=== PATIENT | male | born 1980 | race Caucasian/White ===

== ENCOUNTER 2019-12-01 10:31 | Emergency (ER) | payer MEDICARE, MEDICAID, SELFPAY ==
--- NOTE | ~2019-12-01 | CT_ITS ---
EXAMINATION: CT abdomen pelvis wo con DATE: 12/01/2019 15:03 INDICATION: Abdominal pain. Difficulty urinating. HIV. Rectal cancer. TECHNIQUE: Computed tomography (CT) of the abdomen and pelvis was performed without intravenous contr ast. Automated exposure control and iterative reconstruction technique were employed. The dose-length product was 242.58 mGy-cm. COMPARISON: None. FINDINGS: The visualized portions of the lung bases demonstrate mild atelectasis on the left. No pleu ral effusion. The heart size is normal. No pericardial effusion. The liver, spleen, gallbladder, panc reas, adrenal glands, and kidneys are normal. There is no urolithiasis. The bladder is distended. The re is diffuse bladder wall thickening. There are no dilated loops of bowel. The appendix is not visua lized. There are no pathologically enlarged lymph nodes. There is no free intraperitoneal fluid. Ther e is mild lumbar spondylosis. IMPRESSION: 1. Distended bladder with diffuse bladder wall thickening, which may be secondary to cystitis or neur ogenic bladder. Reviewed, dictated and finalized at location B. IMPRESSION: 1. Distended bladder with diffuse bladder wall thickening, which may be seconda ry to cystitis or neurogenic bladder.
[2019-12-01 10:43] VITALS: BP 95/57; PULSE 86; RESP 20; TEMP 36.8; O2SAT 99
[2019-12-01] MEDS: SODIUM CHLORIDE 0.9% IV 1,000 ML 999 ML IV CONT ×2 (11:20→13:22)
[2019-12-01 11:31] LABS: Basophils Percent Auto 0.3 % (0.2-1.2); Eosinophils Percent Auto 0.3 % (0-4.4); Hematocrit 28.9 % (42.0-52.0); Hemoglobin 9.8 g/dL (14.0-18.0); Immature Granulocyte Absolute 0.05 K/mm3 (0.00-0.031); Immature Granulocyte Percent A 1.4 % (0-0.5); Lymphocytes Absolute Auto 1.49 K/mm3 (0.9-3.2); Lymphocytes Percent Auto 42.6 % (18.3-44.2); Mean Corpuscular HGB Conc 33.9 g/dl (32-36); Mean Corpuscular Hemoglobin 33.1 pg (26-34); Mean Corpuscular Volume 97.6 fl (80-100); Mean Platelet Volume 10.1 fl (7.4-10.4); Monocytes Absolute Auto 0.3 K/mm3 (0.1-0.6); Monocytes Percent Auto 9.7 % (2.6-8.5); Neutrophils Absolute Auto 1.6 K/mm3 (1.3-6.7); Neutrophils Percent Auto 45.7 % (45.5-73.1); Platelet Count Result 104 k/mm3 (150-375); Red Blood Count 2.96 M/mm3 (4.6-6.20); Red Cell Distribution Width 14.4 % (11.5-14.5); White Blood Count 3.5 K/mm3 (4.5-10.0)
[2019-12-01 11:37] LABS: Add Urine Microscopic? YES; Appearance Urine Clear (Clear); Bilirubin Urine Negative (Negative); Blood Urine Negative (Negative); Color Urine Yellow (Yellow); Glucose Urine UA Negative (Negative); Ketones Urine Negative (Negative); Leukocyte Esterase Ur Negative LEU/UL (Negative); Nitrate Urine Negative (Negative); Protein Urine 1+ mg/dL (Negative); RBC Urine 0-2 /hpf (0-2); Specific Grav Ur 1.014 (1.001-1.035); WBC Urine 0-3 /hpf
[2019-12-01 11:48] LABS: Alanine Aminotransferase 12 U/L (4-50); Albumin Level 3.6 g/dL (3.5-5.1); Alkaline Phosphatase 81 U/L (38-126); Anion Gap 6 mmol/L (8-16); Aspartate Amino Transferase 33 U/L (17-59); Bilirubin,Total 0.8 mg/dL (0.2-1.3); Blood Urea Nitrogen 18 mg/dL (9-20); Carbon Dioxide 25 mmol/L (22-30); Chloride 106 mmol/L (98-107); Estimated CRCL calculation 55 ml/min; Estimated Glomerular Filt Rate 52; Glucose 88 mg/dL (75-110); Lipase 192 U/L (23-300); Sodium 137 mmol/L (137-145)
[2019-12-01 12:37] VITALS: BP 100/67; BP 93/55; BP 96/68; PULSE 55; PULSE 58; PULSE 66
[2019-12-01] MEDS: POTASSIUM CHLORIDE 20 MEQ TABLET 40 MEQ PO (13:22)
--- NOTE | 2019-12-01 13:30 | PC.NURSE ---
2nd liter of saline hung and infusing wide open without difficulty. pt resting on stretcher. denies pain or complaints.
--- NOTE | 2019-12-01 16:24 | ED.GENADULT ---
HPI - General Adult General Chief complaint: Urogenital-Male Stated complaint: difficulty urinating, weakness Time Seen by Provider: 12/01/19 10:42 Source: RN notes reviewed History of Present Illness HPI narrative: Patient presents to emergency department from home for difficulty urinating. Patient states he has had difficulty urinating over the past 4 days as well as general fatigue. He also notes a lack of appetite with the symptoms. Patient states he has a history of HIV as well as rectal cancer states that he has had chemotherapy and radiation and is scheduled for a PET scan next month. He denies any fevers or chills chest pain shortness of breath abdominal pain or any other symptoms Related Data Home Medications Medication Instructions Recorded Confirmed baclofen [Lioresal] 100 mcg INTRATHECAL DAILY 12/01/19 12/01/19 agyrzshgn-nsbgchdp-ldxtlor ala 1 tablet PO DAILY 12/01/19 12/01/19 [Biktarvy] diclofenac sodium [Voltaren-XR] 100 mg PO BID 12/01/19 12/01/19 fluconazole 200 mg PO BID 12/01/19 12/01/19 gabapentin [Neurontin] 600 mg PO QID 12/01/19 12/01/19 loperamide 2 mg PO QID 12/01/19 12/01/19 methadone [Dolophine] 5 mg PO BID 12/01/19 12/01/19 naloxone [Narcan] 1 spray INTRANASAL Q2M 12/01/19 ondansetron HCl [Zofran] 8 mg PO Q12H PRN 12/01/19 12/01/19 oxycodone-acetaminophen [Percocet] 1 tablet PO Q6H PRN 12/01/19 12/01/19 ropinirole [Requip XL] 1 mg PO DAILY 12/01/19 12/01/19 Allergies Allergy/AdvReac Type Severity Reaction Status Date / Time Penicillins AdvReac Intermediate contraindicated Verified 12/01/19 10:46 with current HIV Rx regimen sulfamethoxazole AdvReac Intermediate contraindicated Verified 12/01/19 10:46 by current HIV Rx regimen trimethoprim AdvReac Intermediate contraindicated Verified 12/01/19 10:46 by current HIV Rx regimen Review of Systems Review of Systems: Narrative: Gen.: Denies fevers or chills ENT: Denies congestion Respiratory: Denies shortness of breath or cough CV: Denies chest pain or palpitations GI: Denies abdominal pain nausea, emesis or diarrhea reports difficulty urinating Musculoskeletal: Denies back pain or muscle pain Neuro: Denies numbness, tingling, weakness or focal weakness Skin: Denies rash Except as documented, all other systems reviewed and negative [facility] Past Medical History Medical History (Updated 12/01/19 @ 16:27 by Myles Mckinney DO) HIV (human immunodeficiency virus infection) Rectal cancer Social History Social History (Updated 12/01/19 @ 16:26 by Myles Mckinney DO) Smoking status: Never smoker Exam Narrative: Exam Narrative: APPEARANCE: No acute distress, nontoxic, resting in bed EYES: EOMI HEENT: Normocephalic, atraumatic, OMM RESPIRATORY: No respiratory distress Clear to auscultation bilaterally with no rhonchi wheezing or rales. CARDIOVASCULAR: Regular rate and rhythm without murmurs rubs or gallops. ABDOMINAL: Soft, nontender, nondistended, no rebound or guarding MUSCULOSKELETAl: Moves all extremities. No clubbing, cyanosis or edema. NEURO: Awake and alert. Following commands, speech normal, no focal deficits SKIN:: Warm, dry. No rashes lesions or abrasions PSYCHIATRIC: Normal affect/mood, Course Course Emergency Course: Patient states he is followed by Dr. Peralta at [facility] Called and discussed with Dr. Ventura for oncology at [facility]. At this time reviewed records and the patient's pancytopenia is consistent with prior renal insufficiency is increased and with urinary retention and agrees with plan for Jordan catheter and transfer and will accept the patient Discussed patient plan for transfer in agreement at this time Patient again urinate in the ED. We did a postvoid bladder scan 350 mL and. Attempted to place a Jordan catheter in the emergency department only able to get a small way and to the urethra. Unable to pass at that point causing the pa
[2019-12-01 17:01] VITALS: BP 107/64; PULSE 66; RESP 16
--- NOTE | 2019-12-01 17:05 | PC.NURSE ---
pt attemping to use urinal. report to [facility] dong [facility] for transport 190
--- NOTE | 2019-12-01 17:58 | PC.NURSE ---
pt voided [address] vanegas unsuccessful. edp informed.
--- NOTE | 2019-12-01 18:00 | PC.NURSE ---
vrbo for norco 5-325 mg x1 po from dr dick
[2019-12-01 19:17] VITALS: BP 103/69; RESP 16
[2019-12-01 20:00] VITALS: BP 102/67; PULSE 59; RESP 16; O2SAT 98
--- NOTE | 2019-12-01 20:00 | PC.NURSE ---
[facility] accepted patient transfer eta 1944. [facility] arrived at 1958 to transport patient to [place]
== END 2019-12-01 20:00 | disposition short-term general hospital (02) ==
PROVIDERS: Emergency Provider Emergency Medicine; PCP Internal Medicine Infectious Disease
DX: R33.9 Retention of urine, unspecified (principal); N28.9 Disorder of kidney and ureter, unspecified; D61.818 Other pancytopenia; C20 Malignant neoplasm of rectum; Z21 Asymptomatic human immunodeficiency virus [HIV] infection status; R93.41 Abnormal radiologic findings on diagnostic imaging of renal pelvis, ureter, or bladder
CPT/HCPCS: 36415; 51703; 74176; 80053; 81001; 83690; 85025; 96360; 99285; A9270; J7030

== ENCOUNTER 2020-02-25 02:17 | Emergency (ER) | payer MEDICARE, MEDICAID, SELFPAY ==
[2020-02-25] VITALS (10 sets, daily range): BP systolic 124–139; BP diastolic 69–88; PULSE 85–111; RESP 16–24; TEMP 37.4–38.8; O2SAT 96–100
--- NOTE | ~2020-02-25 | XR_ITS ---
EXAMINATION: XR chest 1V portable EXAM DATE: 02/25/2020 02:47 INDICATION: Fever. TECHNIQUE: Portable AP frontal chest x-ray was obtained. Comparison is made to prior examination from 10/27/2017. FINDINGS: The lungs are clear. There are no pleural effusions. The cardiomediastinal silhouette is within normal limits. There is no pneumothorax suspected. The bones and soft tissues are unremarkab le. IMPRESSION: No acute cardiopulmonary findings. Reviewed, dictated and finalized at location A. INE OPERATOR
[2020-02-25 02:47] LABS: Basophils Percent Auto 0.3 % (0.2-1.2); Eosinophils Percent Auto 0.3 % (0-4.4); Hematocrit 33.4 % (42.0-52.0); Hemoglobin 11.6 g/dL (14.0-18.0); Immature Granulocyte Absolute 0.05 K/mm3 (0.00-0.031); Immature Granulocyte Percent A 0.6 % (0-0.5); Lymphocytes Absolute Auto 1.43 K/mm3 (0.9-3.2); Lymphocytes Percent Auto 18.2 % (18.3-44.2); Mean Corpuscular HGB Conc 34.7 g/dl (32-36); Mean Corpuscular Hemoglobin 35.4 pg (26-34); Mean Corpuscular Volume 101.8 fl (80-100); Mean Platelet Volume 8.9 fl (7.4-10.4); Monocytes Absolute Auto 0.5 K/mm3 (0.1-0.6); Monocytes Percent Auto 6.9 % (2.6-8.5); Neutrophils Absolute Auto 5.8 K/mm3 (1.3-6.7); Neutrophils Percent Auto 73.7 % (45.5-73.1); Platelet Count Result 140 k/mm3 (150-375); Red Blood Count 3.28 M/mm3 (4.6-6.20); Red Cell Distribution Width 13.9 % (11.5-14.5); White Blood Count 7.9 K/mm3 (4.5-10.0)
--- NOTE | 2020-02-25 02:53 | PC.NURSE ---
pt refused straight cath, states he isn't able to give urine sample at this time
[2020-02-25 03:07] LABS: Alanine Aminotransferase 21 U/L (4-50); Albumin Level 3.8 g/dL (3.5-5.1); Alkaline Phosphatase 82 U/L (38-126); Anion Gap 10 mmol/L (8-16); Aspartate Amino Transferase 47 U/L (17-59); Bilirubin,Total 0.8 mg/dL (0.2-1.3); Blood Urea Nitrogen 7 mg/dL (9-20); Calcium 7.8 mg/dL (8.4-10.2); Carbon Dioxide 25 mmol/L (22-30); Chloride 98 mmol/L (98-107); Estimated Glomerular Filt Rate > 60; Glucose 103 mg/dL (75-110); Potassium 3.3 mmol/L (3.4-5.0); Sodium 133 mmol/L (137-145)
[2020-02-25 03:08] LABS: Lactic Acid Reflex 1.7 mmol/L (0.7-2.1)
[2020-02-25 03:17] LABS: Add Urine Microscopic? YES; Appearance Urine Clear (Clear); Bilirubin Urine Negative (Negative); Blood Urine 1+ (Negative); Color Urine Yellow (Yellow); Glucose Urine UA Negative (Negative); Ketones Urine Negative (Negative); Leukocyte Esterase Ur Negative LEU/UL (Negative); Nitrate Urine Negative (Negative); Protein Urine 1+ mg/dL (Negative); WBC Urine 0-3 /hpf
--- NOTE | 2020-02-25 03:39 | ED.FEVER ---
HPI - Fever General Chief Complaint: Fever Stated Complaint: fever Time Seen by Provider: 02/25/20 02:21 Source: RN notes reviewed History of Present Illness HPI Narrative: Patient presents emergency department from home for fever. Patient states that fever began 2 days ago and is up to 104 ?F. He states he has been intermittently taking Tylenol for the fever. He denies any other symptoms with the fever he denies any headaches rhinorrhea sore throat cough shortness of breath chest pain abdominal pain nausea vomiting diarrhea or any other symptoms. States he does have a history of HIV for which she is followed by infectious disease [place] he also states he has a history of rectal cancer which she is currently not receiving treatment for as he is awaiting to find out possible surgical options and is followed at [facility] states he last took Tylenol at approximately 130 this morning Related Data Home Medications Medication Instructions Recorded Confirmed baclofen [Lioresal] 100 mcg INTRATHECAL DAILY 12/01/19 12/01/19 ldmwokhbc-qrawuapg-kehcdeh ala 1 tablet PO DAILY 12/01/19 12/01/19 [Biktarvy] diclofenac sodium [Voltaren-XR] 100 mg PO BID 12/01/19 12/01/19 fluconazole 200 mg PO BID 12/01/19 12/01/19 gabapentin [Neurontin] 600 mg PO QID 12/01/19 12/01/19 loperamide 2 mg PO QID 12/01/19 12/01/19 methadone [Dolophine] 5 mg PO BID 12/01/19 12/01/19 naloxone [Narcan] 1 spray INTRANASAL Q2M 12/01/19 ondansetron HCl [Zofran] 8 mg PO Q12H PRN 12/01/19 12/01/19 oxycodone-acetaminophen [Percocet] 1 tablet PO Q6H PRN 12/01/19 12/01/19 ropinirole [Requip XL] 1 mg PO DAILY 12/01/19 12/01/19 Allergies Allergy/AdvReac Type Severity Reaction Status Date / Time Penicillins AdvReac Intermediate contraindicated Verified 12/01/19 10:46 with current HIV Rx regimen sulfamethoxazole AdvReac Intermediate contraindicated Verified 12/01/19 10:46 by current HIV Rx regimen trimethoprim AdvReac Intermediate contraindicated Verified 08/28/20 10:46 by current HIV Rx regimen Review of Systems Review of Systems: Narrative: Gen.: Reports fever ENT: Denies congestion Respiratory: Denies shortness of breath or cough CV: Denies chest pain or palpitations GI: Denies abdominal pain nausea, emesis or diarrhea denies burning, urgency, frequency or hematuria Musculoskeletal: Denies back pain or muscle pain Neuro: Denies numbness, tingling, weakness or focal weakness Skin: Denies rash Except as documented, all other systems reviewed and negative [facility] Past Medical History Medical History HIV (human immunodeficiency virus infection) Rectal cancer Social History Social History Smoking status: Never smoker Exam Narrative: Exam Narrative: APPEARANCE: No acute distress, nontoxic, resting in bed EYES: EOMI HEENT: Normocephalic, atraumatic, OMM RESPIRATORY: No respiratory distress Clear to auscultation bilaterally with no rhonchi wheezing or rales. CARDIOVASCULAR: Regular rate and rhythm without murmurs rubs or gallops. ABDOMINAL: Soft, nontender, nondistended, no rebound or guarding MUSCULOSKELETAl: Moves all extremities. No clubbing, cyanosis or edema. NEURO: Awake and alert. Following commands, speech normal, no focal deficits SKIN:: Warm, dry. No rashes lesions or abrasions PSYCHIATRIC: Normal affect/mood, Course Course Emergency Course: Patient is followed by for infectious disease. On discussed with Dr. Blackmon for ID he agrees with current plan to obtain Covid swab and patient may be discharged home Discussed with patient results of workup and diagnosis. Discussed need for follow-up with primary care, proper use of medication, and reasons to return to the emergency department. Patient understands and agrees to current treatment plan Vital Signs Vital signs: Vital
[2020-02-25] MEDS: SODIUM CHLORIDE 0.9% IV 1,000 ML 999 ML IV CONT (03:53)
[2020-02-25] MEDS: IBUPROFEN 600 MG TABLET PO (03:53)
[2020-02-25 22:24] LABS: SARS-CoV-2 RNA PCR Negative
== END 2020-02-25 06:48 | disposition home or self-care (01) ==
PROVIDERS: Emergency Provider Emergency Medicine; PCP Internal Medicine Infectious Disease
DX: Z20.828 Contact with and (suspected) exposure to other viral communicable diseases (principal); R50.9 Fever, unspecified; Z21 Asymptomatic human immunodeficiency virus [HIV] infection status; C20 Malignant neoplasm of rectum
CPT/HCPCS: 36415; 71045; 80053; 81001; 83605; 85025; 87040; 87635; 87804; 96360; 99283; A9270; C9803; J7030; U0003

== ENCOUNTER 2020-06-22 07:03 | Emergency (ER) | payer MEDICARE, MEDICAID, SELFPAY ==
[2020-06-22 07:19] VITALS: BP 107/72; PULSE 100; RESP 18; TEMP 36.1; O2SAT 99
[2020-06-22 07:36] VITALS: BP 107/72; PULSE 100; RESP 18; TEMP 36.1; O2SAT 99
--- NOTE | 2020-06-22 07:42 | ED.SKABFB ---
HPI - Skin/Abscess/Foreign Bdy General Chief complaint: Urogenital-Male Stated complaint: Sore on penis, weakness Time Seen by Provider: 06/22/20 07:08 History of Present Illness HPI narrative: Patient is a 39-year-old male with history of HIV currently being treated with Biktarvy who presents to the ER with a sore on his penis. Developed about 3 days ago. Reports he was recently sexually active with his . 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 Apparently in the last week the had to be treated for syphilis again because his skin began to look like he was a cheetah. Patient denies urethral discharge or dysuria. Sores over the glans of the penis on the left side. There are no vesicles reported or drainage. Reports occasionally the scab will come off and he will see flush. He sees an infectious disease doctor in [place] and is scheduled for follow-up in 3 days. Related Data Home Medications Medication Instructions Recorded Confirmed nycfedbgr-wprcppci-ejezpwh ala 1 tablet PO DAILY 12/01/19 12/01/19 [Biktarvy] fluconazole 200 mg PO BID 12/01/19 12/01/19 gabapentin [Neurontin] 600 mg PO QID 12/01/19 12/01/19 naloxone [Narcan] 1 spray INTRANASAL Q2M 12/01/19 oxycodone-acetaminophen [Percocet] 1 tablet PO Q6H PRN 12/01/19 12/01/19 ropinirole [Requip XL] 1 mg PO DAILY 12/01/19 12/01/19 baclofen mg 06/22/20 methadone 06/22/20 valacyclovir 06/22/20 Allergies Allergy/AdvReac Type Severity Reaction Status Date / Time Penicillins AdvReac Intermediate contraindicated Verified 06/22/20 07:36 with current HIV Rx regimen sulfamethoxazole AdvReac Intermediate contraindicated Verified 06/22/20 07:42 by current HIV Rx regimen trimethoprim AdvReac Intermediate contraindicated Verified 06/22/20 07:42 by current HIV Rx regimen Review of Systems Constitutional: Constitutional: Denies chills, Denies fever(s) and Denies weakness Respiratory: Respiratory: Denies cough and Denies dyspnea Gastrointestinal: Gastrointestinal: Denies abdominal pain, Denies diarrhea, Denies nausea and Denies vomiting Genitourinary: Genitourinary: Reports genital lesions, Denies dysuria, Denies penile discharge, Denies testicular pain and Denies urinary frequency PMFSH Past Medical History Medical History HIV (human immunodeficiency virus infection) Rectal cancer Social History Social History (Updated 06/22/20 @ 07:44 by Luciano Celestin MD) Smoking status: Never smoker Substance use: former Substance use type: IV drugs Exam Narrative: Exam Narrative: GENERAL: Chronically ill-appearing, well-nourished, and in no acute distress. HEAD: Normocephalic, atraumatic. EXTREMITIES: Ambulates with steady gait with normal strength. : Circumcised male with a 1 cm x 0.5 cm sore to the left side of the glans that is not draining. No evidence of pustules or vesicles. No drainage from the tip of the penis. Normal-appearing scrotum. NEURO: Alert and oriented x3. PSYCH: Normal mood and affect. Course Course Emergency Course: Will send GC/chlamydia to lab. Patient received IM Bicillin. He will follow up with his infectious disease doctor in 3 days. There they will discuss whether he needs occurred treatment or not. Very suspicious for primary syphilis outbreak given the fact that the has history of syphilis and apparently had what sounds like a secondary syphilis episode. Vital Signs Vital signs: Vital Signs Temperature 97.0 F L 06/22/20 07:19 Pulse Rate 100 06/22/20 07:19 Respiratory Rate 18 06/22/20 07:19 Blood Pressure 107/72 06/22/20 07:19 Pulse Oximetry 99 06/22/20 07:19 Temperature 97.0 F L 06/22/20 07:36 Pulse Rate 100 06/22/20 07:36 Respiratory Rate 18 06/22/20 07:36 Blood Pressure 107/72 06/22/20 07:36 Pulse Oximetry 99 06/22/20
[2020-06-22] MEDS: PENICILLIN G BENZATHINE 2,400,000 UNITS/4 ML SYRINGE 2400000 UNITS IM (08:15)
[2020-06-22 08:20] VITALS: BP 119/61; PULSE 98; RESP 20; TEMP 36.3; O2SAT 97
== END 2020-06-22 08:20 | disposition home or self-care (01) ==
LOC: ANHED 07:54
PROVIDERS: Emergency Provider Emergency Medicine; PCP Internal Medicine Infectious Disease
DX: A51.0 Primary genital syphilis (principal); Z21 Asymptomatic human immunodeficiency virus [HIV] infection status; Z85.048 Personal history of other malignant neoplasm of rectum, rectosigmoid junction, and anus
CPT/HCPCS: 87491; 87591; 96372; 99283; J0561

== ENCOUNTER 2022-09-24 09:51 | Emergency (ER) | payer MEDICARE, MEDICAID, SELFPAY ==
[2022-09-24] VITALS (23 sets, daily range): BP systolic 94–108; BP diastolic 55–69; PULSE 72–105; RESP 16–18; TEMP 37.9–38.8; O2SAT 90–97
--- NOTE | ~2022-09-24 | XR_ITS ---
EXAMINATION: XR chest 2V 09/24/2022 10:40 INDICATION: Fever. Rectal cancer. HIV positive. PROCEDURE: 2 view chest COMPARISON: Comparison to multiple prior studies sequentially, with oldest reviewed study dated 11/2015. FINDINGS: The lungs are clear. The cardiomediastinal silhouette is within normal limits. There are no pleural effusions. There is no pneumothorax suspected. IMPRESSION: 1: NO ACUTE CARDIOPULMONARY DISEASE. Reviewed, dictated and finalized at location L.
[2022-09-24 10:29] LABS: Basophils Percent Auto 0.4 % (0.2-1.2); Hemoglobin 12.3 g/dL (14.0-18.0); Immature Granulocyte Absolute 0.04 K/mm3 (0.00-0.031); Immature Granulocyte Percent A 0.5 % (0-0.5); Lymphocytes Percent Auto 25.3 % (18.3-44.2); Mean Corpuscular HGB Conc 33.2 g/dl (32-36); Mean Corpuscular Hemoglobin 32.8 pg (26-34); Mean Corpuscular Volume 98.7 fl (80-100); Mean Platelet Volume 9.9 fl (7.4-10.4); Monocytes Absolute Auto 0.7 K/mm3 (0.1-0.6); Monocytes Percent Auto 8.6 % (2.6-8.5); Neutrophils Absolute Auto 5.2 K/mm3 (1.3-6.7); Neutrophils Percent Auto 65.2 % (45.5-73.1); Platelet Count Result 186 k/mm3 (150-375); Red Blood Count 3.75 M/mm3 (4.6-6.20); Red Cell Distribution Width 12.9 % (11.5-14.5); White Blood Count 7.9 K/mm3 (4.5-10.0)
[2022-09-24 10:42] LABS: Alanine Aminotransferase 22 U/L (6-50); Albumin Level 4.4 g/dL (3.5-5.1); Alkaline Phosphatase 61 U/L (38-126); Anion Gap 11 mmol/L (8-16); Aspartate Amino Transferase 30 U/L (17-59); Bilirubin,Total 1.1 mg/dL (0.2-1.3); Blood Urea Nitrogen 11 mg/dL (9-20); Calcium 7.9 mg/dL (8.4-10.2); Carbon Dioxide 21 mmol/L (22-30); Chloride 103 mmol/L (98-107); Estimated CRCL calculation 60 ml/min; Estimated Glomerular Filt Rate 48; Glucose 150 mg/dL (65-110); Potassium 3.4 mmol/L (3.4-5.0); Sodium 135 mmol/L (137-145)
[2022-09-24 10:45] LABS: Appearance Urine Clear (Clear); Bacteria Urine None Seen /hpf; Bilirubin Urine Negative (Negative); Blood Urine Negative (Negative); Color Urine Yellow (Yellow); Glucose Urine UA Negative (Negative); Ketones Urine Negative (Negative); Leukocyte Esterase Ur Negative LEU/UL (Negative); Nitrate Urine Negative (Negative); Non Pathogenic Casts 0-2; Protein Urine 1+ mg/dL (Negative); RBC Urine 0-2 /hpf (0-2); Specific Grav Ur 1.007 (1.001-1.035); Squamous Epithelial Cell Urine None seen /hpf (Few); Urobilinogen Urine 0.2 mg/dL (<2.0); WBC Urine 0-5 /hpf
[2022-09-24 10:46] LABS: Add Urine Microscopic? YES
[2022-09-24 11:06] LABS: Influenza A QL RT-PCR Negative (Negative); Influenza B QL RT-PCR Negative (Negative); SARS-CoV-2 RNA PCR Negative (Negative)
[2022-09-24 11:30] LABS: Lactic Acid Reflex 1.6 mmol/L (0.7-2.0)
[2022-09-24] MEDS: ACETAMINOPHEN 325 MG TABLET 650 MG PO (11:31)
[2022-09-24] MEDS: KETOROLAC 30 MG/ML VIAL (*BKC) IV PUSH (11:40)
[2022-09-24] MEDS: SODIUM CHLORIDE 0.9% IV 1,000 ML 999 ML IV CONT ×2 (11:41→11:43)
--- NOTE | 2022-09-24 12:39 | ED.FEVER ---
HPI - Fever General Chief Complaint: Fever Stated Complaint: fever, WEAKNESS Time Seen by Provider: 09/24/22 10:52 History of Present Illness HPI Narrative: Patient is a 42-year-old male who presents ER with weakness and fever. Reports he woke up this morning and was having body aches. He took his temperature and it was 102 ?F. Patient has history of HIV reports that when he has a potential infection he comes to the ER. He reports that he has been compliant with his home antiretroviral therapy. He is not on any daily antibiotics. He is unsure what his last CD4 count was. He was seen by Dr. Russell. Denies any known sick contacts. No abdominal pain/nausea/vomiting. Reports intermittent diarrhea related to previous rectal cancer and chemotherapy. Related Data Home Medications Medication Instructions Recorded Confirmed bictegravir 50 mg-emtricitabine 1 tablet PO DAILY 12/01/19 12/01/19 200 mg-tenofovir alafenam 25 mg tablet (Biktarvy) fluconazole 200 mg tablet 200 mg PO BID 12/01/19 12/01/19 gabapentin 600 mg tablet 600 mg PO QID 12/01/19 12/01/19 (Neurontin) naloxone 4 mg/actuation nasal 1 spray intranasal Q2M 12/01/19 spray (Narcan) oxycodone-acetaminophen 10 mg-325 1 tablet PO Q6H PRN Pain (Scale 12/01/19 12/01/19 mg tablet (Percocet) Score 7-10) ropinirole 2 mg tablet,extended 1 mg PO DAILY 12/01/19 12/01/19 release 24 hr (Requip XL) baclofen 10 mg tablet mg 06/22/20 methadone 10 mg tablet 06/22/20 valacyclovir 1 gram tablet 06/22/20 Allergies Allergy/AdvReac Type Severity Reaction Status Date / Time Penicillins AdvReac Intermediate contraindicated Verified 06/22/20 07:36 with current HIV Rx regimen sulfamethoxazole AdvReac Intermediate contraindicated Verified 06/22/20 07:42 by current HIV Rx regimen trimethoprim AdvReac Intermediate contraindicated Verified 06/22/20 07:42 by current HIV Rx regimen Review of Systems Review of Systems: All systems reviewed & are unremarkable except as noted in HPI and below Constitutional: Constitutional: Denies chills, Reports fatigue and Reports fever(s) ENT: Denies nasal congestion and Denies sore throat Cardiovascular: Cardiovascular: Denies chest pain, Denies rapid heart rate and Denies radiating jaw, neck or arm pain Respiratory: Respiratory: Denies cough, Denies dyspnea and Denies wheezing Gastrointestinal: Gastrointestinal: Denies abdominal pain, Denies nausea and Denies vomiting Musculoskeletal: Musculoskeletal: Reports myalgias, Denies arthralgias and Denies joint swelling Integumentary/Breasts: Skin/Breast: Denies erythema and Denies rash Neurologic: Denies headache(s), Denies focal weakness and Denies numbness PMFSH Past Medical History Medical History (Updated 09/24/22 @ 12:44 by Luciano Celestin MD) HIV (human immunodeficiency virus infection) Rectal cancer Restless leg syndrome Social History Social History (Updated 06/22/20 @ 07:44 by Luciano Celestin MD) Smoking status: Never smoker Substance use: former Substance use type: IV drugs Exam Narrative: GENERAL: Well-appearing, well-nourished, and in no acute distress. HEAD: Normocephalic, atraumatic. ENT: Mucous membranes moist. CHEST: Clear to auscultation. No respiratory distress. HEART: Regular rate and rhythm. Normal peripheral pulses. ABDOMEN: Soft, nontender, nondistended. EXTREMITIES: Normal range of motion. No edema. Warts on fingers/hands SKIN: Warm, dry, no rash. NEURO: Alert and oriented x3. PSYCH: Normal mood and affect. Course Vital Signs Vital signs: Vital Signs Temperature 102 F H 09/24/22 09:58 Pulse Rate 105 H 09/24/22 09:58 Respiratory Rate 18 09/24/22 09:58 Blood Pressure 106/63 09/24/22 09:58 Pulse Oximetry 97 09/24/22 09:58 Oxygen Delivery Room Air 09/24/22 09:58 Temperature 102 F H 09/24/22 09:58 Pulse Rate 105 H 09/24/22 09:58 Respirator
== END 2022-09-24 14:30 | disposition home or self-care (01) ==
PROVIDERS: Emergency Provider Emergency Medicine; PCP Internal Medicine Infectious Disease
DX: B34.9 Viral infection, unspecified (principal); Z20.822 Contact with and (suspected) exposure to COVID-19; G25.81 Restless legs syndrome; Z21 Asymptomatic human immunodeficiency virus [HIV] infection status; Z85.048 Personal history of other malignant neoplasm of rectum, rectosigmoid junction, and anus; Z79.899 Other long term (current) drug therapy
CPT/HCPCS: 36415; 71046; 80053; 81001; 83605; 85025; 87040; 87636; 96361; 96374; 99284; A9270; J1885; J7030

== ENCOUNTER 2024-06-17 10:52 | Emergency (ER) | payer MEDICARE, MEDICAID, SELFPAY ==
--- NOTE | ~2024-06-17 | XR_ITS ---
Clinical Indication: Shortness of breath PA and lateral views of the chest: Comparison: 09/24/2022 Findings: The lungs are clear, without evidence of focal consolidation or pleural effusion. Cardiome diastinal silhouette is within normal limits. Bones and soft tissues are unremarkable. Impression: Normal chest. Reviewed, dictated and finalized at location . Impression: Normal chest.
--- NOTE | ~2024-06-17 | CT_ITS ---
EXAMINATION: CT abdomen pelvis wo con DATE: 06/17/2024 15:39 INDICATION: epigastric pain TECHNIQUE: Computed tomography (CT) of the abdomen and pelvis was performed without intravenous contr ast. Automated exposure control and iterative reconstruction technique were employed. The dose-length product was 222.90 mGy-cm. COMPARISON: 12/01/2019. FINDINGS: Lower thorax: Unremarkable Liver: Normal. Biliary/Gallbladder: Gallbladder is normal. No bile duct dilation. Pancreas: No mass or duct dilation. Spleen: Normal. Adrenals:No mass. Kidneys: No suspicious mass or obstructing stone. Mild bilateral ureterectasis. GI tract: No small or large bowel dilation. The appendix is dilated to 9 mm. No inflammatory changes. Mesentery/Peritoneum: No ascites, mass, or free air. Retroperitoneum: No mass. Minimal atherosclerotic calcifications. Pelvis: Distended urinary bladder with mild wall thickening. Normal prostate. Soft Tissues: Soft tissues and body wall unremarkable. Bones: No acute osseous finding. IMPRESSION: Dilated appendix without inflammatory changes, in the absence of clinical findings of appendicitis th is may be normal for this patient. Mild bilateral ureterectasis, without significant inflammatory stranding or obstructing stone/mass. Urinary bladder distention with mild wall thickening. Correlate for cystitis and/or urinary retention . Reviewed, dictated and finalized at location K. IMPRESSION: Dilated appendix without inflammatory changes, in the absence of clinical findi ngs of appendicitis this may be normal for this patient. Mild bilateral ureterectasis, without significant inflammatory stranding or obs tructing stone/mass. Urinary bladder distention with mild wall thickening. Correlate for cystitis an d/or urinary retention.
--- NOTE | 2024-06-17 10:53 | ECG_ITS ---
Test Date: 2024-06-17 11:13:31 Measurements Intervals [place] Rate: 96 P: 44 WV: 96 QRS: 59 QRSD: 89 T: 62 QT: 367 QTc: 466 Interpretive Statements SINUS RHYTHM WITH SHORT W[place] INTERVAL NONSPECIFIC ST & T-WAVE ABNORMALITY Electronically Signed On 06-18-2024 13:57:27 CDT by Nima Hamm D.O
--- OUTSIDE RECORDS SUMMARY | 2024-06-17 10:54 | XMS_ITS | CONTINUITY OF CARE DOCUMENT ---
Author Name rozangelicavamshi Address Unknown Organization [facility] Address [address] [place] [address] Phone [phone] Care Team Providers Care Lace Mender Name Role Phone Berhane CISNEROS, Paula Unavailable QAMAR DEL TORO MD Unavailable QAMAR DEL TORO MD Unavailable [phone] INS[employer]ANCE [employer] Payer name Policy type / Coverage type [place] red green party [employer] [facility] Medicaid 1 [id number] [place] MEDICARE Medicare [id number]
--- OUTSIDE RECORDS SUMMARY | 2024-06-17 10:54 | XMS_ITS | Clinical Summary ---
Author Organization [facility] Address [address] [place] [address] Care Team Providers Care Wildlife Ecologist Name Role Phone Unavailable Primary Care Provider Unavailabl e Source Comments PLEASE NOTE, if this patient is a minor, it may be UNLAWFUL to discuss sensitive information that is contained in these records (such as FAMILY PLANNING, MENTAL HEALTH or SUBSTANCE ABUSE) with the minor patient's parent or other person without the patient's specific authorization.[facility] Allergies Active Allergy Reactions Criticality Noted Date Comments Dapsone 08/12/2018 Sulfa (Sulfonamide Antibiotics) 08/03 Medications bictegrav-emtricit- tenofov ala (BIKTARVY) 50-200-25 mg tab Take 1 Tab by mouth once daily 30 Tab 3 9 Active fluconazole (DIFLUCAN) 200 mg tablet Take 1 Tab by mouth once daily 30 Tab 3 9 Active atovaquone (MEPRON) 750 mg/5 mL suspension Take 5 mL by mouth once daily 300 mL 3 9 Active baclofen 20 mg tablet Take 1 Tab by mouth 3 (three) times daily 0 9 Active HYDROcodone-acetami nophen (NORCO) 10-325 mg per tablet Take 1 Tab by mouth every 6 (six) hours as needed 0 9 Active LYRICA 100 mg capsule Take 1 Cap by mouth 2 (two) times daily 0 9 Active rOPINIRole (REQUIP) 1 mg tablet Take 1 Tab by mouth every evening 0 9 Active ondansetron (ZOFRAN-ODT) 8 mg disintegrating tablet Take 1 Tab by mouth 2 (two) times daily as needed for nausea 30 Tab 9 Active dronabinol (MARINOL) 5 mg capsule Take 1 Cap by mouth 2 (two) times daily before a meal 60 Cap 3 9 Active Active Problems Problem Noted Date Diagnosed Date HSV infection 09/19/2018 Dyslipidemia 09/19/2018 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 ([facility]) 09/19/2018 Asymptomatic HIV infection ([facility]) 08/12/2018 Thrush 08/12/2018 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 Fibromyalgia 08/12/2018 Anal warts 08/12/2018 Medically noncompliant 08/12/2018 DDD (degenerative disc disease), lumbar 08/13/19 19 Resolved Problems Problem Noted Date Diagnosed Date Resolved Date Chronic renal failure, stage 3 (moderate) ([facility]) 08/12/2018 09/19/2018 Family History Medical History Relation Name Comments Diabetes Father Heart Problems Father Hypertension Father Stroke Father Relation Name Status Comments Father Alive Mother Alive Social History Tobacco Use Types Packs/Day Years Used Date Smoking Tobacco: Every Day Cigarettes Smokeless Tobacco: Never Comments:1pk/day Alcohol Use Standard Drinks/Week Comments Yes 0 (1 standard drink = 0.6 oz pur e alcohol) 1-2 times a year Social Connections Answer Date Recorded Social Connections and Isolation 0 11/28/2018 Financial Resource Strain Answer Date R ecorded Financial Resource Strain 0 2018 Stress Answer Date Recorded Stress 0 11/28/2018 Physical Activity Answer Date Recorded Physical Activity 0 11/28/2018 Food Insecurity Answer Date Recorded Food 0 11/28/2018 Transportation Needs Answer Date Record ed Transportation 0 11/28/2018 Housing Stability Answer Date Recorded Housing 0 11/28/2018 Safety and Environment Answer Date Ish rded Safety 0 11/28/2018 Utilities Answer Date Recorded Utilities 0 11/28/2018 Employment Answer Date Recorded Employment 0 11/28/2018 Sex and Gender Information Value Date Recorded Sex Assigned at Not on file Legal Sex Male 9:48 AM PDT Gender Identity Not on file Sexual Orientation Not on file Last Filed Vital Signs Vital Sign Reading Time Taken Comments Blood Pressure 125/81 09/19/2018 8:42 AM CDT Pulse 93 09/19/2018 8:42 AM CDT Temperature 36.7 C (98.1 F) 09/19/2018 8:42 AM CDT Respiratory Rate 20 09/19/2018 8:42 AM CDT Oxygen Saturation 93% 09/19/2018 8:42 AM CDT Inhaled Oxygen Concentration - - Weight 75.8 kg (167 lb) 09/19/2018 8:42 AM CDT Height 182.9 cm (6') 08/12/2018 8:32 AM CDT Body Mass Index 22.65 08/12/2018 8:32 AM CDT Plan of Treatment Not on file Insurance MEDICARE - [id number] [facility] - [employer] - MEDICAID
--- OUTSIDE RECORDS SUMMARY | 2024-06-17 10:54 | XMS_ITS | Referral Summary ---
Author Organization [facility] Address [address] [place] [address] Care Team Providers Care Medical Transcription Name Role Phone Syed Diggs MD Unavailable [phone] Wesley Pichardo MD Unavailable [phone] Marilyn Schreiber MD Unavailable [phone] Izabela Louis MD Primary Care Provider Allergies Active Allergy Reactions Criticality Noted Date Comments Sulfamethoxazole-Trimethoprim Rash Medium 2018 Prochlorperazine Unknown Low 09/08/2018 unknown Sulfa (Sulfonamide Antibiotics) Rash Medium 08/03 Medications baclofen (LIORESAL) 10 mg tablet Take 2 tablets (20 mg total) by mouth 3 (three) times a day as needed for muscle spasms 0 9 Active fluconazole (DIFLUCAN) 200 mg tablet Take 1 tablet (200 mg total) by mouth every morning 9 Active gabapentin (NEURONTIN) 600 mg tablet Take 1 tablet (600 mg total) by mouth 4 (four) times a day 28 tablet 9 Active naloxone (NARCAN) 1 mg/mL injection as needed 0 Active Vascepa 1 gram capsule Take 1 capsule (1 g total) by mouth 2 (two) times a day 0 Active Ventolin HFA 90 mcg/actuation inhaler Inhale 2 puffs every 6 (six) hours as needed for shortness of breath 3 Active True Metrix Glucose Meter [facility] USE TO TEST BLOOD SUGAR ONCE DAILY 2 Active Symtuza [phone] mg tablet Take 1 tablet by mouth daily with lunch 3 Active ondansetron ODT (ZOFRAN-ODT) 4 mg disintegrating tablet Take 1 tablet (4 mg total) by mouth as needed for nausea or vomiting 3 Active methadone (DOLOPHINE) 5 mg tablet Take 1 tablet (5 mg total) by mouth 2 (two) times a day 3 Active cyanocobalamin (Vitamin B-12) 1,000 mcg tabletIndications: Vitamin B12 Deficiency Take 1 tablet (1,000 mcg total) by mouth daily 30 tablet 4 Active folic acid (FOLVITE) 1 mg tablet Take 1 tablet (1 mg total) by mouth daily 30 tablet 4 Active chlorhexidine (PERIDEX) 0.12 % solution Apply 15 mL to the mouth or throat 2 (two) times a day 473 mL 4 Active oxyCODONE-acetamin ophen (PERCOCET) 10-325 mg per tablet Take 1 tablet by mouth every 6 (six) hours as needed for pain 15 tablet 4 Active omega-3 fatty acids (LOVAZA) 1 gram capsule Take 1 capsule (1 g total) by mouth 2 (two) times a day 4 Active lidocaine (XYLOCAINE) 5 % ointment 4 Active lidocaine 2 % solution Use small amount on qtip and apply to sore area on tongue 200 mL 2 4 Active imiquimod (ALDARA) 5 % creamIndications:V erruca vulgaris APPLY EXTERNALLY TO WARTS DAILY 24 each 2 4 Active magnesium citrate solutionIndication s:Bowel Evacuation,constip ation Take 296 mL by mouth once for 1 dose 296 mL 4 Active valACYclovir (VALTREX) 500 mg tablet TAKE 2 TABLETS BY MOUTH TWICE DAILY FOR 10 DAYS DIRECTED 4 Active Active Problems Problem Noted Date Diagnosed Date History of anal cancer 10/06/2023 Acute hypoxic respiratory failure 04/06/2023 Assessment & Plan (04/06/2023 1:44 PM COLD ROLLING SUPERVISOR): Required 2L O2 support since admission CXR no evidence of pneumonia or atelectasis Now weaned to room air - Perform home O2 evaluation prior to discharge - Management of influenza as described elsewhere Macrocytic anemia 04/06/2023 Assessment & Plan (04/06/2023 1:49 PM COLD ROLLING SUPERVISOR): Recent labs with low B12 and low folate Hb stable - Continue supplement with B12 and folate daily Verruca vulgaris 04/05/2023 Assessment & Plan (04/06/2023 1:36 PM COLD ROLLING SUPERVISOR): Follows with [facility] - Continue home Imiquimod 5% cream to warts x3/weekly. Pt not to touch eyes following application. Influenza 04/04/2023 Assessment & Plan (04/06/2023 1:46 PM COLD ROLLING SUPERVISOR): Reports fatigue, febrile episodes at home Tmax 38.3 deg C Initially requiring O2; weaned O2 PCR positive for Influenza A CXR 04/04 with no consolidations to suggest superimposed bacterial PNA - Continue Tamiflu, will extend to total 7 days given immunocompromised status - Advised on isolation precautions at home - Advised to talk to primary care provider regarding flu vaccination after his recovery ASTER (acute kidney injury) 04/04/2023 Assessment & Plan (04/06/2023 1:45 PM COLD ROLLING SUPERVISOR): Cr 1.5 up from baseline of ~1 Likely prerenal from poor po intake in setting of influenza Resolved with IVF, PO intake - Encourage to continue adequate hydration and food intake at home as he is recovering from influenza - Avoid nephrotoxins Chronic pain syndrome 04/04/2023 Assessment & Plan (04/06/2023 1:58 PM COLD ROLLING SUPERVISOR): Seems to be on both methadone and percocet at home Continue home doses of methadone 5 mg BID and oxy 10 q4 prn Other urethral stricture, male, unspecified site 03/24/2023 B12 deficiency 02/17/2023 Inflammation of the rectum 09/13/2020 Overview (09/13/2020): Added automatically from request for surgery [id number] Chronic rectal pain 09/13/2020 Overview (09/13/2020): Added automatically from request for surgery [id number] Squamous cell carcinoma of rectum 09/13/2020 Overview (09/13/2020): Added automatically from request for surgery [id number] Screening for malignant neoplasm of colon 2020 Overview (07/30/2020): Added automatically from request for surgery [id number] ASTER (acute kidney injury) 12/01/2019 Assessment & Plan (12/01/2019 10:32 PM CDT): likely post-renal due to structuring of the ureter/urethra. Also considering LAD obstructing ureter. Has evidence of thickened bladder on previous imaging. - Monitor BMP and electrolytes - Obtain PVR, RN will attempt to pass vanegas - UA w/ reflex - Patient will require urology consultation for likely stricture; consider consult overnight if coude catheter needed to be placed Weight loss, unintentional 03/15/2019 Elevated serum creatinine 03/01/2019 Assessment & Plan (03/02/2019 4:40 PM COLD ROLLING SUPERVISOR): Cr was 1.13 on admission and peaked to 1.41 03/01 likely in the setting of IV abx. Supported with IVFS and stopped IV abx. Cr 1.12 Skin breakdown to perianal region 02/28/2019 Assessment & Plan (03/01/2019 1:12 PM COLD ROLLING SUPERVISOR): Skin breakdown noted on exam between gluteal muscles/perianal region. In setting of XRT and diarrhea. Causes significant pain. -Wound care c/s 02/28 > Limited options for topical agents due to compatibility with XRT -Patient uses a lidocaine 5% get home that is not on formulary here -Pelvis CT 02/28 negative for fluid collection within soft tissues of the pelvis -Pain regimen as noted elsewhere and is a -Turn q2H -Will ctm, encourage patient to keep area dry and clean Other constipation 02/28/2019 Assessment & Plan (03/02/2019 4:45 PM COLD ROLLING SUPERVISOR): Likely 2/2 current XRT. Patient has diarrhea at baseline. -Will send c.diff, stool studies to r/o infection -cIVFs to maintain hydration -diarrhea started again the evening of 03/01, send c.diff -k 3.2 in setting of diarrhea, supplemented Pancytopenia 02/27/2019 Assessment & Plan (12/01/2019 10:29 PM CDT): has been pancytopenic since chemotherapy, also with HIV Assessment & Plan (03/02/2019 4:38 PM COLD ROLLING SUPERVISOR): In setting of chemotherapy 02/13- and XRT. -WBC 1.0, ANC 500 -H/H 8.5/23.4 on admission -PLT 3K on admission, s/p 1 unit, with appropriate bump to 16K -Will transfuse PLTs to keep > 10K, will likely need again as plt 13 today (denies blood nose/bm) -hgb 7.5, lorenzo transfuse 1 unit in setting of overall fatigue Assessment & Plan (02/27/2019 11:25 PM COLD ROLLING SUPERVISOR): - likely 2/2 recent chemo - transfuse 1 unit plt with post transfusion cbc - maintain type and screen - consent in chart Transaminitis 02/17/2019 Assessment & Plan (02/18/2019 1:05 PM COLD ROLLING SUPERVISOR): New onset 02/17 w/ t.bili 1, Alk Phos 181, AST 389, ALT 227. Previously normal. - Suspect drug-induced likely I/s/o recently initiated chemotherapy - consider also fluconazole vs biktarvy (these are not new prescriptions but concerns of compliance pre-hospitalization) vs recently initiated MSContin Down-trending today, plan to d/c Severe malnutrition 02/14/2019 Assessment & Plan (03/02/2019 4:44 PM COLD ROLLING SUPERVISOR): -encourage high protein diet. Assessment & Plan (02/16/2019 11:14 AM COLD ROLLING SUPERVISOR): Pt has had significant weight loss & poor PO intake. 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 - s/p treatment with atovaquone (rash to dapsone was, no G6PD) Encounter for antineoplastic chemotherapy 2018 Assessment & Plan (02/18/2019 1:04 PM COLD ROLLING SUPERVISOR): Admitted for C1 Mitomycin and 5-FU with concurrent radiation. Chemo now complete, d/c PICC today:PICC line removed 02/18. Skin at insertion site clean and without drainage/scabbing/redness/or ecchymosis. Catheter tip intact. Length 39cm. Sterile dressing placed Patient tolerated procedure without acute complications. O2 sats remained intact. Patient educated to keep dressing in place for 24 hours and monitor site for redness, swelling, drainage, fever. Instructed to notify physician with any questions or concerns History of kidney disease 02/13/2019 Assessment & Plan (02/15/2019 1:32 PM COLD ROLLING SUPERVISOR): Noted history of CKD3 with peak Cr in medical record to 2.5. Previously followed with nephrology though not in last couple years. Cr now WNL with adequate UO. - Monitor CMP daily, daily weights, and I&O Nicotine dependence 02/13/2019 Assessment & Plan (02/28/2019 1:13 PM COLD ROLLING SUPERVISOR): Will administer Nicotine patches in house Assessment & Plan (02/15/2019 1:35 PM COLD ROLLING SUPERVISOR): Current every day smoker. - Nicotine 21 mg patch daily - Encourage smoking cessation Anal cancer 10/17/2018 Assessment & Plan (04/06/2023 1:47 PM COLD ROLLING SUPERVISOR): S/p chemoradiation Currently in remission - Continue follow up with Dr. Peralta Assessment & Plan (12/01/2019 10:29 PM CDT): Follows w/ Dr. Fabian, last chemoXRT 03/2019 and poorly tolerated -Has outpatient PET scheduled Wednesday -Chronic rectal pain is managed by pain clinic outpatient w/ baclofen, gabapentin, topical lidocaine, methadone and Percocet -Will dose reduce gabapentin per CrCl to TID from QID Assessment & Plan (03/01/2019 1:06 PM COLD ROLLING SUPERVISOR): Patient of Dr. Peralta. S/p C1 mitomycin/5FU 02/13- with concurrent radiation. -Will continue XRT inpatient -Due for chemo on week 5 (~03/13/19) -Due to profound pancytopenia s/p chemo, will send out labwork to check deficiency in dihydropyrimidine dehydrogenase (DPD) per outpatient team 03/01 (has to be in pink tube) Assessment & Plan (02/27/2019 11:21 PM COLD ROLLING SUPERVISOR): - s/p C1 mitomycin/5FU 02/13- with concurrent radiation - pain control with MSContin 30 BID + oxycodone PRN Assessment & Plan (02/18/2019 12:52 PM COLD ROLLING SUPERVISOR): Diagnosed 09/23/2018, [id number]. Followed by Dr. Peralta. Treatment delayed 2/2 insurance issues. - Admitted for C1 mitomycin + 5FU w/ concurrent radiation (planned 28 fx) - first RT 02/13. C1 complete. Will follow up with xrt outpatient and with Dr. Peralta for C2 in a few weeks Tolerated treatment well Human immunodeficiency virus (HIV) disease 10/17 Assessment & Plan (04/06/2023 1:48 PM COLD ROLLING SUPERVISOR): Last CD[place] 148[place] [id number] - Continue Symtuza - Continue atovaquone 1500 mg daily for PCP ppx - Ensure close f/u with local ID Dr. Louis Assessment & Plan (12/01/2019 10:28 PM CDT): last CD4 79, HIV VL [id number] 07/2019 - repeat CD4, HIV RNA; continue Biktarvy, continue fluconazole (patient endorses is suppressive therapy after previous crypto infection) Assessment & Plan (02/28/2019 12:45 PM COLD ROLLING SUPERVISOR): Follows with Dr. Louis. Last CD4 153, VL 464K 10/2018. -Continue home biktarvy -Hx of crypto meningitis, continue suppressive fluconazole Assessment & Plan (02/27/2019 11:23 PM COLD ROLLING SUPERVISOR): - continue home biktarvy - hx of crypto meningitis, continue suppressive fluconazole Assessment & Plan (02/18/2019 1:12 PM COLD ROLLING SUPERVISOR): Most recent 10/19 CD4 153, VL 465k. Currently on Biktarvy with history of compliance issues, most recently reports minimal to no missed doses. C/b crypto meningitis (uncertain year, on ppx fluconazole) and PJP (2008, on atovaquone ppx). 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 Admit in 09/2015 noted history of and he was on medical ppx at that time with CSF negative for crypto during that admit. On establishing care with HIV team 08/2018, was no longer taking ppx and was subsequently restarted on fluconazole which he reports taking daily. - Continue home fluconazole ppx Cancer related pain 08/12/2018 Assessment & Plan (12/01/2019 10:30 PM CDT): Pain management as elsewhere Assessment & Plan (03/02/2019 4:39 PM COLD ROLLING SUPERVISOR): Patient reports rectal pain. In setting of anal cancer and current XRT. Follows with pain management outpatient, Dr. Pichardo. -On exam, there is skin breakdown between gluteal muscles > c/s wound care for wound management -Home pain regimen: MSContin 30mg BID, Gabapentin 600mg QID, Requip 1mg qpm, Howes 10/325 q6hprn, Baclofen 20mg TID prn Assessment & Plan (02/17/2019 12:10 PM COLD ROLLING SUPERVISOR): Follows with pain management (Dr. Pichardo) outpatient for history of DDD, on norco 10/325 q6h PRN, baclofen 20 TID PRN, gabapentin 600mg QID, lidocaine gel. Now with pain of DDD and rectal/neoplasm-related pain. - Continue home baclofen, gabapentin - Dc norco, start oxycodone PRN, 2nd line hydromorphone > based on usage, initiated long-acting regimen w/ MSContin 30mg BID, continue PRN oxycodone unchanged, de-escalated IV dilaudid - Anticipate rectal symptoms to worsen during treatment Medically noncompliant 08/12/2018 Thrush 08/12/2018 Anal warts 08/12/2018 Positive laboratory testing for human immunodeficiency virus 03/22/2013 Resolved Problems Problem Noted Date Diagnosed Date Resolved Date B12 deficiency 04/04/2023 04/06/2023 Assessment & Plan (04/04/2023 9:55 AM COLD ROLLING SUPERVISOR): -recent labs with low B12 and low folate -supplement with B12 and folate daily Hyponatremia 02/27/2019 04/06/2023 Assessment & Plan (04/05/2023 4:32 PM COLD ROLLING SUPERVISOR): -Resolved s/p IVF bolus Assessment & Plan (02/28/2019 12:46 PM COLD ROLLING SUPERVISOR): Na 127 on admit. Likely 2/2 dehydration related to diarrhea. -S/p 1L NS bolus x 2 -Na improving, 135 today -Will CTM Assessment & Plan (02/27/2019 11:24 PM COLD ROLLING SUPERVISOR): - 2/2 dehydration liked related to diarrhea. Urine sodium < 20, Na improving with NS - additional 1L NS overnight, repeat BMP in AM Neutropenic fever 02/27/2019 02/07/2024 Assessment & Plan (03/01/2019 12:53 PM COLD ROLLING SUPERVISOR): Patient admitted from [facility], where he reported chills with Tmax 38. Found to be neutropenic and was briefly hypotensive in [facility]. -Infectious workup: Blood cultures x 2 NGTD, urine cx negative, CXR clear -G/C serum 02/27 negative; Penile discharge cx/gram stain with mixed organisms 02/28 -Pelvis CT 02/28 : with no e/o abscess/fluid collection within pelvis, prostate and bladder size grossly normal; liquid content within colon -Patient has diarrhea at baseline, will send off Cdiff/stool studies with next BM -ANC 500 today, WBC 1.0, afebrile overnight, VSS (b/l BP 90-100s systolic) -Stop empiric therapy with vanc/cefe (02/27-03/01), received Azithromycin 1g X 1 02/28 for empiric therapy for urethritis -Due to skin breakdown in perianal region, will transition to PO antibiotics to treat for cellulitis > Augmentin 875 BID and doxycycline 100mg BID x 7 days Assessment & Plan (02/27/2019 11:26 PM COLD ROLLING SUPERVISOR): - chills, Tmax 38, neutropenic and was briefly hypotensive in [facility] - blood cultures pending - f/u urine culture - CXR clear - f/u GC/CT - continue vanc/cefe Anal warts 09/09/2018 12/01/2019 Overview (09/09/2018): Added automatically from request for surgery [id number] Immunizations Immunization Administration Dates Next Due Hep A / Hep B 04/24/2004 Influenza, Quadrivalent, Spl it, Intramuscular 01/18/2018,12/09/2016,01/16/2016,12/21 Influenza, Trivalent, IM (MDV) 03/23/2014 Influenza, Unspecified 02/03/2019 PPD TEST 06/25/2010,02/07/2008 Pneumococcal Conjugate PCV 13 07/01/2017 Pneumococcal Polysaccharide PPV23 12/21/2014, Tdap 06/25/2020,08/28/2009 Social History Tobacco Use Types Packs/Day Years Used Date Smoking Tobacco: Former Cigarettes 0.3 30.7 0 09/15/1989 - 05/20/2020 Smokeless Tobacco: Never Tobacco Cessation:Counseling Given: Not Answered Comments:Pt. wears nicotine patch and smokes 2 cigarettes/day. Alcohol Use Standard Drinks/Week Comments Never 0 (1 standard drink = 0.6 oz pur e alcohol) AUDIT-C Answer Date Recorded Q1: How often do you have a drink containing alcohol? Never 10/14/2023 Q2: How many drinks containi ng alcohol do you have on a typical day when you are drinking? Patient does not drink Q3: How often do you have si x or more drinks on one occasion? Never 10/14/2023 Personal Safety Answer Date Recorded Have you ever been in or are you currently in a harmful physical or emotional relationship or is someone making you feel afraid or unsafe? Denies 01/24/2024 Sex and Gender Information Value Date Recorded Sex Assigned at Not on file Legal Sex Male 4:35 AM COLD ROLLING SUPERVISOR Gender Identity Male 04/21/2023 9:16 AM COLD ROLLING SUPERVISOR Sexual Orientation Not on file Last Filed Vital Signs Vital Sign Reading Time Taken Comments Blood Pressure 114/75 02/09/2024 8:43 AM COLD ROLLING SUPERVISOR Pulse 80 02/09/2024 8:43 AM COLD ROLLING SUPERVISOR Temperature 36.7 C (98 F) 02/09/2024 8:43 AM COLD ROLLING SUPERVISOR Respiratory Rate 18 02/09/2024 8:43 AM COLD ROLLING SUPERVISOR Oxygen Saturation 96% 02/09/2024 8:43 AM COLD ROLLING SUPERVISOR Inhaled Oxygen Concentration - - Weight 87.2 kg (192 lb 3.2 oz) 02/09/2024 8:43 A M COLD ROLLING SUPERVISOR Height 182.9 cm (6' 0.01 ) 01/24/2024 12:38 AM C DT Body Mass Index 26.06 01/24/2024 12:38 AM CDT Plan of Treatment Not on file Procedures Procedure Name Priority Date/Time Associated Diagnosis Comments URINALYSIS AND REFLEX TO MICROSCOPIC AND CULTURE STAT 01/28/2024 2:02 AM CDT RPR After X-Ray 07/30/2016 1:06 AM CDT from Last 3 Months or Most Recently Relevant to Health Maintenance Results * (ABNORMAL) Urinalysis reflex to microscopic and culture Urine, clean voided (01/28/2024 2:02 AM CDT) Color, ur Straw Yellow Clarity, ur Clear Clear [facility] Specific gravity, ur 1.007 1.003 - 1.030 [facility] pH, urine 6.0 [facility] Comment: Interpretive Data U rine pH is affected by diet, medications, systemic acid-base disturbances, and renal tubular function. pH may affect urinary stone formation. For example, urine pH below 6.0 may help reduce the tendency for calcium phosphate stones and pH greater than 6.0 may reduce the tendency for uric acid stone formation. Source: [facility] Current Interpretive Data was last revised on 2017 Protein, ur ql Negative Negative [facility] Glucose, ur ql Negative Negative [facility] Ketones, ur Negative Negative [facility] Bilirubin, ur Negative Negative [facility] Blood, ur Trace(A) Negative [facility] Urobilinogen, ur <2.0 <2.0 mg/dL [facility] Nitrite, ur Negative Negative [facility] Leukocyte esterase, ur Negative Negative [facility] UA reflex comment Reflex to microscopic UA will be performed. [facility] Urine, clean voided 01/28/2024 2:02 AM CDT 01/28/2024 2:10 AM CDT us Xiomara Turk MD LAB MICROBIOLOGY - [facility] AL ORDERABLES Final Result Performing Organization Address City/[facility] Co de Phone Number [facility] Department [place] [address] * RPR, serum (07/30/2016 1:06 AM CDT) RPR Nonreactive [facility] Blood specimen (specimen) 07/30/2016 1:06 AM CDT 07/30/2016 2:17 AM CDT us Ace Olmstead MD PhD LAB MICROBIOLOGY - [facility]AL [facility] Final Result Performing Organization Address [facility] Co de Phone Number [facility] Department [place] [address] from Last 3 Months or Most Recently Relevant to Health Maintenance Insurance MEDICARE IDPA MEDICARE IDPA MANAGED MEDICAID GENERIC RISK OTHER [employer] [place] MEDICARE [facility] Advance Directives For more information, please contact: [phone] * Full Code (Latest Code Status on File) Date Activated Date Inactivated Comments 10/14/2023 8:34 AM 10/14/2023 1:36 PM * Full Code Date Activated Date Inactivated Comments 04/04/2023 9:29 AM 04/06/2023 9:43 PM * Full Code Date Activated Date Inactivated Comments 09/26/2020 10:17 AM 09/26/2020 3:55 PM * Full Code Date Activated Date Inactivated Comments 08/29/2020 9:41 AM 08/29/2020 3:12 PM * Full Code Date Activated Date Inactivated Comments 05/27/2020 10:57 AM 05/28/2020 4:48 AM Care Teams Medical Transcription Relationship Specialty [place] [address] [place] [id number] PCP - General 11/22/19 Syed Diggs MD Surgeon Colon and Rectal Surgery 09/30/18 Wesley Pichardo MD [address] [place] [address] [id number] Pain Management 09/30/18 Marilyn Schreiber MD [address] [place] [id number] Radiation Oncologist Radiation Oncology 10/24/18
--- OUTSIDE RECORDS SUMMARY | 2024-06-17 10:54 | XMS_ITS | Continuity of Care Document ---
Author Organization [facility] Address [address] [place] [address] [address] [place] [address] Phone Care Team Providers Care Brim Stretcher Name Role Phone Tammy Matos Unavailable Unavailable Procedures Procedure Date Office/outpatient Visit, Est Eye Exam & Treatment Advance Directives Directive Yes / No Effective Date File Name No Information Encounters Encounter Description Practice Location Reason(s) For Visit Diagnoses Date Provider Providers Copied on Encounter Office/outpat ient Visit, Est [facility], [address] [place] [address] [address], [place], [place], [id number], tel:[phone] [facility] No Information 2-200 9 Shawna Munoz. [address] , [address], [place], [place], [facility], . tel:[phone] [facility], [address] [place] [address] [address], [place], [place], [id number], tel:[phone] [facility] No Information 2-200 8 Shawna Munoz. [address] , [address], [place], [address], [place]. tel:[phone] Family History Family Member Type Diagnosis Age At Onset No Information Payers Payer name Insurance type Covered democrat ID Authoriza tion(s) Medicare [facility] [id number] Social History Type Description Quantity Date Captured Comments Sex Male Smoking Status No Information Chief Complaint And Reason For Visit No Information Reason For Referral Reason For Referral No Information History Of Present Illness Encounter Date Complaint History Of Prese nt Illness No Information Functional Status Date Functional Assessmen t No Information Instructions Date Instruction Additional Infor mation No Information Assessments Type Assessment Date No Information Patient Care Teams Name Effective Dates (start - stop) Status Members No Information
--- OUTSIDE RECORDS SUMMARY | 2024-06-17 10:54 | XMS_ITS | Clinical Summary ---
Author Organization [facility] Address [address] [place] [address] Care Team Providers Care Buffing Turner And Counter Name Role Phone Syed Diggs MD Unavailable [phone] Wesley Pichardo MD Unavailable [phone] Marilyn Schreiber MD Unavailable [phone] Izabela Louis MD Primary Care Provider Allergies [...] breath 3 Active True Metrix Glucose Meter [facility] USE TO TEST BLOOD SUGAR ONCE DAILY 2 Active Symtuza [phone] mg tablet Take 1 tablet by mouth [...] 04/06/2023 Assessment & Plan (04/06/2023 1:44 PM LEASE ADMINISTRATOR): Required 2L O2 support since admission CXR no evidence of pneumonia or atelectasis Now weaned to room air - Perform home O2 evaluation prior to discharge - Management of influenza as described elsewhere Macrocytic anemia 04/06/2023 Assessment & Plan (04/06/2023 1:49 PM LEASE ADMINISTRATOR): Recent labs with low B12 and low folate Hb stable - Continue supplement with B12 and folate daily Verruca vulgaris 04/05/2023 Assessment & Plan (04/06/2023 1:36 PM LEASE ADMINISTRATOR): Follows with [facility] - Continue home Imiquimod 5% cream to warts x3/weekly. Pt not to touch eyes following application. Influenza 04/04/2023 Assessment & Plan (04/06/2023 1:46 PM LEASE ADMINISTRATOR): Reports fatigue, febrile episodes at home Tmax [...] 04/04/2023 Assessment & Plan (04/06/2023 1:45 PM LEASE ADMINISTRATOR): Cr 1.5 up from baseline of ~1 Likely prerenal from poor po intake in setting of influenza Resolved with IVF, PO intake - Encourage to continue adequate hydration and food intake at home as he is recovering from influenza - Avoid nephrotoxins Chronic pain syndrome 04/04/2023 Assessment & Plan (04/06/2023 1:58 PM LEASE ADMINISTRATOR): Seems to be on both methadone and percocet at home Continue home doses of methadone 5 mg BID and oxy 10 q4 prn Other urethral stricture, male, unspecified site 03/24/2023 B12 deficiency 02/17/2023 Inflammation of the rectum 09/13/2020 Overview (09/13/2020): Added automatically from request for surgery [id number] Chronic rectal pain 09/13/2020 Overview (09/13/2020): Added automatically from request for surgery [id number] Squamous cell carcinoma of rectum 09/13/2020 Overview (09/13/2020): Added automatically from request for surgery [id number] Screening for malignant neoplasm of colon 2020 Overview (07/30/2020): Added automatically from request for surgery [id number] ASTER (acute kidney injury) 12/01/2019 Assessment & [...] 03/01/2019 Assessment & Plan (03/02/2019 4:40 PM LEASE ADMINISTRATOR): Cr was 1.13 on admission and peaked to 1.41 03/01 likely in the setting of IV abx. Supported with IVFS and stopped IV abx. Cr 1.12 Skin breakdown to perianal region 02/28/2019 Assessment & Plan (03/01/2019 1:12 PM LEASE ADMINISTRATOR): Skin breakdown noted on exam between gluteal [...] 02/28/2019 Assessment & Plan (03/02/2019 4:45 PM LEASE ADMINISTRATOR): Likely 2/2 current XRT. Patient has diarrhea at baseline. -Will send c.diff, stool studies to r/o infection -cIVFs to maintain hydration -diarrhea started again the evening of 03/01, send c.diff -k 3.2 in setting of diarrhea, supplemented Pancytopenia 02/27/2019 Assessment & Plan (12/01/2019 10:29 PM CDT): has been pancytopenic since chemotherapy, also with HIV Assessment & Plan (03/02/2019 4:38 PM LEASE ADMINISTRATOR): In setting of chemotherapy 02/13- and XRT. -WBC 1.0, ANC 500 -H/H 8.5/23.4 on admission -PLT 3K on admission, s/p 1 unit, with appropriate bump to 16K -Will transfuse PLTs to keep > 10K, will likely need again as plt 13 today (denies blood nose/bm) -hgb 7.5, lorenzo transfuse 1 unit in setting of overall fatigue Assessment & Plan (02/27/2019 11:25 PM LEASE ADMINISTRATOR): - likely 2/2 recent chemo - transfuse 1 unit plt with post transfusion cbc - maintain type and screen - consent in chart Transaminitis 02/17/2019 Assessment & Plan (02/18/2019 1:05 PM LEASE ADMINISTRATOR): New onset 02/17 w/ t.bili 1, Alk Phos 181, AST 389, ALT 227. Previously normal. - Suspect drug-induced likely I/s/o recently initiated chemotherapy - consider also fluconazole vs biktarvy (these are not new prescriptions but concerns of compliance pre-hospitalization) vs recently initiated MSContin Down-trending today, plan to d/c Severe malnutrition 02/14/2019 Assessment & Plan (03/02/2019 4:44 PM LEASE ADMINISTRATOR): -encourage high protein diet. Assessment & Plan (02/16/2019 11:14 AM LEASE ADMINISTRATOR): Pt has had significant weight loss & poor PO intake. 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 - s/p treatment with atovaquone (rash to dapsone was, no G6PD) Encounter for antineoplastic chemotherapy 2018 Assessment & Plan (02/18/2019 1:04 PM LEASE ADMINISTRATOR): Admitted for C1 Mitomycin and 5-FU with [...] 02/13/2019 Assessment & Plan (02/15/2019 1:32 PM LEASE ADMINISTRATOR): Noted history of CKD3 with peak Cr in medical record to 2.5. Previously followed with nephrology though not in last couple years. Cr now WNL with adequate UO. - Monitor CMP daily, daily weights, and I&O Nicotine dependence 02/13/2019 Assessment & Plan (02/28/2019 1:13 PM LEASE ADMINISTRATOR): Will administer Nicotine patches in house Assessment & Plan (02/15/2019 1:35 PM LEASE ADMINISTRATOR): Current every day smoker. - Nicotine 21 mg patch daily - Encourage smoking cessation Anal cancer 10/17/2018 Assessment & Plan (04/06/2023 1:47 PM LEASE ADMINISTRATOR): S/p chemoradiation Currently in remission - Continue [...] QID Assessment & Plan (03/01/2019 1:06 PM LEASE ADMINISTRATOR): Patient of Dr. Peralta. S/p C1 mitomycin/5FU 02/13- with concurrent radiation. -Will continue XRT inpatient -Due for chemo on week 5 (~03/13/19) -Due to profound pancytopenia s/p chemo, will send out labwork to check deficiency in dihydropyrimidine dehydrogenase (DPD) per outpatient team 03/01 (has to be in pink tube) Assessment & Plan (02/27/2019 11:21 PM LEASE ADMINISTRATOR): - s/p C1 mitomycin/5FU 02/13- with concurrent radiation - pain control with MSContin 30 BID + oxycodone PRN Assessment & Plan (02/18/2019 12:52 PM LEASE ADMINISTRATOR): Diagnosed 09/23/2018, [id number]. Followed by Dr. Peralta. Treatment delayed 2/2 insurance issues. - Admitted for C1 mitomycin + 5FU w/ concurrent radiation (planned 28 fx) - first RT 02/13. C1 complete. Will follow up with xrt outpatient and with Dr. Peralta for C2 in a few weeks Tolerated treatment well Human immunodeficiency virus (HIV) disease 10/17 Assessment & Plan (04/06/2023 1:48 PM LEASE ADMINISTRATOR): Last CD4 148[place] [id number] - Continue Symtuza - Continue atovaquone 1500 mg daily for PCP ppx - Ensure close f/u with local ID Dr. Louis Assessment & Plan (12/01/2019 10:28 PM CDT): last CD4 79, HIV VL [id number] 07/2019 - repeat CD4, HIV RNA; continue Biktarvy, continue fluconazole (patient endorses is suppressive therapy after previous crypto infection) Assessment & Plan (02/28/2019 12:45 PM LEASE ADMINISTRATOR): Follows with Dr. Louis. Last CD4 153, VL 464K 10/2018. -Continue home biktarvy -Hx of crypto meningitis, continue suppressive fluconazole Assessment & Plan (02/27/2019 11:23 PM LEASE ADMINISTRATOR): - continue home biktarvy - hx of crypto meningitis, continue suppressive fluconazole Assessment & Plan (02/18/2019 1:12 PM LEASE ADMINISTRATOR): Most recent 10/19 CD4 153, VL 465k. [...] 08/12/2018 Assessment & Plan (02/15/2019 1:32 PM LEASE ADMINISTRATOR): History of crypto meningitis; unclear what year [...] elsewhere Assessment & Plan (03/02/2019 4:39 PM LEASE ADMINISTRATOR): Patient reports rectal pain. In setting of anal cancer and current XRT. Follows with pain management outpatient, Dr. Pichardo. -On exam, there is skin breakdown between gluteal muscles > c/s wound care for wound management -Home pain regimen: MSContin 30mg BID, Gabapentin 600mg QID, Requip 1mg qpm, [place] 10/325 q6hprn, Baclofen 20mg TID prn Assessment & Plan (02/17/2019 12:10 PM LEASE ADMINISTRATOR): Follows with pain management (Dr. Pichardo) outpatient [...] 04/06/2023 Assessment & Plan (04/04/2023 9:55 AM LEASE ADMINISTRATOR): -recent labs with low B12 and low folate -supplement with B12 and folate daily Hyponatremia 02/27/2019 04/06/2023 Assessment & Plan (04/05/2023 4:32 PM LEASE ADMINISTRATOR): -Resolved s/p IVF bolus Assessment & Plan (02/28/2019 12:46 PM LEASE ADMINISTRATOR): Na 127 on admit. Likely 2/2 dehydration related to diarrhea. -S/p 1L NS bolus x 2 -Na improving, 135 today -Will CTM Assessment & Plan (02/27/2019 11:24 PM LEASE ADMINISTRATOR): - 2/2 dehydration liked related to diarrhea. Urine sodium < 20, Na improving with NS - additional 1L NS overnight, repeat BMP in AM Neutropenic fever 02/27/2019 02/07/2024 Assessment & Plan (03/01/2019 12:53 PM LEASE ADMINISTRATOR): Patient admitted from [facility], where he reported chills with Tmax 38. Found to be neutropenic and was briefly hypotensive in [facility]. -Infectious workup: Blood cultures x 2 NGTD, [...] days Assessment & Plan (02/27/2019 11:26 PM LEASE ADMINISTRATOR): - chills, Tmax 38, neutropenic and was briefly hypotensive in [facility] - blood cultures pending - f/u urine culture - CXR clear - f/u GC/CT - continue vanc/cefe Anal warts 09/09/2018 12/01/2019 Overview (09/09/2018): Added automatically from request for surgery [id number] Immunizations Immunization Administration Dates Next Due Hep A / Hep B 04/24/2004 Influenza, Quadrivalent, Spl it, Intramuscular 01/18/2018,12/09/2016,01/16/2016,12/21 Influenza, Trivalent, IM (MDV) 03/23/2014 Influenza, Unspecified 02/03/2019 PPD TEST 06/25/2010,02/07/2008 Pneumococcal Conjugate PCV 13 07/01/2017 Pneumococcal Polysaccharide PPV23 12/21/2014, Tdap 06/25/2020,08/28/2009 Surgical History Surgery Date Site/Laterality Comments HAND SURGERY 04/05/2001 - 04/04/2002 Left OTHER SURGICAL HISTORY anal condyloma removal x 3 COLONOSCOPY Medical History Medical History Date Comments Human immunodeficiency virus (HIV) disease (HCC) HIV Infection - HLA B5701 (- ). CCR5 (+). Genotype: M184V, K103N, A98A/S, R211Q/H, G333E, L10I, L63T, & I64V. (Added by TW Conv) Attention-deficit hyperactivity disorder Attention-deficit/hyperactivity disorder - (Added by TW Conv) Kidney disease Neuropathy Cryptococcal meningitis (HCC) Status post chemotherapy last do se in mar 2019 Status post radiation therapy [facility] in mar 2019 Awareness under anesthesia woke up during anal wart removal x 2 -> recalls being told he needed a little more medicine. Lupus Rectal cancer (HCC) Fracture of nasal bones 2019 Anemia Family History Medical History Relation Name Comments Diabetes Father Dad Heart attack Father Dad Stroke Father Dad No Known Problems Mother Anesthesia problems Neg Hx Relation Name Status Comments Father Dad Alive Mother Alive Social History Tobacco Use [...] on file Legal Sex Male 4:35 AM LEASE ADMINISTRATOR Gender Identity Male 04/21/2023 9:16 AM LEASE ADMINISTRATOR Sexual Orientation Not on file Obstetrics History Last Filed Vital Signs Vital Sign Reading Time Taken Comments Blood Pressure 114/75 02/09/2024 8:43 AM LEASE ADMINISTRATOR Pulse 80 02/09/2024 8:43 AM LEASE ADMINISTRATOR Temperature 36.7 C (98 F) 02/09/2024 8:43 AM LEASE ADMINISTRATOR Respiratory Rate 18 02/09/2024 8:43 AM LEASE ADMINISTRATOR Oxygen Saturation 96% 02/09/2024 8:43 AM LEASE ADMINISTRATOR Inhaled Oxygen Concentration - - Weight 87.2 kg (192 lb 3.2 oz) 02/09/2024 8:43 A M LEASE ADMINISTRATOR Height 182.9 cm (6' 0.01 ) 01/24/2024 12:38 AM C DT Body Mass Index 26.06 01/24/2024 12:38 AM CDT Plan of Treatment Health Maintenance Due Date Last Done Comments Depression Screening 1980 HLA B 5701 Typing 1980 T Spot (quantiferon gold) 1980 Varicella Vaccines (1 of 2 - 13+ 2-dose series) 1993 G6PD 1998 Hemoglobin A1C 1998 Regular Well Visit/Exam 18-64 1998 Zoster Vaccine (1 of 2) 07/01/1999 Hepatitis A Vaccines (2 of 3 - Hep A Twinrix risk 3-dose series) 05/22/2004 04/24/2004 Hepatitis B Vaccines (2 of 3 - Hep B Twinrix 3-dose series) 05/22/2004 04/24/2004 Hepatitis C Screening 07/14/2016 07/15/2015 , 07/18/2010, 03/09/2008 HIV+ Chlamydia and Gonorrhea Screening (Rectal) 07/30/2017 07/30/2016 HIV+ Chlamydia and Gonorrhea Screening (Throat) 07/30/2017 07/30/2016 RPR Screening 07/30/2017 07/30/2016 Lipid Panel 09/20/2019 09/19/2018, 08/12/2018 HIV + Chlamydia and Gonorrhea Screening (Urine) 07/23/2020 07/24/2019 Covid-19 Vaccine ( season) 2023 12/26/2020, 10/18/2020, 08/14/2020, Additional history exists Influenza Vaccine (#1) 2023 9, 01/18/2018, 12/09/2016, Additional history exists Proteinuria screening Urinalysis (UA) 01/27/2025 01/28/2024, 01/28/2024, 12/02/2019, Additional history exists DTaP/Tdap/Td Vaccine (3 - Td or Tdap) 06/25/2030 06/25/2020, 08/28/2009 Pneumococcal vaccine <65 (4 of 4 - PCV20 or PCV21) 2030 07/01/2017, 12/21/2014, 08/28/2009 HPV Vaccines Aged Out No longer eligi ble based on patient's age to complete this topic Procedures Procedure Name Priority Date/Time Associated Diagnosis Comments URINALYSIS AND REFLEX TO MICROSCOPIC AND CULTURE STAT 01/28/2024 2:02 AM CDT RPR After X-Ray 07/30/2016 1:06 AM CDT from Last 3 Months or Most Recently Relevant to Health Maintenance Results * (ABNORMAL) Urinalysis reflex to microscopic and culture Urine, clean voided (01/28/2024 2:02 AM CDT) Color, ur Straw Yellow Clarity, ur Clear Clear [facility] Specific gravity, ur 1.007 1.003 - 1.030 [facility] pH, urine 6.0 [facility] Comment: Interpretive Data U rine pH is affected by diet, medications, systemic acid-base disturbances, and renal tubular function. pH may affect urinary stone formation. For example, urine pH below 6.0 may help reduce the tendency for calcium phosphate stones and pH greater than 6.0 may reduce the tendency for uric acid stone formation. Source: [facility] Current Interpretive Data was last revised on 2017 Protein, ur ql Negative Negative [facility] Glucose, ur ql Negative Negative [facility] Ketones, ur Negative Negative [facility] Bilirubin, ur Negative Negative [facility] Blood, ur Trace(A) Negative [facility] Urobilinogen, ur <2.0 <2.0 mg/dL [facility] Nitrite, ur Negative Negative [facility] Leukocyte esterase, ur Negative Negative [facility] UA reflex comment Reflex to microscopic UA will be performed. [facility] Urine, clean voided 01/28/2024 2:02 AM CDT 01/28/2024 2:10 AM CDT Xiomara uTrk MD LAB MICROBIOLOGY - GENER AL ORDERABLES Final Result MOUNA [facility] [place] [address] * RPR, serum (07/30/2016 1:06 AM CDT) [facility]PR [facility] Blood specimen (specimen) 07/30/2016 1:06 AM CDT 07/30/2016 2:17 AM CDT us Ace Olmstead MD PhD LAB MICROBIOLOGY - GENERAL KRISTOPHER IRAHETA Final Result Performing Organization Address City/State/[facility] Co de Phone Number MOUNA [facility] Department [place] [address] from Last 3 Months or Most Recently Relevant to Health Maintenance Insurance MEDICARE [facility] MEDICARE [employer]PA MANAGED MEDICAID GENERIC RISK OTHER [employer] [place] MEDIC[place] Advance Directives For more information, please contact: [phone] * Full Code (Latest Code Status on [...] 10:57 AM 05/28/2020 4:48 AM Care Teams Buffing Turner And Counter Relationship Specialty Start Date End Date Izabela Louis MD [address] [place] [id number] PCP - General 11/22/19 Syed Diggs MD Surgeon Colon and Rectal Surgery 09/30/18 Wesley Pichardo MD [address] [address] Pain Management 09/30/18 Marilyn Schreiber MD [address] [address] Radiation Oncologist Radiation Oncology 10/24/18
--- OUTSIDE RECORDS SUMMARY | 2024-06-17 10:54 | XMS_ITS ---
Author Organization [facility] Address [address] [place] [address] Care Team Providers Care Rotary Engraver Name Role Phone Syed Diggs MD Unavailable [phone] Wesley Pichardo MD Unavailable [phone] Marilyn Schreiber MD Unavailable [phone] Izabela Louis MD Primary Care Provider Active Problems Problem Noted Date Diagnosed Date History of anal cancer 10/06/2023 Acute hypoxic respiratory failure 04/06/2023 Assessment & Plan (04/06/2023 1:44 PM [employer] PLUMBER): Required 2L O2 support since admission CXR no evidence of pneumonia or atelectasis Now weaned to room air - Perform home O2 evaluation prior to discharge - Management of influenza as described elsewhere Macrocytic anemia 04/06/2023 Assessment & Plan (04/06/2023 1:49 PM FI[employer] SERVICES PLUMBER): Recent labs with low B12 and low folate Hb stable - Continue supplement with B12 and folate daily Verruca vulgaris 04/05/2023 Assessment & Plan (04/06/2023 1:36 PM FIRE SERVICES PLUMBER): Follows with [facility] - Continue home Imiquimod 5% cream to warts x3/weekly. Pt not to touch eyes following application. Influenza 04/04/2023 Assessment & Plan (04/06/2023 1:46 PM FI[employer] SERVICES PLUMBER): Reports fatigue, febrile episodes at home Tmax [...] 04/04/2023 Assessment & Plan (04/06/2023 1:45 PM FIRE SERVICES PLUMBER): Cr 1.5 up from baseline of ~1 Likely prerenal from poor po intake in setting of influenza Resolved with IVF, PO intake - Encourage to continue adequate hydration and food intake at home as he is recovering from influenza - Avoid nephrotoxins Chronic pain syndrome 04/04/2023 Assessment & Plan (04/06/2023 1:58 PM [employer] SERVICES PLUMBER): Seems to be on both methadone and percocet at home Continue home doses of methadone 5 mg BID and oxy 10 q4 prn Other urethral stricture, male, unspecified site 03/24/2023 B12 deficiency 02/17/2023 Inflammation of the rectum 09/13/2020 Overview (09/13/2020): Added automatically from request for surgery [id number] Chronic rectal pain 09/13/2020 Overview (09/13/2020): Added automatically from request for surgery [id number] Squamous cell carcinoma of rectum 09/13/2020 Overview (09/13/2020): Added automatically from request for surgery [id number] Screening for malignant neoplasm of colon 2020 Overview (07/30/2020): Added automatically from request for surgery [id number] ASTER (acute kidney injury) 12/01/2019 Assessment & [...] 03/01/2019 Assessment & Plan (03/02/2019 4:40 PM FI[employer] SERVICES PLUMBER): Cr was 1.13 on admission and peaked to 1.41 03/01 likely in the setting of IV abx. Supported with IVFS and stopped IV abx. Cr 1.12 Skin breakdown to perianal region 02/28/2019 Assessment & Plan (03/01/2019 1:12 PM FIRE SERVICES PLUMBER): Skin breakdown noted on exam between gluteal [...] 02/28/2019 Assessment & Plan (03/02/2019 4:45 PM FIRE SERVICES PLUMBER): Likely 2/2 current XRT. Patient has diarrhea at baseline. -Will send c.diff, stool studies to r/o infection -cIVFs to maintain hydration -diarrhea started again the evening of 03/01, send c.diff -k 3.2 in setting of diarrhea, supplemented Pancytopenia 02/27/2019 Assessment & Plan (12/01/2019 10:29 PM CDT): has been pancytopenic since chemotherapy, also with HIV Assessment & Plan (03/02/2019 4:38 PM [employer] SERVICES PLUMBER): In setting of chemotherapy 02/13- and XRT. -WBC 1.0, ANC 500 -H/H 8.5/23.4 on admission -PLT 3K on admission, s/p 1 unit, with appropriate bump to 16K -Will transfuse PLTs to keep > 10K, will likely need again as plt 13 today (denies blood nose/bm) -hgb 7.5, lorenzo transfuse 1 unit in setting of overall fatigue Assessment & Plan (02/27/2019 11:25 PM FIRE SERVICES PLUMBER): - likely 2/2 recent chemo - transfuse 1 unit plt with post transfusion cbc - maintain type and screen - consent in chart Transaminitis 02/17/2019 Assessment & Plan (02/18/2019 1:05 PM [employer] SERVICES PLUMBER): New onset 02/17 w/ t.bili 1, Alk Phos 181, AST 389, ALT 227. Previously normal. - Suspect drug-induced likely I/s/o recently initiated chemotherapy - consider also fluconazole vs biktarvy (these are not new prescriptions but concerns of compliance pre-hospitalization) vs recently initiated MSContin Down-trending today, plan to d/c Severe malnutrition 02/14/2019 Assessment & Plan (03/02/2019 4:44 PM FI[employer] SERVICES PLUMBER): -encourage high protein diet. Assessment & Plan (02/16/2019 11:14 AM FIRE SERVICES PLUMBER): Pt has had significant weight loss & poor PO intake. 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 - s/p treatment with atovaquone (rash to dapsone was, no G6PD) Encounter for antineoplastic chemotherapy 2018 Assessment & Plan (02/18/2019 1:04 PM FI[employer] SERVICES PLUMBER): Admitted for C1 Mitomycin and 5-FU with [...] 02/13/2019 Assessment & Plan (02/15/2019 1:32 PM FIRE SERVICES PLUMBER): Noted history of CKD3 with peak Cr in medical record to 2.5. Previously followed with nephrology though not in last couple years. Cr now WNL with adequate UO. - Monitor CMP daily, daily weights, and I&O Nicotine dependence 02/13/2019 Assessment & Plan (02/28/2019 1:13 PM FIRE SERVICES PLUMBER): Will administer Nicotine patches in house Assessment & Plan (02/15/2019 1:35 PM FI[employer] SERVICES PLUMBER): Current every day smoker. - Nicotine 21 mg patch daily - Encourage smoking cessation Anal cancer 10/17/2018 Assessment & Plan (04/06/2023 1:47 PM FI[employer] PLUMBER): S/p chemoradiation Currently in remission - Continue follow up with Dr. Peralta Assessment & Plan (12/01/2019 10:29 PM CDT): Follows w/ Dr. Peralta, last chemoXRT 03/2019 and poorly tolerated -Has outpatient PET scheduled Wednesday -Chronic rectal pain is managed by pain clinic outpatient w/ baclofen, gabapentin, topical lidocaine, methadone and Percocet -Will dose reduce gabapentin per CrCl to TID from QID Assessment & Plan (03/01/2019 1:06 PM FIRE SERVICES PLUMBER): Patient of Dr. Peralta. S/p C1 mitomycin/5FU 02/13- with concurrent radiation. -Will continue XRT inpatient -Due for chemo on week 5 (~03/13/19) -Due to profound pancytopenia s/p chemo, will send out labwork to check deficiency in dihydropyrimidine dehydrogenase (DPD) per outpatient team 03/01 (has to be in pink tube) Assessment & Plan (02/27/2019 11:21 PM FI[employer] SERVICES PLUMBER): - s/p C1 mitomycin/5FU 02/13-14 with concurrent radiation - pain control with MSContin 30 BID + oxycodone PRN Assessment & Plan (02/18/2019 12:52 PM FI[employer] SERVICES PLUMBER): Diagnosed 09/23/2018, [id number]. Followed by Dr. Peralta. Treatment delayed 2/2 insurance issues. - Admitted for C1 mitomycin + 5FU w/ concurrent radiation (planned 28 fx) - first RT 02/13. C1 complete. Will follow up with xrt outpatient and with Dr. Peralta for C2 in a few weeks Tolerated treatment well Human immunodeficiency virus (HIV) disease 10/17 Assessment & Plan (04/06/2023 1:48 PM [employer] SERVICES [employer]UMBER): Last CD4 148, VL 13099 - Continue Symtuza - Continue atovaquone 1500 mg daily for PCP ppx - Ensure close f/u with local ID Dr. Louis Assessment & Plan (12/01/2019 10:28 PM CDT): last CD4 79, HIV VL [id number] 07/2019 - repeat CD4, HIV RNA; continue Biktarvy, continue fluconazole (patient endorses is suppressive therapy after previous crypto infection) Assessment & Plan (02/28/2019 12:45 PM FI[employer] SERVICES PLUMBER): Follows with Dr. Louis. Last CD4 153, VL 464K 10/2018. -Continue home biktarvy -Hx of crypto meningitis, continue suppressive fluconazole Assessment & Plan (02/27/2019 11:23 PM FI[employer] SERVICES PLUMBER): - continue home biktarvy - hx of crypto meningitis, continue suppressive fluconazole Assessment & Plan (02/18/2019 1:12 PM FI[employer] SERVICES PLUMBER): Most recent 10/19 CD4 153, VL 465k. [...] 08/12/2018 Assessment & Plan (02/15/2019 1:32 PM FIRE SERVICES PLUMBER): History of crypto meningitis; unclear what year [...] elsewhere Assessment & Plan (03/02/2019 4:39 PM FIRE SERVICES PLUMBER): Patient reports rectal pain. In setting of anal cancer and current XRT. Follows with pain management outpatient, Dr. Pichardo. -On exam, there is skin breakdown between gluteal muscles > c/s wound care for wound management -Home pain regimen: MSContin 30mg BID, Gabapentin 600mg QID, Requip 1mg qpm, [place] 10/325 q6hprn, Baclofen 20mg TID prn Assessment & Plan (02/17/2019 12:10 PM [employer] SERVICES PLUMBER): Follows with pain management (Dr. Pichardo) outpatient [...] laboratory testing for human immunodeficiency virus 03/22/2013 Current Treatment and Therapy Plans No current plan information found. Past Treatment and Therapy Plans Line Care Plan Name Start Date Discontinue Date Treatment Medications Discontinue Reason Plan Provider IV Maintenance Therapy Plan 08/11/2023 02/09/2024 No medications scheduled. Therapy Complete Sam Peralta MD PhD Oncology Chemotherapy Treatment Plan Name Start Date Discontinue Date Treatment Medications Discontinue Reason Plan Provider Cycles Fluorouracil / MitoMYCIN with Concurrent Radiation 35 Day Cycle - Anal 02/14/20 19 03/15/2019 fluorouracil (ADRUCIL) IVPB in 1,000 mL (ADRUCIL)mitoMY andrei (MUTAMYCIN)ayush MYcin (MUTAMYCIN) 0.5 mg/mL Provider Discretion Sam Peralta MD PhD 1 of 1 cycle started Oncology Supportive Care Plan Name Start Date Discontinue Date Treatment Medications Discontinue Reason Plan Provider cyanocobalamin - (Vitamin B12) injection 3 08/11/2023 No medications scheduled. Therapy Complete Sam Peralta MD PhD IV MAINTENANCE THERAPY PLAN 3 10/14/2020 No medications scheduled. Therapy Complete Sam Peralta MD PhD Radiation Treatments * Course C1 ANUS 2019 02/13/2019 - 04/03/2019 Treatment Period Energy Fraction Dose Fractions Total Dose Plans Planned ANUS 02/13/2019 - 04/03/2019 180 28 / 5,040 Reference Points Delivered ANUS 2019 02/13/2019 - 04/03/2019 5,040 Lifetime Dose Tracking * Chemical Lifetime Dose Automatic Entry Manual Entr y mitomycin 10.109 mg/m2 (18.5 mg) 10.109 mg/m2 (18.5 mg) 0 mg/m2 (0 mg) Fluoro Time 8.5 minutes 8.5 minutes 0 minutes Air kerma at the reference point (Ka,r) 482 mGy 482 mGy 0 mGy DLP 6,676 mGycm 6,676 mGycm 0 mGycm Resolved Problems Problem Noted Date Diagnosed Date Resolved Date B12 deficiency 04/04/2023 04/06/2023 Assessment & Plan (04/04/2023 9:55 AM [employer] SERVICES PLUMBER): -recent labs with low B12 and low folate -supplement with B12 and folate daily Hyponatremia 02/27/2019 04/06/2023 Assessment & Plan (04/05/2023 4:32 PM FI[employer] SERVICES PLUMBER): -Resolved s/p IVF bolus Assessment & Plan (02/28/2019 12:46 PM FIRE SERVICES PLUMBER): Na 127 on admit. Likely 2/2 dehydration related to diarrhea. -S/p 1L NS bolus x 2 -Na improving, 135 today -Will CTM Assessment & Plan (02/27/2019 11:24 PM FIRE SERVICES PLUMBER): - 2/2 dehydration liked related to diarrhea. Urine sodium < 20, Na improving with NS - additional 1L NS overnight, repeat BMP in AM Neutropenic fever 02/27/2019 02/07/2024 Assessment & Plan (03/01/2019 12:53 PM FIRE SERVICES PLUMBER): Patient admitted from [facility] where he reported chills with Tmax 38. Found to be neutropenic and was briefly hypotensive in [facility] -Infectious workup: Blood cultures x 2 NGTD, [...] days Assessment & Plan (02/27/2019 11:26 PM FIRE SERVICES PLUMBER): - chills, Tmax 38, neutropenic and was briefly hypotensive in [facility] - blood cultures pending - f/u urine culture - CXR clear - f/u GC/CT - continue vanc/cefe Anal warts 09/09/2018 12/01/2019 Overview (09/09/2018): Added automatically from request for surgery [id number]
[2024-06-17 10:55] VITALS: BP 140/76; PULSE 101; RESP 20; TEMP 38.3; O2SAT 98
--- OUTSIDE RECORDS SUMMARY | 2024-06-17 10:55 | XMS_ITS | Encounter Summary ---
Author Organization [facility] Address [address] [place] [address] Care Team Providers Care Fha Underwriter Name Role Phone Syed Diggs MD Unavailable [phone] Wesley Pichardo MD Unavailable Marilyn Schreiber MD Unavailable [phone] Nishant Sr MD Primary Care Provider [phone] Izabela Louis MD Primary Care Provider Sam Peralta MD PhD Unavailable Encounter Details Date Type Department Care Team (Late st Contact Info) Description 07/20/2019 Telephone [facility] [address] [place] [address] Bubba Erickson RN Social History Tobacco Use Types Packs/Day Years Used Date Smoking Tobacco: Every Day Cigarettes 0.3 34.8 Started: 09/15/1989 Smokeless Tobacco: Never Alcohol Use Standard Drinks/Week Comments Not Currently 0 (1 standard drink = 0.6 oz pur e alcohol) 2 times a year Sex and Gender Information Value Date Recorded Sex Assigned at Not on file Legal Sex Male 4:35 AM RETAIL DEPARTMENT RESET Gender Identity Male 04/21/2023 9:16 AM RETAIL DEPARTMENT RESET Sexual Orientation Not on file documented as of this encounter Plan of Treatment Not on file documented as of this encounter Visit Diagnoses Not on filedocumented in this encounter Additional Health Concerns Infection Onset Date Last Indicated Resolved Time COVID: Suspected Comment:08/10/2019 IP review- patient tested for preop purposes only. No concern for COVID at this time. Iso removed. Zee Ortez RN 08/09/2019 08/09/20192019 11:07 AM CDT COVID: Suspected 04/04/2023 04/04/2023 04/04/2023 5:43 AM RETAIL DEPARTMENT RESET Influenza, adult 04/04/2023 04/04/2023 04/11/2023 3:05 AM RETAIL DEPARTMENT RESET COVID: Suspected 01/27/2024 01/28/2024 01/28/2024 1:29 AM CDT documented as of this encounter Care Teams Fha Underwriter Relationship Specialty Start Date End Date Nishant Sr MD [address] [place] [id number] PCP - General 02/14/19 11/21/19 Izabela Louis MD [address] [place] [id number] PCP - General 11/22/19 Syed Diggs MD Surgeon Colon and Rectal Surgery 09/30/18 Wesley Pichardo MD [address] [place] [id number] Pain Management 09/30/18 Marilyn Schreiber MD [address] [place] [id number] Radiation Oncologist Radiation Oncology 10/24/18 Sam Peralta MD PhD [address] [place] [address] [id number] Medical Oncologist/[facility] 05/14/22 02/08/24 documented as of this encounter
--- OUTSIDE RECORDS SUMMARY | 2024-06-17 10:55 | XMS_ITS | Referral Summary ---
Author Organization [facility] Address [address] [place] [address] Care Team Providers Care Lobster Man Name Role Phone Izabela Louis MD Primary Care Provider Source Comments [facility],non-owned Affiliates and Associated Physician Practices is amultiple site organization consisting of ambulatory clinics and hospital sitesin [place], [place], [place] and [place]. This disclosure is being madepursuant to the Care Everywhere program and may not contain all information available regarding this patient. Last updated 17.[facility] Encounters Date Type Department Care Team Description 05/31/2024 Travel 05/31/2024 10:34 PM [facility] - 05/31/2024 10:57 PM [facility] Emergency [facility] EMERGENCY DEPARTMENT [address] [place] [phone] Epigastric pain Discharge Disposition: Left Against Medical Advice/Discontinued Care 05/14/2024 6:58 PM [facility] - 05/15/2024 9:13 AM [facility] Emergency [facility] EMERGENCY DEPARTMENT [address] [place] [address] Luke Griffin MD Linares, Guillermo, MD TIA (transient ischemic attack) (Primary Dx); Left-sided weakness; Aphasia Discharge Disposition: Left Against Medical Advice/Discontinued Care 05/14/2024 Travel from Last 3 Months Allergies Active Allergy Reactions Criticality Noted Date Comments Sulfa Drugs Shortness of Breath High 12/08/2020 Medications * Be aware that medications may not be up to date on this document. Alwaysverify current medications with the patient. Medication Sig Dispensed Refills Start Date End Date Status fluconazole (DIFLUCAN) 100 MG tablet TK 2 TS PO QD 11/17/2019 Active baclofen (LIORESAL) 10 MG tablet Take 10 mg by mouth 3 times daily as needed 12/28/2019 Active SYMTUZA [id number] MG tablet Take by mouth once daily 10/14/2020 Active gabapentin (NEURONTIN) 600 MG tablet Take 600 mg by mouth 3 times daily 12/28/2019 Active methadone (DOLOPHINE) 10 MG tablet Take 5 mg by mouth 2 times daily 12/31/2019 Active oxyCODONE-acetaminophe n (PERCOCET) 10-325 MG tablet Take 1 tablet by mouth 4 times daily 12/31/2019 Active Active Problems Problem Noted Date Diagnosed Date Aphasia 05/14/2024 Left-sided weakness 05/14/2024 Weakness 05/14/2024 CKD (chronic kidney disease) 05/14/2024 Shortness of breath 12/08/2020 Fever and chills 12/08/2020 Immunizations Name Administration Dates Next Due INFLUENZA VACCINE, TRIV. (AF LURIA, FLUZONE TRIVALENT; 6MO+) (IIV3) 03/23/2014 Covid Moderna primary monova lent 12+ yr 0.5mL 08/14/2020,07/17/2020 FLU VACCINE QUAD IIV4 SPLIT 0.25 ML IM 01/18/2018,12/09/2016,01/16/2016,2014 HEP A/HEP B 04/24/2004 INFLUENZA VACCINE 02/03/2019 PNEUMOCOCCAL PPSV23 12/21/2014,08/28/2009 Pneumococcal Pcv13 Conj 07/01/2017 TDAP (7yrs+) 08/28/2009 Social History Tobacco Use Types Packs/Day Years Used Date Smoking Tobacco: Every Day Cigarettes Smokeless Tobacco: Never Tobacco Cessation:Ready to Q uit: Not Asked; Counseling Given: Not Answered Alcohol Use Standard Drinks/Week Comments Not Currently 0 (1 standard drink = 0.6 oz pur e alcohol) Sex and Gender Information Value Date Recorded Sex Assigned at Not on file Gender Identity Not on file Sexual Orientation Not on file Last Filed Vital Signs Vital Sign Reading Time Taken Comments Blood Pressure 133/67 05/31/2024 5:[address]LLER OPERATOR Pulse 67 05/31/2024 5:[address] ROLLER OPERATOR Temperature 36.3 C (97.3 F) 05/31/2024 1:[address] ROLLER OPERATOR Respiratory Rate 18 05/31/2024 5:[address] ROLLER OPERATOR Oxygen Saturation 99% 05/31/2024 5:[address] ROLLER OPERATOR Inhaled Oxygen Concentration - - Weight 86.2 kg (190 lb) 05/31/2024 11:[address] ROLLER OPERATOR Height 180.3 cm (5' 11 ) 05/31/2024 11:[address] ROLLER OPERATOR Body Mass Index 26.5 05/31/2024 11:[address] ROLLER OPERATOR Functional Status Functional Status Response Date of Assess ment Is person deaf or have serious hearing difficult y? No 12/08/2020 Is person blind or have serious difficulty seein g? No 12/08/2020 Does person have serious dif ficulty walking/climbing stairs? No 12/08/2020 Does person have difficulty dressing/bathing? No 12/08/2020 Does person have difficulty doing errands alone? No 12/08/2020 Cognitive Status Response Date of Assessm ent Does person have difficulty concentrating/remembering/making decisions? No 12/08/2020 Plan of Treatment Not on file Procedures Procedure Name Priority Date/Time Associated Diagnosis Comments CARDIAC EKG ORDER 06/02/2024 12: [address] CT ABDOMEN PELVIS W CONTRAST STAT 05/31/2024 12:[address] ROLLER OPERATOR Epigastric pain XR CHEST 2VW STAT 05/31/2024 11:[address] ROLLER OPERATOR Epigastric pain EKG 12-LEAD Routine 05/31/2024 11:[address] ROLLER OPERATOR Epigastric pain TROPONIN-I HIGH SENSITIVE BASELINE + 1HR STAT 05/31/2024 11:[address]LLER OPERATOR LIPASE BLOOD STAT 05/31/2024 11:[address]LLER OPERATOR LACTIC ACID BLOOD REFLEX TO REPEAT Timed 05/31/2024 11:[address]LLER OPERATOR COMPREHENSIVE METABOLIC PANEL STAT 05/31/2024 11:[address] ROLLER OPERATOR CBC W AUTO DIFFERENTIAL STAT 05/31/2024 11:[address] ROLLER OPERATOR LIPID PROFILE STAT 05/15/2024 1:[address] ROLLER OPERATOR Left-sided weakness Aphasia CD4 (ABSOLUTE T4) STAT 05/15/2024 1:[address] ROLLER OPERATOR TROPONIN-I HIGH SENSITIVE BASELINE + 1HR STAT 05/15/2024 1:[address] ROLLER OPERATOR Left-sided weakness Aphasia SARS-COV-2 (COVID-19)+INFLU A+B PCR RAPID STAT 05/14/2024 9:[address] ANGIO BRAIN NECK STROKE STAT 05/14/2024 7:[address] ROLLER OPERATOR Left-sided weakness TYPE + SCREEN PANEL STAT 05/14/2024 7 :[address] ROLLER OPERATOR PT-INR SLH STAT 05/14/2024 7:[address]LLER OPERATOR COMPREHENSIVE METABOLIC PANEL STAT 05/14/2024 7:[address]LLER OPERATOR CBC W AUTO DIFFERENTIAL STAT 05/14/2024 7:[address]LLER OPERATOR GLUCOSE - POINT OF CARE Routine 05/14/2024 7:[address] ROLLER OPERATOR CREATININE - POCT INTERFACED Routine 05/14/2024 7:[address] BRAIN STROKE STAT 05/14/2024 7:[address] ROLLER OPERATOR Left-sided weakness from Last 3 Months Results * CARDIAC EKG ORDER (06/02/2024 12:[address]LLER OPERATOR) Narrative 06/02/2024 12:[address]LLER OPERATOR Ordered by an unspecified provider. Scanned Document CARDIAC SERVICES ORD ERABLES * CT Abdomen Pelvis W Contrast (05/31/2024 12:[address]LLER OPERATOR) Anatomical Region Laterality Modality Abdomen, Pelvis Computed Tomogra phy 05/31/2024 12:[address]LLER OPERATOR Impressions 05/31/2024 1:[address]LLER OPERATOR IMPRESSION: No acute findings in the abdomen or pelvis. Grossly unremarkable CT examination. > Interpreting Provider: Jerilyn Jeffrey MD on 05/31/2024 1:02 PM Narrative 05/31/2024 1:[address]LLER OPERATOR PROCEDURE: CT ABDOMEN PELVIS W CONTRAST DATE/TIME OF EXAM: 05/31/2024 12:45 PM CLINICAL INFORMATION: None relevant/not provided if blank. Indication: R10.13: Epigastric pain Additional History: COMPARISON: 12/09/2020. TECHNIQUE: CT of the abdomen and pelvis was performed following intravenous contrast utilizing standard protocol. CT dose reduction technique was used, including Automated Exposure Control. CONTRAST: IOPAMIDOL 76 % IV SOLN:100 mL FINDINGS: Lung bases: Normal. Hepatobiliary system: Normal. Gallbladder: Normal. Spleen: Normal. Pancreas: Normal. Kidneys/Bladder: Kidneys are normal morphology. No stones or hydronephrosis seen. Urinary bladder is well distended and it is normal. Adrenal Glands: Normal. Gastrointestinal: Stomach and small bowel loops are within normal limits. Colon is unremarkable. Appendix: Normal Pelvic Organs: Prostate and seminal vesicles are unremarkable. Peritoneal cavity: Normal. Vascular: Normal. Bones: Normal. Procedure Note Jerilyn Jeffrey MD - 05/31/2024 PROCEDURE: CT ABDOMEN PELVIS W CONTRAST DATE/TIME OF EXAM: 05/31/2024 12:45 PM CLINICAL INFORMATION: None relevant/not provided if blank. Indication: R10.13: Epigastric pain Additional History: COMPARISON: 12/09/2020. TECHNIQUE: CT of the abdomen and pelvis was performed following intravenouscontrast utilizing standard protocol. CT dose reduction technique was used, including Automated ExposureControl. CONTRAST: IOPAMIDOL 76 % IV SOLN:100 mL FINDINGS: Lung bases: Normal. Hepatobiliary system: Normal. Gallbladder: Normal. Spleen: Normal. Pancreas: Normal. Kidneys/Bladder: Kidneys are normal morphology. No stones orhydronephrosis seen. Urinary bladder is well distended and it is normal. Adrenal Glands: Normal. Gastrointestinal: Stomach and small bowel loops are within normallimits. Colon is unremarkable. Appendix: Normal Pelvic Organs: Prostate and seminal vesicles are unremarkable. Peritoneal cavity: Normal. Vascular: Normal. Bones: Normal. IMPRESSION: No acute findings in the abdomen or pelvis. Grossly unremarkable CT examination. > Interpreting Provider: Jerilyn Jeffrey MD on 51:02 PM Mehrdad Asencio MD CT ORDERABLES * XR Chest 2Vw (05/31/2024 11:[address]LLER OPERATOR) Anatomical Region Laterality Modality Chest Digital Radiogra phy 05/31/2024 11:[address]LLER OPERATOR Narrative 05/31/2024 12:[address]LLER OPERATOR PROCEDURE: XR CHEST 2VW, DATE/TIME OF EXAM: 05/31/2024 11:39 AM, LOCATION [facility] [place] [facility] INDICATION: R10.13: Epigastric pain ADDITIONAL CLINICAL INFORMATION: Ordering Provider Reason For Exam: Chest pain, vomiting Technologist Note: Additional: COMPARISON: Chest x-ray 12/08/2020. TECHNIQUE: PA and Lateral radiograph of the chest. FINDINGS/IMPRESSION: The lungs are clear. There is no focal consolidation, pleural effusion, or pneumothorax. The cardiomediastinal silhouette is normal. The visible bony thorax is intact. No free subdiaphragmatic air. Report dictated by Myesha Arriaga MD, (Group Leader [employer]). IMónica MD have personally reviewed and interpreted this examination/study. > Interpreting Provider: Mónica Ferrell MD on 05/31/2024 12:01 PM Procedure Note Mónica Ferrell MD - 05/31/2024 PROCEDURE: XR CHEST 2VW, DATE/TIME OF EXAM: 05/31/2024 11:39 AM, LOCATION [facility] [place] [facility] INDICATION: R10.13: Epigastric pain ADDITIONAL CLINICAL INFORMATION: Ordering Provider Reason For Exam: Chest pain, vomiting Technologist Note: Additional: COMPARISON: Chest x-ray 12/08/2020. TECHNIQUE: PA and Lateral radiograph of the chest. FINDINGS/IMPRESSION: The lungs are clear. There is no focal consolidation, pleural effusion,or pneumothorax. The cardiomediastinal silhouette is normal. The visiblebony thorax is intact. No free subdiaphragmatic air. Report dictated by Myesha Arriaga MD, (Group Leader [employer]). I, Mónica Ferrell MD have personally reviewed and interpreted this examination/study. > Interpreting Provider: Mónica Ferrell MD on 05/31/2024 12:01 PM Mehrdad Asencio MD DIAGNOSTIC IMAGING O RDERABLES * EKG 12-LEAD (05/31/2024 11:[address]LLER OPERATOR) Pathologist [facility] Ventricular Rate 88 BPM [facility] MUSE Atrial Rate 88 BPM [facility] MUSE P-R Interval 134 ms [facility] MUSE QRS Duration ms 82 ms [facility] MUSE Q-T Interval ms 368 ms [facility] MUSE QTC Calculation (Bezet) 445 ms [facility] MUSE Calculated P [place] 77 degrees [facility] MUSE Calculated R [place] 60 degrees [facility] MUSE Calculated T [place] 59 degrees [facility] MUSE Interpretation EKG NORMAL SINUS RHYTHM RIGHT ATRIAL ENLARGEMENT NONSPECIFIC ST ABNORMALITY ABNORMAL ECG WHEN COMPARED WITH ECG OF 08-DEC-2020 04:13, T WAVE INVERSION NO LONGER EVIDENT IN INFERIOR LEADS Confirmed by BRITTANY HOGAN MD ([id number]) on 05/31/2024 4:58:52 PM [place] 05/31/2024 11:[address]LLER OPERATOR 05/31/2024 4:[address] ROLLER OPERATOR Mehrdad Asencio MD ECG ORDERABLES Performing Organization Address City/[facility]/ZIP Co de Phone Number [place] * LACTIC ACID BLOOD REFLEX TO REPEAT (05/31/2024 11:[address]LLER OPERATOR) Pathologist [facility] Lactic Acid-Stat 1.6 <=2.0 mmol/L 05/31/2024 12:[address]LLER OPERATOR [facility] Blood BLOOD SPECIMEN / Unknown Venipuncture / Unknown 05/31/2024 11:[address]LLER OPERATOR 05/31/2024 11:[address]LLER OPERATOR Mehrdad Asencio MD LAB - CHEMISTRY KRISTOPHER IRAHETA [facility] [address] [place] [address], [facility] [phone] * TROPONIN-I HIGH SENSITIVE BASELINE + 1HR (05/31/2024 11:[address]LLER OPERATOR) Only the most recent of2 resultswithin the time period is included. [facility] Troponin I High Sensitive <3 <=35 ng/L 05/31/2024 12:23 PM [facility] Blood BLOOD SPECIMEN / Unknown Venipuncture / Unknown 05/31/2024 11:[address]LLER OPERATOR 05/31/2024 11:[address] ROLLER OPERATOR Mehrdad Asencio MD LAB - CHEMISTRY KRISTOPHER IRAHETA [facility] Organization Address City/State/ZIP Co de Phone Number [facility] [address] [place] [phone], [facility] [phone] * (ABNORMAL) CBC W AUTO DIFFERENTIAL (05/31/2024 11:27 AM [facility]) Only the most recent of2 resultswithin the time period is included. [facility] WBC 6.0 4.0 - 10.7 x10E9/L 05/31/2024 11:53 AM [facility] RBC Count 3.75(L) 4.30 - 5.80 x10E12/L 05/31/2024 11:53 AM [facility] Hemoglobin 12.4(L) 13.3 - 17.5 g/dL 05/31/2024 11:53 AM [facility] Hematocrit 34.5(L) 38.7 - 51.1 % 05/31/2024 11:53 AM [facility] MCV 92.0 80.0 - 98.0 fL 05/31/2024 11:53 AM [facility] MCH 33.1 26.7 - 33.6 pg 05/31/2024 11:53 AM [facility] MCHC 35.9 31.7 - 36.3 g/dL 05/31/2024 11:53 AM [facility] RDW-CV 11.8 11.3 - 14.8 % 05/31/2024 11:53 AM [facility] Platelet Count 239 150 - 420 x10E9/L 05/31/2024 11:53 AM [facility] MPV 9.1 7.8 - 11.4 fL 05/31/2024 11:53 AM [facility] Neutrophil % 74.9(H) 41.0 - 74.0 % 05/31/2024 11:53 AM [facility] Lymphocyte % 19.8 17.0 - 47.0 % 05/31/2024 11:53 AM [facility] Monocyte % 4.5 3.0 - 11.0 % 05/31/2024 11:53 AM [facility] Eosinophil % 0.2 0.0 - 7.0 % 05/31/2024 11:53 AM [facility] Basophil % 0.3 0.0 - 1.6 % 05/31/2024 11:53 AM [facility] Immature Granulocytes % 0.3 0.0 - 1.0 % 05/31/2024 11:53 AM [facility] Neutrophil Absolute 4.45 1.60 - 7.50 x10E9/L 05/31/2024 11:53 AM [facility] Lymphocyte Absolute 1.18 1.00 - 4.40 x10E9/L 05/31/2024 11:53 AM [facility] Monocyte Absolute 0.27 0.15 - 1.00 x10E9/L 05/31/2024 11:53 AM [facility] Eosinophil Absolute 0.01 0.00 - 0.60 x10E9/L 05/31/2024 11:53 AM [facility] Basophil Absolute 0.02 0.00 - 0.13 x10E9/L 05/31/2024 11:53 AM [facility] Blood BLOOD SPECIMEN / Unknown Venipuncture / Unknown 05/31/2024 11:[address]LLER OPERATOR 05/31/2024 11:47 AM [facility] Mehrdad Asencio MD LAB - HEMATOLOGY ORD ERABLES [facility] [address] [place] [phone], [facility] [phone] * (ABNORMAL) COMPREHENSIVE METABOLIC PANEL (05/31/2024 11:27 AM [facility]) Only the most recent of2 resultswithin the time period is included. [facility] Signature BUN 8 7 - 26 mg/dL 05/31/2024 12:19 PM [facility] Creatinine 1.15 0.71 - 1.16 mg/dL 05/31/2024 12:19 PM [facility] Sodium 132(L) 136 - 145 mmol/L 05/31/2024 12:19 PM [facility] Potassium 4.3 3.5 - 4.5 mmol/L 05/31/2024 12:19 PM [facility] Chloride 98 98 - 107 mmol/L 05/31/2024 12:19 PM [facility] CO2 25 22 - 29 mmol/L 05/31/2024 12:19 PM [facility] Glucose 109(H) 70 - 99 mg/dL 05/31/2024 12:19 PM [facility] Calcium 9.7 8.4 - 10.2 mg/dL 05/31/2024 12:19 PM [facility] Protein Total 8.4(H) 6.0 - 8.3 g/dL 05/31/2024 12:19 PM [facility] Albumin 4.4 3.4 - 5.0 g/dL 05/31/2024 12:19 PM [facility] Bilirubin Total 0.8 0.2 - 1.2 mg/dL 05/31/2024 12:19 PM [facility] Alkaline Phosphatase 110 40 - 150 U/L 05/31/2024 12:19 PM [facility] ALT 16 5 - 55 U/L 05/31/2024 12:19 PM [facility] AST 24 5 - 34 U/L 05/31/2024 12:19 PM [facility] Anion Gap 9 6 - 16 05/31/2024 12:19 PM [facility] BUN/Creatinine Ratio 7 7 - 23 05/31/2024 12:19 PM [facility] Osmolality Calculated 273(L) 275 - 295 mOsm/kg 05/31/2024 12:19 PM [facility] Albumin/Globulin Ratio 1.1 1.1 - 2.3 05/31/2024 12:19 PM [facility] eGFR by CKD-EPI 81(L) >=90 mL/min/1.7 3 m2 05/31/2024 12:[address]LLER OPERATOR [facility] Blood BLOOD SPECIMEN / Unknown Venipuncture / Unknown 05/31/2024 11:[address]LLER OPERATOR 05/31/2024 11:[address]LLER OPERATOR Mehrdad Asencio MD LAB - CHEMISTRY KRISTOPHER IRAHETA Performing Organization Address City/[facility]/ZIP Co de Phone Number [address] [address], [facility] [phone] * LIPASE BLOOD (05/31/2024 11:[address]LLER OPERATOR) Pathologist [facility] Lipase 19 8 - 78 U/L 05/31/2024 12:19 PM [facility] Blood BLOOD SPECIMEN / Unknown Venipuncture / Unknown 05/31/2024 11:[address]LLER OPERATOR 05/31/2024 11:[address]LLER OPERATOR Narrative [facility] - 05/31/2024 12:[address]LLER OPERATOR Lipase results from the Juan Alinity analyzer may not be comparable with other methodologies. Mehrdad Asencio MD LAB - CHEMISTRY KRISTOPHER IRAHETA [address] [address], [facility] [phone] * CD4 (ABSOLUTE T4) (05/15/2024 1:[address]LLER OPERATOR) Pathologist [facility] Client Specimen ID # [id number] 05/15/2024 10:24 AM [facility] Number of Markers 2 05/15/2024 10:24 AM [facility] Flow Cytometry Results Differential Result Comment WBC Count /uL 5,900 % Lymphocytes 32 Lymphocyte Count u/L 1,888 Cell Region A: Lymphocytes Surface Marker Results % Absolute Count (cells/uL) CD4 12 227 05/15/2024 10:24 AM [facility] Flow Cytometry Interpretation Testing is technical only and does not require an interpretation of results. 05/15/2024 10:24 AM [facility] Reference Range Adult Normal Reference Range Adult (> 18 years) CD3 54-84 % CD4 33-63 % CD8 12-39 % CD19 5-19 % CD56 6-26 % CD4+CD45RA+ 30-50 % CD4+CD45RO+ 17-42 % CD19+CD27+ 7-48 % CD19+CD27+IgD+ 7-29 % CD19+CD27+IgD- 3-23 % CD19+JR53-VdN+ 29-93 % % 05/15/2024 10:24 AM [facility] Disclaimer Test performed at [facility], [address], [place], [address]. This test was developed and its performance characteristics determined by the Flow Cytometry Laboratory. It has not been cleared by the [place] Food and Drug Administration (FDA). The FDA has determined that such clearance or approval is not necessary. This test is used for clinical purposes. It should not be regarded as investigational or for research. This laboratory is regulated under the Clinical Laboratory Improvement Amendments of 1998 (CLIA) as a qualified to perform high complexity clinical testing. By law [place], CD4 lymphocyte counts on patients with HIV infection must be reported by the physician to the [facility] Health authority. 05/15/2024 10:24 AM [facility] Embedded Images 10:24 AM [facility] Blood BLOOD SPECIMEN / Unknown Venipuncture / Unknown 05/15/2024 1:28 AM [facility] 05/15/2024 2:15 AM [facility] Luke Griffin MD LAB - HEMATOLOGY ORD ERABLES [facility] PATHOLOGY LAB [facility]. [address] [phone] * (ABNORMAL) LIPID PROFILE (05/15/2024 1:28 AM [facility]) Cholesterol Total 184 <200 mg/dL 05/15/2024 2:41 AM [facility] HDL 35(L) >40 mg/dL 05/15/2024 2:41 AM [facility] Comment: ATP III Classification of HDL Cholesterol: <40 mg/dL: Considered a major risk factor. >60 mg/dL: Considered a negative risk factor. LDL Calculated 114(H) <100 mg/dL 05/15/2024 2:41 AM [facility] Comment: ATP III Classification of LDL Cholesterol: <100 mg/dL: Optimal 100 - 129 mg/dL: Near Optimal/Above Optimal 130 - 159 mg/dL: Borderline High 160 - 189 mg/dL: High >190 mg/dL: Very High Triglycerides 173(H) <150 mg/dL 05/15/2024 2:41 AM [facility] Comment: ATP III Classification of Triglycerides: <150 mg/dL: Normal 150 - 199 mg/dL: Borderline High 200 - 400 mg/dL: High >500 mg/dL: Very High Blood BLOOD SPECIMEN / Unknown Venipuncture / Unknown 05/15/2024 1:[address]LLER OPERATOR 05/15/2024 2:10 AM [facility] Nolberto Varela MD LAB - CHEMISTRY ORD ERABLES [address] [address], [facility] [phone] * SARS-COV-2 (COVID-19)+INFLU A+B PCR RAPID (05/14/2024 9:[address]LLER OPERATOR) COVID-19 PCR Not detected Not detected 05/14/19 10:00 PM [facility] Influenza A Rapid KRISTINA Not Detected Not Detected 05/14/2024 10:00 PM [facility] Influenza B KRISTINA Rapid Not Detected Not Detected 05/14/2024 10:00 PM [facility] Microbiology SPECIMEN FROM NASOPHARYNGEAL STRUCTURE / Unknown Collection / Unknown 05/14/2024 9:[address]LLER OPERATOR 05/14/2024 9:[address]LLER OPERATOR Narrative [facility] - 05/14/2024 10:[address]LLER OPERATOR Influenza assay performed by Nucleic Acid Ampl[employer]. Results do not exclude the possibility of a mixed viral infection. NOTE: Detecting and identifying specific viral nucleic acids from individuals exhibiting signs and symptoms of respiratory infection aids in the diagnosis of respiratory infection, if used in conjunction with other clinical and laboratory findings. The results of this test should not be used as the sole basis for diagnosis, treatment, or patient management decisions. This nucleic acid amplification assay performance was validated by [facility]. This test has been authorized by the Food and Drug administration (FDA)under an Emergency Use Authorization (EUA). This test has been validated in accordance with the FDA's guidance document Policy for Diagnostic Testing in Laboratories Certified to perform High Complexity Testing under CLIA prior to Emergency Use Authorization for Coronavirus Disease-2019 during the Public Health Emergency issued on June 03, 2019. FDA independent review of this validation is pending. This test is only authorized for the duration of time the declaration that circumstances exist justifying the authorization of emergency use of in vitro diagnostic tests for detection of SARS-CoV-2 virus and/or diagnosis of COVID-19 infection under section 564(b)(1) of the Act, 21 U.S.C 360bbb-3 (b)(1), unless the authorization is terminated or revoked sooner. Fact Sheets for this EUA assay are available upon request. Luke Griffin MD LAB - MICROBIOLOGY O SANDEEP Performing Organization Address City/State/[facility] Co de Phone Number [address] [address], [facility] [phone] * CT ANGIO BRAIN NECK STROKE (05/14/2024 7:[address] ROLLER OPERATOR) Anatomical Region Laterality Modality Head Computed Tomogra phy 05/14/2024 7:[address] ROLLER OPERATOR Impressions 05/14/2024 11:[address] ROLLER OPERATOR IMPRESSION: 1.No large arterial occlusions or significant stenoses identified in the head or neck. The report is dictated by Hector Butts DO, (vice president media relations) IRomain MD have personally reviewed and interpreted this examination/study. > Interpreting Provider: Romain Ladd MD on 05/14/2024 11:19 PM Narrative 05/14/2024 11:[address] ROLLER OPERATOR PROCEDURE: CT ANGIO BRAIN NECK STROKE, DATE/TIME OF EXAM: 05/14/2024 7:31 PM, LOCATION [facility] INDICATION: Code Stroke ADDITIONAL CLINICAL INFORMATION: Ordering Provider Reason For Exam: Code stroke. Technologist Note: None Additional: None EXAMINATION: 1. Computed tomographic (CT) angiography of the head with contrast 2. CT angiography of the neck with contrast TECHNIQUE: CT angiography of the head and neck was obtained after the uneventful administration of 75 mL Isovue-370 intravenous contrast. Three dimensional postprocessing was performed by the technologist and sent to the workstation for review. Stenosis measurements are based on NASCET criteria. CT dose reduction technique was used, including Automated Exposure Control. COMPARISON: Noncontrast head CT performed on 05/14/2024 at 7:07 PM FINDINGS: Non-angiographic findings: Please refer to stroke protocol noncontrast head CT performed on 05/14/2024 at 7:07 PM for non-angiographic findings in the head. No soft tissue abnormalities are identified in the neck. Angiographic findings: Neck: The visible aortic arch appears normal. The configuration of the brachiocephalic vessels is typical. The innominate artery and both subclavian arteries appear normal. The right common and internal carotid arteries as well as the right carotid bifurcation are patent. The left common and internal carotid arteries as well as the left carotid bifurcation are patent. The cervical vertebral arteries are patent. Head: The distal internal carotid arteries are patent. The anterior cerebral arteries are patent. The middle cerebral arteries are patent. The posterior cerebral arteries are patent. The distal vertebral arteries are patent. The basilar artery is patent. No aneurysms, vascular occlusions, or intracranial stenoses are identified. Procedure Note Romain Ladd MD - 05/14/2024 PROCEDURE: CT ANGIO BRAIN NECK STROKE, DATE/TIME OF EXAM: 57:31 PM, LOCATION [facility] INDICATION: Code Stroke ADDITIONAL CLINICAL INFORMATION: Ordering Provider Reason For Exam: Code stroke. Technologist Note: None Additional: None EXAMINATION: 1. Computed tomographic (CT) angiography of the head with contrast 2. CT angiography of the neck with contrast TECHNIQUE: CT angiography of the head and neck was obtained after the uneventful administration of 75 mL Isovue-370 intravenous contrast.Three dimensional postprocessing was performed by the technologist and sent to the workstation for review. Stenosis measurements are based on NASCET criteria. CT dose reduction technique was used, including Automated Exposure Control. COMPARISON: Noncontrast head CT performed on 05/14/2024 at 7:07 PM FINDINGS: Non-angiographic findings: Please refer to stroke protocol noncontrast head CT performed on05/14/2024 at 7:07 PM for non-angiographic findings in the head. No soft tissue abnormalities are identified in the neck. Angiographic findings: Neck: The visible aortic arch appears normal. The configuration of the brachiocephalic vessels is typical. The innominate artery and both subclavian arteries appear normal. The right common and internal carotid arteries as well as the right carotid bifurcation are patent. The left common and internal carotid arteries as well as the left carotid bifurcation are patent. The cervical vertebral arteries are patent. Head: The distal internal carotid arteries are patent. The anterior cerebral arteries are patent. The middle cerebral arteries are patent. The posterior cerebral arteries are patent. The distal vertebral arteriesare patent. The basilar artery is patent. No aneurysms, vascular occlusions,or intracranial stenoses are identified. IMPRESSION: 1.No large arterial occlusions or significant stenoses identified in the head or neck. The report is dictated by Hector Butts DO, (vice president media relations) IRomain MD have personally reviewed and interpretedthis examination/study. > Interpreting Provider: Romain Ladd MD on 05/14/2024 11:19 PM Luke Griffin MD CT ORDERABLES * PT-INR [facility] (05/14/2024 7:[address] ROLLER OPERATOR) PT 14.0 12.1 - 14.8 Seconds 05/14/2024 8:[address] ROLLER OPERATOR [facility] INR 1.1 See Comment 05/14/2024 8:[address] ROLLER OPERATOR [facility] Comment:The suggested therap eutic range for standard coumadin (warfarin) therapy is an INR of 2.0-3.0. For high-risk patients (Mechanical Mitral Valve Prosthesis, etc.), the suggested prophylactic therapeutic range is an INR of 2.5-3.5. Blood BLOOD SPECIMEN / Unknown Venipuncture / Unknown 05/14/2024 7:[address] ROLLER OPERATOR 05/14/2024 7:[address] ROLLER OPERATOR Luke Griffin MD LAB - COAGULATION OR DERABLES [facility] [address] [place] [address], [place] [phone] * TYPE + SCREEN PANEL (05/14/2024 7:[address] ROLLER OPERATOR) Pathologist [facility] Antibody Screen NEG 8:[address] ROLLER OPERATOR [facility] BLOOD BANK LAB ABO Rh B NEG 05/14/2024 8:[address] ROLLER OPERATOR [facility] BLOOD BANK LAB Blood Bank BLOOD SPECIMEN / Unknown Venipuncture / Unknown 05/14/2024 7:[address] ROLLER OPERATOR 05/14/2024 7:[address] ROLLER OPERATOR Luke Griffin MD LAB - BLOOD BANK ORD ERABLES [facility] BLOOD BANK LAB [address] [place] [address], [place] [phone] * (ABNORMAL) GLUCOSE - POINT OF CARE (05/14/2024 7:[address] ROLLER OPERATOR) [facility] Glucose WB/POC 102(H) 70 - 99 mg/dL 05/15/2024 1:17 PM [facility] Specimen Type Venous 05/15/2024 1:17 PM [facility] Blood BLOOD SPECIMEN / Unknown 05/14/2024 7:[address] ROLLER OPERATOR 05/15/2024 1:[address] ROLLER OPERATOR Luke Griffin MD LAB - POINT OF CARE ORDERABLES [facility] [address] [place] [address], [place] [phone] * (ABNORMAL) CREATININE - POCT INTERFACED (05/14/2024 7:[address] ROLLER OPERATOR) [facility] Creatinine POCT 1.07 0.30 - 1.30 mg/dL 05/14/2024 7:17 PM [facility] eGFR 88(L) >=90 mL/min/1.7 3 m2 05/14/2024 7:17 PM [facility] Blood BLOOD SPECIMEN / Unknown 05/14/2024 7:[address] ROLLER OPERATOR 05/14/2024 7:[address] ROLLER OPERATOR Luke Griffin MD LAB - POINT OF CARE ORDERABLES [place] [id number] [place] [address], [facility] [phone] * CT BRAIN - Stroke (05/14/2024 7:[address] ROLLER OPERATOR) Anatomical Region Laterality Modality Head Computed Tomogra phy 05/14/2024 7:[address] ROLLER OPERATOR Impressions 05/14/2024 7:[address] ROLLER OPERATOR IMPRESSION: 1.No acute intracranial hemorrhage. 2.Please note that CT is insensitive to nonhemorrhagic strokes and MRI of the brain should be considered, if there is clinical concern for acute cerebral infarction. Disclaimer: 1.Brain areas including the cerebral sulci, the dural sinuses, the cavernous sinuses, the basilar artery/posterior circulation, the craniocervical junction, and the brain stem, may not be well evaluated on noncontrast CT. MRI of the brain is more sensitive for parenchymal changes related to the above-mentioned brain regions. If there is clinical concern for pathology involving the above-mentioned areas, MRI of the brain is recommended for further evaluation. Results of this exam were communicated with closed loop confirmation to Dr. Irineo Joseph by Dr. Ladd on 05/14/2024 at 7:12 PM with read back comprehension and verification. > Interpreting Provider: Romain Ladd MD on 05/14/2024 7:42 PM Narrative 05/14/2024 7:[address] ROLLER OPERATOR PROCEDURE: CT BRAIN STROKE, DATE/TIME OF EXAM: 05/14/2024 7:11 PM, LOCATION [facility] INDICATION: Code Stroke EXAMINATION: Computed tomography (CT) of the head without contrast ADDITIONAL CLINICAL INFORMATION: Ordering Provider Reason For Exam: Code stroke. Technologist Note: None. Additional: None TECHNIQUE: CT of the head was performed without contrast according to standard protocol. CT dose reduction technique was used, including Automated Exposure Control. COMPARISON: No prior study is available for comparison at the time of this dictation. FINDINGS: No acute intra- or extra-axial fluid collections are identified. There is mild cerebral volume loss with associated ex vacuo ventricular dilatation. There is a CSF space posterior to the cerebellum that could represent a karen-cisterna magna or a small retrocerebellar arachnoid cyst. The basilar cisterns are patent. No mass effect or midline shift is seen. There are nonspecific, symmetric calcifications in the bilateral basal ganglia and the bilateral caudate nuclei. The tian-white matter differentiation otherwise appears normal. Periventricular white matter hypoattenuation is indicative of chronic small vessel ischemic disease. There is vascular calcification of the carotid siphons. No acute calvarial fracture is identified. The orbits appear normal. The paranasal sinuses are clear. The mastoid air cells are clear. No soft tissue abnormality is identified. Procedure Note Romain Ladd MD - 05/14/2024 PROCEDURE: CT BRAIN STROKE, DATE/TIME OF EXAM: 05/14/2024 7:11 PM,LOCATION [facility] INDICATION: Code Stroke EXAMINATION: Computed tomography (CT) of the head without contrast ADDITIONAL CLINICAL INFORMATION: Ordering Provider Reason For Exam: Code stroke. Technologist Note: None. Additional: None TECHNIQUE: CT of the head was performed without contrast according to standard protocol. CT dose reduction technique was used, including Automated Exposure Control. COMPARISON: No prior study is available for comparison at the time ofthis dictation. FINDINGS: No acute intra- or extra-axial fluid collections are identified. Thereis mild cerebral volume loss with associated ex vacuo ventriculardilatation. There is a CSF space posterior to the cerebellum that could represent a karen-cisterna magna or a small retrocerebellar arachnoid cyst. Thebasilar cisterns are patent. No mass effect or midline shift is seen. There are nonspecific, symmetric calcifications in the bilateral basal ganglia and the bilateral caudate nuclei. The tian-white matter differentiation otherwise appears normal. Periventricular white matter hypoattenuationis indicative of chronic small vessel ischemic disease. There is vascular calcification of the carotid siphons. No acute calvarial fracture is identified. The orbits appear normal. The paranasal sinuses are clear.The mastoid air cells are clear. No soft tissue abnormality is identified. IMPRESSION: 1.No acute intracranial hemorrhage. 2.Please note that CT is insensitive to nonhemorrhagic strokes and MRIof the brain should be considered, if there is clinical concern for acute cerebral infarction. Disclaimer: 1.Brain areas including the cerebral sulci, the dural sinuses, the cavernous sinuses, the basilar artery/posterior circulation, the craniocervical junction, and the brain stem, may not be well evaluatedon noncontrast CT. MRI of the brain is more sensitive for parenchymalchanges related to the above-mentioned brain regions. If there is clinicalconcern for pathology involving the above-mentioned areas, MRI of the brain is recommended for further evaluation. Results of this exam were communicated with closed loop confirmation toDr. Irineo Joseph by Dr. Ladd on 05/14/2024 at 7:12 PM with read back comprehension and verification. > Interpreting Provider: Romain Ladd MD on 05/14/2024 7:42 PM Luke Griffin MD CT ORDERABLES from Last 3 Months Administered Medications Advance Directives * Full Code (Latest Code Status on File) Date Activated Date Inactivated Comments 05/15/2024 12:03 AM 05/15/2024 10:23 AM * Full Code Date Activated Date Inactivated Comments 12/08/2020 5:15 AM 12/10/2020 5:37 PM Care Teams [employer]ster [employer] Relationship Specialty Start Date End Date Izabela Louis MD [address] [place], [place] [id number] PCP - General Internal Medicine 05/31/24
--- OUTSIDE RECORDS SUMMARY | 2024-06-17 10:55 | XMS_ITS | Patient Health Summary ---
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 is present. The joint spaces are normal.No erosions are present. Bone density is normal. No effusion is present. Left knee: No acute fracture or dislocation is present. The joint spaces are normal.No erosions are present. Bone density is normal. No effusion is present. IMPRESSION IMPRESSION: 1. Bilateral hip radiographs are normal. 2. Right knee radiographs are normal. 3. Left knee radiographs are normal. This report was electronically signed by THEO TAVERAS MD on 05/14/20171:53 PM . Wesley Pichardo MD DIAGNOSTIC IMAGING O RDERABLES * XR KNEE LEFT 2VW OR LESS (05/14/2017 1:40 PM PAPER MILL MANAGER) Anatomical Region Laterality Modality Lower Extremity Other Impressions 05/14/2017 1:53 PM PAPER MILL MANAGER IMPRESSION: 1. Bilateral hip radiographs are normal. 2. Right knee radiographs are normal. 3. Left knee radiographs are normal. This report was electronically signed by THEO TAVERAS MD on 05/14/2017 1:53 PM . Narrative 05/14/2017 1:53 PM PAPER MILL MANAGER Exam: 1. AP pelvis and 2 views of each hip 2. Right knee, frontal and lateral views 3. Left knee, frontal and lateral views History: Degenerative joint disease Comparison: None. Findings: Bilateral hips and AP pelvis: There is no fracture or dislocation of either hip. The joint spaces are normal. There are no erosions. The pelvic radiograph demonstrates no displaced fracture. The pubic symphysis and sacroiliac joints are normal. Right knee: No acute fracture or dislocation is present. The joint spaces are normal. No erosions are present. Bone density is normal. No effusion is present. Left knee: No acute fracture or dislocation is present. The joint spaces are normal. No erosions are present. Bone density is normal. No effusion is present. Procedure Note Theo Taveras MD - 07/07/2017 Exam: 1. AP pelvis and 2 views of each hip 2. Right knee, frontal and lateral views 3. Left knee, frontal and lateral views History: Degenerative joint disease Comparison: None. Findings: Bilateral hips and AP pelvis: There is no fracture or dislocation of either hip. The joint spaces arenormal. There are no erosions. The pelvic radiograph demonstrates no displaced fracture. The pubicsymphysis and sacroiliac joints are normal. Right knee: No acute fracture or dislocation is present. The joint spaces are normal.No erosions are present. Bone density is normal. No effusion is present. Left knee: No acute fracture or dislocation is present. The joint spaces are normal.No erosions are present. Bone density is normal. No effusion is present. IMPRESSION IMPRESSION: 1. Bilateral hip radiographs are normal. 2. Right knee radiographs are normal. 3. Left knee radiographs are normal. This report was electronically signed by THEO TAVERAS MD on 05/14/20171:53 PM . Wesley Pichardo MD DIAGNOSTIC IMAGING O RDERABLES * XR PELVIS W BILAT HIP 2VW (05/14/2017 1:40 PM PAPER MILL MANAGER) Anatomical Region Laterality Modality Pelvis, Lower Extremity Other Impressions 05/14/2017 1:53 PM PAPER MILL MANAGER IMPRESSION: 1. Bilateral hip radiographs are normal. 2. Right knee radiographs are normal. 3. Left knee radiographs are normal. This report was electronically signed by THEO TAVERAS MD on 05/14/2017 1:53 PM . Narrative 05/14/2017 1:53 PM PAPER MILL MANAGER Exam: 1. AP pelvis and 2 views of each hip 2. Right knee, frontal and lateral views 3. Left knee, frontal and lateral views History: Degenerative joint disease Comparison: None. Findings: Bilateral hips and AP pelvis: There is no fracture or dislocation of either hip. The joint spaces are normal. There are no erosions. The pelvic radiograph demonstrates no displaced fracture. The pubic symphysis and sacroiliac joints are normal. Right knee: No acute fracture or dislocation is present. The joint spaces are normal. No erosions are present. Bone density is normal. No effusion is present. Left knee: No acute fracture or dislocation is present. The joint spaces are normal. No erosions are present. Bone density is normal. No effusion is present. Procedure Note Theo Taveras MD - 07/07/2017 Exam: 1. AP pelvis and 2 views of each hip 2. Right knee, frontal and lateral views 3. Left knee, frontal and lateral views History: Degenerative joint disease Comparison: None. Findings: Bilateral hips and AP pelvis: There is no fracture or dislocation of either hip. The joint spaces arenormal. There are no erosions. The pelvic radiograph demonstrates no displaced fracture. The pubicsymphysis and sacroiliac joints are normal. Right knee: No acute fracture or dislocation is present. The joint spaces are normal.No erosions are present. Bone density is normal. No effusion is present. Left knee: No acute fracture or dislocation is present. The joint spaces are normal.No erosions are present. Bone density is normal. No effusion is present. IMPRESSION IMPRESSION: 1. Bilateral hip radiographs are normal. 2. Right knee radiographs are normal. 3. Left knee radiographs are normal. This report was electronically signed by THEO TAVERAS MD on 05/14/20171:53 PM . Wesley Pichardo MD [facility] Teams Fitness Manager Relationship Specialty Start Date End Date Izabela Louis MD [address], [place] [id number] PCP - General Internal Medicine 05/31/24
--- OUTSIDE RECORDS SUMMARY | 2024-06-17 10:55 | XMS_ITS | Clinical Summary ---
Author Organization [facility] Address [address] [place] [address] Care Team Providers Care Sand Sifter Name Role Phone Izabela Louis MD Primary Care Provider Source Comments [facility],non-owned Affiliates and Associated Physician Practices is amultiple site organization consisting of ambulatory clinics and hospital sitesin [place], [place], [place] and [place]. This disclosure is being madepursuant to the Care Everywhere program and may not contain all information available regarding this patient. Last updated 17.[facility] Allergies Active Allergy Reactions Criticality Noted Date [...] times daily as needed 12/28/2019 Active SYMTUZA [id number] MG tablet Take by mouth once daily [...] of breath 12/08/2020 Fever and chills 12/08/2020 Encounters Date Type Department Care Team Description 05/31/2024 10:34 PM GRAPE [facility]HER - 05/31/2024 10:57 PM [facility] EMERGENCY DEPARTMENT [address] [place] [phone] Epigastric pain Discharge Disposition: Left Against Medical Advice/Discontinued Care 05/31/2024 Travel 05/14/2024 6:58 PM GR[facility]HER - 05/15/2024 9:13 AM [facility] EMERGENCY DEPARTMENT [address] [place] [address] Luke Griffin MD Linares, Guillermo, MD TIA (transient ischemic attack) (Primary Dx); Left-sided weakness; Aphasia Discharge Disposition: Left Against Medical Advice/Discontinued Care 05/14/2024 Travel from Last 3 Months Immunizations Name Administration Dates Next Due INFLUENZA [...] Comments Blood Pressure 133/67 05/31/2024 5:03 PM GRAPE [facility]HER Pulse 67 05/31/2024 5:03 PM [facility]APE [facility]HER Temperature 36.3 C (97.3 F) 05/31/2024 1:37 PM GRAPE [facility]HER Respiratory Rate 18 05/31/2024 5:03 PM [facility]HER Oxygen Saturation 99% 05/31/2024 5:03 PM [facility]APE [facility]HER Inhaled Oxygen Concentration - - Weight 86.2 kg (190 lb) 05/31/2024 11:07 AM GRAPE [facility]HER Height 180.3 cm (5' 11 ) 05/31/2024 11:07 AM [facility] Body Mass Index 26.5 05/31/2024 11:07 AM [facility]APE [facility] Plan of Treatment Health Maintenance Due Date Last Done Comments MEDICARE AWV 12 MONTHS 1980 HEPATITIS C SCREENING 06/26/1998 HEPATITIS B VACCINE (2 of 3 - Hep B Twinrix 3-dose series) 05/22/2004 04/24/2004 DTAP/TDAP/TD VACCINES (2 - Td or Tdap) 08/29/2019 08/28/2009 COVID-19 VACCINE (3 - season) 2023 08/14/2020, 07/17/2020 INFLUENZA VACCINE (#1) 2023 9, 01/18/2018, 12/09/2016, Additional history exists DEPRESSION SCREENING 04/05/2024 LIPID TESTING 05/15/2029 05/15/2024 PNEUMOCOCCAL VACCINE (3 of 3 - PCV20 or PCV21) 2030 07/01/2017, 12/21/2014, 08/28/2009 ZOSTER VACCINE (1 of 2) 2030 HIV SCREENING Completed 12/08/2020, 12/08/2020 HIB VACCINE Aged Out No longer eligi ble based on patient's age to complete this topic HPV VACCINE Aged Out No longer eligi ble based on patient's age to complete this topic MENINGOCOCCAL (Group B) VACCINE SHARED DECISION-MAKING Aged Out No longer eligible based on patient's age to complete this topic MENINGOCOCCAL GROUPS A/C/Y/W VACCINE Aged Out No longer eligible based on patient's age to complete this topic Procedures Procedure Name Priority Date/Time Associated Diagnosis Comments CARDIAC EKG ORDER 06/02/2024 12: [address] ABDOMEN PELVIS W CONTRAST STAT 05/31/2024 12:44 PM GRAPE [facility]HER Epigastric pain XR CHEST 2VW STAT 05/31/2024 11:38 AM GRAPE [facility]HER Epigastric pain EKG 12-LEAD Routine 05/31/2024 11:27 AM GRAPE [facility]HER Epigastric pain TROPONIN-I HIGH SENSITIVE BASELINE + 1HR STAT 05/31/2024 11:27 AM GRAPE CR[facility]HER LIPASE BLOOD STAT 05/31/2024 11:27 AM GRAPE [facility]HER LACTIC ACID BLOOD REFLEX TO REPEAT Timed 05/31/2024 11:27 AM GRAPE CR[facility]HER COMPREHENSIVE METABOLIC PANEL STAT 05/31/2024 11:27 AM GRAPE CRUSHER CBC W AUTO DIFFERENTIAL STAT 05/31/2024 11:27 AM GRAPE [facility]HER LIPID PROFILE STAT 05/15/2024 1:28 AM GRAPE [facility]HER Left-sided weakness Aphasia CD4 (ABSOLUTE T4) STAT 05/15/2024 1:2 8 AM GRAPE CRUSHER TROPONIN-I HIGH SENSITIVE BASELINE + 1HR STAT 05/15/2024 1:28 AM GRAPE [facility]HER Left-sided weakness Aphasia SARS-COV-2 (COVID-19)+INFLU A+B PCR RAPID STAT 05/14/2024 9:[address] ANGIO BRAIN NECK STROKE STAT 05/14/2024 7:31 PM GRAPE [facility]HER Left-sided weakness TYPE + SCREEN PANEL STAT 05/14/2024 7 :25 PM GRAPE CRUSHER PT-INR [facility] STAT 05/14/2024 7:25 PM GRAPE [facility]HER COMPREHENSIVE METABOLIC PANEL STAT 05/14/2024 7:25 PM GRAPE CRUSHER CBC W AUTO DIFFERENTIAL STAT 05/14/2024 7:25 PM GRAPE [facility]HER GLUCOSE - POINT OF CARE Routine 05/14/2024 7:17 PM GRAPE CR[facility]HER CREATININE - POCT INTERFACED Routine 05/14/2024 7:[address] BRAIN STROKE STAT 05/14/2024 7:10 PM GRAPE CRUSHER Left-sided weakness from Last 3 Months Results * CARDIAC EKG ORDER (06/02/2024 12:31 PM GRAPE CRUSHER) Narrative 06/02/2024 12:31 PM GRAPE CRUSHER Ordered by an unspecified provider. Scanned Document CARDIAC SERVICES ORD ERABLES * CT Abdomen Pelvis W Contrast (05/31/2024 12:44 PM GRAPE CRUSHER) Anatomical Region Laterality Modality Abdomen, Pelvis Computed Tomogra phy 05/31/2024 12:5 7 PM GRAPE CRUSHER Impressions 05/31/2024 1:02 PM GRAPE CR[facility]HER IMPRESSION: No acute findings in the abdomen or pelvis. Grossly unremarkable CT examination. > Interpreting Provider: Jerilyn Jeffrey MD on 05/31/2024 1:02 PM Narrative 05/31/2024 1:02 PM GR[facility]HER PROCEDURE: CT ABDOMEN PELVIS W CONTRAST DATE/TIME [...] * XR Chest 2Vw (05/31/2024 11:38 AM GRAPE CRUSHER) Anatomical Region Laterality Modality Chest Digital Radiogra phy 05/31/2024 11:3 9 AM GRAPE CRUSHER Narrative 05/31/2024 12:01 PM GRAPE [facility]HER PROCEDURE: XR CHEST 2VW, DATE/TIME OF EXAM: 05/31/2024 11:39 AM, LOCATION [facility] INDICATION: R10.13: Epigastric pain ADDITIONAL CLINICAL INFORMATION: [...] air. Report dictated by Myesha Arriaga MD, (Shuttle Filler). Mónica Forman MD have personally reviewed and interpreted this examination/study. > Interpreting Provider: Mónica Ferrell MD on 05/31/2024 12:01 PM Procedure Note Mónica Ferrell MD - 05/31/2024 PROCEDURE: XR CHEST 2VW, DATE/TIME OF EXAM: 05/31/2024 11:39 AM, LOCATION [facility] INDICATION: R10.13: Epigastric pain ADDITIONAL CLINICAL INFORMATION: Ordering Provider Reason For Exam: Chest pain, vomiting Technologist Note: Additional: COMPARISON: Chest x-ray 12/08/2020. TECHNIQUE: PA and Lateral radiograph of the chest. FINDINGS/IMPRESSION: The lungs are clear. There is no focal consolidation, pleural effusion,or pneumothorax. The cardiomediastinal silhouette is normal. The visiblebony thorax is intact. No free subdiaphragmatic air. Report dictated by Myesha Arriaga MD, (Shuttle Filler). Mónica Forman MD have personally reviewed and interpreted this examination/study. > Interpreting Provider: Mónica Ferrell MD on 05/31/2024 12:01 PM Mehrdad Asencio MD DIAGNOSTIC IMAGING O RDERABLES * EKG 12-LEAD (05/31/2024 11:27 AM GRAPE CR[facility]HER) Ventricular Rate 88 BPM [facility] MUSE Atrial Rate 88 BPM [facility] MUSE P-R Interval 134 ms [facility] MUSE QRS Duration ms 82 ms [facility] MUSE Q-T Interval ms 368 ms SL MUSE QTC Calculation (Bezet) 445 ms [facility] MUSE Calculated P [place] 77 degrees [facility] MUSE Calculated R [place] 60 degrees [facility] MUSE Calculated T [place] 59 degrees [facility] MUSE Interpretation EKG NORMAL SINUS RHYTHM RIGHT ATRIAL ENLARGEMENT NONSPECIFIC ST ABNORMALITY ABNORMAL ECG WHEN COMPARED WITH ECG OF 08-DEC-2020 04:13, T WAVE INVERSION NO LONGER EVIDENT IN INFERIOR LEADS Confirmed by BRITTANY HOGAN MD ([id number]) on 05/31/2024 4:58:52 PM [facility] MUSE 05/31/2024 11:2 7 AM GRAPE [facility]HER 05/31/2024 4:58 PM [facility]HER Mehrdad Asencio MD ECG ORDERABLES [facility] MUSE * LACTIC ACID BLOOD REFLEX TO REPEAT (05/31/2024 11:27 AM GRAPE CRUSHER) [facility] Lactic Acid-Stat 1.6 <=2.0 mmol/L 05/31/2024 12:14 PM GRAPE CR[facility] Blood BLOOD SPECIMEN / Unknown Venipuncture / Unknown 05/31/2024 11:27 AM GRAPE [facility]HER 05/31/2024 11:47 AM [facility] Mehrdad Asencio MD LAB - CHEMISTRY KRISTOPHER [place]HETA Performing Organization Address [facility]/ZIP Co de Phone Number [address] [address], [facility] [phone] * TROPONIN-I HIGH SENSITIVE BASELINE + 1HR (05/31/2024 11:27 AM GRAPE CRUSHER) Only the most recent of2 resultswithin the time period is included. [facility] Troponin I High Sensitive <3 <=35 ng/L 05/31/2024 12:23 PM GRAPE CR[facility]HER [facility] Blood BLOOD SPECIMEN / Unknown Venipuncture / Unknown 05/31/2024 11:27 AM GR[facility]HER 05/31/2024 11:47 AM [facility] Mehrdad Asencio MD LAB - CHEMISTRY KRISTOPHER [place]HE[place] Performing Organization Address [facility] Co de Phone Number [address] [address], [place] [phone] * (ABNORMAL) CBC W AUTO DIFFERENTIAL (05/31/2024 11:27 AM GR[facility]HER) Only the most recent of2 resultswithin the time period is included. [facility] WBC 6.0 4.0 - 10.7 x10E9/L 05/31/2024 11:53 AM [facility] RBC Count 3.75(L) 4.30 - 5.80 x10E12/L 05/31/2024 11:53 AM [facility] Hemoglobin 12.4(L) 13.3 - 17.5 g/dL 05/31/2024 11:53 AM [facility] Hematocrit 34.5(L) 38.7 - 51.1 % 05/31/2024 11:53 AM [facility] MCV 92.0 80.0 - 98.0 fL 05/31/2024 11:53 AM [facility] MCH 33.1 26.7 - 33.6 pg 05/31/2024 11:53 AM [facility] MCHC 35.9 31.7 - 36.3 g/dL 05/31/2024 11:53 AM [facility] RDW-CV 11.8 11.3 - 14.8 % 05/31/2024 11:53 AM [facility] Platelet Count 239 150 - 420 x10E9/L 05/31/2024 11:53 AM [facility] MPV 9.1 7.8 - 11.4 fL 05/31/2024 11:53 AM [facility] Neutrophil % 74.9(H) 41.0 - 74.0 % 05/31/2024 11:53 AM [facility] Lymphocyte % 19.8 17.0 - 47.0 % 05/31/2024 11:53 AM [facility] Monocyte % 4.5 3.0 - 11.0 % 05/31/2024 11:53 AM [facility] Eosinophil % 0.2 0.0 - 7.0 % 05/31/2024 11:53 AM [facility] Basophil % 0.3 0.0 - 1.6 % 05/31/2024 11:53 AM [facility] Immature Granulocytes % 0.3 0.0 - 1.0 % 05/31/2024 11:53 AM [facility] Neutrophil Absolute 4.45 1.60 - 7.50 x10E9/L 05/31/2024 11:53 AM [facility] Lymphocyte Absolute 1.18 1.00 - 4.40 x10E9/L 05/31/2024 11:53 AM [facility] Monocyte Absolute 0.27 0.15 - 1.00 x10E9/L 05/31/2024 11:53 AM [facility] Eosinophil Absolute 0.01 0.00 - 0.60 x10E9/L 05/31/2024 11:53 AM [facility] Basophil Absolute 0.02 0.00 - 0.13 x10E9/L 05/31/2024 11:53 AM [facility] Blood BLOOD SPECIMEN / Unknown Venipuncture / Unknown 05/31/2024 11:27 AM GR[facility]HER 05/31/2024 11:47 AM GRAPE [facility]HER Mehrdad Asencio MD LAB - HEMATOLOGY ORD ERABLES [facility] [address] [place] [address], [facility] [phone] * (ABNORMAL) COMPREHENSIVE METABOLIC PANEL (05/31/2024 11:27 AM [facility]) Only the most recent of2 resultswithin the time period is included. BUN 8 7 - 26 mg/dL 05/31/2024 12:19 PM [facility] Creatinine 1.15 0.71 - 1.16 mg/dL 05/31/2024 12:19 PM [facility] Sodium 132(L) 136 - 145 mmol/L 05/31/2024 12:19 PM [facility] Potassium 4.3 3.5 - 4.5 mmol/L 05/31/2024 12:19 PM [facility] Chloride 98 98 - 107 mmol/L 05/31/2024 12:19 PM [facility] CO2 25 22 - 29 mmol/L 05/31/2024 12:19 PM [facility] Glucose 109(H) 70 - 99 mg/dL 05/31/2024 12:19 PM [facility] Calcium 9.7 8.4 - 10.2 mg/dL 05/31/2024 12:19 PM [facility] Protein Total 8.4(H) 6.0 - 8.3 g/dL 05/31/2024 12:19 PM [facility] Albumin 4.4 3.4 - 5.0 g/dL 05/31/2024 12:19 PM [facility] Bilirubin Total 0.8 0.2 - 1.2 mg/dL 05/31/2024 12:19 PM [facility] Alkaline Phosphatase 110 40 - 150 U/L 05/31/2024 12:19 PM [facility] ALT 16 5 - 55 U/L 05/31/2024 12:19 PM [facility] AST 24 5 - 34 U/L 05/31/2024 12:19 PM [facility] Anion Gap 9 6 - 16 05/31/2024 12:19 PM [facility] BUN/Creatinine Ratio 7 7 - 23 05/31/2024 12:19 PM [facility] Osmolality Calculated 273(L) 275 - 295 mOsm/kg 05/31/2024 12:19 PM [facility] Albumin/Globulin Ratio 1.1 1.1 - 2.3 05/31/2024 12:19 PM [facility] eGFR by CKD-EPI 81(L) >=90 mL/min/1.7 3 m2 05/31/2024 12:19 PM [facility] Blood BLOOD SPECIMEN / Unknown Venipuncture / Unknown 05/31/2024 11:27 AM [facility] 05/31/2024 11:47 AM [facility] Mehrdad Asencio MD LAB - CHEMISTRY [facility]STOP[facility] [place] [address] [address], [place] [phone] * LIPASE BLOOD (05/31/2024 11:27 AM GRAPE CRUSHER) Lipase 19 8 - 78 U/L 05/31/2024 12:19 PM [facility] Blood BLOOD SPECIMEN / Unknown Venipuncture / Unknown 05/31/2024 11:27 AM GR[facility] 05/31/2024 11:47 AM GRAPE [facility]HER Narrative [facility] - 05/31/2024 12:19 PM GRAPE CRUSHER Lipase results from the [employer] Alinity analyzer may not be comparable with other methodologies. Mehrdad Asencio MD LAB - CHEMISTRY [facility]RISTOPHER [place] [address] [address], [place] [phone] * CD4 (ABSOLUTE T4) (05/15/2024 1:28 AM [facility] Client Specimen ID # [id number] 05/15/2024 10:24 AM [facility] Number of Markers 2 05/15/2024 10:24 AM [facility] Flow Cytometry Results Differential Result Comment WBC Count /uL 5,900 % Lymphocytes 32 Lymphocyte Count u/L 1,888 Cell Region A: Lymphocytes Surface Marker Results % Absolute Count (cells/uL) CD4 12 227 05/15/2024 10:24 AM [facility] Flow Cytometry Interpretation Testing is technical only and does not require an interpretation of results. 05/15/2024 10:24 AM [facility] Reference Range Adult Normal Reference Range Adult (> 18 years) CD3 54-84 % CD4 33-63 % CD8 12-39 % CD19 5-19 % CD56 6-26 % CD4+CD45RA+ 30-50 % CD4+CD45RO+ 17-42 % CD19+CD27+ 7-48 % CD19+CD27+IgD+ 7-29 % CD19+CD27+IgD- 3-23 % CD19+QC45-UxR+ 29-93 % % 05/15/2024 10:24 AM [facility] Disclaimer Test performed at [facility], [address] [place] [address], [id number]. This test was developed and its performance [...] perform high complexity clinical testing. By law [place], CD4 lymphocyte counts on patients with HIV infection must be reported by the physician to the [facility] Health authority. 05/15/2024 10:24 AM [facility] Embedded Images 10:24 AM [facility] Blood BLOOD SPECIMEN / Unknown Venipuncture / Unknown 05/15/2024 1:28 AM GRAPE [facility]HER 05/15/2024 2:15 AM GRAPE CRUSHER Luke Griffin MD LAB - HEMATOLOGY ORD ERABLES [facility] LAB [address] [place] [address], [facility] [phone] * (ABNORMAL) LIPID PROFILE (05/15/2024 1:28 AM GRAPE CRUSHER) Cholesterol Total 184 <200 mg/dL 05/15/2024 2:41 AM [facility] HDL 35(L) >40 mg/dL 05/15/2024 2:41 AM [facility] Comment: ATP III Classification of HDL Cholesterol: <40 mg/dL: Considered a major risk factor. >60 mg/dL: Considered a negative risk factor. LDL Calculated 114(H) <100 mg/dL 05/15/2024 2:41 AM [facility] Comment: ATP III Classification of LDL Cholesterol: <100 mg/dL: Optimal 100 - 129 mg/dL: Near Optimal/Above Optimal 130 - 159 mg/dL: Borderline High 160 - 189 mg/dL: High >190 mg/dL: Very High Triglycerides 173(H) <150 mg/dL 05/15/2024 2:41 AM [facility] Comment: ATP III Classification of Triglycerides: <150 mg/dL: Normal 150 - 199 mg/dL: Borderline High 200 - 400 mg/dL: High >500 mg/dL: Very High Blood BLOOD SPECIMEN / Unknown Venipuncture / Unknown 05/15/2024 1:28 AM GRAPE [facility]HER 05/15/2024 2:10 AM GRAPE [facility]HER Nolberto Varela MD LAB - CHEMISTRY ORD ERABLES [facility] [address] [phone], [facility] [phone] * SARS-COV-2 (COVID-19)+INFLU A+B PCR RAPID (05/14/2024 9:09 PM GRAPE CRUSHER) COVID-19 PCR Not detected Not detected 05/14/19 25 10:00 PM [facility] Influenza A Rapid KRISTINA Not Detected Not Detected 05/14/2024 10:00 PM [facility] Influenza B KRISTINA Rapid Not Detected Not Detected 05/14/2024 10:00 PM [facility] Microbiology SPECIMEN FROM NASOPHARYNGEAL STRUCTURE / Unknown Collection / Unknown 05/14/2024 9:09 PM GRAPE [facility]HER 05/14/2024 9:17 PM GRAPE CR[facility]HER [facility] - 05/14/2024 10:00 PM GRAPE CRUSHER Influenza assay performed by [employer]. [...] acid amplification assay performance was validated by [facility]. This test has been authorized by the [...] Griffin MD LAB - MICROBIOLOGY O SANDEEP [address] [address], [facility] [phone] * CT ANGIO BRAIN NECK STROKE (05/14/2024 7:31 PM GRAPE CRUSHER) Anatomical Region Laterality Modality Head Computed Tomogra phy 05/14/2024 7:44 PM GRAPE CRUSHER Impressions 05/14/2024 11:19 PM [facility]APE CR[facility]HER IMPRESSION: 1.No large arterial occlusions or significant stenoses identified in the head or neck. The report is dictated by Hector Butts DO, (administrative resident) Romain Forman MD have personally reviewed and interpreted this examination/study. > Interpreting Provider: Romain Ladd MD on 05/14/2024 11:19 PM Narrative 05/14/2024 11:19 PM GRAPE CRUSHER PROCEDURE: CT ANGIO BRAIN NECK STROKE, DATE/TIME OF EXAM: 05/14/2024 7:31 PM, LOCATION [facility] INDICATION: Code Stroke ADDITIONAL CLINICAL INFORMATION: Ordering [...] identified. Procedure Note Romain Ladd MD - 02/09/2025 PROCEDURE: CT ANGIO BRAIN NECK STROKE, DATE/TIME OF EXAM: 57:31 PM, LOCATION [facility] INDICATION: Code Stroke ADDITIONAL CLINICAL INFORMATION: Ordering [...] report is dictated by Hector Butts DO, (administrative resident) IRomain MD have personally reviewed and interpretedthis examination/study. > Interpreting Provider: Romain Ladd MD on 05/14/2024 11:19 PM Luke Griffin MD CT ORDERABLES * PT-INR [facility] (05/14/2024 7:25 PM GRAPE CRUSHER) [facility] PT 14.0 12.1 - 14.8 Seconds 05/14/2024 8:56 PM [facility] INR 1.1 See Comment 05/14/2024 8:56 PM [facility] Comment:The suggested therap eutic range for standard coumadin (warfarin) therapy is an INR of 2.0-3.0. For high-risk patients (Mechanical Mitral Valve Prosthesis, etc.), the suggested prophylactic therapeutic range is an INR of 2.5-3.5. Blood BLOOD SPECIMEN / Unknown Venipuncture / Unknown 05/14/2024 7:25 PM GRAPE CR[facility]HER 05/14/2024 7:29 PM GRAPE CR[facility]HER Luke Griffin MD LAB - COAGULATION OR DERABLES Performing Organization Address City/[facility]/ZIP Co de Phone Number [address] [address], [place] [phone] * TYPE + SCREEN PANEL (05/14/2024 7:25 PM GRAPE CRUSHER) Antibody Screen NEG 8:10 PM GRAPE CRUSHER [facility] ABO Rh B NEG 05/14/2024 8:10 PM GRAPE CR[facility] Blood Bank BLOOD SPECIMEN / Unknown Venipuncture / Unknown 05/14/2024 7:25 PM GR[facility]HER 05/14/2024 7:30 PM GRAPE CR[facility]HER Luke Griffin MD LAB - BLOOD BANK ORD ERABLES Performing Organization Address City/[facility]/ZIP Co de Phone Number [facility] [address] [place] [address], [place] [phone] * (ABNORMAL) GLUCOSE - POINT OF CARE (05/14/2024 7:17 PM GRAPE CRUSHER) Glucose WB/POC 102(H) 70 - 99 mg/dL 05/15/2024 1:17 PM [facility] Specimen Type Venous 05/15/2024 1:17 PM [facility] Blood BLOOD SPECIMEN / Unknown 05/14/2024 7:17 PM GR[facility]HER 05/15/2024 1:17 PM GRAPE [facility]HER Luke Griffin MD LAB - POINT OF CARE ORDERABLES Performing Organization Address City/[facility]/ZIP Co de Phone Number [address] [address], [facility] [phone] * (ABNORMAL) CREATININE - POCT INTERFACED (05/14/2024 7:14 PM GRAPE CRUSHER) Creatinine POCT 1.07 0.30 - 1.30 mg/dL 05/14/2024 7:17 PM GRAPE CRUSHER [facility] eGFR 88(L) >=90 mL/min/1.7 3 m2 05/14/2024 7:17 PM GRAPE CRUSHER [facility] Blood BLOOD SPECIMEN / Unknown 05/14/2024 7:14 PM GRAPE CR[facility]HER 05/14/2024 7:17 PM GRAPE [facility]HER Luke Griffin MD LAB - POINT OF CARE ORDERABLES Performing Organization Address [facility] Co de Phone Number [address] [address], [facility] [phone] * CT BRAIN - Stroke (05/14/2024 7:10 PM GRAPE CRUSHER) Anatomical Region Laterality Modality Head Computed Tomogra phy 05/14/2024 7:11 PM GRAPE CRUSHER Impressions 05/14/2024 7:42 PM GRAPE CR[facility]HER IMPRESSION: 1.No acute intracranial hemorrhage. 2.Please note [...] 05/14/2024 7:42 PM Narrative 05/14/2024 7:42 PM GRAPE CRUSHER PROCEDURE: CT BRAIN STROKE, DATE/TIME OF EXAM: 05/14/2024 7:11 PM, LOCATION [facility] INDICATION: Code Stroke EXAMINATION: Computed tomography (CT) [...] STROKE, DATE/TIME OF EXAM: 05/14/2024 7:11 PM,LOCATION [facility] INDICATION: Code Stroke EXAMINATION: Computed tomography (CT) [...] MD CT ORDERABLES from Last 3 Months Advance Directives * Full Code (Latest Code Status on File) Date Activated Date Inactivated Comments 05/15/2024 12:03 AM 05/15/2024 10:23 AM * Full Code Date Activated Date Inactivated Comments 12/08/2020 5:15 AM 12/10/2020 5:37 PM Care Teams Sand Sifter Relationship Specialty Start Date End Date Izabela Louis MD [address] [place], [place] [phone] PCP - General Internal Medicine 05/31/24
[2024-06-17 11:26] LABS: Basophils Percent Auto 0.3 % (0.2-1.2); Hematocrit 35.5 % (42.0-52.0); Hemoglobin 12.4 g/dL (14.0-18.0); Immature Granulocyte Absolute 0.04 K/mm3 (0.00-0.031); Immature Granulocyte Percent A 0.4 % (0-0.5); Lymphocytes Percent Auto 16.8 % (18.3-44.2); Mean Corpuscular HGB Conc 34.9 g/dl (32-36); Mean Corpuscular Volume 94.4 fl (80-100); Mean Platelet Volume 9.2 fl (7.4-10.4); Monocytes Absolute Auto 1.2 K/mm3 (0.1-0.6); Monocytes Percent Auto 11.5 % (2.6-8.5); Neutrophils Absolute Auto 7.2 K/mm3 (1.3-6.7); Platelet Count Result 206 k/mm3 (150-375); Red Blood Count 3.76 M/mm3 (4.6-6.20); Red Cell Distribution Width 12.3 % (11.5-14.5); White Blood Count 10.1 K/mm3 (4.5-10.0)
[2024-06-17 11:37] LABS: Alanine Aminotransferase 23 U/L (6-50); Albumin Level 4.7 g/dL (3.5-5.1); Alkaline Phosphatase 109 U/L (38-126); Anion Gap 12 mmol/L (4-12); Aspartate Amino Transferase 38 U/L (17-59); Bilirubin,Total 0.7 mg/dL (0.2-1.3); Blood Urea Nitrogen 10 mg/dL (9-20); Calcium 8.9 mg/dL (8.4-10.2); Carbon Dioxide 25 mmol/L (22-30); Chloride 97 mmol/L (98-107); Estimated CRCL calculation 71 ml/min; Estimated Glomerular Filt Rate 59; Glucose 120 mg/dL (65-110); Potassium 3.3 mmol/L (3.4-5.0); Sodium 134 mmol/L (137-145)
--- OUTSIDE RECORDS SUMMARY | 2024-06-17 11:37 | XMS_ITS | CONTINUITY OF CARE DOCUMENT ---
Author Name rozangelicavamshi Address Unknown Organization [facility] Address [address] [place] [address] Phone [phone] Care Team Providers Care Engine Dynamometer Tester Name Role Phone Berhane CISNEROS, Paula Unavailable QAMAR DEL TORO MD Unavailable QAMAR DEL TORO MD Unavailable [phone] INS[employer]ANCE PROVID[employer] Payer name Policy type / Coverage type [place] red republican [employer] Medicaid 1 [id number] [place] [employer] Medicare [id number]
--- OUTSIDE RECORDS SUMMARY | 2024-06-17 11:37 | XMS_ITS | Continuity of Care Document ---
Author Organization [facility] Address [address] [place] [address] utive [address] [place] [address] Phone Care Team Providers Care Adolescent Medicine Specialist Name Role Phone Tammy Matos Unavailable Unavailable Procedures Procedure Date Office/outpatient Visit, Est Eye Exam & Treatment Advance Directives Directive Yes / No Effective Date File Name No Information Encounters Encounter Description Practice Location Reason(s) For Visit Diagnoses Date Provider Providers Copied on Encounter Office/outpat ient Visit, Est [facility], [address] [place] [address] [address], [place], [place], [id number], tel:[phone] [facility] No Information 2-200 9 Shawna Munoz. [address] [place] , [address], [place], [place], [facility][note 2], . tel:[phone] [facility], [address] [place] [address] [address], [place], [place], [id number], tel:[phone] [facility] No Information 2-200 8 Shawna Munoz. [address] [facility] [facility] [address] [place] , [address], [place], [address], [place]. tel:[phone] Family History Family Member Type Diagnosis Age At Onset No Information Payers Payer name Insurance type Covered constitution party ID Authoriza tion(s) Medicare [facility] [id number] Social History Type Description Quantity Date Captured [...]
--- OUTSIDE RECORDS SUMMARY | 2024-06-17 11:37 | XMS_ITS | Clinical Summary ---
Author Organization [facility] Address [address] [facility] [place] [address] Care Team Providers Care Executive Meeting Manager Name Role Phone Izabela Louis MD Primary Care Provider Source Comments [facility],non-owned Affiliates and Associated Physician Practices is amultiple site organization consisting of ambulatory clinics and hospital sitesin [place], [place], [place]. This disclosure is being madepursuant to the Care Everywhere program and may not contain all information available regarding this patient. Last updated 17.[facility] Allergies Active Allergy Reactions Criticality Noted Date [...] times daily as needed 12/28/2019 Active SYMTUZA [phone] MG tablet Take by mouth once daily [...] Department Care Team Description 05/31/2024 10:34 PM MOVER HELPER - 05/31/2024 10:57 PM [facility] Emergency [facility] EMERGENCY DEPARTMENT [address] [place] [phone] Epigastric pain Discharge Disposition: Left Against Medical Advice/Discontinued Care 05/31/2024 Travel 05/14/2024 6:58 PM MOVER HELPER - 05/15/2024 9:13 AM [facility] Emergency [facility] EMERGENCY DEPARTMENT [address] [place] [address] Luke Griffin MD Linares, Guillermo, MD TIA [...] Comments Blood Pressure 133/67 05/31/2024 5:03 PM MOVER HELPER Pulse 67 05/31/2024 5:03 PM MOVER HELPER Temperature 36.3 C (97.3 F) 05/31/2024 1:37 PM MOVER HELPER Respiratory Rate 18 05/31/2024 5:03 PM MOVER HELPER Oxygen Saturation 99% 05/31/2024 5:03 PM MOVER HELPER Inhaled Oxygen Concentration - - Weight 86.2 kg (190 lb) 05/31/2024 11:07 AM MOVER HELPER Height 180.3 cm (5' 11 ) 05/31/2024 11:07 AM MOVER HELPER Body Mass Index 26.5 05/31/2024 11:07 AM MOVER HELPER Plan of Treatment Health Maintenance Due Date [...] CARDIAC EKG ORDER 06/02/2024 12: [address] ABDOMEN PELVIS W CONTRAST STAT 05/31/2024 12:44 PM MOVER HELPER Epigastric pain XR CHEST 2VW STAT 05/31/2024 11:38 AM MOVER HELPER Epigastric pain EKG 12-LEAD Routine 05/31/2024 11:27 AM MOVER HELPER Epigastric pain TROPONIN-I HIGH SENSITIVE BASELINE + 1HR STAT 05/31/2024 11:27 AM MOVER HELPER LIPASE BLOOD STAT 05/31/2024 11:27 AM MOVER HELPER LACTIC ACID BLOOD REFLEX TO REPEAT Timed 05/31/2024 11:27 AM MOVER HELPER COMPREHENSIVE METABOLIC PANEL STAT 05/31/2024 11:27 AM MOVER HELPER CBC W AUTO DIFFERENTIAL STAT 05/31/2024 11:27 AM MOVER HELPER LIPID PROFILE STAT 05/15/2024 1:28 AM MOVER HELPER Left-sided weakness Aphasia CD4 (ABSOLUTE T4) STAT 05/15/2024 1:2 8 AM MOVER HELPER TROPONIN-I HIGH SENSITIVE BASELINE + 1HR STAT 05/15/2024 1:28 AM MOVER HELPER Left-sided weakness Aphasia SARS-COV-2 (COVID-19)+INFLU A+B PCR RAPID STAT 05/14/2024 9:[address] ANGIO BRAIN NECK STROKE STAT 05/14/2024 7:31 PM MOVER HELPER Left-sided weakness TYPE + SCREEN PANEL STAT 05/14/2024 7 :25 PM MOVER HELPER PT-INR [facility] STAT 05/14/2024 7:25 PM MOVER HELPER COMPREHENSIVE METABOLIC PANEL STAT 05/14/2024 7:25 PM MOVER HELPER CBC W AUTO DIFFERENTIAL STAT 05/14/2024 7:25 PM MOVER HELPER GLUCOSE - POINT OF CARE Routine 05/14/2024 7:17 PM MOVER HELPER CREATININE - POCT INTERFACED Routine 05/14/2024 7:[address] BRAIN STROKE STAT 05/14/2024 7:10 PM MOVER HELPER Left-sided weakness from Last 3 Months Results * CARDIAC EKG ORDER (06/02/2024 12:31 PM MOVER HELPER) Narrative 06/02/2024 12:31 PM MOVER HELPER Ordered by an unspecified provider. Scanned Document CARDIAC SERVICES ORD ERABLES * CT Abdomen Pelvis W Contrast (05/31/2024 12:44 PM MOVER HELPER) Anatomical Region Laterality Modality Abdomen, Pelvis Computed Tomogra phy 05/31/2024 12:5 7 PM MOVER HELPER Impressions 05/31/2024 1:02 PM MOVER HELPER IMPRESSION: No acute findings in the abdomen or pelvis. Grossly unremarkable CT examination. > Interpreting Provider: Jerilyn Jeffrey MD on 05/31/2024 1:02 PM Narrative 05/31/2024 1:02 PM MOVER HELPER PROCEDURE: CT ABDOMEN PELVIS W CONTRAST DATE/TIME [...] * XR Chest 2Vw (05/31/2024 11:38 AM MOVER HELPER) Anatomical Region Laterality Modality Chest Digital Radiogra phy 05/31/2024 11:3 9 AM MOVER HELPER Narrative 05/31/2024 12:01 PM MOVER HELPER PROCEDURE: XR CHEST 2VW, DATE/TIME OF EXAM: 05/31/2024 11:39 AM, LOCATION [facility] INDICATION: R10.13: Epigastric pain ADDITIONAL [...] air. Report dictated by Myesha Arriaga MD, (Unit Support Representative). Mónica Forman MD have personally reviewed and interpreted this examination/study. > Interpreting Provider: Mónica Ferrell MD on 05/31/2024 12:01 PM Procedure Note Mónica Ferrell MD - 05/31/2024 PROCEDURE: XR CHEST 2VW, DATE/TIME OF EXAM: 05/31/2024 11:39 AM, LOCATION [facility] INDICATION: R10.13: Epigastric pain ADDITIONAL [...] air. Report dictated by Myesha Arriaga MD, (Unit Support Representative). Mónica Forman MD have personally reviewed and interpreted this examination/study. > Interpreting Provider: Mónica Ferrell MD on 05/31/2024 12:01 PM Mehrdad Asencio MD DIAGNOSTIC IMAGING O RDERABLES * EKG 12-LEAD (05/31/2024 11:27 AM MOVER HELPER) Ventricular Rate 88 BPM [facility] MUSE Atrial Rate 88 BPM [facility] MUSE P-R Interval 134 ms [facility] MUSE QRS Duration ms 82 ms [facility] MUSE Q-T Interval ms 368 ms SL MUSE QTC Calculation (Bezet) 445 ms [facility] MUSE Calculated P [place] 77 degrees [facility] MUSE Calculated R [place] 60 degrees [facility] MUSE Calculated T [place] 59 degrees [facility] MUSE Interpretation EKG NORMAL SINUS RHYTHM RIGHT ATRIAL ENLARGEMENT NONSPECIFIC ST ABNORMALITY ABNORMAL ECG WHEN COMPARED WITH ECG OF 08-DEC-2020 04:13, T WAVE INVERSION NO LONGER EVIDENT IN INFERIOR LEADS Confirmed by BRITTANY HOGAN MD ([id number]) on 05/31/2024 4:58:52 PM [facility] MUSE 05/31/2024 11:2 7 AM MOVER HELPER 05/31/2024 4:58 PM MOVER HELPER Mehrdad Asencio MD ECG ORDERABLES [facility] MUSE * LACTIC ACID BLOOD REFLEX TO REPEAT (05/31/2024 11:27 AM MOVER HELPER) [facility] Lactic Acid-Stat 1.6 <=2.0 mmol/L 05/31/2024 12:14 PM MOVER HELPER [facility] Blood BLOOD SPECIMEN / Unknown Venipuncture / Unknown 05/31/2024 11:27 AM MOVER HELPER 05/31/2024 11:47 AM MOVER HELPER Mehrdad Asencio MD LAB - CHEMISTRY KRISTOPHER IRAHETA Performing Organization Address [facility]/ZIP Co de Phone Number [address] [address], [facility] [phone] * TROPONIN-I HIGH SENSITIVE BASELINE + 1HR (05/31/2024 11:27 AM MOVER HELPER) Only the most recent of2 resultswithin the time period is included. [facility] Troponin I High Sensitive <3 <=35 ng/L 05/31/2024 12:23 PM MOVER HELPER [facility] Blood BLOOD SPECIMEN / Unknown Venipuncture / Unknown 05/31/2024 11:27 AM MOVER HELPER 05/31/2024 11:47 AM MOVER HELPER Mehrdad Asencio MD LAB - CHEMISTRY KRISTOPHER IRAHETA Performing Organization Address [facility] Co de Phone Number [address] [address], [place] [phone] * (ABNORMAL) CBC W AUTO DIFFERENTIAL (05/31/2024 11:27 AM MOVER HELPER) Only the most recent of2 resultswithin the time period is included. [facility] WBC 6.0 4.0 - 10.7 x10E9/L 05/31/2024 11:53 AM [facility] RBC Count 3.75(L) 4.30 - 5.80 x10E12/L 05/31/2024 11:53 AM [facility] Hemoglobin 12.4(L) 13.3 - 17.5 g/dL 05/31/2024 11:53 AM [facility] Hematocrit 34.5(L) 38.7 - 51.1 % 05/31/2024 11:53 AM [facility] MCV 92.0 80.0 - 98.0 fL 05/31/2024 11:53 AM [facility] MCH 33.1 26.7 - 33.6 pg 05/31/2024 11:53 AM [facility] MCHC 35.9 31.7 - 36.3 g/dL 05/31/2024 11:53 AM [facility] RDW-CV 11.8 11.3 - 14.8 % 05/31/2024 11:53 AM [facility] Platelet Count 239 150 - 420 x10E9/L 05/31/2024 11:53 AM [facility] MPV 9.1 7.8 - 11.4 fL 05/31/2024 11:53 AM [facility] Neutrophil % 74.9(H) 41.0 - 74.0 % 05/31/2024 11:53 AM [facility] Lymphocyte % 19.8 17.0 - 47.0 % 05/31/2024 11:53 AM [facility] Monocyte % 4.5 3.0 - 11.0 % 05/31/2024 11:53 AM [facility] Eosinophil % 0.2 0.0 - 7.0 % 05/31/2024 11:53 AM [facility] Basophil % 0.3 0.0 - 1.6 % 05/31/2024 11:53 AM [facility] Immature Granulocytes % 0.3 0.0 - 1.0 % 05/31/2024 11:53 AM [facility] Neutrophil Absolute 4.45 1.60 - 7.50 x10E9/L 05/31/2024 11:53 AM [facility] Lymphocyte Absolute 1.18 1.00 - 4.40 x10E9/L 05/31/2024 11:53 AM [facility] Monocyte Absolute 0.27 0.15 - 1.00 x10E9/L 05/31/2024 11:53 AM [facility] Eosinophil Absolute 0.01 0.00 - 0.60 x10E9/L 05/31/2024 11:53 AM [facility] Basophil Absolute 0.02 0.00 - 0.13 x10E9/L 05/31/2024 11:53 AM [facility] Blood BLOOD SPECIMEN / Unknown Venipuncture / Unknown 05/31/2024 11:27 AM MOVER HELPER 05/31/2024 11:47 AM MOVER HELPER Mehrdad Asencio MD LAB - HEMATOLOGY ORD ERABLES [facility] [address] [place] [address], [facility] [phone] * (ABNORMAL) COMPREHENSIVE METABOLIC PANEL (05/31/2024 11:27 AM [facility]) Only the most recent of2 resultswithin the time period is included. BUN 8 7 - 26 mg/dL 05/31/2024 12:19 PM [facility] Creatinine 1.15 0.71 - 1.16 mg/dL 05/31/2024 12:19 PM [facility] Sodium 132(L) 136 - 145 mmol/L 05/31/2024 12:19 PM [facility] Potassium 4.3 3.5 - 4.5 mmol/L 05/31/2024 12:19 PM [facility] Chloride 98 98 - 107 mmol/L 05/31/2024 12:19 PM [facility] CO2 25 22 - 29 mmol/L 05/31/2024 12:19 PM [facility] Glucose 109(H) 70 - 99 mg/dL 05/31/2024 12:19 PM [facility] Calcium 9.7 8.4 - 10.2 mg/dL 05/31/2024 12:19 PM [facility] Protein Total 8.4(H) 6.0 - 8.3 g/dL 05/31/2024 12:19 PM [facility] Albumin 4.4 3.4 - 5.0 g/dL 05/31/2024 12:19 PM [facility] Bilirubin Total 0.8 0.2 - 1.2 mg/dL 05/31/2024 12:19 PM [facility] Alkaline Phosphatase 110 40 - 150 U/L 05/31/2024 12:19 PM [facility] ALT 16 5 - 55 U/L 05/31/2024 12:19 PM [facility] AST 24 5 - 34 U/L 05/31/2024 12:19 PM [facility] Anion Gap 9 6 - 16 05/31/2024 12:19 PM [facility] BUN/Creatinine Ratio 7 7 - 23 05/31/2024 12:19 PM [facility] Osmolality Calculated 273(L) 275 - 295 mOsm/kg 05/31/2024 12:19 PM [facility] Albumin/Globulin Ratio 1.1 1.1 - 2.3 05/31/2024 12:19 PM [facility] eGFR by CKD-EPI 81(L) >=90 mL/min/1.7 3 m2 05/31/2024 12:19 PM [facility] Blood BLOOD SPECIMEN / Unknown Venipuncture / Unknown 05/31/2024 11:27 AM MOVER HELPER 05/31/2024 11:47 AM MOVER HELPER Mehrdad Asencio MD LAB - CHEMISTRY KRISTOPHER IRAHETA [address] [address], [employer] [phone] * LIPASE BLOOD (05/31/2024 11:27 AM MOVER HELPER) Lipase 19 8 - 78 U/L 05/31/2024 12:19 PM [facility] Blood BLOOD SPECIMEN / Unknown Venipuncture / Unknown 05/31/2024 11:27 AM MOVER HELPER 05/31/2024 11:47 AM MOVER HELPER Narrative [facility] - 05/31/2024 12:19 PM MOVER HELPER Lipase results from the [employer] Alinity analyzer may not be comparable with other methodologies. Mehrdad Asencio MD LAB - CHEMISTRY KRISTOPHER IRAHETA [address] [address], [employer] [phone] * CD4 (ABSOLUTE T4) (05/15/2024 1:28 AM [facility]) Client Specimen ID # [id number] 05/15/2024 10:24 AM [facility] Number of Markers 2 05/15/2024 10:24 AM [facility] Flow Cytometry Results Differential Result Comment WBC Count /uL 5,900 % Lymphocytes 32 Lymphocyte Count u/L 1,888 Cell Region A: Lymphocytes Surface Marker Results % Absolute Count (cells/uL) CD4 12 227 05/15/2024 10:24 AM [facility] Flow Cytometry Interpretation Testing is technical only and does not require an interpretation of results. 05/15/2024 10:24 AM [facility] Reference Range Adult Normal Reference Range Adult (> 18 years) CD3 54-84 % CD4 33-63 % CD8 12-39 % CD19 5-19 % CD56 6-26 % CD4+CD45RA+ 30-50 % CD4+CD45RO+ 17-42 % CD19+CD27+ 7-48 % CD19+CD27+IgD+ 7-29 % CD19+CD27+IgD- 3-23 % CD19+EC23-NzV+ 29-93 % % 05/15/2024 10:24 AM [facility] Disclaimer Test performed at [facility], [address] [place] [address], [id number]. This test was developed and its performance [...] perform high complexity clinical testing. By law [place], CD4 lymphocyte counts on patients with HIV infection must be reported by the physician to the [facility] Health authority. 05/15/2024 10:24 AM [facility] Embedded Images 10:24 AM [facility] Blood BLOOD SPECIMEN / Unknown Venipuncture / Unknown 05/15/2024 1:28 AM MOVER HELPER 05/15/2024 2:15 AM MOVER HELPER Luke Griffin MD LAB - HEMATOLOGY ORD ERABLES [facility] [address] [facility] [place] [address], [facility] [phone] * (ABNORMAL) LIPID PROFILE (05/15/2024 1:28 AM MOVER HELPER) Cholesterol Total 184 <200 mg/dL 05/15/2024 2:41 AM [facility] HDL 35(L) >40 mg/dL 05/15/2024 2:41 AM [facility] Comment: ATP III Classification of HDL Cholesterol: <40 mg/dL: Considered a major risk factor. >60 mg/dL: Considered a negative risk factor. LDL Calculated 114(H) <100 mg/dL 05/15/2024 2:41 AM [facility] Comment: ATP III Classification of LDL Cholesterol: <100 mg/dL: Optimal 100 - 129 mg/dL: Near Optimal/Above Optimal 130 - 159 mg/dL: Borderline High 160 - 189 mg/dL: High >190 mg/dL: Very High Triglycerides 173(H) <150 mg/dL 05/15/2024 2:41 AM [facility] Comment: ATP III Classification of Triglycerides: <150 mg/dL: Normal 150 - 199 mg/dL: Borderline High 200 - 400 mg/dL: High >500 mg/dL: Very High Blood BLOOD SPECIMEN / Unknown Venipuncture / Unknown 05/15/2024 1:28 AM MOVER HELPER 05/15/2024 2:10 AM MOVER HELPER Nolberto Varela MD LAB - CHEMISTRY ORD ERABLES [facility] [address] [id number], [facility] [phone] * SARS-COV-2 (COVID-19)+INFLU A+B PCR RAPID (05/14/2024 9:09 PM MOVER HELPER) COVID-19 PCR Not detected Not detected 05/14/19 25 10:00 PM [facility] Influenza A Rapid KRISTINA Not Detected Not Detected 05/14/2024 10:00 PM [facility] Influenza B KRISTINA Rapid Not Detected Not Detected 05/14/2024 10:00 PM [facility] Microbiology SPECIMEN FROM NASOPHARYNGEAL STRUCTURE / Unknown Collection / Unknown 05/14/2024 9:09 PM MOVER HELPER 05/14/2024 9:17 PM MOVER HELPER [facility] - 05/14/2024 10:00 PM MOVER HELPER Influenza assay performed by [employer]. [...] acid amplification assay performance was validated by [facility]. This test has been authorized by the [...] Griffin MD LAB - MICROBIOLOGY O SANDEEP [address] [address], [facility] [phone] * CT ANGIO BRAIN NECK STROKE (05/14/2024 7:31 PM MOVER HELPER) Anatomical Region Laterality Modality Head Computed Tomogra phy 05/14/2024 7:44 PM MOVER HELPER Impressions 05/14/2024 11:19 PM MOVER HELPER IMPRESSION: 1.No large arterial occlusions or significant stenoses identified in the head or neck. The report is dictated by Hector Butts DO, (radiology receptionist) Romain Forman MD have personally reviewed and interpreted this examination/study. > Interpreting Provider: Romain Ladd MD on 05/14/2024 11:19 PM Narrative 05/14/2024 11:19 PM MOVER HELPER PROCEDURE: CT ANGIO BRAIN NECK STROKE, DATE/TIME OF EXAM: 05/14/2024 7:31 PM, LOCATION [facility] INDICATION: Code Stroke ADDITIONAL CLINICAL [...] STROKE, DATE/TIME OF EXAM: 57:31 PM, LOCATION [facility] INDICATION: Code Stroke ADDITIONAL CLINICAL [...] is dictated by Hector Butts DO, (radiology receptionist) IRomain MD have personally reviewed and interpretedthis examination/study. > Interpreting Provider: Romain Ladd MD on 05/14/2024 11:19 PM Luke Griffin MD [address] ORDERABLES * PT-INR [facility] (05/14/2024 7:25 PM MOVER HELPER) [facility] PT 14.0 12.1 - 14.8 Seconds 05/14/2024 8:56 PM [facility] INR 1.1 See Comment 05/14/2024 8:56 PM [facility] Comment:The suggested therap eutic range for standard coumadin (warfarin) therapy is an INR of 2.0-3.0. For high-risk patients (Mechanical Mitral Valve Prosthesis, etc.), the suggested prophylactic therapeutic range is an INR of 2.5-3.5. Blood BLOOD SPECIMEN / Unknown Venipuncture / Unknown 05/14/2024 7:25 PM MOVER HELPER 05/14/2024 7:29 PM MOVER HELPER Luke Griffin MD LAB - COAGULATION OR DERABLES Performing Organization Address City/[facility]/ZIP Co de Phone Number [address] [address], [place] [phone] * TYPE + SCREEN PANEL (05/14/2024 7:25 PM MOVER HELPER) Antibody Screen NEG 8:10 PM MOVER HELPER [facility] ABO Rh B NEG 05/14/2024 8:10 PM MOVER HELPER [facility] Blood Bank BLOOD SPECIMEN / Unknown Venipuncture / Unknown 05/14/2024 7:25 PM MOVER HELPER 05/14/2024 7:30 PM MOVER HELPER Luke Grfifin MD LAB - BLOOD BANK ORD ERABLES Performing Organization Address City/[facility]/ZIP Co de Phone Number [facility] [address] [place] [address], [place] [phone] * (ABNORMAL) GLUCOSE - POINT OF CARE (05/14/2024 7:17 PM MOVER HELPER) Glucose WB/POC 102(H) 70 - 99 mg/dL 05/15/2024 1:17 PM [facility] Specimen Type Venous 05/15/2024 1:17 PM [facility] Blood BLOOD SPECIMEN / Unknown 05/14/2024 7:17 PM MOVER HELPER 05/15/2024 1:17 PM MOVER HELPER Luke Griffin MD LAB - POINT OF CARE ORDERABLES Performing Organization Address City/[facility]/ZIP Co de Phone Number [address] [address], [facility] [phone] * (ABNORMAL) CREATININE - POCT INTERFACED (05/14/2024 7:14 PM MOVER HELPER) Creatinine POCT 1.07 0.30 - 1.30 mg/dL 05/14/2024 7:17 PM MOVER HELPER [facility] eGFR 88(L) >=90 mL/min/1.7 3 m2 05/14/2024 7:17 PM MOVER HELPER [facility] Blood BLOOD SPECIMEN / Unknown 05/14/2024 7:14 PM MOVER HELPER 05/14/2024 7:17 PM MOVER HELPER Luke Griffin MD LAB - POINT OF CARE ORDERABLES Performing Organization Address [facility] Co de Phone Number [address] [address], [facility] [phone] * CT BRAIN - Stroke (05/14/2024 7:10 PM MOVER HELPER) Anatomical Region Laterality Modality Head Computed Tomogra phy 05/14/2024 7:11 PM MOVER HELPER Impressions 05/14/2024 7:42 PM MOVER HELPER IMPRESSION: 1.No acute intracranial hemorrhage. 2.Please note [...] 05/14/2024 7:42 PM Narrative 05/14/2024 7:42 PM MOVER HELPER PROCEDURE: CT BRAIN STROKE, DATE/TIME OF EXAM: 05/14/2024 7:11 PM, LOCATION [facility] INDICATION: Code Stroke EXAMINATION: Computed [...] STROKE, DATE/TIME OF EXAM: 05/14/2024 7:11 PM,LOCATION [facility] INDICATION: Code Stroke EXAMINATION: Computed [...] 5:15 AM 12/10/2020 5:37 PM Care Teams Executive Meeting Manager Relationship Specialty Start Date End Date Izabela Louis MD [address] [place], [place] [id number] PCP - General Internal Medicine 05/31/24
--- OUTSIDE RECORDS SUMMARY | 2024-06-17 11:37 | XMS_ITS | Patient Health Summary ---
Author Organization [facility] Address [address] [place] [address] Care Team Providers Care Trailer Sections Assembler Name Role Phone Izabela Louis MD Primary Care Provider Note from [facility] [place],non-owned Affiliates and Associated Physician Practices is amultiple site organization consisting of ambulatory clinics and hospital sitesin [place], [place], [place] and [place]. This disclosure is being madepursuant to the Care Everywhere program and may not contain all information available regarding this patient. Last updated 17.[facility] Allergies * Sulfa Drugs(Shortness of Breath) -High Criticality Medications * Be aware that medications may not be up to date on this document. Alwaysverify current medications with the patient. * fluconazole (DIFLUCAN) 100 MG tablet(Started 11/17/2019) TK 2 TS PO QD * baclofen (LIORESAL) 10 MG tablet(Started 12/28/2019) Take 10 mg by mouth 3 times daily as needed * SYMTUZA [phone] MG tablet(Started 10/14/2020) Take by mouth once [...] Comments Blood Pressure 133/67 05/31/2024 5:03 PM [employer] Pulse 67 05/31/2024 5:03 PM [employer] Temperature 36.3 C (97.3 F) 05/31/2024 1:37 PM [employer] Respiratory Rate 18 05/31/2024 5:03 PM [employer] Oxygen Saturation 99% 05/31/2024 5:03 PM [employer] Inhaled Oxygen Concentration - - Weight 86.2 kg (190 lb) 05/31/2024 11:07 AM [employer] Height 180.3 cm (5' 11 ) 05/31/2024 11:07 AM [employer] Body Mass Index 26.5 05/31/2024 11:07 AM [employer] Procedures * CARDIAC EKG ORDER(Performed 06/02/2024) * [...] BLOOD(Performed 12/08/2020) * LDH BLOOD(Performed 12/08/2020) * ZAFC-K-DKETRO (1,3) (FUNGITELL)(Performed 12/08/2020) * CULTURE BLOOD AFB(Performed [...] * CARDIAC EKG ORDER (06/02/2024 12:31 PM [employer]) Only the most recent of2 resultswithin the time period is included. Narrative 06/02/2024 12:31 PM [employer] Ordered by an unspecified provider. Scanned Document CARDIAC SERVICES ORD ERABLES * CT Abdomen Pelvis W Contrast (05/31/2024 12:44 PM [employer]) Anatomical Region Laterality Modality Abdomen, Pelvis Computed Tomogra phy 05/31/2024 12:5 7 PM [employer] Impressions 05/31/2024 1:02 PM [employer] IMPRESSION: No acute findings in the abdomen or pelvis. Grossly unremarkable CT examination. > Interpreting Provider: Jerilyn Jeffrey MD on 05/31/2024 1:02 PM Narrative 05/31/2024 1:02 PM [employer] PROCEDURE: CT ABDOMEN PELVIS W CONTRAST DATE/TIME [...] * XR Chest 2Vw (05/31/2024 11:38 AM [employer]) Anatomical Region Laterality Modality Chest Digital Radiogra phy 05/31/2024 11:3 9 AM [employer] Narrative 05/31/2024 12:01 PM [employer] PROCEDURE: XR CHEST 2VW, DATE/TIME OF EXAM: 05/31/2024 11:39 AM, LOCATION [facility] INDICATION: R10.13: Epigastric pain ADDITIONAL CLINICAL INFORMATION: [...] air. Report dictated by Myesha Arriaga MD, (Utility Hand). IMónica MD have personally reviewed and interpreted this examination/study. > Interpreting Provider: Mónica Ferrell MD on 05/31/2024 12:01 PM Procedure Note Mónica Ferrell MD - 05/31/2024 PROCEDURE: XR CHEST 2VW, DATE/TIME OF EXAM: 05/31/2024 11:39 AM, LOCATION [facility] INDICATION: R10.13: Epigastric pain ADDITIONAL CLINICAL INFORMATION: Ordering Provider Reason For Exam: Chest pain, vomiting Technologist Note: Additional: COMPARISON: Chest x-ray 12/08/2020. TECHNIQUE: PA and Lateral radiograph of the chest. FINDINGS/IMPRESSION: The lungs are clear. There is no focal consolidation, pleural effusion,or pneumothorax. The cardiomediastinal silhouette is normal. The visiblebony thorax is intact. No free subdiaphragmatic air. Report dictated by Myesha Arriaga MD, (Utility Hand). I, Mónica Ferrell MD have personally reviewed and interpreted this examination/study. > Interpreting Provider: Mónica Ferrell MD on 05/31/2024 12:01 PM Mehrdad Asencio MD DIAGNOSTIC IMAGING O RDERABLES * EKG 12-LEAD (05/31/2024 11:27 AM [employer]) Only the most recent of3 resultswithin the time period is included. Ventricular Rate 88 BPM [facility] MUSE Atrial Rate 88 BPM H MUSE P-R Interval 134 ms [facility] MUSE QRS Duration ms 82 ms [facility] MUSE Q-T Interval ms 368 ms H MUSE QTC Calculation (Bezet) 445 ms [facility] MUSE Calculated P Effie 77 degrees [facility] MUSE Calculated R Effie 60 degrees [facility] MUSE Calculated T Effie 59 degrees [facility] MUSE Interpretation EKG NORMAL SINUS RHYTHM RIGHT ATRIAL ENLARGEMENT NONSPECIFIC ST ABNORMALITY ABNORMAL ECG WHEN COMPARED WITH ECG OF 08-DEC-2020 04:13, T WAVE INVERSION NO LONGER EVIDENT IN INFERIOR LEADS Confirmed by BRITTANY HOGAN MD ([id number]) on 05/31/2024 4:58:52 PM [facility] MUSE 05/31/2024 11:2 7 AM [employer] 05/31/2024 4:58 PM [employer] Mehrdad Asencio MD ECG ORDERABLES [facility] MUSE * LACTIC ACID BLOOD REFLEX TO REPEAT (05/31/2024 11:27 AM [employer]) Only the most recent of2 resultswithin the time period is included. [facility] Lactic Acid-Stat 1.6 <=2.0 mmol/L 05/31/2024 12:14 PM [facility] Blood BLOOD SPECIMEN / Unknown Venipuncture / Unknown 05/31/2024 11:27 AM [employer] 05/31/2024 11:47 AM [employer] Mehrdad Asencio MD LAB - CHEMISTRY KRISTOPHER IRAHETA Performing Organization Address City/[facility]/ZIP Co de Phone Number [facility] [address] [place] [phone], [facility] [phone] * TROPONIN-I HIGH SENSITIVE BASELINE + 1HR (05/31/2024 11:27 AM [employer]) Only the most recent of2 resultswithin the time period is included. [facility] Troponin I High Sensitive <3 <=35 ng/L 05/31/2024 12:23 PM [facility] Blood BLOOD SPECIMEN / Unknown Venipuncture / Unknown 05/31/2024 11:27 AM [employer] 05/31/2024 11:47 AM [employer] Mehrdad Asencio MD LAB - CHEMISTRY KRISTOPHER IRAHETA Performing Organization Address City/[facility]/ZIP Co de Phone Number [address] [address], [facility] [phone] * (ABNORMAL) CBC W AUTO DIFFERENTIAL (05/31/2024 11:27 AM [employer]) Only the most recent of3 resultswithin the time period is included. [facility] WBC 6.0 4.0 - 10.7 x10E9/L 05/31/2024 11:53 AM [facility] RBC Count 3.75(L) 4.30 - 5.80 x10E12/L 05/31/2024 11:53 AM [facility] Hemoglobin 12.4(L) 13.3 - 17.5 g/dL 05/31/2024 11:53 AM [facility] Hematocrit 34.5(L) 38.7 - 51.1 % 05/31/2024 11:53 AM [facility] MCV 92.0 80.0 - 98.0 fL 05/31/2024 11:53 AM [facility] MCH 33.1 26.7 - 33.6 pg 05/31/2024 11:53 AM [facility] MCHC 35.9 31.7 - 36.3 g/dL 05/31/2024 11:53 AM [facility] RDW-CV 11.8 11.3 - 14.8 % 05/31/2024 11:53 AM [facility] Platelet Count 239 150 - 420 x10E9/L 05/31/2024 11:53 AM [facility] MPV 9.1 7.8 - 11.4 fL 05/31/2024 11:53 AM [facility] Neutrophil % 74.9(H) 41.0 - 74.0 % 05/31/2024 11:53 AM [facility] Lymphocyte % 19.8 17.0 - 47.0 % 05/31/2024 11:53 AM [facility] Monocyte % 4.5 3.0 - 11.0 % 05/31/2024 11:53 AM [facility] Eosinophil % 0.2 0.0 - 7.0 % 05/31/2024 11:53 AM [facility] Basophil % 0.3 0.0 - 1.6 % 05/31/2024 11:53 AM [facility] Immature Granulocytes % 0.3 0.0 - 1.0 % 05/31/2024 11:53 AM [facility] Neutrophil Absolute 4.45 1.60 - 7.50 x10E9/L 05/31/2024 11:53 AM [facility] Lymphocyte Absolute 1.18 1.00 - 4.40 x10E9/L 05/31/2024 11:53 AM [facility] Monocyte Absolute 0.27 0.15 - 1.00 x10E9/L 05/31/2024 11:53 AM [facility] Eosinophil Absolute 0.01 0.00 - 0.60 x10E9/L 05/31/2024 11:53 AM [facility] Basophil Absolute 0.02 0.00 - 0.13 x10E9/L 05/31/2024 11:53 AM [facility] Blood BLOOD SPECIMEN / Unknown Venipuncture / Unknown 05/31/2024 11:27 AM [employer] 05/31/2024 11:47 AM [employer] Mehrdad Asencio MD LAB - HEMATOLOGY ORD ERABLES [facility] [address] [place] [address], [facility] [phone] * (ABNORMAL) COMPREHENSIVE METABOLIC PANEL (05/31/2024 11:[address] [facility]) Only the most recent of3 resultswithin the time period is included. BUN 8 7 - 26 mg/dL 05/31/2024 12:19 PM [facility] Creatinine 1.15 0.71 - 1.16 mg/dL 05/31/2024 12:19 PM [facility] Sodium 132(L) 136 - 145 mmol/L 05/31/2024 12:19 PM [facility] Potassium 4.3 3.5 - 4.5 mmol/L 05/31/2024 12:19 PM [facility] Chloride 98 98 - 107 mmol/L 05/31/2024 12:19 PM [facility] CO2 25 22 - 29 mmol/L 05/31/2024 12:19 PM [facility] Glucose 109(H) 70 - 99 mg/dL 05/31/2024 12:19 PM [facility] Calcium 9.7 8.4 - 10.2 mg/dL 05/31/2024 12:19 PM [facility] Protein Total 8.4(H) 6.0 - 8.3 g/dL 05/31/2024 12:19 PM [facility] Albumin 4.4 3.4 - 5.0 g/dL 05/31/2024 12:19 PM [facility] Bilirubin Total 0.8 0.2 - 1.2 mg/dL 05/31/2024 12:19 PM [facility] Alkaline Phosphatase 110 40 - 150 U/L 05/31/2024 12:19 PM [facility] ALT 16 5 - 55 U/L 05/31/2024 12:19 PM [facility] AST 24 5 - 34 U/L 05/31/2024 12:19 PM [facility] Anion Gap 9 6 - 16 05/31/2024 12:19 PM [facility] BUN/Creatinine Ratio 7 7 - 23 05/31/2024 12:19 PM [facility] Osmolality Calculated 273(L) 275 - 295 mOsm/kg 05/31/2024 12:19 PM [facility] Albumin/Globulin Ratio 1.1 1.1 - 2.3 05/31/2024 12:19 PM [facility] eGFR by CKD-EPI 81(L) >=90 mL/min/1.7 3 m2 05/31/2024 12:19 PM [facility] Blood BLOOD SPECIMEN / Unknown Venipuncture / Unknown 05/31/2024 11:27 AM [employer] 05/31/2024 11:47 AM [employer] Mehrdad Asencio MD LAB - CHEMISTRY KRISTOPHER IRAHETA [address] [address], [place] [phone] * LIPASE BLOOD (05/31/2024 11:27 AM [employer]) Lipase 19 8 - 78 U/L 05/31/2024 12:19 PM [facility] Blood BLOOD SPECIMEN / Unknown Venipuncture / Unknown 05/31/2024 11:27 AM [employer] 05/31/2024 11:47 AM [employer] Narrative [facility] - 05/31/2024 12:19 PM [employer] Lipase results from the Juan Alinity analyzer may not be comparable with other methodologies. Mehrdad Asencio MD LAB - CHEMISTRY KRISTOPHER IRAHETA [facility] [address] [place] [phone], [place] [phone] * CD4 (ABSOLUTE T4) (05/15/2024 1:28 AM [employer]) Only the most recent of2 resultswithin the time period is included. Client Specimen ID # [id number] 05/15/2024 10:24 AM [facility] Number of Markers 2 05/15/2024 10:24 AM [facility] Flow Cytometry Results Differential Result Comment WBC Count /uL 5,900 % Lymphocytes 32 Lymphocyte Count u/L 1,888 Cell Region A: Lymphocytes Surface Marker Results % Absolute Count (cells/uL) CD4 12 227 05/15/2024 10:24 AM [facility] Flow Cytometry Interpretation Testing is technical only and does not require an interpretation of results. 05/15/2024 10:24 AM [facility] Reference Range Adult Normal Reference Range Adult (> 18 years) CD3 54-84 % CD4 33-63 % CD8 12-39 % CD19 5-19 % CD56 6-26 % CD4+CD45RA+ 30-50 % CD4+CD45RO+ 17-42 % CD19+CD27+ 7-48 % CD19+CD27+IgD+ 7-29 % CD19+CD27+IgD- 3-23 % CD19+JP96-TlI+ 29-93 % % 05/15/2024 10:24 AM [facility] Disclaimer Test performed at [facility], [address] [place] [address], [id number]. This test was developed and its performance [...] perform high complexity clinical testing. By law [place], CD4 lymphocyte counts on patients with HIV infection must be reported by the physician to the [facility] Health authority. 05/15/2024 10:24 AM [facility] Embedded Images 10:24 AM [facility] Blood BLOOD SPECIMEN / Unknown Venipuncture / Unknown 05/15/2024 1:28 AM [employer] 05/15/2024 2:15 AM [employer] Luke Griffin MD LAB - HEMATOLOGY ORD ERABLES [facility] [address] [place] [address], [facility] [phone] * (ABNORMAL) LIPID PROFILE (05/15/2024 1:28 AM [employer]) Pathologist [facility] Cholesterol Total 184 <200 mg/dL 05/15/2024 2:41 AM [facility] HDL 35(L) >40 mg/dL 05/15/2024 2:41 AM [facility] Comment: ATP III Classification of HDL Cholesterol: <40 mg/dL: Considered a major risk factor. >60 mg/dL: Considered a negative risk factor. LDL Calculated 114(H) <100 mg/dL 05/15/2024 2:41 AM [facility] Comment: ATP III Classification of LDL Cholesterol: <100 mg/dL: Optimal 100 - 129 mg/dL: Near Optimal/Above Optimal 130 - 159 mg/dL: Borderline High 160 - 189 mg/dL: High >190 mg/dL: Very High Triglycerides 173(H) <150 mg/dL 05/15/2024 2:41 AM [facility] Comment: ATP III Classification of Triglycerides: <150 mg/dL: Normal 150 - 199 mg/dL: Borderline High 200 - 400 mg/dL: High >500 mg/dL: Very High Blood BLOOD SPECIMEN / Unknown Venipuncture / Unknown 05/15/2024 1:28 AM [employer] 05/15/2024 2:10 AM [employer] Nolberto Varela MD LAB - CHEMISTRY ORD ERABLES [facility] [address] [id number], [facility] [phone] * SARS-COV-2 (COVID-19)+INFLU A+B PCR RAPID (05/14/2024 9:09 PM [employer]) Only the most recent of2 resultswithin the time period is included. Pathologist [facility] COVID-19 PCR Not detected Not detected 05/14/19 25 10:00 PM [facility] Influenza A Rapid KRISTINA Not Detected Not Detected 05/14/2024 10:00 PM [facility] Influenza B KRISTINA Rapid Not Detected Not Detected 05/14/2024 10:00 PM [facility] Microbiology SPECIMEN FROM NASOPHARYNGEAL STRUCTURE / Unknown Collection / Unknown 05/14/2024 9:09 PM [employer] 05/14/2024 9:[address] [facility] Narrative [facility] - 05/14/2024 10:00 PM [employer] Influenza assay performed by [employer]. [...] assay performance was validated by [facility]. This test has been authorized by the [...] Griffin MD LAB - MICROBIOLOGY O RDERABLES [facility] [address] [place] [address], [facility] [phone] * CT ANGIO BRAIN NECK STROKE (05/14/2024 7:31 PM [employer]) Anatomical Region Laterality Modality Head Computed Tomogra phy 05/14/2024 7:44 PM [employer] Impressions 05/14/2024 11:19 PM [employer] IMPRESSION: 1.No large arterial occlusions or significant stenoses identified in the head or neck. The report is dictated by Hector Butts DO, (front loader residential driver) Romain Forman MD have personally reviewed and interpreted this examination/study. > Interpreting Provider: Romain Ladd MD on 05/14/2024 11:19 PM Narrative 05/14/2024 11:19 PM [employer] PROCEDURE: CT ANGIO BRAIN NECK STROKE, DATE/TIME OF EXAM: 05/14/2024 7:31 PM, LOCATION [facility] INDICATION: Code Stroke ADDITIONAL CLINICAL INFORMATION: Ordering [...] STROKE, DATE/TIME OF EXAM: 57:31 PM, LOCATION [facility] INDICATION: Code Stroke ADDITIONAL CLINICAL INFORMATION: Ordering [...] report is dictated by Hector Butts DO, (front loader residential driver) IRomain MD have personally reviewed and interpretedthis examination/study. > Interpreting Provider: Romain Ladd MD on 05/14/2024 11:19 PM Luke Griffin MD CT ORDERABLES * PT-INR [facility] (05/14/2024 7:25 PM [employer]) Only the most recent of2 resultswithin the time period is included. Pathologist [facility] PT 14.0 12.1 - 14.8 Seconds 05/14/2024 8:56 PM [facility] INR 1.1 See Comment 05/14/2024 8:56 PM [facility] Comment:The suggested therap eutic range for standard coumadin (warfarin) therapy is an INR of 2.0-3.0. For high-risk patients (Mechanical Mitral Valve Prosthesis, etc.), the suggested prophylactic therapeutic range is an INR of 2.5-3.5. Blood BLOOD SPECIMEN / Unknown Venipuncture / Unknown 05/14/2024 7:25 PM [employer] 05/14/2024 7:29 PM [employer] Luke Griffin MD LAB - COAGULATION OR DERABLES Performing Organization Address City/[facility]/ZIP Co de Phone Number [address] [address], [facility] [phone] * TYPE + SCREEN PANEL (05/14/2024 7:25 PM [employer]) [facility] Antibody Screen NEG 8:10 PM [employer] [facility] BLOOD BANK LAB ABO Rh B NEG 05/14/2024 8:10 PM [employer] [facility] BLOOD BANK LAB Blood Bank BLOOD SPECIMEN / Unknown Venipuncture / Unknown 05/14/2024 7:25 PM [employer] 05/14/2024 7:30 PM [employer] Luke Griffin MD LAB - BLOOD BANK ORD ERABLES [facility] BLOOD BANK LAB [address] [place] [phone], [place] [phone] * (ABNORMAL) GLUCOSE - POINT OF CARE (05/14/2024 7:17 PM [employer]) [facility] Glucose WB/POC 102(H) 70 - 99 mg/dL 05/15/2024 1:17 PM [employer] [facility] Specimen Type Venous 05/15/2024 1:17 PM [facility] Blood BLOOD SPECIMEN / Unknown 05/14/2024 7:17 PM [employer] 05/15/2024 1:17 PM [employer] Luke Griffin MD LAB - POINT OF CARE ORDERABLES Performing Organization Address City/[facility]/ZIP Co de Phone Number [facility] [address] [place] [phone], [facility] [phone] * (ABNORMAL) CREATININE - POCT INTERFACED (05/14/2024 7:14 PM [employer]) Creatinine POCT 1.07 0.30 - 1.30 mg/dL 05/14/2024 7:17 PM [employer] [facility] eGFR 88(L) >=90 mL/min/1.7 3 m2 05/14/2024 7:17 PM [employer] [facility] Blood BLOOD SPECIMEN / Unknown 05/14/2024 7:14 PM [employer] 05/14/2024 7:17 PM [employer] Luke Griffin MD LAB - POINT OF CARE ORDERABLES Performing Organization Address [facility] Co de Phone Number [address] [address], [place] [phone] * CT BRAIN - Stroke (05/14/2024 7:10 PM [employer]) Anatomical Region Laterality Modality Head Computed Tomogra phy 05/14/2024 7:11 PM [employer] Impressions 05/14/2024 7:42 PM [employer] IMPRESSION: 1.No acute intracranial hemorrhage. 2.Please note [...] 05/14/2024 7:42 PM Narrative 05/14/2024 7:42 PM [employer] PROCEDURE: CT BRAIN STROKE, DATE/TIME OF EXAM: 05/14/2024 7:11 PM, LOCATION [facility] INDICATION: Code Stroke EXAMINATION: Computed tomography (CT) [...] soft tissue abnormality is identified. Procedure Note oRmain Ladd MD - 05/14/2024 PROCEDURE: CT BRAIN STROKE, DATE/TIME OF EXAM: 05/14/2024 7:11 PM,LOCATION [facility] INDICATION: Code Stroke EXAMINATION: Computed tomography (CT) [...] - 20.0 ug/mL 12/10/2020 1:53 PM CDT [facility] Blood BLOOD SPECIMEN / Unknown Lab Venipuncture / Unknown 12/10/2020 1:13 PM CDT 12/10/2020 1:30 PM CDT Narrative [facility] - 12/10/2020 1:53 PM CDT See institution protocol. Bret Montaño MD LAB - CHEMISTRY KRISTOPHER IRHAETA [facility] [address] [place] [address], [facility] [phone] * BLASTOMYCES ANTIBODY BY ID (12/10/2020 10:55 AM CDT) Blastomyces Antibody (ID) None Detected None Detected 12/13/2020 8:26 PM CDT [facility] ([facility]) Comment: INTERPRETIVE INFORMATION: Blastomyces dermatitidis Antibodies by [employer] A positive result may suggest active or recent infection. The test is positive in about 80 percent of cases. Cross reactions occur, especially with histoplasmosis. A negative test (none detected) does not exclude blastomycosis. Performed By: [employer] [address] [place] [address] Senior Tax Analyst: Shikha Norton MD Blood BLOOD SPECIMEN / Unknown Lab Venipuncture / Unknown 12/10/2020 10:55 AM CDT 12/10/2020 11:33 AM CDT Bret Montaño MD LAB - CHEMISTRY KRISTOPHER IRAHETA Performing Organization Address [facility] Co de Phone Number [employer] ([facility]) [address] * HISTOPLASMA ANTIGEN BLOOD (12/10/2020 10:55 AM CDT) Comment See Scanned Report 01/08/2021 3:00 PM CDT [facility] ([facility]) Histoplasma Antigen See Scanned Report 01/08/2021 3:00 PM CDT [facility] ([facility]) Blood BLOOD SPECIMEN / Unknown Lab Venipuncture / Unknown 12/10/2020 10:55 AM CDT 12/10/2020 11:33 AM CDT Bret Montaño MD LAB - CHEMISTRY [facility] [place] Performing Organization Address City/[facility]/ZIP Co de Phone Number [facility] ([facility]) [phone] * (ABNORMAL) CBC W/O DIFFERENTIAL (12/10/2020 4:07 AM T) WBC 4.3 3.5 - 10.5 10 3/uL 12/10/2020 4:45 AM [facility] RBC 2.84(L) 4.30 - 5.70 10 6/uL 12/10/2020 4:45 AM [facility] Hemoglobin 9.7(L) 12.0 - 17.6 g/dL 12/10/2020 4:45 AM [facility] Hematocrit 28.1(L) 35.2 - 51.7 % 12/10/2020 4:45 AM NEW [facility] MCV 98.9(H) 80.7 - 98.3 fL 12/10/2020 4:45 AM [facility] MCH 34.2(H) 26.7 - 34.0 pg 12/10/2020 4:45 AM [facility] MCHC 34.5 30.8 - 35.9 g/dL 12/10/2020 4:45 AM [facility] Platelet Count 158 150 - 400 10 3/uL 12/10/2020 4:45 AM [facility] RDW-SD 45.1 36.0 - 50.0 fL 12/10/2020 4:45 AM [facility] RDW-CV 12.5 11.2 - 14.8 % 12/10/2020 4:45 AM [facility] MPV 9.5 9.4 - 12.9 fL 12/10/2020 4:45 AM [facility] nRBC Absolute 0.00 0 10 3/uL 12/10/2020 4:45 AM [facility] nRBC Auto 0.0 0 /100 WBC 12/10/2020 4:45 AM [facility] Blood BLOOD SPECIMEN / Unknown Lab Venipuncture / Unknown 12/10/2020 4:07 AM CDT 12/10/2020 4:34 AM T Bret Montaño MD LAB - HEMATOLOGY ORD [place] [facility] [address] [place] [address], [facility] [phone] * (ABNORMAL) BASIC METABOLIC PANEL (CALCIUM TOTAL) (12/10/2020 4:07 AM CDT) Only the most recent of3 resultswithin the time period is included. BUN 6(L) 7 - 26 mg/dL 12/10/2020 5:07 AM [facility] Creatinine 1.49(H) 0.71 - 1.16 mg/dL 12/10/2020 5:07 AM [facility] Sodium 138 136 - 145 mmol/L 12/10/2020 5:07 AM [facility] Potassium 3.3(L) 3.5 - 4.5 mmol/L 12/10/2020 5:07 AM [facility] Chloride 109(H) 98 - 107 mmol/L 12/10/2020 5:07 AM [facility] CO2 22 22 - 29 mmol/L 12/10/2020 5:07 AM [facility] Glucose 91 70 - 115 mg/dL 12/10/2020 5:07 AM [facility] Calcium 8.0(L) 8.4 - 10.2 mg/dL 12/10/2020 5:07 AM [facility] Anion Gap 10 8 - 18 12/10/2020 5:07 AM [facility] BUN/Creatinine Ratio 4(L) 7 - 23 12/10/2020 5:07 AM [facility] Osmolality Calculated 283 270 - 300 mOsm/kg 12/10/2020 5:07 AM [facility] eGFR by CKD-EPI 58(L) >=90 mL/min/1.7 3 m2 12/10/2020 5:07 AM [facility] Blood BLOOD SPECIMEN / Unknown Lab Venipuncture / Unknown 12/10/2020 4:07 AM CDT 12/10/2020 4:34 AM CDT Bret Montaño MD LAB - CHEMISTRY KRISTOPHER IRAHETA [address] [address], [facility] [phone] * VANCOMYCIN LEVEL RANDOM (12/09/2020 12:23 PM CDT) Only the most recent of2 resultswithin the time period is included. Vancomycin Random 17.5 Therapeutic Ranges not established for random specimens ug/mL 12/09/2020 12:58 PM CDT [facility] Blood BLOOD SPECIMEN / Unknown Lab Venipuncture / Unknown 12/09/2020 12:23 PM CDT 12/09/2020 12:35 PM CDT Narrative [facility] - 12/09/2020 12:58 PM CDT See institution protocol. Bret Montaño MD LAB - CHEMISTRY [facility] Performing Organization Address [facility]/ZIP Co de Phone Number [address] [address], [facility] [phone] * CT CHEST ABDOMEN PELVIS W CONT [...] . Bret Montaño MD CT ORDERABLES * SQQO-T-UPKLWN (1,3) (FUNGITELL) (12/08/2020 8:15 PM CDT) Pathologist [facility] Xugz-s-Jpbffw <31 pg/mL 12/11/2020 4:25 PM CDT [facility] [employer] ([facility]) Interpretation Cnkr-k-Anxism Negative Negative 12/11/2020 4:25 PM CDT [facility] [employer] ([facility]) Comment: INTERPRETIVE INFORMATION: (1,3)-clmi-X-jqyzds (Fungitell) Less than 31 pg/mL ................... Negative 31-59 pg/mL .......................... Negative 60-79 pg/mL .......................... Indeterminate Greater than or equal to 80 pg/mL .... Positive The Fungitell test is indicated for presumptive diagnosis of fungal infection and should be used in conjunction with other diagnostic procedures. This test does not detect certain fungal species such as Cryptococcus, which produce very low levels of (1,3)-qzub-O-wrueeb. This test will not detect the zygomycetes, such as Absidia, Mucor, and Rhizopus, which are not known to produce (1,3)-yfon-R-ckcczm. In addition, the yeast phase of Blastomyces dermatitidis produces little (1,3)-cehi-U-bsvzlu and may not be detected by the assay. Performed By: [employer] [address] [place] [address] Senior Tax Analyst: Shikha Norton MD Blood BLOOD SPECIMEN / Unknown Lab Venipuncture / Unknown 12/08/2020 8:15 PM CDT 12/08/2020 9:42 PM CDT Bret Montaño MD LAB - CHEMISTRY KRISTOPHER IRAHETA [facility] [employer] ([facility]) [address] [place] [address], [facility] * CRYPTOCOCCUS ANTIGEN BLOOD (12/08/2020 8:15 PM CDT) Pathologist [facility] Cryptococcus Antigen Negative Negative 12/09/2020 2:48 AM CDT [facility] Blood BLOOD SPECIMEN / Unknown Lab Venipuncture / Unknown 12/08/2020 8:15 PM CDT 12/08/2020 9:45 PM CDT Bret Montaño MD LAB - SEROLOGY ORDER RADHA Performing Organization Address City/[facility]/ZIP Co de Phone Number [facility] [address] [place] [address], [facility] [phone] * CULTURE BLOOD FUNGUS (12/08/2020 8:15 PM CDT) Culture No fungus isolated ALEXANDRA 01/20/2021 11:50 AM CDT [facility] Blood PERIPHERAL BLOOD / Unknown Lab Venipuncture / Unknown 12/08/2020 8:15 PM CDT 12/08/2020 8:27 PM CDT Narrative [facility] - 01/20/2021 11:50 AM CDT A previously reported component [Component Name] is no longer reported. Bret Montaño MD LAB - MICROBIOLOGY O RDERABLES Performing Organization Address [facility] de Phone Number [facility] [address] [place] [address], [facility] [phone] * CULTURE BLOOD AFB (12/08/2020 8:15 PM CDT) Culture No acid-fast bacillus isolated 01/20/2021 11:09 AM CDT [facility] Blood PERIPHERAL BLOOD / Unknown Lab Venipuncture / Unknown 12/08/2020 8:15 PM CDT 12/08/2020 8:58 PM CDT Narrative [facility] - 01/20/2021 11:09 AM CDT A previously reported component [Component Name] is no longer reported. Bret Montaño MD LAB - MICROBIOLOGY O RDERABLES Performing Organization Address City/[facility] Co de Phone Number [facility] [address] [place] [address], [facility] [phone] * LDH BLOOD (12/08/2020 8:15 PM CDT) [facility] Total 222 125 - 243 Units/L 12/08/2020 9:07 PM CDT [facility] Blood BLOOD SPECIMEN / Unknown Lab Venipuncture / Unknown 12/08/2020 8:15 PM CDT 12/08/2020 8:45 PM CDT Bret Montaño MD LAB - CHEMISTRY KRISTOPHER IRAHETA Performing Organization Address City/[facility]/ZIP Co de Phone Number [address] [address], [place] [phone] * (ABNORMAL) PHOSPHORUS BLOOD (12/08/2020 1:23 PM CDT) Phosphorus 2.6(L) 2.8 - 5.1 mg/dL 12/08/2020 1:55 PM CDT [facility] Blood BLOOD SPECIMEN / Unknown Venipuncture / Unknown 12/08/2020 1:23 PM CDT 12/08/2020 1:29 PM CDT Bret Montaño MD LAB - CHEMISTRY KRISTOPHER IRAHETA Performing Organization Address [facility] Co de Phone Number [address] [address], [place] [phone] * MAGNESIUM BLOOD (12/08/2020 1:23 PM CDT) Magnesium 1.6 1.6 - 2.6 mg/dL 12/08/2020 1:55 PM CDT [facility] Blood BLOOD SPECIMEN / Unknown Venipuncture / Unknown 12/08/2020 1:23 PM CDT 12/08/2020 1:29 PM CDT Bret Montaño MD LAB - CHEMISTRY KRISTOPHER IRAHETA Performing Organization Address [facility]/ZIP Co de Phone Number [address] [address], [place] [phone] * HIV-1 RNA PCR QUANTITATIVE (12/08/2020 8:11 AM CDT) [facility] HIV-1 RNA Quantitative PCR 34152 copies/mL 12/12/2020 2:10 PM CDT [facility]) Comment: The reportable range for this assay is 20 to 10,000,000 copies HIV-1 RNA/mL. log10 HIV-1 RNA Copies/mL 4.904 nyx38kfou/ mL 12/12/2020 2:10 PM CDT [facility] ([facility]) Blood BLOOD SPECIMEN / Unknown Venipuncture / Unknown 12/08/2020 8:11 AM CDT 12/08/2020 8:21 AM CDT Narrative [facility] ([facility]) - 12/12/2020 2:10 PM CDT Performed at: [address] [place] [id number] [place] Picker: Cyrus Daniels MD, Phone: [phone] Patty Washburn MD LAB - SEROLOGY ORDER RADHA Performing Organization Address City/[facility]/ZIP Co de Phone Number [facility]) [address] [id number] * TROPONIN I (12/08/2020 8:11 AM CDT) Only the most recent of2 resultswithin the time period is included. [facility] Troponin I 0.014 <0.032 ng/mL 12/08/2020 8:50 AM CDT [facility] Blood BLOOD SPECIMEN / Unknown Venipuncture / Unknown 12/08/2020 8:11 AM CDT 12/08/2020 8:21 AM CDT Patty Washburn MD LAB - CHEMISTRY ORDE MYRTLE [address] [address], [facility] [phone] * CHLAMYDIA + GC AMPLIFIED PROBE (STL) (12/08/2020 7:12 AM CDT) [facility] Chlamydia Amplified Probe Negative Negative 12/08/2020 11:11 PM CDT [facility] GC Amplified Probe Negative Negative 12/08/2020 11:11 PM CDT [facility] Microbiology URINE / Unknown Collection / Unknown 12/08/2020 7:12 AM CDT 12/08/2020 7:23 AM CDT Narrative [facility] - 12/08/2020 11:11 PM CDT Results based on detection/no detection of ribosomal RNA by amplified method. Patty Washburn MD LAB - MICROBIOLOGY O RDERABLES Performing Organization Address City/[facility]/ZIP Co de Phone Number [facility] [address] [place] [address], [facility] [phone] * (ABNORMAL) RPR TITER (12/08/2020 4:40 AM CDT) RPR Titer 1:8(A) (none) 12/08/2020 2:27 PM CDT [facility] Blood BLOOD SPECIMEN / Unknown Venipuncture / Unknown 12/08/2020 4:40 AM CDT 12/08/2020 5:06 AM CDT Patty Washburn MD LAB - CHEMISTRY ORDCodie IRAHETA Performing Organization Address [facility] Co de Phone Number [address] [address], [place] [phone] * (ABNORMAL) SYPHILIS ANTIBODY CASCADING REFLEX (12/08/2020 4:40 AM CDT) Treponema pallidum Antibody REACTIVE( A) Non-react zaida 12/08/2020 5:45 AM CDT [facility] Comment:Additional testing r equired for evaluation of syphilis. An RPR has been reflexively ordered and is in progress. Blood BLOOD SPECIMEN / Unknown Venipuncture / Unknown 12/08/2020 4:40 AM CDT 12/08/2020 5:06 AM CDT Patty Washburn MD LAB - SEROLOGY ORDER RADHA Performing Organization Address City/[facility]/ZIP Co de Phone Number [address] [place] [address], [facility] [phone] * (ABNORMAL) URINALYSIS W/MICROSCOPIC NO CULTURE (12/08/2020 4:40 AM T) Color UA Yellow Straw, Yellow 12/08/2020 4:59 AM [facility] Clarity UA Cloudy(A) Clear 12/08/2020 4:59 AM [facility] Specific [place] UA 1.008 1.005 - 1.030 12/08/2020 4:59 AM [facility] pH UA 6.0 5.0 - 8.0 pH 12/08/2020 4:59 AM [facility] Protein UA 2+(A) Negative 12/08/2020 4:59 AM [facility] Glucose UA Negative Negative 12/08/2020 4:59 AM [facility] Ketone UA Negative Negative 12/08/2020 4:59 AM [facility] Bilirubin UA Negative Negative 12/08/2020 4:59 AM [facility] Blood UA 2+(A) Negative 12/08/2020 4:59 AM [facility] Nitrite UA Negative Negative 12/08/2020 4:59 AM [facility] Leukocyte Esterase 3+(A) Negative 12/08/2020 4:59 AM [facility] Urobilinogen UA Negative Negative mg/dL 12/08/2020 4:59 AM [facility] RBC UA 21-50(A) None Seen, 0-2, 3-5 /HPF 12/08/2020 4:59 AM [facility] WBC UA >100(A) None Seen, 0-5 /HPF 12/08/2020 4:59 AM [facility] Bacteria UA 1+(A) None /HPF 12/08/2020 4:59 AM [facility] Squamous Epithelial Cells UA None Seen None Seen, 0-2, 3-5 /HPF 12/08/2020 4:59 AM [facility] Urine URINE SPECIMEN OBTAINED BY CLEAN CATCH PROCEDURE / Unknown Collection / Unknown 12/08/2020 4:40 AM CDT 12/08/2020 4:45 AM CDT Narrative [facility] - 12/08/2020 4:59 AM CDT Patty Washburn MD LAB - URINALYSIS ORD ERABLES Performing Organization Address [facility] Co de Phone Number [address] [address], [facility] [phone] * (ABNORMAL) RPR (12/08/2020 4:40 AM CDT) RPR REACTIVE( A) Non Reactive 12/08/2020 2:27 PM CDT [facility] Comment: Treponemal antibodies and non-treponemal antibodies detected. Consistent with current syphilis infection. Clinical evaluation should be performed to identify signs, symptoms, or past history of infection. Blood BLOOD SPECIMEN / Unknown Venipuncture / Unknown 12/08/2020 4:40 AM CDT 12/08/2020 5:06 AM CDT Patty Washburn MD LAB - CHEMISTRY ORDCodie IRAHETA Performing Organization Address [facility] Co de Phone Number [address] [address], [facility] [phone] * CULTURE URINE (12/08/2020 4:40 AM CDT) Pathologist [facility] Culture Urine No growth (<100 CFU/mL) ALEXANDRA 12/09/2020 10:16 AM CDT [facility] Urine URINE SPECIMEN OBTAINED BY CLEAN CATCH PROCEDURE / Unknown Collection / Unknown 12/08/2020 4:40 AM CDT 12/08/2020 4:45 AM CDT Patty Washburn MD LAB - MICROBIOLOGY O RDERABLES Performing Organization Address City/[facility]/ZIP Co de Phone Number [facility] [address] [place] [address], [place] [phone] * XR CHEST 1VW PORTABLE (12/08/2020 4:22 AM CDT) Anatomical Region Laterality Modality Chest Radiographic Vane ging 12/08/2020 5:32 AM CDT Impressions 12/08/2020 11:57 AM CDT FINDINGS/IMPRESSION: There is no focal consolidation, pleural effusion, or pneumothorax. The cardiomediastinal silhouette is normal. The visible bony thorax is intact. Dictated by Mich Abreu DO (front loader residential driver). IDr. ANANT have personally reviewed and interpreted [...] thorax isintact. Dictated by Mich Abreu DO (front loader residential driver). I, Dr. ANANT NICOLE have personally reviewed and interpreted this examination/study. This report was electronically signed by ANANT NICOLE on 12/08/2020 11:57 AM . Patty Washburn MD DIAGNOSTIC IMAGING O RDERABLES * CULTURE BLOOD (12/08/2020 3:25 AM CDT) Only the most recent of2 resultswithin the time period is included. Culture No growth day 5 ALEXANDRA 12/13/2020 9:00 AM CDT [facility] Blood PERIPHERAL BLOOD / Unknown Venipuncture / Unknown 12/08/2020 3:25 AM CDT 12/08/2020 3:33 AM CDT Patty Washburn MD LAB - MICROBIOLOGY O RDERABLES [facility] [address] [place], [place] [address], [facility] [phone] * XR LUMBAR SPINE 4VW OR MORE (12/14/2017 10:00 AM CDT) Anatomical Region Laterality Modality Spine Radiographic Vane ging 12/14/2017 10:1 5 AM CDT Impressions 12/14/2017 12:43 PM CDT IMPRESSION: No acute fracture or subluxation identified. Dictated by Chu Badillo MD (front loader residential driver). Dr. ANANT Forman have personally reviewed and [...] subluxation identified. Dictated by Chu Badillo MD (front loader residential driver). Dr. ANANT Forman have personally reviewed and [...] subluxation identified. Dictated by Chu Badillo MD (front loader residential driver). Dr. ANANT Forman have personally reviewed and [...] subluxation identified. Dictated by Chu Badillo MD (front loader residential driver). Dr. ANANT Forman have personally reviewed and interpreted this examination/study. This report was electronically signed by ANANT NICOLE on 12/14/2017 12:43 PM . Wesley Pichardo MD DIAGNOSTIC IMAGING O RDERABLES * XR KNEE RIGHT 2VW OR LESS (05/14/2017 1:40 PM [employer]) Anatomical Region Laterality Modality Lower Extremity Other Impressions 05/14/2017 1:53 PM [employer] IMPRESSION: 1. Bilateral hip radiographs are normal. 2. Right knee radiographs are normal. 3. Left knee radiographs are normal. This report was electronically signed by THEO TAVERAS MD on 05/14/2017 1:53 PM . Narrative 05/14/2017 1:53 PM [employer] Exam: 1. AP pelvis and 2 views [...] LEFT 2VW OR LESS (05/14/2017 1:40 PM [employer]) Anatomical Region Laterality Modality Lower Extremity Other Impressions 05/14/2017 1:53 PM [employer] IMPRESSION: 1. Bilateral hip radiographs are normal. 2. Right knee radiographs are normal. 3. Left knee radiographs are normal. This report was electronically signed by THEO TAVERAS MD on 05/14/2017 1:53 PM . Narrative 05/14/2017 1:53 PM [employer] Exam: 1. AP pelvis and 2 views [...] W BILAT HIP 2VW (05/14/2017 1:40 PM [employer]) Anatomical Region Laterality Modality Pelvis, Lower Extremity Other Impressions 05/14/2017 1:53 PM [employer] IMPRESSION: 1. Bilateral hip radiographs are normal. 2. Right knee radiographs are normal. 3. Left knee radiographs are normal. This report was electronically signed by THEO TAVERAS MD on 05/14/2017 1:53 PM . Narrative 05/14/2017 1:53 PM [employer] Exam: 1. AP pelvis and 2 views [...] [facility] Teams Trailer Sections Assembler Relationship Specialty Start Date End Date Izabela Louis MD [address], [place] [id number] PCP - General Internal Medicine 05/31/24
--- OUTSIDE RECORDS SUMMARY | 2024-06-17 11:37 | XMS_ITS | Clinical Summary ---
Author Organization [facility] Address [address] [place] [address] Care Team Providers Care Jewel Setter Name Role Phone Syed Diggs MD Unavailable [phone] Wesley Pichardo MD Unavailable [phone] Marilyn Schreiber MD Unavailable [phone] Izabela Louis MD Primary Care Provider Allergies [...] breath 3 Active True Metrix Glucose Meter [facility] [place] TO TEST BLOOD SUGAR ONCE DAILY 2 Active Symtuza [phone] mg tablet Take 1 tablet by mouth [...] 04/06/2023 Assessment & Plan (04/06/2023 1:44 PM COLOR MIXER): Required 2L O2 support since admission CXR no evidence of pneumonia or atelectasis Now weaned to room air - Perform home O2 evaluation prior to discharge - Management of influenza as described elsewhere Macrocytic anemia 04/06/2023 Assessment & Plan (04/06/2023 1:49 PM COLOR MIXER): Recent labs with low B12 and low folate Hb stable - Continue supplement with B12 and folate daily Verruca vulgaris 04/05/2023 Assessment & Plan (04/06/2023 1:36 PM COLOR MIXER): Follows with [facility] - Continue home Imiquimod 5% cream to warts x3/weekly. Pt not to touch eyes following application. Influenza 04/04/2023 Assessment & Plan (04/06/2023 1:46 PM COLOR MIXER): Reports fatigue, febrile episodes at home Tmax [...] 04/04/2023 Assessment & Plan (04/06/2023 1:45 PM COLOR MIXER): Cr 1.5 up from baseline of ~1 Likely prerenal from poor po intake in setting of influenza Resolved with IVF, PO intake - Encourage to continue adequate hydration and food intake at home as he is recovering from influenza - Avoid nephrotoxins Chronic pain syndrome 04/04/2023 Assessment & Plan (04/06/2023 1:58 PM COLOR MIXER): Seems to be on both methadone and percocet at home Continue home doses of methadone 5 mg BID and oxy 10 q4 prn Other urethral stricture, male, unspecified site 03/24/2023 B12 deficiency 02/17/2023 Inflammation of the rectum 09/13/2020 Overview (09/13/2020): Added automatically from request for surgery [id number] Chronic rectal pain 09/13/2020 Overview (09/13/2020): Added automatically from request for surgery [id number] Squamous cell carcinoma of rectum 09/13/2020 Overview (09/13/2020): Added automatically from request for surgery [id number] Screening for malignant neoplasm of colon 2020 Overview (07/30/2020): Added automatically from request for surgery [id number] ASTER (acute kidney injury) 12/01/2019 Assessment & [...] 03/01/2019 Assessment & Plan (03/02/2019 4:40 PM COLOR MIXER): Cr was 1.13 on admission and peaked to 1.41 03/01 likely in the setting of IV abx. Supported with IVFS and stopped IV abx. Cr 1.12 Skin breakdown to perianal region 02/28/2019 Assessment & Plan (03/01/2019 1:12 PM COLOR MIXER): Skin breakdown noted on exam between gluteal [...] 02/28/2019 Assessment & Plan (03/02/2019 4:45 PM COLOR MIXER): Likely 2/2 current XRT. Patient has diarrhea at baseline. -Will send c.diff, stool studies to r/o infection -cIVFs to maintain hydration -diarrhea started again the evening of 03/01, send c.diff -k 3.2 in setting of diarrhea, supplemented Pancytopenia 02/27/2019 Assessment & Plan (12/01/2019 10:29 PM CDT): has been pancytopenic since chemotherapy, also with HIV Assessment & Plan (03/02/2019 4:38 PM COLOR MIXER): In setting of chemotherapy 02/13- and XRT. -WBC 1.0, ANC 500 -H/H 8.5/23.4 on admission -PLT 3K on admission, s/p 1 unit, with appropriate bump to 16K -Will transfuse PLTs to keep > 10K, will likely need again as plt 13 today (denies blood nose/bm) -hgb 7.5, lorenzo transfuse 1 unit in setting of overall fatigue Assessment & Plan (02/27/2019 11:25 PM COLOR MIXER): - likely 2/2 recent chemo - transfuse 1 unit plt with post transfusion cbc - maintain type and screen - consent in chart Transaminitis 02/17/2019 Assessment & Plan (02/18/2019 1:05 PM COLOR MIXER): New onset 02/17 w/ t.bili 1, Alk Phos 181, AST 389, ALT 227. Previously normal. - Suspect drug-induced likely I/s/o recently initiated chemotherapy - consider also fluconazole vs biktarvy (these are not new prescriptions but concerns of compliance pre-hospitalization) vs recently initiated MSContin Down-trending today, plan to d/c Severe malnutrition 02/14/2019 Assessment & Plan (03/02/2019 4:44 PM COLOR MIXER): -encourage high protein diet. Assessment & Plan (02/16/2019 11:14 AM COLOR MIXER): Pt has had significant weight loss & poor PO intake. 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 - s/p treatment with atovaquone (rash to dapsone was, no G6PD) Encounter for antineoplastic chemotherapy 2018 Assessment & Plan (02/18/2019 1:04 PM COLOR MIXER): Admitted for C1 Mitomycin and 5-FU with [...] 02/13/2019 Assessment & Plan (02/15/2019 1:32 PM COLOR MIXER): Noted history of CKD3 with peak Cr in medical record to 2.5. Previously followed with nephrology though not in last couple years. Cr now WNL with adequate UO. - Monitor CMP daily, daily weights, and I&O Nicotine dependence 02/13/2019 Assessment & Plan (02/28/2019 1:13 PM COLOR MIXER): Will administer Nicotine patches in house Assessment & Plan (02/15/2019 1:35 PM COLOR MIXER): Current every day smoker. - Nicotine 21 mg patch daily - Encourage smoking cessation Anal cancer 10/17/2018 Assessment & Plan (04/06/2023 1:47 PM COLOR MIXER): S/p chemoradiation Currently in remission - Continue [...] QID Assessment & Plan (03/01/2019 1:06 PM COLOR MIXER): Patient of Dr. Peralta. S/p C1 mitomycin/5FU 02/13- with concurrent radiation. -Will continue XRT inpatient -Due for chemo on week 5 (~03/13/19) -Due to profound pancytopenia s/p chemo, will send out labwork to check deficiency in dihydropyrimidine dehydrogenase (DPD) per outpatient team 03/01 (has to be in pink tube) Assessment & Plan (02/27/2019 11:21 PM COLOR MIXER): - s/p C1 mitomycin/5FU 02/13- with concurrent radiation - pain control with MSContin 30 BID + oxycodone PRN Assessment & Plan (02/18/2019 12:52 PM COLOR MIXER): Diagnosed 09/23/2018, [id number]. Followed by Dr. Peralta. Treatment delayed 2/2 insurance issues. - Admitted for C1 mitomycin + 5FU w/ concurrent radiation (planned 28 fx) - first RT 02/13. C1 complete. Will follow up with xrt outpatient and with Dr. Peralta for C2 in a few weeks Tolerated treatment well Human immunodeficiency virus (HIV) disease 10/17 Assessment & Plan (04/06/2023 1:48 PM COLOR MIXER): Last CD4 148, [place] [id number] - Continue Symtuza - Continue atovaquone 1500 mg daily for PCP ppx - Ensure close f/u with local ID Dr. Louis Assessment & Plan (12/01/2019 10:28 PM CDT): last CD4 79, HIV VL [id number] 07/2019 - repeat CD4, HIV RNA; continue Biktarvy, continue fluconazole (patient endorses is suppressive therapy after previous crypto infection) Assessment & Plan (02/28/2019 12:45 PM COLOR MIXER): Follows with Dr. Louis. Last CD4 153, VL 464K 10/2018. -Continue home biktarvy -Hx of crypto meningitis, continue suppressive fluconazole Assessment & Plan (02/27/2019 11:23 PM COLOR MIXER): - continue home biktarvy - hx of crypto meningitis, continue suppressive fluconazole Assessment & Plan (02/18/2019 1:12 PM COLOR MIXER): Most recent 10/19 CD4 153, VL 465k. [...] 08/12/2018 Assessment & Plan (02/15/2019 1:32 PM COLOR MIXER): History of crypto meningitis; unclear what year [...] elsewhere Assessment & Plan (03/02/2019 4:39 PM COLOR MIXER): Patient reports rectal pain. In setting of anal cancer and current XRT. Follows with pain management outpatient, Dr. Pichardo. -On exam, there is skin breakdown between gluteal muscles > c/s wound care for wound management -Home pain regimen: MSContin 30mg BID, Gabapentin 600mg QID, Requip 1mg qpm, Marianna 10/325 q6hprn, Baclofen 20mg TID prn Assessment & Plan (02/17/2019 12:10 PM COLOR MIXER): Follows with pain management (Dr. Pichardo) outpatient [...] 04/06/2023 Assessment & Plan (04/04/2023 9:55 AM COLOR MIXER): -recent labs with low B12 and low folate -supplement with B12 and folate daily Hyponatremia 02/27/2019 04/06/2023 Assessment & Plan (04/05/2023 4:32 PM COLOR MIXER): -Resolved s/p IVF bolus Assessment & Plan (02/28/2019 12:46 PM COLOR MIXER): Na 127 on admit. Likely 2/2 dehydration related to diarrhea. -S/p 1L NS bolus x 2 -Na improving, 135 today -Will CTM Assessment & Plan (02/27/2019 11:24 PM COLOR MIXER): - 2/2 dehydration liked related to diarrhea. Urine sodium < 20, Na improving with NS - additional 1L NS overnight, repeat BMP in AM Neutropenic fever 02/27/2019 02/07/2024 Assessment & Plan (03/01/2019 12:53 PM COLOR MIXER): Patient admitted from [facility], where he reported chills with Tmax 38. Found to be neutropenic and was briefly hypotensive in [facility]. -Infectious workup: Blood cultures x [...] days Assessment & Plan (02/27/2019 11:26 PM COLOR MIXER): - chills, Tmax 38, neutropenic and was briefly hypotensive in [facility] - blood cultures pending - f/u urine culture - CXR clear - f/u GC/CT - continue vanc/cefe Anal warts 09/09/2018 12/01/2019 Overview (09/09/2018): Added automatically from request for surgery [id number] Immunizations Immunization Administration Dates Next Due Hep [...] on file Legal Sex Male 4:35 AM COLOR MIXER Gender Identity Male 04/21/2023 9:16 AM COLOR MIXER Sexual Orientation Not on file Obstetrics History Last Filed Vital Signs Vital Sign Reading Time Taken Comments Blood Pressure 114/75 02/09/2024 8:43 AM COLOR MIXER Pulse 80 02/09/2024 8:43 AM COLOR MIXER Temperature 36.7 C (98 F) 02/09/2024 8:43 AM COLOR MIXER Respiratory Rate 18 02/09/2024 8:43 AM COLOR MIXER Oxygen Saturation 96% 02/09/2024 8:43 AM COLOR MIXER Inhaled Oxygen Concentration - - Weight 87.2 kg (192 lb 3.2 oz) 02/09/2024 8:43 A M COLOR MIXER Height 182.9 cm (6' 0.01 ) 01/24/2024 [...] Straw Yellow Clarity, ur Clear Clear [facility] Specific gravity, ur 1.007 1.003 - 1.030 [facility] pH, urine 6.0 [facility] Comment: Interpretive Data U rine pH is affected by diet, medications, systemic acid-base disturbances, and renal tubular function. pH may affect urinary stone formation. For example, urine pH below 6.0 may help reduce the tendency for calcium phosphate stones and pH greater than 6.0 may reduce the tendency for uric acid stone formation. Source: [facility] Current Interpretive Data was last revised on 2017 Protein, ur ql Negative Negative [facility] Glucose, ur ql Negative Negative [facility] Ketones, ur Negative Negative [facility] Bilirubin, ur Negative Negative [facility] Blood, ur Trace(A) Negative [facility] Urobilinogen, ur <2.0 <2.0 mg/dL [facility] Nitrite, ur Negative Negative [facility] Leukocyte esterase, ur Negative Negative [facility] UA reflex comment Reflex to microscopic UA will be performed. [facility] Urine, clean voided 01/28/2024 2:02 AM CDT 01/28/2024 2:10 AM CDT Xiomara Turk MD LAB MICROBIOLOGY - GENER AL ORDERABLES Final Result [facility] Department [place] [address] * RPR, serum (07/30/2016 1:06 AM CDT) [facility]PR [facility] Blood specimen (specimen) 07/30/2016 1:06 AM CDT 07/30/2016 2:17 AM CDT us Ace Olmstead MD PhD LAB MICROBIOLOGY - GENERAL KRISTOPHER [place] Final Result Performing Organization Address City/State/[facility] Co de Phone Number [facility] Department [place] [address] from Last 3 Months or Most Recently Relevant to Health Maintenance Insurance MEDICARE [facility] MEDICARE IDPA MANAGED MEDICAID GENERIC RISK OTHER [employer] [place] MEDIC[place] Advance Directives For more information, please contact: [phone] * Full Code (Latest Code Status on [...] 10:57 AM 05/28/2020 4:48 AM Care Teams Jewel Setter Relationship Specialty Start Date End Date Izabela Louis MD [address] [place] [id number] PCP - General 11/22/19 Syed Diggs MD Surgeon Colon and Rectal Surgery 09/30/18 Wesley Pichardo MD [id number] [address] Pain Management 09/30/18 Marilyn Schreiber MD [address] [address] Radiation Oncologist Radiation Oncology 10/24/18
--- OUTSIDE RECORDS SUMMARY | 2024-06-17 11:37 | XMS_ITS | Referral Summary ---
Author Organization [facility] Address [address] [place] [address] Care Team Providers Care Button Maker And Installer Name Role Phone Syed Diggs MD Unavailable [phone] Wesley Pichardo MD Unavailable [phone] Marilyn Schreiber MD Unavailable [phone] Izabela Louis MD Primary Care Provider Allergies [...] breath 3 Active True Metrix Glucose Meter [facility] [place] USE TO TEST BLOOD SUGAR ONCE DAILY 2 Active Symtuza [phone] mg tablet Take 1 tablet by mouth [...] 04/06/2023 Assessment & Plan (04/06/2023 1:44 PM FAMILY MEMBER CARETAKER): Required 2L O2 support since admission CXR no evidence of pneumonia or atelectasis Now weaned to room air - Perform home O2 evaluation prior to discharge - Management of influenza as described elsewhere Macrocytic anemia 04/06/2023 Assessment & Plan (04/06/2023 1:49 PM FAMILY MEMBER CARETAKER): Recent labs with low B12 and low folate Hb stable - Continue supplement with B12 and folate daily Verruca vulgaris 04/05/2023 Assessment & Plan (04/06/2023 1:36 PM FAMILY MEMBER CARETAKER): Follows with [facility]. - Continue home Imiquimod 5% cream to warts x3/weekly. Pt not to touch eyes following application. Influenza 04/04/2023 Assessment & Plan (04/06/2023 1:46 PM FAMILY MEMBER CARETAKER): Reports fatigue, febrile episodes at home Tmax [...] 04/04/2023 Assessment & Plan (04/06/2023 1:45 PM FAMILY MEMBER CARETAKER): Cr 1.5 up from baseline of ~1 Likely prerenal from poor po intake in setting of influenza Resolved with IVF, PO intake - Encourage to continue adequate hydration and food intake at home as he is recovering from influenza - Avoid nephrotoxins Chronic pain syndrome 04/04/2023 Assessment & Plan (04/06/2023 1:58 PM FAMILY MEMBER CARETAKER): Seems to be on both methadone and percocet at home Continue home doses of methadone 5 mg BID and oxy 10 q4 prn Other urethral stricture, male, unspecified site 03/24/2023 B12 deficiency 02/17/2023 Inflammation of the rectum 09/13/2020 Overview (09/13/2020): Added automatically from request for surgery [id number] Chronic rectal pain 09/13/2020 Overview (09/13/2020): Added automatically from request for surgery [id number] Squamous cell carcinoma of rectum 09/13/2020 Overview (09/13/2020): Added automatically from request for surgery [id number] Screening for malignant neoplasm of colon 2020 Overview (07/30/2020): Added automatically from request for surgery [id number] ASTER (acute kidney injury) 12/01/2019 Assessment & [...] 03/01/2019 Assessment & Plan (03/02/2019 4:40 PM FAMILY MEMBER CARETAKER): Cr was 1.13 on admission and peaked to 1.41 03/01 likely in the setting of IV abx. Supported with IVFS and stopped IV abx. Cr 1.12 Skin breakdown to perianal region 02/28/2019 Assessment & Plan (03/01/2019 1:12 PM FAMILY MEMBER CARETAKER): Skin breakdown noted on exam between gluteal [...] 02/28/2019 Assessment & Plan (03/02/2019 4:45 PM FAMILY MEMBER CARETAKER): Likely 2/2 current XRT. Patient has diarrhea at baseline. -Will send c.diff, stool studies to r/o infection -cIVFs to maintain hydration -diarrhea started again the evening of 03/01, send c.diff -k 3.2 in setting of diarrhea, supplemented Pancytopenia 02/27/2019 Assessment & Plan (12/01/2019 10:29 PM CDT): has been pancytopenic since chemotherapy, also with HIV Assessment & Plan (03/02/2019 4:38 PM FAMILY MEMBER CARETAKER): In setting of chemotherapy 02/13- and XRT. -WBC 1.0, ANC 500 -H/H 8.5/23.4 on admission -PLT 3K on admission, s/p 1 unit, with appropriate bump to 16K -Will transfuse PLTs to keep > 10K, will likely need again as plt 13 today (denies blood nose/bm) -hgb 7.5, lorenzo transfuse 1 unit in setting of overall fatigue Assessment & Plan (02/27/2019 11:25 PM FAMILY MEMBER CARETAKER): - likely 2/2 recent chemo - transfuse 1 unit plt with post transfusion cbc - maintain type and screen - consent in chart Transaminitis 02/17/2019 Assessment & Plan (02/18/2019 1:05 PM FAMILY MEMBER CARETAKER): New onset 02/17 w/ t.bili 1, Alk Phos 181, AST 389, ALT 227. Previously normal. - Suspect drug-induced likely I/s/o recently initiated chemotherapy - consider also fluconazole vs biktarvy (these are not new prescriptions but concerns of compliance pre-hospitalization) vs recently initiated MSContin Down-trending today, plan to d/c Severe malnutrition 02/14/2019 Assessment & Plan (03/02/2019 4:44 PM FAMILY MEMBER CARETAKER): -encourage high protein diet. Assessment & Plan (02/16/2019 11:14 AM FAMILY MEMBER CARETAKER): Pt has had significant weight loss & poor PO intake. 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 - s/p treatment with atovaquone (rash to dapsone was, no G6PD) Encounter for antineoplastic chemotherapy 2018 Assessment & Plan (02/18/2019 1:04 PM FAMILY MEMBER CARETAKER): Admitted for C1 Mitomycin and 5-FU with [...] 02/13/2019 Assessment & Plan (02/15/2019 1:32 PM FAMILY MEMBER CARETAKER): Noted history of CKD3 with peak Cr in medical record to 2.5. Previously followed with nephrology though not in last couple years. Cr now WNL with adequate UO. - Monitor CMP daily, daily weights, and I&O Nicotine dependence 02/13/2019 Assessment & Plan (02/28/2019 1:13 PM FAMILY MEMBER CARETAKER): Will administer Nicotine patches in house Assessment & Plan (02/15/2019 1:35 PM FAMILY MEMBER CARETAKER): Current every day smoker. - Nicotine 21 mg patch daily - Encourage smoking cessation Anal cancer 10/17/2018 Assessment & Plan (04/06/2023 1:47 PM FAMILY MEMBER CARETAKER): S/p chemoradiation Currently in remission - Continue [...] QID Assessment & Plan (03/01/2019 1:06 PM FAMILY MEMBER CARETAKER): Patient of Dr. Peralta. S/p C1 mitomycin/5FU 02/13- with concurrent radiation. -Will continue XRT inpatient -Due for chemo on week 5 (~03/13/19) -Due to profound pancytopenia s/p chemo, will send out labwork to check deficiency in dihydropyrimidine dehydrogenase (DPD) per outpatient team 03/01 (has to be in pink tube) Assessment & Plan (02/27/2019 11:21 PM FAMILY MEMBER CARETAKER): - s/p C1 mitomycin/5FU 02/13- with concurrent radiation - pain control with MSContin 30 BID + oxycodone PRN Assessment & Plan (02/18/2019 12:52 PM FAMILY MEMBER CARETAKER): Diagnosed 09/23/2018, [id number]. Followed by Dr. Peralta. Treatment delayed 2/2 insurance issues. - Admitted for C1 mitomycin + 5FU w/ concurrent radiation (planned 28 fx) - first RT 02/13. C1 complete. Will follow up with xrt outpatient and with Dr. Peralta for C2 in a few weeks Tolerated treatment well Human immunodeficiency virus (HIV) disease 10/17 Assessment & Plan (04/06/2023 1:48 PM FAMILY MEMBER CARETAKER): Last CD[place] 148[place] [address] - Continue Symtuza - Continue atovaquone 1500 mg daily for PCP ppx - Ensure close f/u with local ID Dr. Louis Assessment & Plan (12/01/2019 10:28 PM CDT): last CD4 79, HIV VL [id number] 07/2019 - repeat CD4, HIV RNA; continue Biktarvy, continue fluconazole (patient endorses is suppressive therapy after previous crypto infection) Assessment & Plan (02/28/2019 12:45 PM FAMILY MEMBER CARETAKER): Follows with Dr. Louis. Last CD4 153, VL 464K 10/2018. -Continue home biktarvy -Hx of crypto meningitis, continue suppressive fluconazole Assessment & Plan (02/27/2019 11:23 PM FAMILY MEMBER CARETAKER): - continue home biktarvy - hx of crypto meningitis, continue suppressive fluconazole Assessment & Plan (02/18/2019 1:12 PM FAMILY MEMBER CARETAKER): Most recent 10/19 CD4 153, VL 465k. [...] 08/12/2018 Assessment & Plan (02/15/2019 1:32 PM FAMILY MEMBER CARETAKER): History of crypto meningitis; unclear what year [...] elsewhere Assessment & Plan (03/02/2019 4:39 PM FAMILY MEMBER CARETAKER): Patient reports rectal pain. In setting of anal cancer and current XRT. Follows with pain management outpatient, Dr. Pichardo. -On exam, there is skin breakdown between gluteal muscles > c/s wound care for wound management -Home pain regimen: MSContin 30mg BID, Gabapentin 600mg QID, Requip 1mg qpm, [place] 10/325 q6hprn, Baclofen 20mg TID prn Assessment & Plan (02/17/2019 12:10 PM FAMILY MEMBER CARETAKER): Follows with pain management (Dr. Pichardo) outpatient [...] 04/06/2023 Assessment & Plan (04/04/2023 9:55 AM FAMILY MEMBER CARETAKER): -recent labs with low B12 and low folate -supplement with B12 and folate daily Hyponatremia 02/27/2019 04/06/2023 Assessment & Plan (04/05/2023 4:32 PM FAMILY MEMBER CARETAKER): -Resolved s/p IVF bolus Assessment & Plan (02/28/2019 12:46 PM FAMILY MEMBER CARETAKER): Na 127 on admit. Likely 2/2 dehydration related to diarrhea. -S/p 1L NS bolus x 2 -Na improving, 135 today -Will CTM Assessment & Plan (02/27/2019 11:24 PM FAMILY MEMBER CARETAKER): - 2/2 dehydration liked related to diarrhea. Urine sodium < 20, Na improving with NS - additional 1L NS overnight, repeat BMP in AM Neutropenic fever 02/27/2019 02/07/2024 Assessment & Plan (03/01/2019 12:53 PM FAMILY MEMBER CARETAKER): [facility] days Assessment & Plan (02/27/2019 11:26 PM FAMILY MEMBER CARETAKER): - chills, Tmax 38, neutropenic and was briefly hypotensive in [facility] - blood cultures pending - f/u urine culture - CXR clear - f/u GC/CT - continue vanc/cefe Anal warts 09/09/2018 12/01/2019 Overview (09/09/2018): Added automatically from request for surgery [id number] Immunizations Immunization Administration Dates Next Due Hep [...] on file Legal Sex Male 4:35 AM FAMILY MEMBER CARETAKER Gender Identity Male 04/21/2023 9:16 AM FAMILY MEMBER CARETAKER Sexual Orientation Not on file Last Filed Vital Signs Vital Sign Reading Time Taken Comments Blood Pressure 114/75 02/09/2024 8:43 AM FAMILY MEMBER CARETAKER Pulse 80 02/09/2024 8:43 AM FAMILY MEMBER CARETAKER Temperature 36.7 C (98 F) 02/09/2024 8:43 AM FAMILY MEMBER CARETAKER Respiratory Rate 18 02/09/2024 8:43 AM FAMILY MEMBER CARETAKER Oxygen Saturation 96% 02/09/2024 8:43 AM FAMILY MEMBER CARETAKER Inhaled Oxygen Concentration - - Weight 87.2 kg (192 lb 3.2 oz) 02/09/2024 8:43 A M FAMILY MEMBER CARETAKER Height 182.9 cm (6' 0.01 ) 01/24/2024 [...] ur Straw Yellow Clarity, ur Clear Clear [facility] Specific gravity, ur 1.007 1.003 - 1.030 [facility] pH, urine 6.0 [facility] Comment: Interpretive Data U rine pH is affected by diet, medications, systemic acid-base disturbances, and renal tubular function. pH may affect urinary stone formation. For example, urine pH below 6.0 may help reduce the tendency for calcium phosphate stones and pH greater than 6.0 may reduce the tendency for uric acid stone formation. Source: [facility] Current Interpretive Data was last revised on 2017 Protein, ur ql Negative Negative [facility] Glucose, ur ql Negative Negative [facility] Ketones, ur Negative Negative [facility] Bilirubin, ur Negative Negative [facility] Blood, ur Trace(A) Negative [facility] Urobilinogen, ur <2.0 <2.0 mg/dL [facility] Nitrite, ur Negative Negative [facility] Leukocyte esterase, ur Negative Negative [facility] UA reflex comment Reflex to microscopic UA will be performed. [facility] Urine, clean voided 01/28/2024 2:02 AM CDT 01/28/2024 2:10 AM CDT us Xiomara Turk MD LAB MICROBIOLOGY - [facility] AL ORDERABLES Final Result Performing Organization Address City/[facility] Co de Phone Number [facility] Department [place] [address] * RPR, serum (07/30/2016 1:06 AM CDT) RPR Nonreactive [facility] Blood specimen (specimen) 07/30/2016 1:06 AM CDT 07/30/2016 2:17 AM CDT us Ace Olmstead MD PhD LAB MICROBIOLOGY - [facility] Final Result Performing Organization Address [facility] Co de Phone Number [facility] Department [place] [address] from Last 3 Months or Most Recently Relevant to Health Maintenance Insurance MEDICARE IDPA MEDICARE IDPA MANAGED MEDICAID GENERIC RISK OTHER [employer] [place] MEDICARE [facility] Advance Directives For more information, please contact: [phone] * Full Code (Latest Code Status on [...] 10:57 AM 05/28/2020 4:48 AM Care Teams Button Maker And Installer Relationship Specialty [place] [address] [place] [id number] PCP - General 11/22/19 Syed Diggs MD Surgeon Colon and Rectal Surgery 09/30/18 Wesley Pichardo MD [address] [place] [address] [id number] Pain Management 09/30/18 Marilyn Schrebier MD [address] [place] [id number] Radiation Oncologist Radiation Oncology 10/24/18
--- OUTSIDE RECORDS SUMMARY | 2024-06-17 11:37 | XMS_ITS ---
Author Organization [facility] Address [address] [place] [address] Care Team Providers Care Design Leader Name Role Phone Syed Diggs MD Unavailable [phone] Wesley Pichardo MD Unavailable [phone] Marilyn Schreiber MD Unavailable [phone] Izabela Louis MD Primary Care Provider Active Problems Problem Noted Date Diagnosed Date History of anal cancer 10/06/2023 Acute hypoxic respiratory failure 04/06/2023 Assessment & Plan (04/06/2023 1:44 PM POLICE MATRON): Required 2L O2 support since admission CXR no evidence of pneumonia or atelectasis Now weaned to room air - Perform home O2 evaluation prior to discharge - Management of influenza as described elsewhere Macrocytic anemia 04/06/2023 Assessment & Plan (04/06/2023 1:49 PM POLICE MATRON): Recent labs with low B12 and low folate Hb stable - Continue supplement with B12 and folate daily Verruca vulgaris 04/05/2023 Assessment & Plan (04/06/2023 1:36 PM POLICE MATRON): Follows with [facility]. - Continue home Imiquimod 5% cream to warts x3/weekly. Pt not to touch eyes following application. Influenza 04/04/2023 Assessment & Plan (04/06/2023 1:46 PM POLICE MATRON): Reports fatigue, febrile episodes at home Tmax [...] 04/04/2023 Assessment & Plan (04/06/2023 1:45 PM POLICE MATRON): Cr 1.5 up from baseline of ~1 Likely prerenal from poor po intake in setting of influenza Resolved with IVF, PO intake - Encourage to continue adequate hydration and food intake at home as he is recovering from influenza - Avoid nephrotoxins Chronic pain syndrome 04/04/2023 Assessment & Plan (04/06/2023 1:58 PM POLICE MATRON): Seems to be on both methadone and percocet at home Continue home doses of methadone 5 mg BID and oxy 10 q4 prn Other urethral stricture, male, unspecified site 03/24/2023 B12 deficiency 02/17/2023 Inflammation of the rectum 09/13/2020 Overview (09/13/2020): Added automatically from request for surgery [id number] Chronic rectal pain 09/13/2020 Overview (09/13/2020): Added automatically from request for surgery [id number] Squamous cell carcinoma of rectum 09/13/2020 Overview (09/13/2020): Added automatically from request for surgery [id number] Screening for malignant neoplasm of colon 2020 Overview (07/30/2020): Added automatically from request for surgery [id number] ASTER (acute kidney injury) 12/01/2019 Assessment & [...] 03/01/2019 Assessment & Plan (03/02/2019 4:40 PM POLICE MATRON): Cr was 1.13 on admission and peaked to 1.41 03/01 likely in the setting of IV abx. Supported with IVFS and stopped IV abx. Cr 1.12 Skin breakdown to perianal region 02/28/2019 Assessment & Plan (03/01/2019 1:12 PM POLICE MATRON): Skin breakdown noted on exam between gluteal [...] 02/28/2019 Assessment & Plan (03/02/2019 4:45 PM POLICE MATRON): Likely 2/2 current XRT. Patient has diarrhea at baseline. -Will send c.diff, stool studies to r/o infection -cIVFs to maintain hydration -diarrhea started again the evening of 03/01, send c.diff -k 3.2 in setting of diarrhea, supplemented Pancytopenia 02/27/2019 Assessment & Plan (12/01/2019 10:29 PM CDT): has been pancytopenic since chemotherapy, also with HIV Assessment & Plan (03/02/2019 4:38 PM POLICE MATRON): In setting of chemotherapy 02/13- and XRT. -WBC 1.0, ANC 500 -H/H 8.5/23.4 on admission -PLT 3K on admission, s/p 1 unit, with appropriate bump to 16K -Will transfuse PLTs to keep > 10K, will likely need again as plt 13 today (denies blood nose/bm) -hgb 7.5, lorenzo transfuse 1 unit in setting of overall fatigue Assessment & Plan (02/27/2019 11:25 PM POLICE MATRON): - likely 2/2 recent chemo - transfuse 1 unit plt with post transfusion cbc - maintain type and screen - consent in chart Transaminitis 02/17/2019 Assessment & Plan (02/18/2019 1:05 PM POLICE MATRON): New onset 02/17 w/ t.bili 1, Alk Phos 181, AST 389, ALT 227. Previously normal. - Suspect drug-induced likely I/s/o recently initiated chemotherapy - consider also fluconazole vs biktarvy (these are not new prescriptions but concerns of compliance pre-hospitalization) vs recently initiated MSContin Down-trending today, plan to d/c Severe malnutrition 02/14/2019 Assessment & Plan (03/02/2019 4:44 PM POLICE MATRON): -encourage high protein diet. Assessment & Plan (02/16/2019 11:14 AM POLICE MATRON): Pt has had significant weight loss & poor PO intake. 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 - s/p treatment with atovaquone (rash to dapsone was, no G6PD) Encounter for antineoplastic chemotherapy 2018 Assessment & Plan (02/18/2019 1:04 PM POLICE MATRON): Admitted for C1 Mitomycin and 5-FU with [...] 02/13/2019 Assessment & Plan (02/15/2019 1:32 PM POLICE MATRON): Noted history of CKD3 with peak Cr in medical record to 2.5. Previously followed with nephrology though not in last couple years. Cr now WNL with adequate UO. - Monitor CMP daily, daily weights, and I&O Nicotine dependence 02/13/2019 Assessment & Plan (02/28/2019 1:13 PM POLICE MATRON): Will administer Nicotine patches in house Assessment & Plan (02/15/2019 1:35 PM POLICE MATRON): Current every day smoker. - Nicotine 21 mg patch daily - Encourage smoking cessation Anal cancer 10/17/2018 Assessment & Plan (04/06/2023 1:47 PM POLICE MATRON): S/p chemoradiation Currently in remission - Continue [...] QID Assessment & Plan (03/01/2019 1:06 PM POLICE MATRON): Patient of Dr. Peralta. S/p C1 mitomycin/5FU 02/13- with concurrent radiation. -Will continue XRT inpatient -Due for chemo on week 5 (~03/13/19) -Due to profound pancytopenia s/p chemo, will send out labwork to check deficiency in dihydropyrimidine dehydrogenase (DPD) per outpatient team 03/01 (has to be in pink tube) Assessment & Plan (02/27/2019 11:21 PM POLICE MATRON): - s/p C1 mitomycin/5FU 02/13-14 with concurrent radiation - pain control with MSContin 30 BID + oxycodone PRN Assessment & Plan (02/18/2019 12:52 PM POLICE MATRON): Diagnosed 09/23/2018, [id number]. Followed by Dr. Peralta. Treatment delayed 2/2 insurance issues. - Admitted for C1 mitomycin + 5FU w/ concurrent radiation (planned 28 fx) - first RT 02/13. C1 complete. Will follow up with xrt outpatient and with Dr. Peralta for C2 in a few weeks Tolerated treatment well Human immunodeficiency virus (HIV) disease 10/17 Assessment & Plan (04/06/2023 1:48 PM POLICE MATRON): Last CD[place] 148, [place] [address] - Continue Symtuza - Continue atovaquone 1500 mg daily for PCP ppx - Ensure close f/u with local ID Dr. Louis Assessment & Plan (12/01/2019 10:28 PM CDT): last CD4 79, HIV VL [id number] 07/2019 - repeat CD4, HIV RNA; continue Biktarvy, continue fluconazole (patient endorses is suppressive therapy after previous crypto infection) Assessment & Plan (02/28/2019 12:45 PM POLICE MATRON): Follows with Dr. Louis. Last CD4 153, VL 464K 10/2018. -Continue home biktarvy -Hx of crypto meningitis, continue suppressive fluconazole Assessment & Plan (02/27/2019 11:23 PM POLICE MATRON): - continue home biktarvy - hx of crypto meningitis, continue suppressive fluconazole Assessment & Plan (02/18/2019 1:12 PM POLICE MATRON): Most recent 10/19 CD4 153, VL 465k. [...] 08/12/2018 Assessment & Plan (02/15/2019 1:32 PM POLICE MATRON): History of crypto meningitis; unclear what year [...] elsewhere Assessment & Plan (03/02/2019 4:39 PM POLICE MATRON): Patient reports rectal pain. In setting of anal cancer and current XRT. Follows with pain management outpatient, Dr. Pichardo. -On exam, there is skin breakdown between gluteal muscles > c/s wound care for wound management -Home pain regimen: MSContin 30mg BID, Gabapentin 600mg QID, Requip 1mg qpm, [place] 10/325 q6hprn, Baclofen 20mg TID prn Assessment & Plan (02/17/2019 12:10 PM POLICE MATRON): Follows with pain management (Dr. Pichardo) outpatient [...] 04/06/2023 Assessment & Plan (04/04/2023 9:55 AM POLICE MATRON): -recent labs with low B12 and low folate -supplement with B12 and folate daily Hyponatremia 02/27/2019 04/06/2023 Assessment & Plan (04/05/2023 4:32 PM POLICE MATRON): -Resolved s/p IVF bolus Assessment & Plan (02/28/2019 12:46 PM POLICE MATRON): Na 127 on admit. Likely 2/2 dehydration related to diarrhea. -S/p 1L NS bolus x 2 -Na improving, 135 today -Will CTM Assessment & Plan (02/27/2019 11:24 PM POLICE MATRON): - 2/2 dehydration liked related to diarrhea. Urine sodium < 20, Na improving with NS - additional 1L NS overnight, repeat BMP in AM Neutropenic fever 02/27/2019 02/07/2024 Assessment & Plan (03/01/2019 12:53 PM POLICE MATRON): Patient admitted from [facility], where he reported chills with Tmax 38. Found to be neutropenic and was briefly hypotensive in [facility]. -Infectious workup: Blood cultures x 2 NGTD, [...] days Assessment & Plan (02/27/2019 11:26 PM POLICE MATRON): - chills, Tmax 38, neutropenic and was briefly hypotensive in [facility] - blood cultures pending - f/u urine culture - CXR clear - f/u GC/CT - continue vanc/cefe Anal warts 09/09/2018 12/01/2019 Overview (09/09/2018): Added automatically from request for surgery [id number]
--- OUTSIDE RECORDS SUMMARY | 2024-06-17 11:37 | XMS_ITS | Clinical Summary ---
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
--- OUTSIDE RECORDS SUMMARY | 2024-06-17 11:37 | XMS_ITS | Encounter Summary ---
Author Organization [facility] Healthcare Address [address] [place] [address] Care Team Providers Care Multi Share Program Coordinator Name Role Phone Syed Diggs MD Unavailable [phone] Wesley Pichardo MD Unavailable [phone] Marilyn Schreiber MD Unavailable [phone] Nishant Sr MD Primary Care Provider [phone] Izabela Louis MD Primary Care Provider Sam Peralta MD PhD Unavailable [phone] Encounter Details Date Type Department Care Team (Late st Contact Info) Description 07/20/2019 Telephone [facility] [address] [place] [address] Bubba Erickson RN Social History [...] on file Legal Sex Male 4:35 AM HEAT READER Gender Identity Male 04/21/2023 9:16 AM HEAT READER Sexual Orientation Not on file documented as [...] COVID: Suspected 04/04/2023 04/04/2023 04/04/2023 5:43 AM HEAT READER Influenza, adult 04/04/2023 04/04/2023 04/11/2023 3:05 AM HEAT READER COVID: Suspected 01/27/2024 01/28/2024 01/28/2024 1:29 AM CDT documented as of this encounter Care Teams Multi Share Program Coordinator Relationship Specialty Start Date End Date Nishant Sr MD [address] [place] [id number] PCP - General 02/14/19 11/21/19 Izabeal Louis MD [address] [place] [address] PCP - General 11/22/19 Syed Diggs MD Surgeon Colon and Rectal Surgery 09/30/18 Wesley Pichardo MD [address] [place] [address] Pain Management 09/30/18 Marilyn Schreiber MD [address] [place] [address] Radiation Oncologist Radiation Oncology 10/24/18 Sam Peralta MD PhD [address] [place] [address] [id number] Medical Oncologist/Honing Machine Set Up Operator Tool Medical Oncology 05/14/22 02/08/24 documented as of this encounter
--- OUTSIDE RECORDS SUMMARY | 2024-06-17 11:37 | XMS_ITS | Referral Summary ---
Author Organization [facility] Address [address] [place] [address] Care Team Providers Care [place] Name Role Phone Izabela Louis MD Primary Care Provider Source Comments [facility],non-owned Affiliates and Associated Physician Practices is amultiple site organization consisting of ambulatory clinics and hospital sitesin [place], [place], [place] and [place]. This disclosure is being madepursuant to the Care Everywhere program and may not contain all information available regarding this patient. Last updated 17.[facility] Encounters Date Type Department Care Team Description 05/31/2024 Travel 05/31/2024 10:34 PM [facility] - 05/31/2024 10:57 PM [facility] Emergency [facility] EMERGENCY DEPARTMENT [address] [place] [phone] Epigastric pain Discharge Disposition: Left Against Medical Advice/Discontinued Care 05/14/2024 6:58 PM [facility] - 05/15/2024 9:13 AM [facility] Emergency [facility] EMERGENCY DEPARTMENT [address] [place] [address] Luke Griffin MD Linares, Guillermo, MD TIA [...] times daily as needed 12/28/2019 Active SYMTUZA [id number] MG tablet Take by mouth once daily [...] Comments Blood Pressure 133/67 05/31/2024 5:03 PM SPORTS INFORMATION DIRECTOR Pulse 67 05/31/2024 5:03 PM SPORTS INFORMATION DIRECTOR Temperature 36.3 C (97.3 F) 05/31/2024 1:37 PM SPORTS INFORMATION DIRECTOR Respiratory Rate 18 05/31/2024 5:03 PM SPORTS INFORMATION DIRECTOR Oxygen Saturation 99% 05/31/2024 5:03 PM SPORTS INFORMATION DIRECTOR Inhaled Oxygen Concentration - - Weight 86.2 kg (190 lb) 05/31/2024 11:07 AM SPORTS INFORMATION DIRECTOR Height 180.3 cm (5' 11 ) 05/31/2024 11:07 AM SPORTS INFORMATION DIRECTOR Body Mass Index 26.5 05/31/2024 11:07 AM SPORTS INFORMATION DIRECTOR Functional Status Functional Status Response Date of [...] CARDIAC EKG ORDER 06/02/2024 12: [address] ABDOMEN PELVIS W CONTRAST STAT 05/31/2024 12:44 PM SPORTS INFORMATION DIRECTOR Epigastric pain XR CHEST 2VW STAT 05/31/2024 11:38 AM SPORTS INFORMATION DIRECTOR Epigastric pain EKG 12-LEAD Routine 05/31/2024 11:27 AM SPORTS INFORMATION DIRECTOR Epigastric pain TROPONIN-I HIGH SENSITIVE BASELINE + 1HR STAT 05/31/2024 11:27 AM SPORTS INFORMATION DIRECTOR LIPASE BLOOD STAT 05/31/2024 11:27 AM SPORTS INFORMATION DIRECTOR LACTIC ACID BLOOD REFLEX TO REPEAT Timed 05/31/2024 11:27 AM SPORTS INFORMATION DIRECTOR COMPREHENSIVE METABOLIC PANEL STAT 05/31/2024 11:27 AM SPORTS INFORMATION DIRECTOR CBC W AUTO DIFFERENTIAL STAT 05/31/2024 11:27 AM SPORTS INFORMATION DIRECTOR LIPID PROFILE STAT 05/15/2024 1:28 AM SPORTS INFORMATION DIRECTOR Left-sided weakness Aphasia CD4 (ABSOLUTE T4) STAT 05/15/2024 1:2 8 AM SPORTS INFORMATION DIRECTOR TROPONIN-I HIGH SENSITIVE BASELINE + 1HR STAT 05/15/2024 1:28 AM SPORTS INFORMATION DIRECTOR Left-sided weakness Aphasia SARS-COV-2 (COVID-19)+INFLU A+B PCR RAPID STAT 05/14/2024 9:[address] ANGIO BRAIN NECK STROKE STAT 05/14/2024 7:31 PM SPORTS INFORMATION DIRECTOR Left-sided weakness TYPE + SCREEN PANEL STAT 05/14/2024 7 :25 PM SPORTS INFORMATION DIRECTOR PT-INR SL[facility] STAT 05/14/2024 7:25 PM SPORTS INFORMATION DIRECTOR COMPREHENSIVE METABOLIC PANEL STAT 05/14/2024 7:25 PM SPORTS INFORMATION DIRECTOR CBC W AUTO DIFFERENTIAL STAT 05/14/2024 7:25 PM SPORTS INFORMATION DIRECTOR GLUCOSE - POINT OF CARE Routine 05/14/2024 7:17 PM SPORTS INFORMATION DIRECTOR CREATININE - POCT INTERFACED Routine 05/14/2024 7:[address] BRAIN STROKE STAT 05/14/2024 7:10 PM SPORTS INFORMATION DIRECTOR Left-sided weakness from Last 3 Months Results * CARDIAC EKG ORDER (06/02/2024 12:31 PM SPORTS INFORMATION DIRECTOR) Narrative 06/02/2024 12:31 PM SPORTS INFORMATION DIRECTOR Ordered by an unspecified provider. Scanned Document CARDIAC SERVICES ORD ERABLES * CT Abdomen Pelvis W Contrast (05/31/2024 12:44 PM SPORTS INFORMATION DIRECTOR) Anatomical Region Laterality Modality Abdomen, Pelvis Computed Tomogra phy 05/31/2024 12:5 7 PM SPORTS INFORMATION DIRECTOR Impressions 05/31/2024 1:02 PM SPORTS INFORMATION DIRECTOR IMPRESSION: No acute findings in the abdomen or pelvis. Grossly unremarkable CT examination. > Interpreting Provider: Jerilyn Jeffrey MD on 05/31/2024 1:02 PM Narrative 05/31/2024 1:02 PM SPORTS INFORMATION DIRECTOR PROCEDURE: CT ABDOMEN PELVIS W CONTRAST DATE/TIME [...] * XR Chest 2Vw (05/31/2024 11:38 AM SPORTS INFORMATION DIRECTOR) Anatomical Region Laterality Modality Chest Digital Radiogra phy 05/31/2024 11:3 9 AM SPORTS INFORMATION DIRECTOR Narrative 05/31/2024 12:01 PM SPORTS INFORMATION DIRECTOR PROCEDURE: XR CHEST 2VW, DATE/TIME OF EXAM: 05/31/2024 11:39 AM, LOCATION [facility] INDICATION: R10.13: Epigastric pain ADDITIONAL CLINICAL INFORMATION: [...] air. Report dictated by Myesha Arriaga MD, (Dyer Helper). IMónica MD have personally reviewed and interpreted this examination/study. > Interpreting Provider: Mónica Ferrell MD on 05/31/2024 12:01 PM Procedure Note Mónica Ferrell MD - 05/31/2024 PROCEDURE: XR CHEST 2VW, DATE/TIME OF EXAM: 05/31/2024 11:39 AM, LOCATION [facility] INDICATION: R10.13: Epigastric pain ADDITIONAL CLINICAL INFORMATION: Ordering Provider Reason For Exam: Chest pain, vomiting Technologist Note: Additional: COMPARISON: Chest x-ray 12/08/2020. TECHNIQUE: PA and Lateral radiograph of the chest. FINDINGS/IMPRESSION: The lungs are clear. There is no focal consolidation, pleural effusion,or pneumothorax. The cardiomediastinal silhouette is normal. The visiblebony thorax is intact. No free subdiaphragmatic air. Report dictated by Myesha Arriaga MD, (Dyer Helper). I, Mónica Ferrell MD have personally reviewed and interpreted this examination/study. > Interpreting Provider: Mónica Ferrell MD on 05/31/2024 12:01 PM Mehrdad Asencio MD DIAGNOSTIC IMAGING O RDERABLES * EKG 12-LEAD (05/31/2024 11:27 AM SPORTS INFORMATION DIRECTOR) Pathologist [facility] Ventricular Rate 88 BPM [facility] MUSE Atrial Rate 88 BPM [facility] MUSE P-R Interval 134 ms [facility] MUSE QRS Duration ms 82 ms [facility] MUSE Q-T Interval ms 368 ms [facility] MUSE QTC Calculation (Bezet) 445 ms [facility] MUSE Calculated P [place] 77 degrees [facility] MUSE Calculated R [place] 60 degrees [facility] MUSE Calculated T [place] 59 degrees [facility] MUSE Interpretation EKG NORMAL SINUS RHYTHM RIGHT ATRIAL ENLARGEMENT NONSPECIFIC ST ABNORMALITY ABNORMAL ECG WHEN COMPARED WITH ECG OF 08-DEC-2020 04:13, T WAVE INVERSION NO LONGER EVIDENT IN INFERIOR LEADS Confirmed by BRITTANY HOGAN MD ([id number]) on 05/31/2024 4:58:52 PM [facility] 05/31/2024 11:2 7 AM SPORTS INFORMATION DIRECTOR 05/31/2024 4:58 PM SPORTS INFORMATION DIRECTOR Mehrdad Asencio MD ECG ORDERABLES Performing Organization Address City/[facility]/ZIP Co de Phone Number [facility] * LACTIC ACID BLOOD REFLEX TO REPEAT (05/31/2024 11:27 AM SPORTS INFORMATION DIRECTOR) Pathologist [facility] Lactic Acid-Stat 1.6 <=2.0 mmol/L 05/31/2024 12:14 PM SPORTS INFORMATION DIRECTOR [facility] Blood BLOOD SPECIMEN / Unknown Venipuncture / Unknown 05/31/2024 11:27 AM SPORTS INFORMATION DIRECTOR 05/31/2024 11:47 AM SPORTS INFORMATION DIRECTOR Mehrdad Asencio MD LAB - CHEMISTRY KRISTOPHER IRAHETA [facility] LAB[facility]ORY [facility] [address] [place] [address], [facility] [phone] * TROPONIN-I HIGH SENSITIVE BASELINE + 1HR (05/31/2024 11:27 AM SPORTS INFORMATION DIRECTOR) Only the most recent of2 resultswithin the time period is included. [facility] Troponin I High Sensitive <3 <=35 ng/L 05/31/2024 12:23 PM [facility] Blood BLOOD SPECIMEN / Unknown Venipuncture / Unknown 05/31/2024 11:27 AM SPORTS INFORMATION DIRECTOR 05/31/2024 11:47 AM SPORTS INFORMATION DIRECTOR Mehrdad Asencio MD LAB - CHEMISTRY KRISTOPHER IRAHETA [facility] Organization Address City/State/ZIP Co de Phone Number [facility] [address] [place] [phone], [facility] [phone] * (ABNORMAL) CBC W AUTO DIFFERENTIAL (05/31/2024 11:27 AM [facility]) Only the most recent of2 resultswithin the time period is included. [facility] WBC 6.0 4.0 - 10.7 x10E9/L 05/31/2024 11:53 AM [facility] RBC Count 3.75(L) 4.30 - 5.80 x10E12/L 05/31/2024 11:53 AM [facility] Hemoglobin 12.4(L) 13.3 - 17.5 g/dL 05/31/2024 11:53 AM [facility] Hematocrit 34.5(L) 38.7 - 51.1 % 05/31/2024 11:53 AM [facility] MCV 92.0 80.0 - 98.0 fL 05/31/2024 11:53 AM [facility] MCH 33.1 26.7 - 33.6 pg 05/31/2024 11:53 AM [facility] MCHC 35.9 31.7 - 36.3 g/dL 05/31/2024 11:53 AM [facility] RDW-CV 11.8 11.3 - 14.8 % 05/31/2024 11:53 AM [facility] Platelet Count 239 150 - 420 x10E9/L 05/31/2024 11:53 AM [facility] MPV 9.1 7.8 - 11.4 fL 05/31/2024 11:53 AM [facility] Neutrophil % 74.9(H) 41.0 - 74.0 % 05/31/2024 11:53 AM [facility] Lymphocyte % 19.8 17.0 - 47.0 % 05/31/2024 11:53 AM [facility] Monocyte % 4.5 3.0 - 11.0 % 05/31/2024 11:53 AM [facility] Eosinophil % 0.2 0.0 - 7.0 % 05/31/2024 11:53 AM [facility] Basophil % 0.3 0.0 - 1.6 % 05/31/2024 11:53 AM [facility] Immature Granulocytes % 0.3 0.0 - 1.0 % 05/31/2024 11:53 AM [facility] Neutrophil Absolute 4.45 1.60 - 7.50 x10E9/L 05/31/2024 11:53 AM [facility] Lymphocyte Absolute 1.18 1.00 - 4.40 x10E9/L 05/31/2024 11:53 AM [facility] Monocyte Absolute 0.27 0.15 - 1.00 x10E9/L 05/31/2024 11:53 AM [facility] Eosinophil Absolute 0.01 0.00 - 0.60 x10E9/L 05/31/2024 11:53 AM [facility] Basophil Absolute 0.02 0.00 - 0.13 x10E9/L 05/31/2024 11:53 AM [facility] Blood BLOOD SPECIMEN / Unknown Venipuncture / Unknown 05/31/2024 11:27 AM SPORTS INFORMATION DIRECTOR 05/31/2024 11:47 AM [facility] Mehrdad Asencio MD LAB - HEMATOLOGY ORD ERABLES [facility] [address] [place] [phone], [facility] [phone] * (ABNORMAL) COMPREHENSIVE METABOLIC PANEL (05/31/2024 11:27 AM [facility]) Only the most recent of2 resultswithin the time period is included. [facility] Signature BUN 8 7 - 26 mg/dL 05/31/2024 12:19 PM [facility] Creatinine 1.15 0.71 - 1.16 mg/dL 05/31/2024 12:19 PM [facility] Sodium 132(L) 136 - 145 mmol/L 05/31/2024 12:19 PM [facility] Potassium 4.3 3.5 - 4.5 mmol/L 05/31/2024 12:19 PM [facility] Chloride 98 98 - 107 mmol/L 05/31/2024 12:19 PM [facility] CO2 25 22 - 29 mmol/L 05/31/2024 12:19 PM [facility] Glucose 109(H) 70 - 99 mg/dL 05/31/2024 12:19 PM [facility] Calcium 9.7 8.4 - 10.2 mg/dL 05/31/2024 12:19 PM [facility] Protein Total 8.4(H) 6.0 - 8.3 g/dL 05/31/2024 12:19 PM [facility] Albumin 4.4 3.4 - 5.0 g/dL 05/31/2024 12:19 PM [facility] Bilirubin Total 0.8 0.2 - 1.2 mg/dL 05/31/2024 12:19 PM [facility] Alkaline Phosphatase 110 40 - 150 U/L 05/31/2024 12:19 PM [facility] ALT 16 5 - 55 U/L 05/31/2024 12:19 PM [facility] AST 24 5 - 34 U/L 05/31/2024 12:19 PM [facility] Anion Gap 9 6 - 16 05/31/2024 12:19 PM [facility] BUN/Creatinine Ratio 7 7 - 23 05/31/2024 12:19 PM [facility] Osmolality Calculated 273(L) 275 - 295 mOsm/kg 05/31/2024 12:19 PM [facility] Albumin/Globulin Ratio 1.1 1.1 - 2.3 05/31/2024 12:19 PM [facility] eGFR by CKD-EPI 81(L) >=90 mL/min/1.7 3 m2 05/31/2024 12:19 PM SPORTS INFORMATION DIRECTOR [facility] Blood BLOOD SPECIMEN / Unknown Venipuncture / Unknown 05/31/2024 11:27 AM SPORTS INFORMATION DIRECTOR 05/31/2024 11:47 AM SPORTS INFORMATION DIRECTOR Mehrdad Asencio MD LAB - CHEMISTRY KRISTOPHER IRAHETA Performing Organization Address City/[facility]/ZIP Co de Phone Number [address] [address], [facility] [phone] * LIPASE BLOOD (05/31/2024 11:27 AM SPORTS INFORMATION DIRECTOR) Pathologist [facility] Lipase 19 8 - 78 U/L 05/31/2024 12:19 PM [facility] Blood BLOOD SPECIMEN / Unknown Venipuncture / Unknown 05/31/2024 11:27 AM SPORTS INFORMATION DIRECTOR 05/31/2024 11:47 AM SPORTS INFORMATION DIRECTOR Narrative [facility] - 05/31/2024 12:19 PM SPORTS INFORMATION DIRECTOR Lipase results from the Juan Alinity analyzer may not be comparable with other methodologies. Mehrdad Asencio MD LAB - CHEMISTRY KRISTOPHER IRAHETA [address] [address], [facility] [phone] * CD4 (ABSOLUTE T4) (05/15/2024 1:28 AM SPORTS INFORMATION DIRECTOR) Pathologist [facility] Client Specimen ID # [id number] 05/15/2024 10:24 AM [facility] PATHOLOGY LAB Number of Markers 2 05/15/2024 10:24 AM [facility]OLOG[facility] LAB Flow Cytometry Results Differential Result Comment WBC Count /uL 5,900 % Lymphocytes 32 Lymphocyte Count u/L 1,888 Cell Region A: Lymphocytes Surface Marker Results % Absolute Count (cells/uL) CD4 12 227 05/15/2024 10:24 AM [facility] PATH[facility] LAB Flow Cytometry Interpretation Testing is technical only and does not require an interpretation of results. 05/15/2024 10:24 AM [facility] PATH[facility]Y LAB Reference Range Adult Normal Reference Range Adult (> 18 years) CD3 54-84 % CD4 33-63 % CD8 12-39 % CD19 5-19 % CD56 6-26 % CD4+CD45RA+ 30-50 % CD4+CD45RO+ 17-42 % CD19+CD27+ 7-48 % CD19+CD27+IgD+ 7-29 % CD19+CD27+IgD- 3-23 % CD19+WG41-DpY+ 29-93 % % 05/15/2024 10:24 AM [facility] PATHOLOGY LAB Disclaimer Test performed at [facility], [address], [place], [address]. This test was developed and its performance [...] perform high complexity clinical testing. By law [place], CD4 lymphocyte counts on patients with HIV infection must be reported by the physician to the [facility] Health authority. 05/15/2024 10:24 AM [facility] PATHOLOGY LAB Embedded Images 10:24 AM [facility] PATH[facility] LAB Blood BLOOD SPECIMEN / Unknown Venipuncture / Unknown 05/15/2024 1:28 AM [facility] 05/15/2024 2:15 AM [facility] Luke Griffin MD LAB - HEMATOLOGY ORD ERABLES [facility] PATHOLOGY LAB [facility]. [address] [phone] * (ABNORMAL) LIPID PROFILE (05/15/2024 1:28 AM [facility]) Cholesterol Total 184 <200 mg/dL 05/15/2024 2:41 AM [facility] HDL 35(L) >40 mg/dL 05/15/2024 2:41 AM [facility] Comment: ATP III Classification of HDL Cholesterol: <40 mg/dL: Considered a major risk factor. >60 mg/dL: Considered a negative risk factor. LDL Calculated 114(H) <100 mg/dL 05/15/2024 2:41 AM [facility] Comment: ATP III Classification of LDL Cholesterol: <100 mg/dL: Optimal 100 - 129 mg/dL: Near Optimal/Above Optimal 130 - 159 mg/dL: Borderline High 160 - 189 mg/dL: High >190 mg/dL: Very High Triglycerides 173(H) <150 mg/dL 05/15/2024 2:41 AM [facility] Comment: ATP III Classification of Triglycerides: <150 mg/dL: Normal 150 - 199 mg/dL: Borderline High 200 - 400 mg/dL: High >500 mg/dL: Very High Blood BLOOD SPECIMEN / Unknown Venipuncture / Unknown 05/15/2024 1:28 AM SPORTS INFORMATION DIRECTOR 05/15/2024 2:10 AM [facility] Nolberto Varela MD LAB - CHEMISTRY ORD ERABLES [address] [address], [facility] [phone] * SARS-COV-2 (COVID-19)+INFLU A+B PCR RAPID (05/14/2024 9:09 PM SPORTS INFORMATION DIRECTOR) COVID-19 PCR Not detected Not detected 05/14/19 10:00 PM [facility] Influenza A Rapid KRISTINA Not Detected Not Detected 05/14/2024 10:00 PM [facility] Influenza B KRISTINA Rapid Not Detected Not Detected 05/14/2024 10:00 PM [facility] Microbiology SPECIMEN FROM NASOPHARYNGEAL STRUCTURE / Unknown Collection / Unknown 05/14/2024 9:09 PM SPORTS INFORMATION DIRECTOR 05/14/2024 9:17 PM SPORTS INFORMATION DIRECTOR Narrative [facility] - 05/14/2024 10:00 PM SPORTS INFORMATION DIRECTOR Influenza assay performed by [employer]. [...] acid amplification assay performance was validated by [facility]. This test has been authorized [...] - MICROBIOLOGY O SANDEEP Performing Organization Address City/State/[facility] Co de Phone Number [address] [address], [facility] [phone] * CT ANGIO BRAIN NECK STROKE (05/14/2024 7:31 PM SPORTS INFORMATION DIRECTOR) Anatomical Region Laterality Modality Head Computed Tomogra phy 05/14/2024 7:44 PM SPORTS INFORMATION DIRECTOR Impressions 05/14/2024 11:19 PM SPORTS INFORMATION DIRECTOR IMPRESSION: 1.No large arterial occlusions or significant stenoses identified in the head or neck. The report is dictated by Hector Butts DO, (workforce development vice president) IRomain MD have personally reviewed and interpreted this examination/study. > Interpreting Provider: Romain Ladd MD on 05/14/2024 11:19 PM Narrative 05/14/2024 11:19 PM SPORTS INFORMATION DIRECTOR PROCEDURE: CT ANGIO BRAIN NECK STROKE, DATE/TIME OF EXAM: 05/14/2024 7:31 PM, LOCATION [facility] INDICATION: Code Stroke ADDITIONAL CLINICAL INFORMATION: Ordering [...] STROKE, DATE/TIME OF EXAM: 57:31 PM, LOCATION [facility] INDICATION: Code Stroke ADDITIONAL CLINICAL INFORMATION: Ordering [...] report is dictated by Hector Butts DO, (workforce development vice president) IRomain MD have personally reviewed and interpretedthis examination/study. > Interpreting Provider: Romain Ladd MD on 05/14/2024 11:19 PM Luke Griffin MD CT ORDERABLES * PT-INR [facility] (05/14/2024 7:25 PM SPORTS INFORMATION DIRECTOR) PT 14.0 12.1 - 14.8 Seconds 05/14/2024 8:56 PM SPORTS INFORMATION DIRECTOR [facility] INR 1.1 See Comment 05/14/2024 8:56 PM SPORTS INFORMATION DIRECTOR [facility] Comment:The suggested therap eutic range for standard coumadin (warfarin) therapy is an INR of 2.0-3.0. For high-risk patients (Mechanical Mitral Valve Prosthesis, etc.), the suggested prophylactic therapeutic range is an INR of 2.5-3.5. Blood BLOOD SPECIMEN / Unknown Venipuncture / Unknown 05/14/2024 7:25 PM SPORTS INFORMATION DIRECTOR 05/14/2024 7:29 PM SPORTS INFORMATION DIRECTOR Luke Griffin MD LAB - COAGULATION OR DERABLES [facility] [address] [place] [address], [place] [phone] * TYPE + SCREEN PANEL (05/14/2024 7:25 PM SPORTS INFORMATION DIRECTOR) Pathologist [facility] Antibody Screen NEG 8:10 PM SPORTS INFORMATION DIRECTOR [facility] BLOOD BANK LAB ABO Rh B NEG 05/14/2024 8:10 PM SPORTS INFORMATION DIRECTOR [facility] BLOOD BANK LAB Blood Bank BLOOD SPECIMEN / Unknown Venipuncture / Unknown 05/14/2024 7:25 PM SPORTS INFORMATION DIRECTOR 05/14/2024 7:30 PM SPORTS INFORMATION DIRECTOR Luke Griffin MD LAB - BLOOD BANK ORD ERABLES [facility] BLOOD BANK LAB [address] [place] [address], [place] [phone] * (ABNORMAL) GLUCOSE - POINT OF CARE (05/14/2024 7:17 PM SPORTS INFORMATION DIRECTOR) [facility] Glucose WB/POC 102(H) 70 - 99 mg/dL 05/15/2024 1:17 PM [facility] Specimen Type Venous 05/15/2024 1:17 PM [facility] Blood BLOOD SPECIMEN / Unknown 05/14/2024 7:17 PM SPORTS INFORMATION DIRECTOR 05/15/2024 1:17 PM SPORTS INFORMATION DIRECTOR Luke Griffin MD LAB - POINT OF CARE ORDERABLES [facility] [address] [place] [address], [place] [phone] * (ABNORMAL) CREATININE - POCT INTERFACED (05/14/2024 7:14 PM SPORTS INFORMATION DIRECTOR) [facility] Creatinine POCT 1.07 0.30 - 1.30 mg/dL 05/14/2024 7:17 PM [facility] eGFR 88(L) >=90 mL/min/1.7 3 m2 05/14/2024 7:17 PM [facility] Blood BLOOD SPECIMEN / Unknown 05/14/2024 7:14 PM SPORTS INFORMATION DIRECTOR 05/14/2024 7:17 PM SPORTS INFORMATION DIRECTOR Luke Griffin MD LAB - POINT OF CARE ORDERABLES [place] [id number] [place] [address], [facility] [phone] * CT BRAIN - Stroke (05/14/2024 7:10 PM SPORTS INFORMATION DIRECTOR) Anatomical Region Laterality Modality Head Computed Tomogra phy 05/14/2024 7:11 PM SPORTS INFORMATION DIRECTOR Impressions 05/14/2024 7:42 PM SPORTS INFORMATION DIRECTOR IMPRESSION: 1.No acute intracranial hemorrhage. 2.Please note [...] 05/14/2024 7:42 PM Narrative 05/14/2024 7:42 PM SPORTS INFORMATION DIRECTOR PROCEDURE: CT BRAIN STROKE, DATE/TIME OF EXAM: 05/14/2024 7:11 PM, LOCATION [facility] INDICATION: Code Stroke EXAMINATION: Computed tomography (CT) [...] STROKE, DATE/TIME OF EXAM: 05/14/2024 7:11 PM,LOCATION [facility] INDICATION: Code Stroke EXAMINATION: Computed tomography (CT) [...] 5:15 AM 12/10/2020 5:37 PM Care Teams [place] Relationship Specialty Start Date End Date Izabela Louis MD [address] [place], [place] [id number] PCP - General Internal Medicine 05/31/24
[2024-06-17 12:42] LABS: Troponin I 0.013 ng/mL (0.000-0.034)
[2024-06-17] MEDS: PANTOPRAZOLE SODIUM IV 40 MG VIAL IV PUSH (13:23)
[2024-06-17] MEDS: FAMOTIDINE 20 MG/2 ML VIAL IV PUSH (13:23)
--- NOTE | 2024-06-17 13:30 | ED_ITS ---
HPI - General Adult General Chief complaint: Shortness of Breath/Dyspnea Stated complaint: SOB, cough Time Seen by Provider: 06/17/24 11:13 History of Present Illness HPI narrative: 43-year-old male presents emergency department for evaluation for epigastric abdominal pain. Patient states he has had some associated chest pain as well. Patient has not had a bowel movement the last 3 days. Patient denies any lower abdominal pain. Patient does also complain of cough congestion body aches and fatigue. Related Data Home Medications ?Medication ?Instructions ?Recorded ?Confirmed ?Last Taken ?Type bictegravir 50 mg-emtricitabine 1 tablet PO DAILY 12/01/19 12/01/19 Unknown History 200 mg-tenofovir alafenam 25 mg tablet (Biktarvy) fluconazole 200 mg tablet 200 mg PO BID 12/01/19 12/01/19 Unknown History gabapentin 600 mg tablet 600 mg PO QID 12/01/19 12/01/19 Unknown History (Neurontin) naloxone 4 mg/actuation nasal 1 spray intranasal Q2M 12/01/19 Unknown History spray (Narcan) oxycodone-acetaminophen 10 mg-325 1 tablet PO Q6H PRN Pain (Scale 12/01/19 12/01/19 Unknown History mg tablet (Percocet) Score 7-10) ropinirole 2 mg tablet,extended 1 mg PO DAILY 12/01/19 12/01/19 Unknown History release 24 hr (Requip XL) baclofen 10 mg tablet mg 06/22/20 Unknown History methadone 10 mg tablet 06/22/20 Unknown History valacyclovir 1 gram tablet 06/22/20 Unknown History Allergies Allergy/AdvReac Type Severity Reaction Status Date / Time Penicillins AdvReac Intermediate contraindicated Verified 06/17/24 10:53 with current HIV Rx regimen sulfamethoxazole AdvReac Intermediate contraindicated Verified 06/17/24 10:53 by current HIV Rx regimen trimethoprim AdvReac Intermediate contraindicated Verified 06/17/24 10:53 by current HIV Rx regimen Review of Systems 2 Review of Systems: All systems reviewed & are unremarkable except as noted in HPI and below PMFSH Past Medical History Medical History (Updated 06/17/24 @ 16:10 by Corey Kennedy MD) Restless leg syndrome Rectal cancer HIV (human immunodeficiency virus infection) Social History Social History (Updated 06/22/20 @ 07:44 by Luciano Celestin MD) Smoking status: Never smoker Substance use: former Substance use type: IV drugs Exam 2 Narrative: APPEARANCE: Well appearing, no pain, no distress, well-nourished. HEAD: normocephalic, atraumatic. EYES: PERRLA/EOMI, conjunctivae clear. NOSE: Normal no drainage EARS:TMS clear with good light reflex. THROAT: Pharynx clear, no exudate. NECK: Supple. No adenopathy, no masses. RESPIRATORY: Airway patent, respirations nonlabored. Clear to auscultation bilaterally, no rales, rhonchi, wheezing. CARDIOVASCULAR: Regular rate and rhythm without murmurs rubs or gallops. ABDOMINAL: Soft, nontender, nondistended, normal bowel sounds MUSCULOSKELETAL: Moves all extremities. Strength/ROM intact, No edema, No calf tenderness. NEURO: Alert. Cranial nerves II through XII intact. Grossly intact SKIN: Warm, dry. Normal Color Course Vital Signs Vital signs: Vital Signs Temperature 100.9 F H 06/17/24 10:55 Pulse Rate 101 H 06/17/24 10:55 Respiratory Rate 20 06/17/24 10:55 Blood Pressure 140/76 06/17/24 10:55 Pulse Oximetry 98 06/17/24 10:55 Oxygen Delivery Room Air 06/17/24 10:55 Temperature 100.9 F H 06/17/24 10:55 Pulse Rate 99 06/17/24 16:55 Respiratory Rate 17 06/17/24 16:55 Blood Pressure 126/79 06/17/24 16:55 Pulse Oximetry 96 06/17/24 16:55 Oxygen Delivery Room Air 06/17/24 10:55 Medical Decision Making [facility] Narrative Medical decision making narrative: 43-year-old male presents emergency department for evaluation for epigastric abdominal pain. Patient is currently afebrile with no leukocytosis and hemoglobin of 12.4, no significant abnormalities on the patient's CMP. Chest x- ray showed normal chest EKG showed normal sinus rhythm patient's troponin was negative. X-ray showed no acute abnormalities within the abdomen pelvis Differential Diagnosis Differential Diagnosis: COVID, RSV, influenza, appendicitis, diverticulitis, colitis, ACS Vital Signs Vital Signs: Vital Signs Temperature 100.9 F H 06/17/24 10:55 Pulse Rate 101 H 06/17/24 10:55 Respiratory Rate 20 06/17/24 10:55 Blood Pressure 140/76 06/17/24 10:55 Pulse Oximetry 98 06/17/24 10:55 Oxygen Delivery Room Air 06/17/24 10:55 Temperature 100.9 F H 06/17/24 10:55 Pulse Rate 99 06/17/24 16:55 Respiratory Rate 17 06/17/24 16:55 Blood Pressure 126/79 06/17/24 16:55 Pulse Oximetry 96 06/17/24 16:55 Oxygen Delivery Room Air 06/17/24 10:55 Lab Data Lab results reviewed: Yes I reviewed the patient's lab results. 06/17/24 11:19 06/17/24 11:19 Labs: Lab Results 06/17/24 06/17/24 Range/Units 11:19 14:41 WBC 10.1 H (4.5-10.0) K/mm3 RBC 3.76 L (4.6-6.20) M/mm3 Hgb 12.4 L (14.0-18.0) g/dL Hct 35.5 L (42.0-52.0) % MCV 94.4 (80-100) fl MCH 33.0 (26-34) pg MCHC 34.9 (32-36) g/dl RDW 12.3 (11.5-14.5) % Plt Count 206 (150-375) k/mm3 MPV 9.2 (7.4-10.4) fl Immature Gran % (Auto) 0.4 (0-0.5) % Neut % (Auto) 71.0 (45.5-73.1) % Lymph % (Auto) 16.8 L (18.3-44.2) % [place] % (Auto) 11.5 H (2.6-8.5) % Eos % (Auto) 0.0 (0-4.4) % Baso % (Auto) 0.3 (0.2-1.2) % Lymph # (Auto) 1.70 (0.9-3.2) K/mm3 [place] # (Auto) 1.2 H (0.1-0.6) K/mm3 Eos # (Auto) 0.0 (0-0.3) K/mm3 Baso # (Auto) 0.0 (0.0-0.1) K/mm3 Abs Immat Gran (auto) 0.04 H (0.00-0.031) K/mm3 Absolute Neuts (auto) 7.2 H (1.3-6.7) K/mm3 Absolute Nucleated RBC 0.000 (0.0-0.012) K/mm3 Nucleated RBC % 0.0 (0.0-0.2) % Sodium 134 L (137-145) mmol/L Potassium 3.3 L (3.4-5.0) mmol/L Chloride 97 L (98-107) mmol/L Carbon Dioxide 25 (22-30) mmol/L Anion Gap 12 (4-12) mmol/L BUN 10 (9-20) mg/dL Creatinine 1.32 H (0.7-1.3) mg/dL Estim Creat Clear Calc 71 ml/min Estimated GFR 59 (59 - ) Glucose 120 H (65-110) mg/dL Calcium 8.9 (8.4-10.2) mg/dL Total Bilirubin 0.7 (0.2-1.3) mg/dL AST 38 (17-59) U/L ALT 23 (6-50) U/L Alkaline Phosphatase 109 (38-126) U/L Troponin I 0.013 (0.000-0.034) ng/mL Total Protein 9.0 H (6.3-8.2) g/dL Albumin 4.7 (3.5-5.1) g/dL Influenza A (RT-PCR) Negative (Negative) Influenza B (RT-PCR) Negative (Negative) RSV (RT-PCR) Negative (Negative) SARS-CoV-2 RNA (RT-PCR) Positive A (Negative) Imaging Data Radiologist's impression: Impressions Chest X-Ray 06/17/24 11:13 Impression: Normal chest. Abdomen/Pelvis CT 06/17/24 15:53 IMPRESSION: Dilated appendix without inflammatory changes, in the absence of clinical findings of appendicitis this may be normal for this patient. Mild bilateral ureterectasis, without significant inflammatory stranding or obstructing stone/mass. Urinary bladder distention with mild wall thickening. Correlate for cystitis and/or urinary retention. Discharge Plan Discharge Clinical Impression: Epigastric abdominal pain, COVID Patient Disposition: Home, Self-Care Condition: Stable Instructions: Antibiotic Form, COVID-19 (Coronavirus Disease 2019) (ED) Additional Instructions: Albuterol inhaler for shortness of breath, Tessalon Perles for cough. Tylenol and ibuprofen for fever and for body aches. Have close follow-up with your primary care physician. Patient Language: Lithuanian Prescriptions: New benzonatate 100 mg capsule 100 mg PO TID PRN (Reason: cough) Qty: 14 0RF albuterol sulfate 90 mcg/actuation HFA aerosol inhaler 1 puff inhalation QID Qty: 6.7 0RF No Action gabapentin [Neurontin] 600 mg Tablet 600 mg PO QID fluconazole 200 mg Tablet 200 mg PO BID oxycodone-acetaminophen [Percocet] 10-325 mg Tablet 1 tablet PO Q6H PRN (Reason: Pain (Scale Score 7-10)) Biktarvy 50-200-25 mg Tablet 1 tablet PO DAILY ropinirole [Requip XL] 2 mg Tablet Extended Release 24 Hr 1 mg PO DAILY Narcan 4 mg/actuation [place],Non-Aerosol 1 spray INTRANASAL Q2M valacyclovir 1 gram tablet methadone 10 mg tablet baclofen 10 mg tablet Follow-up/Referrals: Heriberto,Natan Gurrola. [Primary Care Provider] -
--- NOTE | 2024-06-17 15:13 | PC.NURSE ---
Patient just began vomiting. Will inform provider and get nausea medication
[2024-06-17 15:22] LABS: Influenza A QL RT-PCR Negative (Negative); Influenza B QL RT-PCR Negative (Negative); RSV RNA, RT-PCR Negative (Negative); SARS-CoV-2 RNA PCR Positive (Negative)
[2024-06-17] MEDS: ONDANSETRON INJ 4 MG/2 ML VIAL IV PUSH (15:26)
[2024-06-17 15:30] VITALS: BP 121/74; PULSE 96; RESP 13; O2SAT 97
[2024-06-17] MEDS: ACETAMINOPHEN 500 MG TABLET 1000 MG (16:53)
--- NOTE | 2024-06-17 16:54 | PC.NURSE ---
patient requesting pain medication and verbal order given for 1000mg of tylenol PO prior to discharge
[2024-06-17 16:55] VITALS: BP 126/79; PULSE 99; RESP 17; O2SAT 96
== END 2024-06-17 17:14 | disposition home or self-care (01) ==
PROVIDERS: Emergency Provider Emergency Medicine; PCP Internal Medicine Infectious Disease
DX: U07.1 COVID-19 (principal); R10.13 Epigastric pain; G25.81 Restless legs syndrome; Z21 Asymptomatic human immunodeficiency virus [HIV] infection status; Z85.048 Personal history of other malignant neoplasm of rectum, rectosigmoid junction, and anus; Z79.899 Other long term (current) drug therapy; R93.41 Abnormal radiologic findings on diagnostic imaging of renal pelvis, ureter, or bladder
CPT/HCPCS: 36415; 71046; 74176; 80053; 84484; 85025; 87637; 93005; 96374; 96375; 99284; A9270; J2405; J2470

== ENCOUNTER 2024-08-26 04:44 | Emergency (ER) | payer MEDICARE, MEDICAID, SELFPAY ==
--- NOTE | ~2024-08-26 | XR_ITS ---
EXAMINATION: XR chest 2V DATE: 08/26/2024 08:19 INDICATION: Chest tightness TECHNIQUE: PA and lateral views of the chest were obtained. COMPARISON: Chest radiograph dated 06/17/2024 FINDINGS: The lungs remain clear with no focal airspace opacities, pulmonary edema, pleural effusion or pneumot horax. The cardiomediastinal silhouette is normal. Visualized bones and soft tissues are unremarkable . IMPRESSION: 1. No acute cardiopulmonary disease. Reviewed, dictated and finalized at location A.
--- NOTE | ~2024-08-26 | CT_ITS ---
EXAMINATION: CT abdomen pelvis w con DATE: 08/26/2024 06:45 INDICATION: Constipation. Acute urinary retention. TECHNIQUE: Computed tomography (CT) of the abdomen and pelvis was performed with 100 mL Omnipaque-350 intravenous contrast. Automated exposure control and iterative reconstruction technique were employe d. The dose-length product was 664.12 mGy-cm. COMPARISON: 06/17/2024 and 12/01/2019 FINDINGS: Lung bases are clear. Heart size normal. No pericardial or pleural effusion. Mild focal hepatic steat osis at the ligamentum teres. Gallbladder, spleen, pancreas, bilateral adrenal glands and right kidne y are normal. Small region of cortical scarring at the lower pole the left kidney. Mild bilateral hyd roureter and mild left hydronephrosis which may be related to distention of the bladder. Bowels inclu ding the appendix are normal. No free intraperitoneal gas or fluid. No pathologically enlarged abdomi nal or pelvic lymphadenopathy. Bones are unremarkable. IMPRESSION: 1. Persistent distention of the bladder with mild bilateral hydroureter and mild left hydronephrosis. Correlate clinically for bladder outlet obstruction or neurogenic bladder. Reviewed, dictated and finalized at location A. IMPRESSION: 1. Persistent distention of the bladder with mild bilateral hydroureter and mil d left hydronephrosis. Correlate clinically for bladder outlet obstruction or n eurogenic bladder.
[2024-08-26 04:46] VITALS: BP 142/84; PULSE 65; RESP 17; TEMP 36.6; O2SAT 99
--- OUTSIDE RECORDS SUMMARY | 2024-08-26 04:47 | XMS_ITS | Clinical Summary ---
Author Organization [facility] Facility Address [address] [address] Care Team Providers Care Mushroom Laborer Name Role Phone Izabela Louis MD Primary Care Provider [phone] Encounters Date Type Department Care Team Description 06/26/2024 Documentation Only Malo Acheive [facility] [address] [place] [id number] Provider, MD Jillian from Last 3 Months Social History Tobacco Use Types Packs/Day Years Used Date Smoking Tobacco: Every Day Alcohol Use Standard Drinks/Week Comments No 0 (1 standard drink = 0.6 oz pur e alcohol) Sex and Gender Information Value Date Recorded Sex Assigned at Not on file Legal Sex Male 2:49 PM EDT Gender Identity Not on file Sexual Orientation Not on file Plan of Treatment Upcoming Encounters Date Type Department Care Team (Late st Contact Info) Description 09/19/2024 2:15 PM CDT Office Visit Malo Acheive [facility] [address] [place] [address] [address] [place] [address] [place] [address] [place] [phone] Health Maintenance Due Date Last Done Comments Hepatitis B Vaccine (2 of 3 - Hep B Twinrix 3-dose series) 05/22/2004 04/24/2004 Influenza Vaccine (Season Ended) 2024 02/03/2019, 01/18/2018, 12/09/2016, Additional history exists Pneumococcal Vaccine: Peds ( 0 to 5 Years) and At-Risk Patients (6 to 49 Years) (4 of 4 - PCV20 or PCV21) 2030 07/01/2017, 12/21/2014, 08/28/2009 Insurance Medicare Medicaid [place] Care Teams Mushroom Laborer Relationship Specialty Start Date End Date Izabela Louis MD [address] [place] [phone] PCP - General Internal Medicine 06/26/24
--- OUTSIDE RECORDS SUMMARY | 2024-08-26 04:47 | XMS_ITS | CONTINUITY OF CARE DOCUMENT ---
Author Name rozangelicavamshi Address Unknown Organization [facility] Address [address] [facility] [address] [place] [address] Phone [phone] Care Team Providers Care Florist Name Role Phone Berhane CISNEROS, Paula Unavailable [phone] QAMAR DEL TORO MD Unavailable [phone] QAMAR DEL TORO MD Unavailable INSURANCE PROVIDERS Payer name Policy type / Coverage type [place] [employer] Medicaid 1 [id number] [place] Medicare [id number]
--- OUTSIDE RECORDS SUMMARY | 2024-08-26 04:47 | XMS_ITS | Referral Summary ---
Author Organization [facility] Address [address] [place] [address] Care Team Providers Care [employer] Assist[employer] Name Role Phone Syed Diggs MD Unavailable [phone] Wesley Pichardo MD Unavailable [phone] Marilyn Schreiber MD Unavailable [phone] Izabela Louis MD Primary Care Provider Encounters Date Type Department Care Team Description 08/14/2024 3:00 PM CDT Office Visit [facility] ([facility]) [facility] Urology [address] [place] [address] 11th [place] [address] [place] [address] Stricture of bulbous urethra in male, unspecified stricture type (Primary Dx) 08/07/2024 3:08 PM CDT Anesthesia Event [facility] Operating Room [address] [place] [address] Leonor Jamison DO Frasca, Elizabeth Renee, KALPANA 08/07/2024 3:07 PM CDT - 08/07/2024 4:27 PM CDT Surgery [facility] Operating Room [address] [place] [id number] Norman Schneider MD OPTILUME URETHRAL DILATION 08/07/2024 11:46 AM CDT - 08/07/2024 6:00 PM CDT Hospital Encounter [facility] Operating Room [address] [place] [address] Norman Schneider MD Stricture of bulbous urethra in male, unspecified stricture type [N35.912] (Primary Dx) Discharge Disposition: Discharge to home or self care 08/04/2024 Telephone [facility]) - [facility] Urology [address] [place], [place] [address] [place] [address] Annel Herr, JOINTER SUBMARINE CABLE 08/04/2024 10:20 AM CDT Office Visit [facility]) [address] [place] [address] Normna Schneider MD Stricture of bulbous urethra in male, unspecified stricture type (Primary Dx) 08/01/2024 Telephone [facility]) - [address] [place] [address] Annel Herr, JOINTER SUBMARINE CABLE 08/01/2024 [facility] Eligibility Review [facility] Community Health Worker [facility] [address] [place] [address] Charlotte Coombs 07/31/2024 5:16 PM CDT - 07/31/2024 11:28 PM CDT Emergency [facility] Emergency Department [address] [place] [address] Ioana Ybarra MD Urinary retention with incomplete bladder emptying (Primary Dx) Discharge Disposition: Discharge to home or self care 07/25/2024 Results Follow-Up [facility] [address] [facility] 6th Floor [address] [place] [phone] Cosme Stafford Jr., MD Treponemal IgG/IgM Blood, RPR Blood, Vitamin B12, Additional followed-up results: 8 07/21/2024 12:20 PM CDT Lab [facility] ([facility]) [address] [place] [address] Memory loss 07/21/2024 10:30 AM CDT Office Visit [facility] Neurology [address] [facility] 6th [place] [address] [place] [address] Cosme Stafford Jr., MD Memory loss (Primary Dx) from Last 3 Months Allergies Active Allergy [...] breath 3 Active True Metrix Glucose Meter [facility] USE TO TEST BLOOD SUGAR ONCE DAILY 2 Active Symtuza [phone] mg tablet Take 1 tablet by mouth [...] DAILY FOR 10 DAYS DIRECTED 4 Active phenazopyridine (PYRIDIUM) 200 mg tabletIndications: Dysuria Take 1 tablet (200 mg total) by mouth 3 (three) times a day as needed for bladder spasms 10 tablet 5 Active acetaminophen (TYLENOL) 500 mg tablet Take 2 tablets (1,000 mg total) by mouth every 6 (six) hours 30 tablet 5 Active ibuprofen (ADVIL,MOTRIN) 600 mg tabletIndications: Pain Take 1 tablet (600 mg total) by mouth every 6 (six) hours as needed for pain 20 tablet 5 Active polyethylene glycol (MIRALAX) 17 gram/dose bulk powderIndications: constipation Take 17 g by mouth daily 116 g 5 Active oxyBUTYnin XL (DITROPAN-XL) 5 mg 24 hr tabletIndications: Bladder Hyperactivity Take 2 tablets (10 mg total) by mouth daily as needed (bladder spasms) 12 tablet Active Active Problems Problem Noted Date Diagnosed Date Stricture, urethra 08/04/2024 History of anal cancer 10/06/2023 Acute hypoxic respiratory failure 04/06/2023 Assessment & Plan (04/06/2023 1:44 PM MEDICAL TECHNOLOGIST MICROBIOLOGY): Required 2L O2 support since admission CXR no evidence of pneumonia or atelectasis Now weaned to room air - Perform home O2 evaluation prior to discharge - Management of influenza as described elsewhere Macrocytic anemia 04/06/2023 Assessment & Plan (04/06/2023 1:49 PM MEDICAL TECHNOLOGIST MICROBIOLOGY): Recent labs with low B12 and low folate Hb stable - Continue supplement with B12 and folate daily Verruca vulgaris 04/05/2023 Assessment & Plan (04/06/2023 1:36 PM MEDICAL TECHNOLOGIST MICROBIOLOGY): Follows with [facility] - Continue home Imiquimod 5% cream to warts x3/weekly. Pt not to touch eyes following application. Influenza 04/04/2023 Assessment & Plan (04/06/2023 1:46 PM MEDICAL TECHNOLOGIST MICROBIOLOGY): Reports fatigue, febrile episodes at home Tmax [...] 04/04/2023 Assessment & Plan (04/06/2023 1:45 PM MEDICAL TECHNOLOGIST MICROBIOLOGY): Cr 1.5 up from baseline of ~1 Likely prerenal from poor po intake in setting of influenza Resolved with IVF, PO intake - Encourage to continue adequate hydration and food intake at home as he is recovering from influenza - Avoid nephrotoxins Chronic pain syndrome 04/04/2023 Assessment & Plan (04/06/2023 1:58 PM MEDICAL TECHNOLOGIST MICROBIOLOGY): Seems to be on both methadone and percocet at home Continue home doses of methadone 5 mg BID and oxy 10 q4 prn Other urethral stricture, male, unspecified site 03/24/2023 B12 deficiency 02/17/2023 Inflammation of the rectum 09/13/2020 Overview (09/13/2020): Added automatically from request for surgery [id number] Chronic rectal pain 09/13/2020 Overview (09/13/2020): Added automatically from request for surgery [id number] Squamous cell carcinoma of rectum 09/13/2020 Overview (09/13/2020): Added automatically from request for surgery [id number] Screening for malignant neoplasm of colon 2020 Overview (07/30/2020): Added automatically from request for surgery [id number] ASTER (acute kidney injury) 12/01/2019 Assessment & [...] 03/01/2019 Assessment & Plan (03/02/2019 4:40 PM MEDICAL TECHNOLOGIST MICROBIOLOGY): Cr was 1.13 on admission and peaked to 1.41 03/01 likely in the setting of IV abx. Supported with IVFS and stopped IV abx. Cr 1.12 Skin breakdown to perianal region 02/28/2019 Assessment & Plan (03/01/2019 1:12 PM MEDICAL TECHNOLOGIST MICROBIOLOGY): Skin breakdown noted on exam between gluteal [...] 02/28/2019 Assessment & Plan (03/02/2019 4:45 PM MEDICAL TECHNOLOGIST MICROBIOLOGY): Likely 2/2 current XRT. Patient has diarrhea at baseline. -Will send c.diff, stool studies to r/o infection -cIVFs to maintain hydration -diarrhea started again the evening of 03/01, send c.diff -k 3.2 in setting of diarrhea, supplemented Pancytopenia 02/27/2019 Assessment & Plan (12/01/2019 10:29 PM CDT): has been pancytopenic since chemotherapy, also with HIV Assessment & Plan (03/02/2019 4:38 PM MEDICAL TECHNOLOGIST MICROBIOLOGY): In setting of chemotherapy 02/13- and XRT. -WBC 1.0, ANC 500 -H/H 8.5/23.4 on admission -PLT 3K on admission, s/p 1 unit, with appropriate bump to 16K -Will transfuse PLTs to keep > 10K, will likely need again as plt 13 today (denies blood nose/bm) -hgb 7.5, lorenzo transfuse 1 unit in setting of overall fatigue Assessment & Plan (02/27/2019 11:25 PM MEDICAL TECHNOLOGIST MICROBIOLOGY): - likely 2/2 recent chemo - transfuse 1 unit plt with post transfusion cbc - maintain type and screen - consent in chart Transaminitis 02/17/2019 Assessment & Plan (02/18/2019 1:05 PM MEDICAL TECHNOLOGIST MICROBIOLOGY): New onset 02/17 w/ t.bili 1, Alk Phos 181, AST 389, ALT 227. Previously normal. - Suspect drug-induced likely I/s/o recently initiated chemotherapy - consider also fluconazole vs biktarvy (these are not new prescriptions but concerns of compliance pre-hospitalization) vs recently initiated MSContin Down-trending today, plan to d/c Severe malnutrition 02/14/2019 Assessment & Plan (03/02/2019 4:44 PM MEDICAL TECHNOLOGIST MICROBIOLOGY): -encourage high protein diet. Assessment & Plan (02/16/2019 11:14 AM MEDICAL TECHNOLOGIST MICROBIOLOGY): Pt has had significant weight loss & poor PO intake. 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 - s/p treatment with atovaquone (rash to dapsone was, no G6PD) Encounter for antineoplastic chemotherapy 2018 Assessment & Plan (02/18/2019 1:04 PM MEDICAL TECHNOLOGIST MICROBIOLOGY): Admitted for C1 Mitomycin and 5-FU with [...] 02/13/2019 Assessment & Plan (02/15/2019 1:32 PM MEDICAL TECHNOLOGIST MICROBIOLOGY): Noted history of CKD3 with peak Cr in medical record to 2.5. Previously followed with nephrology though not in last couple years. Cr now WNL with adequate UO. - Monitor CMP daily, daily weights, and I&O Nicotine dependence 02/13/2019 Assessment & Plan (02/28/2019 1:13 PM MEDICAL TECHNOLOGIST MICROBIOLOGY): Will administer Nicotine patches in house Assessment & Plan (02/15/2019 1:35 PM MEDICAL TECHNOLOGIST MICROBIOLOGY): Current every day smoker. - Nicotine 21 mg patch daily - Encourage smoking cessation Anal cancer 10/17/2018 Assessment & Plan (04/06/2023 1:47 PM MEDICAL TECHNOLOGIST MICROBIOLOGY): S/p chemoradiation Currently in remission - Continue [...] QID Assessment & Plan (03/01/2019 1:06 PM MEDICAL TECHNOLOGIST MICROBIOLOGY): Patient of Dr. Peralta. S/p C1 mitomycin/5FU 02/13- with concurrent radiation. -Will continue XRT inpatient -Due for chemo on week 5 (~03/13/19) -Due to profound pancytopenia s/p chemo, will send out labwork to check deficiency in dihydropyrimidine dehydrogenase (DPD) per outpatient team 03/01 (has to be in pink tube) Assessment & Plan (02/27/2019 11:21 PM MEDICAL TECHNOLOGIST MICROBIOLOGY): - s/p C1 mitomycin/5FU 02/13- with concurrent radiation - pain control with MSContin 30 BID + oxycodone PRN Assessment & Plan (02/18/2019 12:52 PM MEDICAL TECHNOLOGIST MICROBIOLOGY): Diagnosed 09/23/2018, [id number]. Followed by Dr. Peralta. Treatment delayed 2/2 insurance issues. - Admitted for C1 mitomycin + 5FU w/ concurrent radiation (planned 28 fx) - first RT 02/13. C1 complete. Will follow up with xrt outpatient and with Dr. Peralta for C2 in a few weeks Tolerated treatment well Human immunodeficiency virus (HIV) disease 10/17 Assessment & Plan (04/06/2023 1:48 PM MEDICAL TECHNOLOGIST MICROBIOLOGY): Last CD4 148, [place] [id number] - Continue Symtuza - Continue atovaquone 1500 mg daily for PCP ppx - Ensure close f/u with local ID Dr. Louis Assessment & Plan (12/01/2019 10:28 PM CDT): last CD4 79, HIV VL [id number] 07/2019 - repeat CD4, HIV RNA; continue Biktarvy, continue fluconazole (patient endorses is suppressive therapy after previous crypto infection) Assessment & Plan (02/28/2019 12:45 PM MEDICAL TECHNOLOGIST MICROBIOLOGY): Follows with Dr. Louis. Last CD4 153, VL 464K 10/2018. -Continue home biktarvy -Hx of crypto meningitis, continue suppressive fluconazole Assessment & Plan (02/27/2019 11:23 PM MEDICAL TECHNOLOGIST MICROBIOLOGY): - continue home biktarvy - hx of crypto meningitis, continue suppressive fluconazole Assessment & Plan (02/18/2019 1:12 PM MEDICAL TECHNOLOGIST MICROBIOLOGY): Most recent 10/19 CD4 153, VL 465k. [...] 08/12/2018 Assessment & Plan (02/15/2019 1:32 PM MEDICAL TECHNOLOGIST MICROBIOLOGY): History of crypto meningitis; unclear what year [...] elsewhere Assessment & Plan (03/02/2019 4:39 PM MEDICAL TECHNOLOGIST MICROBIOLOGY): Patient reports rectal pain. In setting of anal cancer and current XRT. Follows with pain management outpatient, Dr. Pichardo. -On exam, there is skin breakdown between gluteal muscles > c/s wound care for wound management -Home pain regimen: MSContin 30mg BID, Gabapentin 600mg QID, Requip 1mg qpm, [place] 10/325 q6hprn, Baclofen 20mg TID prn Assessment & Plan (02/17/2019 12:10 PM MEDICAL TECHNOLOGIST MICROBIOLOGY): Follows with pain management (Dr. Pichardo) outpatient [...] 04/06/2023 Assessment & Plan (04/04/2023 9:55 AM MEDICAL TECHNOLOGIST MICROBIOLOGY): -recent labs with low B12 and low folate -supplement with B12 and folate daily Hyponatremia 02/27/2019 04/06/2023 Assessment & Plan (04/05/2023 4:32 PM MEDICAL TECHNOLOGIST MICROBIOLOGY): -Resolved s/p IVF bolus Assessment & Plan (02/28/2019 12:46 PM MEDICAL TECHNOLOGIST MICROBIOLOGY): Na 127 on admit. Likely 2/2 dehydration related to diarrhea. -S/p 1L NS bolus x 2 -Na improving, 135 today -Will CTM Assessment & Plan (02/27/2019 11:24 PM MEDICAL TECHNOLOGIST MICROBIOLOGY): - 2/2 dehydration liked related to diarrhea. Urine sodium < 20, Na improving with NS - additional 1L NS overnight, repeat BMP in AM Neutropenic fever 02/27/2019 02/07/2024 Assessment & Plan (03/01/2019 12:53 PM MEDICAL TECHNOLOGIST MICROBIOLOGY): Patient admitted from [facility], where he reported chills with Tmax 38. Found to be neutropenic and was briefly hypotensive in [facility]. -Infectious workup: Blood cultures x 2 NGTD, [...] days Assessment & Plan (02/27/2019 11:26 PM MEDICAL TECHNOLOGIST MICROBIOLOGY): - chills, Tmax 38, neutropenic and was briefly hypotensive in [facility] - blood cultures pending - f/u urine culture - CXR clear - f/u GC/CT - continue vanc/cefe Anal warts 09/09/2018 12/01/2019 Overview (09/09/2018): Added automatically from request for surgery [id number] Immunizations Immunization Administration Dates Next Due Hep [...] you have a drink containing alcohol? Never 08/07/2024 Q2: How many drinks containi ng alcohol do you have on a typical day when you are drinking? Patient does not drink Q3: How often do you have si x or more drinks on one occasion? Never 08/07/2024 Personal Safety Answer Date Recorded Have you ever been in or are you currently in a harmful physical or emotional relationship or is someone making you feel afraid or unsafe? Denies 08/07/2024 Sex and Gender Information Value Date Recorded Sex Assigned at Not on file Legal Sex Male 4:35 AM MEDICAL TECHNOLOGIST MICROBIOLOGY Gender Identity Male 04/21/2023 9:16 AM MEDICAL TECHNOLOGIST MICROBIOLOGY Sexual Orientation Not on file Last Filed Vital Signs Vital Sign Reading Time Taken Comments Blood Pressure 144/87 08/07/2024 5:10 PM CDT Pulse 69 08/07/2024 5:10 PM CDT Temperature 36.2 C (97.2 F) 08/07/2024 5:10 PM CDT Respiratory Rate 11 08/07/2024 5:10 PM CDT Oxygen Saturation 97% 08/07/2024 5:10 PM CDT Inhaled Oxygen Concentration - - Weight 88 kg (194 lb) 08/07/2024 2:22 PM CDT Height 182.9 cm (6') 07/31/2024 2:59 PM CDT Body Mass Index 26.31 07/31/2024 2:59 PM CDT Plan of Treatment Not on file Procedures Procedure Name Priority Date/Time Associated Diagnosis Comments FL FLUOROSCOPY < 1 HOUR IP Routine 08/07/2024 3:55 PM CDT FL AN PROCEDURE PLACEHOLDER Routine 08/07/2024 3:21 PM CDT FL AN ELECTIVE SUPRAGLOTTIC AIRWAY Routine 08/07/2024 3:21 PM CDT OPTILUME URETHRAL DILATION 08/07/2024 3:12 PM CDT Stricture of male urethra, unspecified stricture type MEASURE POST VOID RESIDUAL Routine 08/04/2024 10:35 AM CDT Stricture of bulbous urethra in male, unspecified stricture type URINALYSIS AND REFLEX TO MICROSCOPIC AND CULTURE STAT 07/31/2024 8:[address] ABDOMEN PELVIS W CONTRAST ED 07/31/2024 6:57 PM CDT POCT CREATININE - DEVICE Routine 07/31/2024 6:05 PM CDT EGFR STAT 07/31/2024 6:03 PM CDT DIFFERENTIAL AUTO STAT 07/31/2024 6:0 3 PM CDT SEPSIS LACTATE WITH REFLEX STAT 07/31/2024 6:03 PM CDT LIPASE STAT 07/31/2024 6:03 PM CDT COMPREHENSIVE METABOLIC PANEL STAT 07/31/2024 6:03 PM CDT CBC WITH AUTO DIFFERENTIAL STAT 07/31/2024 6:03 PM CDT EMILY-1 ANTIBODY Routine 07/21/2024 11:26 AM CDT Memory loss SCL 70 ANTIBODIES Routine 07/21/2024 11: 26 AM CDT Memory loss CAN CARRIER ANTIBODIES Routine 07/21/2024 11:26 AM CDT Memory loss MEZA ANTIBODIES Routine 07/21/2024 11:2 6 AM CDT Memory loss SJOGRENS SYNDROME-B ANTIBODY Routine 07/21/2024 11:26 AM CDT Memory loss SJOGRENS SYNDROME-A ANTIBODY Routine 07/21/2024 11:26 AM CDT Memory loss HOANG QUALITATIVE WITH REFLEX TO HOANG QUANTITATIVE Routine 07/21/2024 11:26 AM CDT Memory loss RAMONA ANTIBODY EVALUATION WITH REFLEX Routine 07/21/2024 11:26 AM CDT Memory loss VITAMIN B12 Routine 07/21/2024 11:26 AM CDT Memory loss RPR Routine 07/21/2024 11:26 AM CDT Memory loss TREPONEMAL IGG/IGM Routine 07/21/2024 11 :26 AM CDT Memory loss from Last 3 Months Results * FL Fluoroscopy < 1 Hour (08/07/2024 3:55 PM CDT) Narrative [facility] - 08/07/2024 3:56 PM CDT The images from this study are not interpreted by Radiology. Please refer to the physician's procedure / OR operative note. us Norman Schneider MD IMG FLUOROSCOPY PROCEDURE S Final Result [facility] * FL AN ELECTIVE SUPRAGLOTTIC AIRWAY, FL AN PROCEDURE PLACEHOLDER (08/07/2024 3:21 PM CDT) Narrative Michaela Chavira CRNA - 08/07/2024 3:21 PM CDT Michaela Chavira CRNA 08/07/2024 3:21 PM Airway Patient location: OR Urgency: elective Indications for airway management: anesthesia Difficult airway: no Staff: Supervising provider: Leonor Jamison DO Placed by: SLIP SHEETER: Michaela Chavira CRNA Emergent airway documentation: Risks and benefits discussed: yes Consent obtained: yes Consent given by: patient Airway prep: Preoxygenated: yes Patient position: sniffing Mask difficulty assessment: 0 - not attempted Spontaneous ventilation during airway: absent Sedation level during airway: GA Final airway details: Final airway type: supraglottic airway Final supraglottic airway: IGel SGA size: 4 Number of attempts: 1 Planned trial extubation: yes Leonor Jamison DO ANESTHESIA ORDERABLES Final Result * Measure post void residual (08/04/2024 10:35 AM CDT) Mary Cr CMA - 08/04/2024 10:35 AM CDT Measurement of post-voiding residual urine and/or bladder capacity by ultrasound, non-imaging. PVR = 595 ml Mary Roberson CMA Norman Schneider MD NURSING ASSESSMENTS Final Result * Urinalysis reflex to microscopic and culture Urine (07/31/2024 8:48 PM CDT) Color, ur Straw Yellow Clarity, ur Clear Clear [facility] Specific gravity, ur 1.013 1.003 - 1.030 [facility] pH, urine 6.5 [facility] Comment: Interpretive Data U rine pH is affected by diet, medications, systemic acid-base disturbances, and renal tubular function. pH may affect urinary stone formation. For example, urine pH below 6.0 may help reduce the tendency for calcium phosphate stones and pH greater than 6.0 may reduce the tendency for uric acid stone formation. Source: [facility] [place] Current Interpretive Data was last revised on 2017 Protein, ur ql Negative Negative [facility] Glucose, ur ql Negative Negative [facility] Ketones, ur Negative Negative [facility] Bilirubin, ur Negative Negative [facility] Blood, ur Negative Negative [facility] Urobilinogen, ur <2.0 <2.0 mg/dL [facility] Nitrite, ur Negative Negative [facility] Leukocyte esterase, ur Negative Negative [facility] UA reflex comment Reflex conditions for microscopic UA and culture not met. [facility] Urine 07/31/2024 8:48 PM CDT 07/31/2024 9:02 PM CDT Ioana Ybarra MD LAB MICROBIOLOGY - GENERAL ORDERABLES Final Result [facility] Department [place] [address] * CT Abdomen Pelvis W Contrast (07/31/2024 6:57 PM CDT) Anatomical Region Laterality Modality Body N/A Computed Tomogra phy 07/31/2024 7:05 PM CDT Impressions 07/31/2024 9:42 PM CDT 1. New moderate bilateral hydroureteronephrosis, left greater than right, with marked distention of the urinary bladder and dilation of the prostatic urethra with a focal transition point at the junction of the prostatic and membranous urethra, suspicious for a stricture in setting of prior radiation. Recommend decompression with Vanegas catheter and evaluation of the stricture with retrograde urethrogram on a nonemergent basis. 2. No bowel obstruction. Multiple post radiation changes in the rectum. Dictated by: See Duarte MD The radiology attending physician has personally reviewed this study, and had reviewed and/or edited this written report and agrees with it. Electronically signed by: Ramonita Kay M.D. Narrative 07/31/2024 9:42 PM CDT EXAMINATION: Computed tomography of the abdomen and pelvis with intravenous contrast HISTORY: Abdominal pain, constipation. Patient has known urethral stricture due to radiation therapy slice post bulbar urethroplasty. TECHNIQUE: Transaxial computed tomographic images of the abdomen and pelvis were obtained with intravenous contrast according to the standard protocol after the uneventful administration of 75 mL Opti-Ray 350 intravenous contrast. COMPARISON: 01/24/2024 FINDINGS: Lung bases are clear without consolidation, pleural effusion, or basilar pneumothorax. The imaged heart is normal in size. There is no pericardial effusion. There is no suspicious liver lesion. The gallbladder, spleen, pancreas, and adrenal glands are normal. There is severe left and moderate right hydroureteronephrosis without obstructing nephrolithiasis or focal caliber change in the mid origin/distal ureters. The urinary bladder is markedly distended. There is dilation of the bladder neck and proximal prostatic urethra with focal caliber change (series 5, image 67) at the junction between the membranous and prostatic urethra. Diverticulosis without acute diverticulitis. The appendix is normal. There is submucosal fat deposition within the lovell of the rectum and mild fat stranding noted about the perirectal space, likely posttreatment. There is no drainable intra-abdominal fluid collection. No suspicious abdominal or pelvic lymphadenopathy. The abdominal vasculature is widely patent. There is no acute fracture or aggressive osseous lesion. Procedure Note Ramonita Kay MD - 07/31/2024 EXAMINATION: Computed tomography of the abdomen and pelvis with intravenous contrast HISTORY: Abdominal pain, constipation. Patient has known urethral stricture due to radiation therapy slice post bulbar urethroplasty. TECHNIQUE: Transaxial computed tomographic images of the abdomen and pelvis were obtained with intravenous contrast according to the standard protocol after the uneventful administration of 75 mL Opti-Ray 350 intravenous contrast. COMPARISON: 01/24/2024 FINDINGS: Lung bases are clear without consolidation, pleural effusion, or basilar pneumothorax. The imaged heart is normal in size. There is no pericardial effusion. There is no suspicious liver lesion. The gallbladder, spleen, pancreas, and adrenal glands are normal. There is severe left and moderate right hydroureteronephrosis without obstructing nephrolithiasis or focal caliber change in the mid origin/distal ureters. The urinary bladder is markedly distended. There is dilation of the bladder neck and proximal prostatic urethra with focal caliber change (series 5, image 67) at the junction between the membranous and prostatic urethra. Diverticulosis without acute diverticulitis. The appendix is normal. There is submucosal fat deposition within the lovell of the rectum and mild fat stranding noted about the perirectal space, likely posttreatment. There is no drainable intra-abdominal fluid collection. No suspicious abdominal or pelvic lymphadenopathy. The abdominal vasculature is widely patent. There is no acute fracture or aggressive osseous lesion. IMPRESSION: 1. New moderate bilateral hydroureteronephrosis, left greater than right, with marked distention of the urinary bladder and dilation of the prostatic urethra with a focal transition point at the junction of the prostatic and membranous urethra, suspicious for a stricture in setting of prior radiation. Recommend decompression with Vanegas catheter and evaluation of the stricture with retrograde urethrogram on a nonemergent basis. 2. No bowel obstruction. Multiple post radiation changes in the rectum. Dictated by: See Duarte MD The radiology attending physician has personally reviewed this study, and had reviewed and/or edited this written report and agrees with it. Electronically signed by: Ramonita Kay M.D. us Ioana Ybarra MD IMG CT PROCEDURES Final Re sult * POCT creatinine (07/31/2024 6:05 PM CDT) Pathologist [facility] Creatinine POC 1.3 0.8 - 1.3 mg/dL Blood 07/31/2024 6:05 PM CDT 07/31/2024 6:05 PM CDT Ioana Ybarra MD LAB POCT ORDERABLES - EDUARD CE Final [facility] [place] [address] * Sepsis Lactate w/ Reflex (07/31/2024 6:03 PM CDT) Pathologist [facility] Sepsis Lactate 1.2 0.7 - 2.0 mmol/L Blood 07/31/2024 6:03 PM CDT 07/31/2024 6:11 PM CDT Result [facility] Ioana Ybarra MD LAB BLOOD ORDERABLES Final Result Performing Organization Address City/[facility]/ZIP Co de Phone Number [facility] Department [place] [address] * eGFR (07/31/2024 6:03 PM CDT) Pathologist [facility] eGFR 71 >=60 mL/min/1. 73 m2 Comment: Interpretive Data Reference Interval Normal >/= 90 mL/min/1.73m2 Mildly decreased* 60 - 89 mL/min/1.73m2 Mildly to moderately decreased 45 - 59 mL/min/1.73m2 Moderately to severely decreased 30 - 44 mL/min/1.73m2 Severely decreased 15 - 29 mL/min/1.73m2 Kidney Failure < 15 mL/min/1.73m2 *Relative to young adult level Estimated glomerular filtration rate is determined by the 2020 CKD-EPI equation recommended by the National Kid[employer] (A Unifying Approach to GFR Estimation: Recommendations of the NKF-ASK Task Force on Reassessing the Inclusion of Race in Diagnosing Kidney Disease, JASN 2020). The CKD-EPI equation should not be used for patients with unstable renal function and has not been validated in children and those over 70. Current interpretive data was last reviewed 2021. Blood 07/31/2024 6:03 PM CDT 07/31/2024 6:17 PM CDT Ioana Ybarra MD LAB BLOOD ORDERABLES Final Result [facility] Department [place] [address] * Differential, auto (07/31/2024 6:03 PM CDT) Neutrophil abs 5.50 1.50 - 6.50 K/cumm Imm gran abs 0.03 0.00 - 0.10 K/cumm [facility] Lymphocyte abs 1.18 0.80 - 3.30 K/cumm [facility] Monocyte abs 0.32 0.20 - 0.80 K/cumm [facility] Eosinophil abs 0.01 0.00 - 0.50 K/cumm [facility] Basophil abs 0.01 0.00 - 0.10 K/cumm [facility] Neutrophil pct 78.2 % [facility] Comment: Interpretive Data Percent cell count reference ranges are not reported, since discordance with absolute values may lead to misinterpretation of CBC data. Current Interpretive Data was last revised on 2017. Imm gran pct 0.4 % [facility] Comment: Interpretive Data Percent cell count reference ranges are not reported, since discordance with absolute values may lead to misinterpretation of CBC data. Current Interpretive Data was last revised on 2017. Lymphocyte pct 16.7 % [facility] Comment: Interpretive Data Percent cell count reference ranges are not reported, since discordance with absolute values may lead to misinterpretation of CBC data. Current Interpretive Data was last revised on 2017. Monocyte pct 4.5 % [facility] Comment: Interpretive Data Percent cell count reference ranges are not reported, since discordance with absolute values may lead to misinterpretation of CBC data. Current Interpretive Data was last revised on 2017. Eosinophil pct 0.1 % [facility] Comment: Interpretive Data Percent cell count reference ranges are not reported, since discordance with absolute values may lead to misinterpretation of CBC data. Current Interpretive Data was last revised on 2017. Basophil pct 0.1 % [facility] Comment: Interpretive Data Percent cell count reference ranges are not reported, since discordance with absolute values may lead to misinterpretation of CBC data. Current Interpretive Data was last revised on 2017. Blood 07/31/2024 6:03 PM CDT 07/31/2024 6:17 PM CDT us Ioana Ybarra MD LAB BLOOD ORDERABLES Final Result [facility] Department [place] [address] * (ABNORMAL) CBC with auto differential (07/31/2024 6:03 PM CDT) WBC 7.05 3.80 - 9.90 K/cumm Hgb 12.3(L) 13.0 - 17.5 g/dL [facility] Hct 34.7(L) 38.9 - 50.3 % [facility] Plt 209 150 - 400 K/cumm [facility] MPV 9.5 9.1 - 12.3 fL [facility] RBC 3.77(L) 4.30 - 5.80 M/cumm [facility] MCV 92.0 81.3 - 96.4 fL [facility] MCH 32.6 27.1 - 33.3 pg [facility] MCHC 35.4 32.3 - 35.7 g/dL [facility] RDW CV 12.1 11.1 - 14.9 % [facility] RDW SD 40.9 35.7 - 48.1 fL [facility] NRBC abs 0.00 0.00 - 0.01 K/cumm [facility] Blood 07/31/2024 6:03 PM CDT 07/31/2024 6:17 PM CDT Ioana Ybarra MD LAB BLOOD ORDERABLES Final Result Performing Organization Address [facility]/ZIP Co de Phone Number [facility] [place] [address] * Lipase (07/31/2024 6:03 PM CDT) [facility] Lipase 25 10 - 99 Units/L Blood 07/31/2024 6:03 PM CDT 07/31/2024 6:17 PM CDT Ioana Ybarra MD LAB BLOOD ORDERABLES Final Result Performing Organization Address [facility] de Phone Number [facility] Department [place] [address] * (ABNORMAL) Comprehensive metabolic panel (07/31/2024 6:03 PM CDT) [facility] Sodium 134(L) 135 - 145 mmol/L Potassium, pl 4.0 3.3 - 4.9 mmol/L [facility] Chloride 97 97 - 110 mmol/L [facility] CO2 29 22 - 32 mmol/L [facility] Anion gap 8 2 - 15 mmol/L [facility] BUN 8 6 - 25 mg/dL [facility] Creatinine 1.27 0.80 - 1.30 mg/dL [facility] Glucose 115 70 - 199 mg/dL [facility] Comment: Interpretive Data Fasting glucose >/= 126 mg/dl is diagnostic for diabetes. Fasting is defined as no caloric intake for at least 8 hours. Fasting glucose between 100 mg/dl to 125 mg/dl is diagnostic of prediabetes. In a patient with classic symptoms of hyperglycemia or hyperglycemic crisis, a random glucose >/= 200 mg/dl is diagnostic for diabetes. In the absence of unequivocal hyperglycemia, results should be confirmed by repeat testing. The classification and Diagnosis of Diabetes Diabetes Care 2021; 46: S19-S40. Current interpretive data was last revised 2022. Calcium 9.9 8.5 - 10.3 mg/dL [facility] Bilirubin, total 0.6 0.1 - 1.2 mg/dL [facility] Protein, pl 8.7(H) 6.5 - 8.5 g/dL [facility] Albumin 4.3 3.5 - 5.0 g/dL [facility] Alk phos 101 40 - 130 Units/L [facility] ALT 17 7 - 55 Units/L [facility] AST 40 10 - 50 Units/L [facility] Blood 07/31/2024 6:03 PM CDT 07/31/2024 6:17 PM CDT us Ioana Ybarra MD LAB BLOOD ORDERABLES Final Result Performing Organization Address [facility] Co de Phone Number [facility] Department [place] [address] * (ABNORMAL) Treponemal IgG/IgM Blood (07/21/2024 11:26 AM CDT) Pathologist [facility] Treponemal IgG/IgM Reactive( A) Nonreactive Comment: Interpretive Data: If test is reported as EQUIVOCAL, a new sample should be drawn in two weeks for testing. Current interpretive data was last revised on 2018. Blood 07/21/2024 11:2 6 AM CDT 07/21/2024 11:59 AM CDT us Cosme Stafford Jr., MD LAB MICROBIOLOGY - GENERAL ORDERABLES Final Result Performing Organization Address [facility] Co de Phone Number [facility] Department [place] [address] * HOANG ab ql w/rflx to HOANG qn (07/21/2024 11:26 AM CDT) Pathologist [facility] HOANG Negative Comment: Interpretive Data Normal range for HOANG Qualitative Antibody = Negative. 1. HOANG is performed using indirect immunofluorescence against HEp-2 cells 2. HOANG titers are performed on all positive qualitative results. 3. A significantly positive HOANG result is defined as a positive nuclear fluorescence at a titer of 1:80 or greater. 4. 15% of normal people above age 65 have significantly positive HOANG results. 5% or less of normal people age 65 or under have significantly positive HOANG results. Current interpretive data was last revised on 2019. Blood 07/21/2024 11:2 6 AM CDT 07/21/2024 11:59 AM CDT Cosme Stafford Jr., MD LAB BLOOD ORDERABL ES Final Result Performing Organization Address [facility] de Phone Number [facility] [place] [address] * SCL 70 abs (07/21/2024 11:26 AM CDT) Anti-Scl70, IgG <0.2 <=0.9 Ab Index Comment: Interpretive Data Negative: < 1.0 Ab Index Positive: > or = 1.0 Ab Index Current interpretive data was last revised on 2016. Blood 07/21/2024 11:2 6 AM CDT 07/21/2024 12:41 PM CDT Cosme Stafford Jr., MD LAB BLOOD ORDERABL ES Final Result Performing Organization Address [facility] de Phone Number [facility] [place] [address] * Meza abs (07/21/2024 11:26 AM CDT) Anti-RAMONA, SM <0.2 <=0.9 Ab Index Comment: Interpretive Data Negative: < 1.0 Ab Index Positive: > or = 1.0 Ab Index Current interpretive data was last revised on 2016. Blood 07/21/2024 11:2 6 AM CDT 07/21/2024 12:41 PM CDT Cosme Stafford Jr., MD LAB BLOOD ORDERABL ES Final Result Performing Organization Address [facility] Co de Phone Number [facility] [place] [address] * (ABNORMAL) CAN CARRIER abs (07/21/2024 11:26 AM CDT) CAN CARRIER ab 4.0(H) <=0.9 Ab Index Comment: Interpretive Data Negative: < 1.0 Ab Index Positive: > or = 1.0 Ab Index Current interpretive data was last revised on 2016. Blood 07/21/2024 11:2 6 AM CDT 07/21/2024 12:41 PM CDT Cosme Stafford Jr., MD LAB BLOOD ORDERABL ES Final Result Performing Organization Address [facility] [place] [address] * (ABNORMAL) RAMONA ab eval w/reflex (07/21/2024 11:26 AM CDT) RAMONA ab Positive( A) Negative Comment: Interpretive Data Positive Screens will be reflexed to specific testing for Antibodies against the following antigens: Emily-1 Ab, CAN CARRIER Ab, Scl-70 Ab, Meza Ab, SS-A/Ro Ab, and SS- B/La Ab. Further testing for dsDNA, Centromere, or Ribosomal P antibodies is suggested in patient with a positive screen and negative specific antibodies. Current interpretive data was last revised on 2022. Blood 07/21/2024 11:2 6 AM CDT 07/21/2024 11:59 AM CDT Cosme Stafford Jr., MD LAB BLOOD ORDERABL ES Final Result Performing Organization Address [facility] Co de Phone Number [facility] [place] [address] * Emily-1 antibody (07/21/2024 11:26 AM CDT) Emily 1 Antibody, IgG <0.2 <=0.9 Ab Index Comment: Interpretive Data Negative: < 1.0 Ab Index Positive: > or = 1.0 Ab Index Current interpretive data was last revised on 2016. Blood 07/21/2024 11:2 6 AM CDT 07/21/2024 12:41 PM CDT Cosme Stafford Jr., MD LAB BLOOD ORDERABL ES Final Result Performing Organization Address [facility] Co de Phone Number [facility] [place] [address] * RPR Blood (07/21/2024 11:26 AM CDT) Pathologist [facility] RPR Nonreactive Nonreactive Blood 07/21/2024 11:2 6 AM CDT 07/21/2024 11:59 AM CDT Cosme Stafford Jr., MD LAB MICROBIOLOGY - GENERAL ORDERABLES Final Result Performing Organization Address [facility] de Phone Number [facility] [place] [address] * Sjogren's syndrome B ab (07/21/2024 11:26 AM CDT) Pathologist [facility] Anti-RAMONA, SS-B <0.2 <=0.9 Ab Index Comment: Interpretive Data Negative: < 1.0 Ab Index Positive: > or = 1.0 Ab Index Current interpretive data was last revised on 2016. Blood 07/21/2024 11:2 6 AM CDT 07/21/2024 12:41 PM CDT Cosme Stafford Jr., MD LAB BLOOD ORDERABL ES Final Result Performing Organization Address [facility] Co de Phone Number [facility] [place] [address] * Sjogren's syndrome A ab (07/21/2024 11:26 AM CDT) Pathologist [facility] Anti-RAMONA, SS-A <0.2 <=0.9 Ab Index Comment: Interpretive Data Negative: < 1.0 Ab Index Positive: > or = 1.0 Ab Index Current interpretive data was last revised on 2016. Blood 07/21/2024 11:2 6 AM CDT 07/21/2024 12:41 PM CDT Cosme Stafford Jr., MD LAB BLOOD ORDERABL ES Final Result Performing Organization Address City/[facility]/ZIP Co de Phone Number [id number] [place] [address] * Vitamin B12 (07/21/2024 11:26 AM CDT) Pathologist [facility] Vitamin B12 366 230 - 1,250 pg/mL Blood 07/21/2024 11:2 6 AM CDT 07/21/2024 11:59 AM CDT Cosme Stafford Jr., MD LAB BLOOD ORDERABL ES Final Result [facility] [place] [address] from Last 3 Months Insurance MEDICARE IDPA MEDICARE IDPA MANAGED MEDICAID GENERIC RISK OTHER [employer] MEDICARE [facility] Advance Directives For more information, please contact: [phone] * Full Code (Latest Code Status on [...] 10:57 AM 05/28/2020 4:48 AM Care Teams [employer] Relationship Specialty Start Date End Date Izabela Louis MD [address] [address] PCP - General 11/22/19 Syed Diggs MD Surgeon Colon and Rectal Surgery 09/30/18 Wesley Pichardo MD [address] [id number] Pain Management 09/30/18 [place] [address] [place] [address] Radiation Oncologist Radiation Oncology 10/24/18
--- OUTSIDE RECORDS SUMMARY | 2024-08-26 04:47 | XMS_ITS | Clinical Summary ---
Author Organization [facility] Address [address] [place] [address] Care Team Providers Care Caddy Name Role Phone Izabela Louis MD Primary Care Provider Source Comments [facility],non-owned Affiliates and Associated Physician Practices is amultiple site organization consisting of ambulatory clinics and hospital sitesin [place], [place], [place] and [place]. This disclosure is being madepursuant to the Care Everywhere program and may not contain all information available regarding this patient. Last updated 17.[facility] Allergies Active Allergy Reactions Criticality Noted Date Comments Sulfa Drugs Shortness of Breath High 12/08/2020 Medications * Be aware that medications may not be up to date on this document. Alwaysverify current medications with the patient. fluconazole (DIFLUCAN) 100 MG tablet TK 2 TS PO QD 11/17/2019 Active baclofen (LIORESAL) 10 MG tablet Take 10 mg by mouth 3 times daily as needed 12/28/2019 Active SYMTUZA [phone] MG tablet Take by mouth once daily 10/14/2020 Active gabapentin (NEURONTIN) 600 MG tablet Take 600 mg by mouth 3 times daily 12/28/2019 Active methadone (DOLOPHINE) 10 MG tablet Take 5 mg by mouth 2 times daily 12/31/2019 Active oxyCODONE-acetam inophen (PERCOCET) 10-325 MG tablet Take 1 tablet by mouth 4 times daily 12/31/2019 Active Active Problems Problem Noted Date Diagnosed Date Aphasia 05/14/2024 Left-sided weakness 05/14/2024 Weakness 05/14/2024 CKD (chronic kidney disease) 05/14/2024 Shortness of breath 12/08/2020 Fever and chills 12/08/2020 Encounters Date Type Department Care Team Description 05/31/2024 10:34 PM COLLATERAL SPECIALIST - 05/31/2024 10:57 PM COLLATERAL SPECIALIST Emergency [facility] [address] [place] [address] Epigastric pain Discharge Disposition: Left Against Medical Advice/Discontinued Care 05/31/2024 Travel from Last 3 Months Immunizations Immunization Administration Dates Next Due INFLUENZA VACCINE, TRIV. [...] at Not on file Legal Sex Male 6:27 AM COLLATERAL SPECIALIST Gender Identity Not on file Sexual Orientation Not on file Last Filed Vital Signs Vital Sign Reading Time Taken Comments Blood Pressure 133/67 05/31/2024 5:03 PM COLLATERAL SPECIALIST Pulse 67 05/31/2024 5:03 PM COLLATERAL SPECIALIST Temperature 36.3 C (97.3 F) 05/31/2024 1:37 PM COLLATERAL SPECIALIST Respiratory Rate 18 05/31/2024 5:03 PM COLLATERAL SPECIALIST Oxygen Saturation 99% 05/31/2024 5:03 PM COLLATERAL SPECIALIST Inhaled Oxygen Concentration - - Weight 86.2 kg (190 lb) 05/31/2024 11:07 AM COLLATERAL SPECIALIST Height 180.3 cm (5' 11 ) 05/31/2024 11:07 AM COLLATERAL SPECIALIST Body Mass Index 26.5 05/31/2024 11:07 AM COLLATERAL SPECIALIST Plan of Treatment Health Maintenance Due Date Last Done Comments MEDICARE AWV 12 MONTHS 1980 HEPATITIS B VACCINE (2 of 3 - Hep B Twinrix 3-dose series) 05/22/2004 04/24/2004 DTAP/TDAP/TD VACCINES (2 - Td or Tdap) 08/29/2019 08/28/2009 COVID-19 VACCINE (3 - season) 2023 08/14/2020, 07/17/2020 DEPRESSION SCREENING 04/05/2024 INFLUENZA VACCINE (Season Ended) 2024 02/03/2019, 01/18/2018, 12/09/2016, Additional history exists LIPID TESTING 05/15/2029 05/15/2024, 09/03, 08/12/2018 PNEUMOCOCCAL VACCINE (3 of 3 - PCV20 or PCV21) 2030 07/01/2017, 12/21/2014, 08/28/2009 ZOSTER VACCINE (1 of 2) 2030 HEPATITIS C SCREENING Completed 08/12/2018 , 08/12/2018, 08/12/2018, Additional history exists HIV SCREENING Completed 12/08/2020, 12/08/2020 HIB VACCINE [...] CARDIAC EKG ORDER 06/02/2024 12: [address] ABDOMEN PELVIS W CONTRAST STAT 05/31/2024 12:44 PM COLLATERAL SPECIALIST Epigastric pain XR CHEST 2VW STAT 05/31/2024 11:38 AM COLLATERAL SPECIALIST Epigastric pain EKG 12-LEAD Routine 05/31/2024 11:27 AM COLLATERAL SPECIALIST Epigastric pain TROPONIN-I HIGH SENSITIVE BASELINE + 1HR STAT 05/31/2024 11:27 AM COLLATERAL SPECIALIST LIPASE BLOOD STAT 05/31/2024 11:27 AM COLLATERAL SPECIALIST LACTIC ACID BLOOD REFLEX TO REPEAT Timed 05/31/2024 11:27 AM COLLATERAL SPECIALIST COMPREHENSIVE METABOLIC PANEL STAT 05/31/2024 11:27 AM COLLATERAL SPECIALIST CBC W AUTO DIFFERENTIAL STAT 05/31/2024 11:27 AM COLLATERAL SPECIALIST LIPID PROFILE STAT 05/15/2024 1:28 AM COLLATERAL SPECIALIST Left-sided weakness Aphasia from Last 3 Months or Most Recently Relevant to Health Maintenance Results * CARDIAC EKG ORDER (06/02/2024 12:31 PM COLLATERAL SPECIALIST) Narrative 06/02/2024 12:31 PM COLLATERAL SPECIALIST Ordered by an unspecified provider. us Scanned Document CARDIAC SERVICES ORDERABLES Fin al Result * CT Abdomen Pelvis W Contrast (05/31/2024 12:44 PM COLLATERAL SPECIALIST) Anatomical Region Laterality Modality Abdomen, Pelvis Computed Tomogra phy 05/31/2024 12:5 7 PM COLLATERAL SPECIALIST Impressions 05/31/2024 1:02 PM COLLATERAL SPECIALIST IMPRESSION: No acute findings in the abdomen or pelvis. Grossly unremarkable CT examination. > Interpreting Provider: Jerilyn Jeffrey MD on 05/31/2024 1:02 PM Narrative 05/31/2024 1:02 PM COLLATERAL SPECIALIST PROCEDURE: CT ABDOMEN PELVIS W CONTRAST DATE/TIME [...] Provider: Jerilyn Jeffrey MD on 51:02 PM us Mehrdad Asencio MD CT ORDERABLES Final Result * XR Chest 2Vw (05/31/2024 11:38 AM COLLATERAL SPECIALIST) Anatomical Region Laterality Modality Chest Digital Radiogra phy 05/31/2024 11:3 9 AM COLLATERAL SPECIALIST Narrative 05/31/2024 12:01 PM COLLATERAL SPECIALIST PROCEDURE: XR CHEST 2VW, DATE/TIME OF EXAM: 05/31/2024 11:39 AM, LOCATION [facility] INDICATION: R10.13: Epigastric pain ADDITIONAL CLINICAL [...] air. Report dictated by Myesha Arriaga MD, (Medical Leader). Mónica Forman MD have personally reviewed and interpreted this examination/study. > Interpreting Provider: Mónica Ferrell MD on 05/31/2024 12:01 PM Procedure Note Mónica Ferrell MD - 05/31/2024 PROCEDURE: XR CHEST 2VW, DATE/TIME OF EXAM: 05/31/2024 11:39 AM, LOCATION [facility] INDICATION: R10.13: Epigastric pain ADDITIONAL CLINICAL [...] air. Report dictated by Myesha Arriaga MD, (Medical Leader). Mónica Forman MD have personally reviewed and interpreted this examination/study. > Interpreting Provider: Mónica Ferrell MD on 05/31/2024 12:01 PM Mehrdad Asencio MD DIAGNOSTIC IMAGING ORDERABLES Fi nal Result * EKG 12-LEAD (05/31/2024 11:27 AM COLLATERAL SPECIALIST) Ventricular Rate 88 BPM [facility] MUSE Atrial Rate 88 BPM [facility] P-R Interval 134 ms [facility] MUSE QRS Duration ms 82 ms [facility] Q-T Interval ms 368 ms [facility] MUSE QTC Calculation (Bezet) 445 ms [facility]USE Calculated P [place] 77 degrees [facility] MUSE Calculated R [place] 60 degrees [facility]USE Calculated T [place] 59 degrees [facility] MUSE Interpretation EKG NORMAL SINUS RHYTHM RIGHT ATRIAL ENLARGEMENT NONSPECIFIC ST ABNORMALITY ABNORMAL ECG WHEN COMPARED WITH ECG OF 08-DEC-2020 04:13, T WAVE INVERSION NO LONGER EVIDENT IN INFERIOR LEADS Confirmed by BRITTANY HOGAN MD ([id number]) on 05/31/2024 4:58:52 PM [facility] MUSE 05/31/2024 11:2 7 AM COLLATERAL SPECIALIST 05/31/2024 4:58 PM COLLATERAL SPECIALIST Mehrdad Asencio MD ECG ORDERABLES Edited Result - Final Performing Organization Address [facility] Co de Phone Number [facility] MUSE * LACTIC ACID BLOOD REFLEX TO REPEAT (05/31/2024 11:27 AM COLLATERAL SPECIALIST) Pathologist [facility] [place] Lactic Acid-Stat 1.6 <=2.0 mmol/L 05/31/2024 12:14 PM COLLATERAL SPECIALIST [facility] Blood BLOOD SPECIMEN / Unknown Venipuncture / Unknown 05/31/2024 11:27 AM COLLATERAL SPECIALIST 05/31/2024 11:47 AM COLLATERAL SPECIALIST Mehrdad Asencio MD LAB - CHEMISTRY ORDERABLES Final Result Performing Organization Address [facility] de Phone Number [address] [address], [place] [phone] * TROPONIN-I HIGH SENSITIVE BASELINE + 1HR (05/31/2024 11:27 AM COLLATERAL SPECIALIST) Pathologist [facility] [place] Troponin I High Sensitive <3 <=35 ng/L 05/31/2024 12:23 PM COLLATERAL SPECIALIST [facility] Blood BLOOD SPECIMEN / Unknown Venipuncture / Unknown 05/31/2024 11:27 AM COLLATERAL SPECIALIST 05/31/2024 11:47 AM COLLATERAL SPECIALIST Mehrdad Asencio MD LAB - CHEMISTRY ORDERABLES Final Result Performing Organization Address [facility] Co de Phone Number [address] [address], [place] [phone] * (ABNORMAL) CBC W AUTO DIFFERENTIAL (05/31/2024 11:27 AM [facility]) WBC 6.0 4.0 - 10.7 x10E9/L 05/31/2024 11:53 AM [facility] RBC Count 3.75(L) 4.30 - 5.80 x10E12/L 05/31/2024 11:53 AM [facility] Hemoglobin 12.4(L) 13.3 - 17.5 g/dL 05/31/2024 11:53 AM [facility] Hematocrit 34.5(L) 38.7 - 51.1 % 05/31/2024 11:53 AM [facility] MCV 92.0 80.0 - 98.0 fL 05/31/2024 11:53 AM [facility] MCH 33.1 26.7 - 33.6 pg 05/31/2024 11:53 AM [facility] MCHC 35.9 31.7 - 36.3 g/dL 05/31/2024 11:53 AM [facility] RDW-CV 11.8 11.3 - 14.8 % 05/31/2024 11:53 AM [facility] Platelet Count 239 150 - 420 x10E9/L 05/31/2024 11:53 AM [facility] MPV 9.1 7.8 - 11.4 fL 05/31/2024 11:53 AM [facility] Neutrophil % 74.9(H) 41.0 - 74.0 % 05/31/2024 11:53 AM [facility] Lymphocyte % 19.8 17.0 - 47.0 % 05/31/2024 11:53 AM [facility] Monocyte % 4.5 3.0 - 11.0 % 05/31/2024 11:53 AM [facility] Eosinophil % 0.2 0.0 - 7.0 % 05/31/2024 11:53 AM [facility] Basophil % 0.3 0.0 - 1.6 % 05/31/2024 11:53 AM [facility] Immature Granulocytes % 0.3 0.0 - 1.0 % 05/31/2024 11:53 AM [facility] Neutrophil Absolute 4.45 1.60 - 7.50 x10E9/L 05/31/2024 11:53 AM [facility] Lymphocyte Absolute 1.18 1.00 - 4.40 x10E9/L 05/31/2024 11:53 AM [facility] Monocyte Absolute 0.27 0.15 - 1.00 x10E9/L 05/31/2024 11:53 AM [facility] Eosinophil Absolute 0.01 0.00 - 0.60 x10E9/L 05/31/2024 11:53 AM [facility] Basophil Absolute 0.02 0.00 - 0.13 x10E9/L 05/31/2024 11:53 AM [facility] Blood BLOOD SPECIMEN / Unknown Venipuncture / Unknown 05/31/2024 11:27 AM [facility] 05/31/2024 11:47 AM [facility] us Mehrdad Asencio MD LAB - HEMATOLOGY ORDERABLES Mallory brasher Result Performing Organization Address City/State/[facility] Co de Phone Number [facility] [address] [place] [address], [facility] [phone] * (ABNORMAL) COMPREHENSIVE METABOLIC PANEL (05/31/2024 11:27 AM [facility]) BUN 8 7 - 26 mg/dL 05/31/2024 12:19 PM [facility] Creatinine 1.15 0.71 - 1.16 mg/dL 05/31/2024 12:19 PM [facility] Sodium 132(L) 136 - 145 mmol/L 05/31/2024 12:19 PM [facility] Potassium 4.3 3.5 - 4.5 mmol/L 05/31/2024 12:19 PM [facility] Chloride 98 98 - 107 mmol/L 05/31/2024 12:19 PM [facility] CO2 25 22 - 29 mmol/L 05/31/2024 12:19 PM [facility] Glucose 109(H) 70 - 99 mg/dL 05/31/2024 12:19 PM [facility] Calcium 9.7 8.4 - 10.2 mg/dL 05/31/2024 12:19 PM [facility] Protein Total 8.4(H) 6.0 - 8.3 g/dL 05/31/2024 12:19 PM [facility] Albumin 4.4 3.4 - 5.0 g/dL 05/31/2024 12:19 PM [facility] Bilirubin Total 0.8 0.2 - 1.2 mg/dL 05/31/2024 12:19 PM [facility] Alkaline Phosphatase 110 40 - 150 U/L 05/31/2024 12:19 PM [facility] ALT 16 5 - 55 U/L 05/31/2024 12:19 PM [facility] AST 24 5 - 34 U/L 05/31/2024 12:19 PM [facility] Anion Gap 9 6 - 16 05/31/2024 12:19 PM [facility] BUN/Creatinine Ratio 7 7 - 23 05/31/2024 12:19 PM [facility] Osmolality Calculated 273(L) 275 - 295 mOsm/kg 05/31/2024 12:19 PM [facility] Albumin/Globulin Ratio 1.1 1.1 - 2.3 05/31/2024 12:19 PM [facility] eGFR by CKD-EPI 81(L) >=90 mL/min/1.7 3 m2 05/31/2024 12:19 PM [facility] Blood BLOOD SPECIMEN / Unknown Venipuncture / Unknown 05/31/2024 11:27 AM COLLATERAL SPECIALIST 05/31/2024 11:47 AM [facility] Mehrdad Asencio MD LAB - CHEMISTRY ORDERABLES Final Result [facility] [address] [place] [address], [facility] [phone] * LIPASE BLOOD (05/31/2024 11:27 AM [facility]) Lipase 19 8 - 78 U/L 05/31/2024 12:19 PM [facility] Blood BLOOD SPECIMEN / Unknown Venipuncture / Unknown 05/31/2024 11:27 AM COLLATERAL SPECIALIST 05/31/2024 11:47 AM COLLATERAL SPECIALIST Narrative [facility] - 05/31/2024 12:19 PM COLLATERAL SPECIALIST Lipase results from the Juan Alinity analyzer may not be comparable with other methodologies. Mehrdad Asencio MD LAB - CHEMISTRY ORDERABLES Final Result Performing Organization Address [facility]/ZIP Co de Phone Number [address] [address], [place] [phone] * (ABNORMAL) LIPID PROFILE (05/15/2024 1:28 AM [facility]) [facility] Cholesterol Total 184 <200 mg/dL 05/15/2024 2:41 AM [facility] HDL 35(L) >40 mg/dL 05/15/2024 2:41 AM [facility] Comment: ATP III Classification of HDL Cholesterol: <40 mg/dL: Considered a major risk factor. >60 mg/dL: Considered a negative risk factor. LDL Calculated 114(H) <100 mg/dL 05/15/2024 2:41 AM [facility] Comment: ATP III Classification of LDL Cholesterol: <100 mg/dL: Optimal 100 - 129 mg/dL: Near Optimal/Above Optimal 130 - 159 mg/dL: Borderline High 160 - 189 mg/dL: High >190 mg/dL: Very High Triglycerides 173(H) <150 mg/dL 05/15/2024 2:41 AM [facility] Comment: ATP III Classification of Triglycerides: <150 mg/dL: Normal 150 - 199 mg/dL: Borderline High 200 - 400 mg/dL: High >500 mg/dL: Very High Blood BLOOD SPECIMEN / Unknown Venipuncture / Unknown 05/15/2024 1:28 AM COLLATERAL SPECIALIST 05/15/2024 2:10 AM COLLATERAL SPECIALIST Nolberto Varela MD LAB - CHEMISTRY ORDERABLES Final Result Performing Organization Address [facility]/ZIP Co de Phone Number [address] [address], [place] [phone] from Last 3 Months or Most Recently Relevant to Health Maintenance Insurance MEDICARE MEDICARE MEDICAID - [place] Advance Directives * Full Code (Latest Code Status on File) Date Activated Date Inactivated Comments 05/15/2024 12:03 AM 05/15/2024 10:23 AM * Full Code Date Activated Date Inactivated Comments 12/08/2020 5:15 AM 12/10/2020 5:37 PM Care Teams Caddy Relationship Specialty Start Date End Date Izabela Louis MD [address] [place], [place] [phone] PCP - General Internal Medicine 05/31/24
--- OUTSIDE RECORDS SUMMARY | 2024-08-26 04:47 | XMS_ITS | Encounter Summary ---
Author Organization [facility] Healthcare Address [address] [place] [address] Care Team Providers Care Binder Lockstitch Name Role Phone Syed Diggs MD Unavailable [phone] Wesley Pichardo MD Unavailable Marilyn Schreiber MD Unavailable [phone] Nishant Sr MD Primary Care Provider [phone] Izabela Louis MD Primary Care Provider Sam Peralta MD PhD Unavailable [phone] Encounter Details Date Type Department Care Team (Late st Contact Info) Description 07/20/2019 Telephone [facility] [address] [place] [address] Bubba Erickson RN Social History Tobacco Use Types Packs/Day Years Used Date Smoking Tobacco: Every Day Cigarettes 0.3 34.9 Started: 09/15/1989 Smokeless Tobacco: Never Alcohol Use Standard Drinks/Week Comments Not Currently 0 (1 standard drink = 0.6 oz pur e alcohol) 2 times a year Sex and Gender Information Value Date Recorded Sex Assigned at Not on file Legal Sex Male 4:35 AM AGRICULTURAL EXTENSION AGENT Gender Identity Male 04/21/2023 9:16 AM AGRICULTURAL EXTENSION AGENT Sexual Orientation Not on file documented as [...] COVID: Suspected 04/04/2023 04/04/2023 04/04/2023 5:43 AM AGRICULTURAL EXTENSION AGENT Influenza, adult 04/04/2023 04/04/2023 04/11/2023 3:05 AM AGRICULTURAL EXTENSION AGENT COVID: Suspected 01/27/2024 01/28/2024 01/28/2024 1:29 AM CDT documented as of this encounter Care Teams Binder Lockstitch Relationship Specialty Start Date End Date Nishant Sr MD [address] [place] [id number] PCP - General 02/14/19 11/21/19 Izabela Louis MD [address] [place] [phone] PCP - General 11/22/19 Syed Diggs MD Surgeon Colon and Rectal Surgery 09/30/18 Wesley Pichardo MD [address] [place] [address] Pain Management 09/30/18 Marilyn Schreiber MD [address] [place] [address] Radiation Oncologist Radiation Oncology 10/24/18 Sam Peralta MD PhD [address] [place] [address] [phone] Medical Oncologist/Environmental Coordinator Medical Oncology 05/14/22 02/08/24 documented as of this encounter
--- OUTSIDE RECORDS SUMMARY | 2024-08-26 04:47 | XMS_ITS | Continuity of Care Document ---
Author Organization [facility] Address [address] [place] [address] [address] [place] [address] Phone Care Team Providers Care Abstract Writer Name Role Phone Tammy Matos Unavailable Unavailable Procedures Procedure Date Office/outpatient Visit, Est Eye Exam & Treatment Advance Directives Directive Yes / No Effective Date File Name No Information Encounters Encounter Description Practice Location Reason(s) For Visit Diagnoses Date Provider Providers Copied on Encounter Office/outpat ient Visit, Est [facility], [address] [place] [address] [address], [place], [place], [id number], tel:[phone] [facility] No Information 2-[address] Shawna Munoz. [address] , [address], [place], [place], [facility], . tel:[phone] [facility], [address] [place] [address] [address], [place], [place], [id number], tel:[phone] [facility] No Information 2-[address] Shanwa Munoz. [address] , [address], [place], [address], [place]. tel:[phone] Family History Family Member Type Diagnosis Age At Onset No Information Payers Payer name Insurance type Covered libertarian ID Authoriza tion(s) Medicare [facility] [id number] Social History Type Description Quantity Date Captured [...]
--- OUTSIDE RECORDS SUMMARY | 2024-08-26 04:47 | XMS_ITS | Clinical Summary ---
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
--- OUTSIDE RECORDS SUMMARY | 2024-08-26 04:47 | XMS_ITS | Clinical Summary ---
Author Organization [facility] Address [address] [place] [address] Care Team Providers Care Vp Security Name Role Phone Syed Diggs MD Unavailable [phone] Wesley Pichardo MD Unavailable [phone] Marilyn Schreiber MD Unavailable [phone] Izabela Louis MD Primary Care Provider Allergies [...] hours as needed for shortness of breath 01/23/202 3 Active True Metrix Glucose Meter [facility] USE TO TEST BLOOD SUGAR ONCE DAILY 2 Active Symtuza [phone] mg tablet Take 1 tablet by mouth [...] daily as needed (bladder spasms) 12 tablet 5 Active Active Problems Problem Noted Date Diagnosed Date Stricture, urethra 08/04/2024 History of anal cancer 10/06/2023 Acute hypoxic respiratory failure 04/06/2023 Assessment & Plan (04/06/2023 1:44 PM ORDER TO DELIVERY SUPERVISOR): Required 2L O2 support since admission CXR no evidence of pneumonia or atelectasis Now weaned to room air - Perform home O2 evaluation prior to discharge - Management of influenza as described elsewhere Macrocytic anemia 04/06/2023 Assessment & Plan (04/06/2023 1:49 PM ORDER TO DELIVERY SUPERVISOR): Recent labs with low B12 and low folate Hb stable - Continue supplement with B12 and folate daily Verruca vulgaris 04/05/2023 Assessment & Plan (04/06/2023 1:36 PM ORDER TO DELIVERY SUPERVISOR): Follows with [facility] - Continue home Imiquimod 5% cream to warts x3/weekly. Pt not to touch eyes following application. Influenza 04/04/2023 Assessment & Plan (04/06/2023 1:46 PM ORDER TO DELIVERY SUPERVISOR): Reports fatigue, febrile episodes at home [...] 04/04/2023 Assessment & Plan (04/06/2023 1:45 PM ORDER TO DELIVERY SUPERVISOR): Cr 1.5 up from baseline of ~1 Likely prerenal from poor po intake in setting of influenza Resolved with IVF, PO intake - Encourage to continue adequate hydration and food intake at home as he is recovering from influenza - Avoid nephrotoxins Chronic pain syndrome 04/04/2023 Assessment & Plan (04/06/2023 1:58 PM ORDER TO DELIVERY SUPERVISOR): Seems to be on both methadone and percocet at home Continue home doses of methadone 5 mg BID and oxy 10 q4 prn Other urethral stricture, male, unspecified site 03/24/2023 B12 deficiency 02/17/2023 Inflammation of the rectum 09/13/2020 Overview (09/13/2020): Added automatically from request for surgery [id number] Chronic rectal pain 09/13/2020 Overview (09/13/2020): Added automatically from request for surgery [id number] Squamous cell carcinoma of rectum 09/13/2020 Overview (09/13/2020): Added automatically from request for surgery [id number] Screening for malignant neoplasm of colon 2020 Overview (07/30/2020): Added automatically from request for surgery [id number] ASTER (acute kidney injury) 12/01/2019 Assessment & [...] 03/01/2019 Assessment & Plan (03/02/2019 4:40 PM ORDER TO DELIVERY SUPERVISOR): Cr was 1.13 on admission and peaked to 1.41 03/01 likely in the setting of IV abx. Supported with IVFS and stopped IV abx. Cr 1.12 Skin breakdown to perianal region 02/28/2019 Assessment & Plan (03/01/2019 1:12 PM ORDER TO DELIVERY SUPERVISOR): Skin breakdown noted on exam between [...] 02/28/2019 Assessment & Plan (03/02/2019 4:45 PM ORDER TO DELIVERY SUPERVISOR): Likely 2/2 current XRT. Patient has diarrhea at baseline. -Will send c.diff, stool studies to r/o infection -cIVFs to maintain hydration -diarrhea started again the evening of 03/01, send c.diff -k 3.2 in setting of diarrhea, supplemented Pancytopenia 02/27/2019 Assessment & Plan (12/01/2019 10:29 PM CDT): has been pancytopenic since chemotherapy, also with HIV Assessment & Plan (03/02/2019 4:38 PM ORDER TO DELIVERY SUPERVISOR): In setting of chemotherapy 02/13- and XRT. -WBC 1.0, ANC 500 -H/H 8.5/23.4 on admission -PLT 3K on admission, s/p 1 unit, with appropriate bump to 16K -Will transfuse PLTs to keep > 10K, will likely need again as plt 13 today (denies blood nose/bm) -hgb 7.5, lorenzo transfuse 1 unit in setting of overall fatigue Assessment & Plan (02/27/2019 11:25 PM ORDER TO DELIVERY SUPERVISOR): - likely 2/2 recent chemo - transfuse 1 unit plt with post transfusion cbc - maintain type and screen - consent in chart Transaminitis 02/17/2019 Assessment & Plan (02/18/2019 1:05 PM ORDER TO DELIVERY SUPERVISOR): New onset 02/17 w/ t.bili 1, Alk Phos 181, AST 389, ALT 227. Previously normal. - Suspect drug-induced likely I/s/o recently initiated chemotherapy - consider also fluconazole vs biktarvy (these are not new prescriptions but concerns of compliance pre-hospitalization) vs recently initiated MSContin Down-trending today, plan to d/c Severe malnutrition 02/14/2019 Assessment & Plan (03/02/2019 4:44 PM ORDER TO DELIVERY SUPERVISOR): -encourage high protein diet. Assessment & Plan (02/16/2019 11:14 AM ORDER TO DELIVERY SUPERVISOR): Pt has had significant weight loss & poor PO intake. 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 - s/p treatment with atovaquone (rash to dapsone was, no G6PD) Encounter for antineoplastic chemotherapy 2018 Assessment & Plan (02/18/2019 1:04 PM ORDER TO DELIVERY SUPERVISOR): Admitted for C1 Mitomycin and 5-FU [...] 02/13/2019 Assessment & Plan (02/15/2019 1:32 PM ORDER TO DELIVERY SUPERVISOR): Noted history of CKD3 with peak Cr in medical record to 2.5. Previously followed with nephrology though not in last couple years. Cr now WNL with adequate UO. - Monitor CMP daily, daily weights, and I&O Nicotine dependence 02/13/2019 Assessment & Plan (02/28/2019 1:13 PM ORDER TO DELIVERY SUPERVISOR): Will administer Nicotine patches in house Assessment & Plan (02/15/2019 1:35 PM ORDER TO DELIVERY SUPERVISOR): Current every day smoker. - Nicotine 21 mg patch daily - Encourage smoking cessation Anal cancer 10/17/2018 Assessment & Plan (04/06/2023 1:47 PM ORDER TO DELIVERY SUPERVISOR): S/p chemoradiation Currently in remission - [...] QID Assessment & Plan (03/01/2019 1:06 PM ORDER TO DELIVERY SUPERVISOR): Patient of Dr. Peralta. S/p C1 mitomycin/5FU 02/13- with concurrent radiation. -Will continue XRT inpatient -Due for chemo on week 5 (~03/13/19) -Due to profound pancytopenia s/p chemo, will send out labwork to check deficiency in dihydropyrimidine dehydrogenase (DPD) per outpatient team 03/01 (has to be in pink tube) Assessment & Plan (02/27/2019 11:21 PM ORDER TO DELIVERY SUPERVISOR): - s/p C1 mitomycin/5FU 02/13- with concurrent radiation - pain control with MSContin 30 BID + oxycodone PRN Assessment & Plan (02/18/2019 12:52 PM ORDER TO DELIVERY SUPERVISOR): Diagnosed 09/23/2018, [id number]. Followed by Dr. Peralta. Treatment delayed 2/2 insurance issues. - Admitted for C1 mitomycin + 5FU w/ concurrent radiation (planned 28 fx) - first RT 02/13. C1 complete. Will follow up with xrt outpatient and with Dr. Peralta for C2 in a few weeks Tolerated treatment well Human immunodeficiency virus (HIV) disease 10/17 Assessment & Plan (04/06/2023 1:48 PM ORDER TO DELIVERY SUPERVISOR): Last CD[place] 148[place] [id number] - Continue Symtuza - Continue atovaquone 1500 mg daily for PCP ppx - Ensure close f/u with local ID Dr. Louis Assessment & Plan (12/01/2019 10:28 PM CDT): last CD4 79, HIV VL [id number] 07/2019 - repeat CD4, HIV RNA; continue Biktarvy, continue fluconazole (patient endorses is suppressive therapy after previous crypto infection) Assessment & Plan (02/28/2019 12:45 PM ORDER TO DELIVERY SUPERVISOR): Follows with Dr. Louis. Last CD4 153, VL [id number] 10/2018. -Continue home biktarvy -Hx of crypto meningitis, continue suppressive fluconazole Assessment & Plan (02/27/2019 11:23 PM ORDER TO DELIVERY SUPERVISOR): - continue home biktarvy - hx of crypto meningitis, continue suppressive fluconazole Assessment & Plan (02/18/2019 1:12 PM ORDER TO DELIVERY SUPERVISOR): Most recent 10/19 CD4 153, VL [...] 08/12/2018 Assessment & Plan (02/15/2019 1:32 PM ORDER TO DELIVERY SUPERVISOR): History of crypto meningitis; unclear what [...] elsewhere Assessment & Plan (03/02/2019 4:39 PM ORDER TO DELIVERY SUPERVISOR): Patient reports rectal pain. In setting of anal cancer and current XRT. Follows with pain management outpatient, Dr. Pichardo. -On exam, there is skin breakdown between gluteal muscles > c/s wound care for wound management -Home pain regimen: MSContin 30mg BID, Gabapentin 600mg QID, Requip 1mg qpm, [place] 10/325 q6hprn, Baclofen 20mg TID prn Assessment & Plan (02/17/2019 12:10 PM ORDER TO DELIVERY SUPERVISOR): Follows with pain management (Dr. Pichardo) [...] 04/06/2023 Assessment & Plan (04/04/2023 9:55 AM ORDER TO DELIVERY SUPERVISOR): -recent labs with low B12 and low folate -supplement with B12 and folate daily Hyponatremia 02/27/2019 04/06/2023 Assessment & Plan (04/05/2023 4:32 PM ORDER TO DELIVERY SUPERVISOR): -Resolved s/p IVF bolus Assessment & Plan (02/28/2019 12:46 PM ORDER TO DELIVERY SUPERVISOR): Na 127 on admit. Likely 2/2 dehydration related to diarrhea. -S/p 1L NS bolus x 2 -Na improving, 135 today -Will CTM Assessment & Plan (02/27/2019 11:24 PM ORDER TO DELIVERY SUPERVISOR): - 2/2 dehydration liked related to diarrhea. Urine sodium < 20, Na improving with NS - additional 1L NS overnight, repeat BMP in AM Neutropenic fever 02/27/2019 02/07/2024 Assessment & Plan (03/01/2019 12:53 PM ORDER TO DELIVERY SUPERVISOR): Patient admitted from [facility] where he reported chills with Tmax 38. Found to be neutropenic and was briefly hypotensive in [facility] -Infectious workup: Blood cultures x 2 NGTD, [...] days Assessment & Plan (02/27/2019 11:26 PM ORDER TO DELIVERY SUPERVISOR): - chills, Tmax 38, neutropenic and was briefly hypotensive in [facility] - blood cultures pending - f/u urine culture - CXR clear - f/u GC/CT - continue vanc/cefe Anal warts 09/09/2018 12/01/2019 Overview (09/09/2018): Added automatically from request for surgery [id number] Encounters Date Type Department Care Team Description 08/14/2024 3:00 PM CDT [facility] - [facility] [address] [place] [address] [facility] [place] [address] [place] [address] [place] [address] Stricture of bulbous urethra in male, unspecified stricture type (Primary Dx) 08/07/2024 3:08 PM CDT Anesthesia Event [facility] Operating Room [address] [place] [address] Leonor Jamison DO Frasca, Michaela Mayer, KALPANA 08/07/2024 3:07 PM CDT - 08/07/2024 4:27 PM CDT Surgery [facility] Operating Room [address] [place] [address] Norman Schneider MD OPTILUME URETHRAL DILATION 08/07/2024 11:46 AM CDT - 08/07/2024 6:00 PM CDT Hospital Encounter [facility] Operating Room [address] [place] [address] Norman Schneider MD Stricture of bulbous urethra in male, unspecified stricture type [N35.912] (Primary Dx) Discharge Disposition: Discharge to home or self care 08/04/2024 10:20 AM CDT Office Visit [facility] - [facility] [address] [place] [address] [facility] [place] [address] [place] [address] [place] [address] Norman Schneider MD Stricture of bulbous urethra in male, unspecified stricture type (Primary Dx) 08/04/2024 Telephone [facility] - [facility] [place] [address] [place] [address] Annel Herr, MARISA 08/01/2024 [facility]) - [facility] [address] [facility] [address] [place] [address] [place] [address] Annel Herr, MARISA 08/01/2024 [facility] Eligibility Review [facility] PCM Community Health Worker [address] [facility] [address] [place] [address] Charlotte Coombs 07/31/2024 5:16 PM CDT - 07/31/2024 11:28 PM CDT Emergency [facility] Emergency Department 1 [facility] [place] [address] Ioana Ybarra MD Urinary retention with incomplete bladder emptying (Primary Dx) Discharge Disposition: Discharge to home or self care 07/25/2024 Results Follow-Up [facility] [address] [facility] [address] [place] [id number] Cosme Stafford Jr., MD Treponemal IgG/IgM Blood, RPR Blood, Vitamin B12, Additional followed-up results: 8 07/21/2024 12:20 PM CDT Lab [facility] ([facility]) [address] [place] [address] Memory loss 07/21/2024 10:30 AM CDT Office Visit [facility] [address] [facility] 6th [place] [address] [place] [address] Cosme Stafford Jr., MD Memory loss (Primary Dx) from Last 3 Months Immunizations Immunization Administration Dates Next Due Hep [...] on file Legal Sex Male 4:35 AM ORDER TO DELIVERY SUPERVISOR Gender Identity Male 04/21/2023 9:16 AM ORDER TO DELIVERY SUPERVISOR Sexual Orientation Not on file Obstetrics History [...] 07/31/2024 2:59 PM CDT Plan of Treatment Health Maintenance Due [...] Twinrix risk 3-dose series) 05/22/2004 04/24/2004 Hepatitis C Screening 07/14/2016 07/15/2015 , 07/18/2010, 03/09/2008 HIV+ Chlamydia and Gonorrhea Screening (Rectal) 07/30/2017 07/30/2016 HIV+ Chlamydia and Gonorrhea Screening (Throat) 07/30/2017 07/30/2016 HIV + Chlamydia and Gonorrhea Screening (Urine) 07/23/2020 07/24/2019 Covid-19 Vaccine ( season) 2023 12/26/2020, 12/04/2020, 10/18/2020, Additional history exists Influenza Vaccine (Season Ended) 2024 02/11/2022, 03/05/2021, 02/03/2019, Additional history exists Lipid Panel 05/15/2025 05/15/2024, 09/03, 08/12/2018 RPR Screening 07/21/2025 07/21/2024, 07/30/2016 Proteinuria screening Urinalysis (UA) 07/31/2025 07/31/2024, 01/28/2024, 01/28/2024, Additional history exists DTaP/Tdap/Td Vaccine (3 - Td or Tdap) 06/25/2030 06/25/2020, 08/28/2009 Pneumococcal vaccine <65 (4 of 4 - PCV20 or PCV21) 2030 07/01/2017, 12/21/2014, 08/28/2009 Hepatitis B Vaccines Completed 06/23/2024, 05/25/2024, 04/24/2004 HPV Vaccines Aged Out No longer eligi ble based on patient's age to complete this topic Procedures Procedure Name Priority Date/Time Associated Diagnosis Comments FL FLUOROSCOPY < 1 HOUR IP Routine 08/07/2024 3:55 PM CDT PA AN PROCEDURE PLACEHOLDER Routine 08/07/2024 3:21 PM CDT PA AN ELECTIVE SUPRAGLOTTIC AIRWAY Routine 08/07/2024 3:21 [...] 07/21/2024 11: 26 AM CDT Memory loss CONNIE SCRATCHER ANTIBODIES Routine 07/21/2024 11:26 AM CDT Memory [...] 1 Hour (08/07/2024 3:55 PM CDT) Narrative [facility] - 08/07/2024 3:56 PM CDT The images from this study are not interpreted by Radiology. Please refer to the physician's procedure / OR operative note. Norman Schneider MD IMG FLUOROSCOPY PROCEDURE S Final Result [facility] * PA AN ELECTIVE SUPRAGLOTTIC AIRWAY, PA AN PROCEDURE PLACEHOLDER (08/07/2024 3:21 PM CDT) Michaela Balderas CRNA - 08/07/2024 3:21 PM CDT Michaela Chavira CRNA 08/07/2024 3:21 PM Airway Patient location: OR Urgency: elective Indications for airway management: anesthesia Difficult airway: no Staff: Supervising provider: Leonor Jamison DO Placed by: LEARNING TECHNOLOGIES SPECIALIST: Michaela Chavira CRNA Emergent airway documentation: Risks [...] of attempts: 1 Planned trial extubation: yes Result [facility] Leonor Jamison DO ANESTHESIA ORDERABLES Final Result [...] Straw Yellow Clarity, ur Clear Clear [facility] Specific gravity, ur 1.013 1.003 - 1.030 [facility] pH, urine 6.5 [facility] Comment: Interpretive Data U rine pH is affected by diet, medications, systemic acid-base disturbances, and renal tubular function. pH may affect urinary stone formation. For example, urine pH below 6.0 may help reduce the tendency for calcium phosphate stones and pH greater than 6.0 may reduce the tendency for uric acid stone formation. Source: [facility] Current Interpretive Data was last revised on 2017 Protein, ur ql Negative Negative [facility] Glucose, ur ql Negative Negative [facility] Ketones, ur Negative Negative [facility] Bilirubin, ur Negative Negative [facility] Blood, ur Negative Negative [facility] Urobilinogen, ur <2.0 <2.0 mg/dL [facility] Nitrite, ur Negative Negative [facility] Leukocyte esterase, ur Negative Negative [facility] UA reflex comment Reflex conditions for microscopic UA and culture not met. [facility] Urine 07/31/2024 8:48 PM CDT 07/31/2024 9:02 PM CDT us Ioana Ybarra MD LAB MICROBIOLOGY - GENERAL ORDERABLES Final Result [facility] Department [place] [address] * CT Abdomen Pelvis W Contrast (07/31/2024 [...] it. Electronically signed by: Ramonita Kay M.D. Ioana Ybarra MD IMG CT PROCEDURES Final Re sult * POCT creatinine (07/31/2024 6:05 PM CDT) Creatinine POC 1.3 0.8 - 1.3 mg/dL Blood 07/31/2024 6:05 PM CDT 07/31/2024 6:05 PM CDT Ioana Ybarra MD LAB POCT ORDERABLES - EDUARD CE Final Result Performing Organization Address [facility] Co de Phone Number [facility] [place] [address] * Sepsis Lactate w/ Reflex (07/31/2024 6:03 PM CDT) Sepsis Lactate 1.2 0.7 - 2.0 mmol/L Blood 07/31/2024 6:03 PM CDT 07/31/2024 6:11 PM CDT Ioana Ybarra MD LAB BLOOD ORDERABLES Final Result Performing Organization Address [facility]/State/ZIP Co de Phone Number [facility] [place] [address] * eGFR (07/31/2024 6:03 PM CDT) eGFR 71 >=60 mL/min/1. 73 m2 Comment: [...] Ybarra MD LAB BLOOD ORDERABLES Final Result [facility] [place] [address] * Differential, auto (07/31/2024 6:03 PM CDT) Neutrophil abs 5.50 1.50 - 6.50 K/cumm Imm gran abs 0.03 0.00 - 0.10 K/cumm [facility] Lymphocyte abs 1.18 0.80 - 3.30 K/cumm [facility] Monocyte abs 0.32 0.20 - 0.80 K/cumm [facility] Eosinophil abs 0.01 0.00 - 0.50 K/cumm [facility] Basophil abs 0.01 0.00 - 0.10 K/cumm [facility] Neutrophil pct 78.2 % [facility] Comment: Interpretive Data Percent cell count reference ranges are not reported, since discordance with absolute values may lead to misinterpretation of CBC data. Current Interpretive Data was last revised on 2017. Imm gran pct 0.4 % [facility] Comment: Interpretive Data Percent cell count reference ranges are not reported, since discordance with absolute values may lead to misinterpretation of CBC data. Current Interpretive Data was last revised on 2017. Lymphocyte pct 16.7 % [facility] Comment: Interpretive Data Percent cell count reference ranges are not reported, since discordance with absolute values may lead to misinterpretation of CBC data. Current Interpretive Data was last revised on 2017. Monocyte pct 4.5 % [facility] Comment: Interpretive Data Percent cell count reference ranges are not reported, since discordance with absolute values may lead to misinterpretation of CBC data. Current Interpretive Data was last revised on 2017. Eosinophil pct 0.1 % [facility] Comment: Interpretive Data Percent cell count reference ranges are not reported, since discordance with absolute values may lead to misinterpretation of CBC data. Current Interpretive Data was last revised on 2017. Basophil pct 0.1 % [facility] Comment: Interpretive Data Percent cell count reference ranges are not reported, since discordance with absolute values may lead to misinterpretation of CBC data. Current Interpretive Data was last revised on 2017. Blood 07/31/2024 6:03 PM CDT 07/31/2024 6:17 PM CDT us Ioana Ybarra MD LAB BLOOD ORDERABLES Final Result [facility] [place] [address] * (ABNORMAL) CBC with auto differential (07/31/2024 6:03 PM CDT) WBC 7.05 3.80 - 9.90 K/cumm Hgb 12.3(L) 13.0 - 17.5 g/dL [facility] Hct 34.7(L) 38.9 - 50.3 % [facility] Plt 209 150 - 400 K/cumm [facility] MPV 9.5 9.1 - 12.3 fL [facility] RBC 3.77(L) 4.30 - 5.80 M/cumm [facility] MCV 92.0 81.3 - 96.4 fL [facility] MCH 32.6 27.1 - 33.3 pg [facility] MCHC 35.4 32.3 - 35.7 g/dL [facility] RDW CV 12.1 11.1 - 14.9 % [facility] RDW SD 40.9 35.7 - 48.1 fL [facility] NRBC abs 0.00 0.00 - 0.01 K/cumm [facility] Blood 07/31/2024 6:03 PM CDT 07/31/2024 6:17 PM CDT Ioana Ybarra MD LAB BLOOD ORDERABLES Final Result Performing Organization Address City/[facility]/ZIP Co de Phone Number [facility] Department [place] [employer] [place] [address] * Lipase (07/31/2024 6:03 PM CDT) [facility] Lipase 25 10 - 99 Units/L Blood 07/31/2024 6:03 PM CDT 07/31/2024 6:17 PM CDT Ioana Ybarra MD LAB BLOOD ORDERABLES Final Result [facility] Department [place] [place] [address] * (ABNORMAL) Comprehensive metabolic panel (07/31/2024 6:03 PM CDT) [facility] Sodium 134(L) 135 - 145 mmol/L Potassium, pl 4.0 3.3 - 4.9 mmol/L [facility] Chloride 97 97 - 110 mmol/L [facility] CO2 29 22 - 32 mmol/L [facility] Anion gap 8 2 - 15 mmol/L [facility] BUN 8 6 - 25 mg/dL [facility] Creatinine 1.27 0.80 - 1.30 mg/dL [facility] Glucose 115 70 - 199 mg/dL [facility] Comment: Interpretive Data Fasting glucose >/= 126 [...] classification and Diagnosis of Diabetes Diabetes Care 202; 46: S19-S40. Current interpretive data was last revised 2022. Calcium 9.9 8.5 - 10.3 mg/dL [facility] Bilirubin, total 0.6 0.1 - 1.2 mg/dL [facility] Protein, pl 8.7(H) 6.5 - 8.5 g/dL [facility] Albumin 4.3 3.5 - 5.0 g/dL [facility] Alk phos 101 40 - 130 Units/L [facility] ALT 17 7 - 55 Units/L [facility] AST 40 10 - 50 Units/L [facility] Blood 07/31/2024 6:03 PM CDT 07/31/2024 6:17 PM CDT us Ioana Ybarra MD LAB BLOOD ORDERABLES Final Result [facility] [place] [address] * (ABNORMAL) Treponemal IgG/IgM Blood (07/21/2024 11:26 AM CDT) Treponemal IgG/IgM Reactive( A) Nonreactive Comment: Interpretive Data: If test is reported as EQUIVOCAL, a new sample should be drawn in two weeks for testing. Current interpretive data was last revised on 2018. Blood 07/21/2024 11:2 6 AM CDT 07/21/2024 11:59 AM CDT Cosme Stafford Jr., MD LAB MICROBIOLOGY - GENERAL ORDERABLES Final Result Performing Organization Address [facility] de Phone Number [facility] [place] [employer] [place] [address] * HOANG ab ql w/rflx to HOAGN qn (07/21/2024 11:26 AM CDT) HOANG Negative Comment: Interpretive Data Normal range [...] ORDERABL ES Final Result Performing Organization Address [facility] de Phone Number [facility] Department [place] [place] [address] * SCL 70 abs (07/21/2024 11:26 AM CDT) Anti-Scl70, IgG <0.2 <=0.9 Ab Index Comment: Interpretive Data Negative: < 1.0 Ab Index Positive: > or = 1.0 Ab Index Current interpretive data was last revised on 2016. Blood 07/21/2024 11:2 6 AM CDT 07/21/2024 12:41 PM CDT Cosme Stafford Jr., MD LAB BLOOD ORDERABL ES Final Result Performing Organization Address [facility] de Phone Number [facility] [employer] [place] [address] * Meza abs (07/21/2024 11:26 AM CDT) Anti-RAMONA, SM <0.2 <=0.9 Ab Index Comment: Interpretive Data Negative: < 1.0 Ab Index Positive: > or = 1.0 Ab Index Current interpretive data was last revised on 2016. Blood 07/21/2024 11:2 6 AM CDT 07/21/2024 12:41 PM CDT Cosme Stafford Jr., MD LAB BLOOD ORDERABL ES Final Result Performing Organization Address [facility] de Phone Number [facility] [employer] [place] [address] * (ABNORMAL) CONNIE SCRATCHER abs (07/21/2024 11:26 AM CDT) Pathologist [facility] [place] CONNIE SCRATCHER ab 4.0(H) <=0.9 Ab Index Comment: Interpretive Data Negative: < 1.0 Ab Index Positive: > or = 1.0 Ab Index Current interpretive data was last revised on 2016. Blood 07/21/2024 11:2 6 AM CDT 07/21/2024 12:41 PM CDT Cosme Stafford Jr., MD LAB BLOOD ORDERABL ES Final Result Performing Organization Address [facility] de Phone Number [facility] [employer] [place] [address] * (ABNORMAL) RAMONA ab eval w/reflex (07/21/2024 11:26 AM CDT) RAMONA ab Positive( A) Negative Comment: Interpretive Data Positive Screens will be reflexed to specific testing for Antibodies against the following antigens: Emily-1 Ab, CONNIE SCRATCHER Ab, Scl-70 Ab, Meza Ab, SS-A/Ro Ab, and SS- B/La Ab. Further testing for dsDNA, Centromere, or Ribosomal P antibodies is suggested in patient with a positive screen and negative specific antibodies. Current interpretive data was last revised on 2022. Blood 07/21/2024 11:2 6 AM CDT 07/21/2024 11:59 AM CDT Cosme Stafford Jr., MD LAB BLOOD ORDERABL ES Final Result Performing Organization Address [facility] Phone Number [facility] [place] [employer] [place] [address] * Emily-1 antibody (07/21/2024 11:26 AM CDT) Emily 1 Antibody, IgG <0.2 <=0.9 Ab Index Comment: Interpretive Data Negative: < 1.0 Ab Index Positive: > or = 1.0 Ab Index Current interpretive data was last revised on 2016. Blood 07/21/2024 11:2 6 AM CDT 07/21/2024 12:41 PM CDT Cosme Stafford Jr., MD LAB BLOOD ORDERABL ES Final Result Performing Organization Address [facility] de Phone Number [facility] [place] [employer] [place] [address] * RPR Blood (07/21/2024 11:26 AM CDT) RPR Nonreactive Nonreactive Blood 07/21/2024 11:2 6 AM CDT 07/21/2024 11:59 AM CDT Cosme Stafford Jr., MD LAB MICROBIOLOGY - GENERAL ORDERABLES Final Result [facility] [place] [place] [address] * Sjogren's syndrome B ab (07/21/2024 11:26 AM CDT) Anti-RAMONA, SS-B <0.2 <=0.9 Ab Index Comment: Interpretive Data Negative: < 1.0 Ab Index Positive: > or = 1.0 Ab Index Current interpretive data was last revised on 2016. Blood 07/21/2024 11:2 6 AM CDT 07/21/2024 12:41 PM CDT Cosme Stafford Jr., MD LAB BLOOD ORDERABL ES Final Result Performing Organization Address [facility] [place] [address] * Sjogren's syndrome A ab (07/21/2024 11:26 AM CDT) Anti-RAMONA, SS-A <0.2 <=0.9 Ab Index Comment: Interpretive Data Negative: < 1.0 Ab Index Positive: > or = 1.0 Ab Index Current interpretive data was last revised on 2016. Blood 07/21/2024 11:2 6 AM CDT 07/21/2024 12:41 PM CDT Cosme Stafford Jr., MD LAB BLOOD ORDERABL ES Final Result Performing Organization Address [facility] [place] [address] * Vitamin B12 (07/21/2024 11:26 AM CDT) Vitamin B12 366 230 - 1,250 pg/mL Blood 07/21/2024 11:2 6 AM CDT 07/21/2024 11:59 AM CDT Cosme tSafford Jr., MD LAB BLOOD ORDERABL ES Final Result [facility] [place] [address] from Last 3 Months Insurance MEDICARE [facility] MEDICARE [employer] MANAGED MEDICAID GENERIC RISK OTHER [employer] [place] MEDIC[place] Advance Directives For more information, please contact: [phone] * Full Code (Latest Code Status on [...] 10:57 AM 05/28/2020 4:48 AM Care Teams Vp Security Relationship Specialty Start Date End Date Izabela Louis MD [address] [place] [id number] PCP - General 11/22/19 Syed Diggs MD Surgeon Colon and Rectal Surgery 09/30/18 Wesley Pichardo MD [address] [address] Pain Management 09/30/18 Marilyn Schreiber MD [address] [place] [id number] Radiation Oncologist Radiation Oncology 10/24/18
--- OUTSIDE RECORDS SUMMARY | 2024-08-26 04:47 | XMS_ITS ---
Author Organization [facility] al Address [address] [place] [address] Care Team Providers Care Regulator Pin Inserter Name Role Phone Syed Diggs MD Unavailable [phone] Wesley Pichardo MD Unavailable [phone] Marilyn Schreiber MD Unavailable [phone] Izabela Louis MD Primary Care Provider Active Problems Problem Noted Date Diagnosed Date Stricture, urethra 08/04/2024 History of anal cancer 10/06/2023 Acute hypoxic respiratory failure 04/06/2023 Assessment & Plan (04/06/2023 1:44 PM [facility]): Required 2L O2 support since admission CXR no evidence of pneumonia or atelectasis Now weaned to room air - Perform home O2 evaluation prior to discharge - Management of influenza as described elsewhere Macrocytic anemia 04/06/2023 Assessment & Plan (04/06/2023 1:49 PM [facility]): Recent labs with low B12 and low folate Hb stable - Continue supplement with B12 and folate daily Verruca vulgaris 04/05/2023 Assessment & Plan (04/06/2023 1:36 PM [facility]): Follows with [facility] - Continue home Imiquimod 5% cream to warts x3/weekly. Pt not to touch eyes following application. Influenza 04/04/2023 Assessment & Plan (04/06/2023 1:46 PM [facility]): Reports fatigue, febrile episodes at home Tmax [...] 04/04/2023 Assessment & Plan (04/06/2023 1:45 PM [facility]): Cr 1.5 up from baseline of ~1 Likely prerenal from poor po intake in setting of influenza Resolved with IVF, PO intake - Encourage to continue adequate hydration and food intake at home as he is recovering from influenza - Avoid nephrotoxins Chronic pain syndrome 04/04/2023 Assessment & Plan (04/06/2023 1:58 PM [facility]): Seems to be on both methadone and percocet at home Continue home doses of methadone 5 mg BID and oxy 10 q4 prn Other urethral stricture, male, unspecified site 03/24/2023 B12 deficiency 02/17/2023 Inflammation of the rectum 09/13/2020 Overview (09/13/2020): Added automatically from request for surgery [id number] Chronic rectal pain 09/13/2020 Overview (09/13/2020): Added automatically from request for surgery [id number] Squamous cell carcinoma of rectum 09/13/2020 Overview (09/13/2020): Added automatically from request for surgery [id number] Screening for malignant neoplasm of colon 2020 Overview (07/30/2020): Added automatically from request for surgery [id number] ASTER (acute kidney injury) 12/01/2019 Assessment & [...] 03/01/2019 Assessment & Plan (03/02/2019 4:40 PM [facility]): Cr was 1.13 on admission and peaked to 1.41 03/01 likely in the setting of IV abx. Supported with IVFS and stopped IV abx. Cr 1.12 Skin breakdown to perianal region 02/28/2019 Assessment & Plan (03/01/2019 1:12 PM [facility]): Skin breakdown noted on exam between gluteal [...] 02/28/2019 Assessment & Plan (03/02/2019 4:45 PM [facility]): Likely 2/2 current XRT. Patient has diarrhea at baseline. -Will send c.diff, stool studies to r/o infection -cIVFs to maintain hydration -diarrhea started again the evening of 03/01, send c.diff -k 3.2 in setting of diarrhea, supplemented Pancytopenia 02/27/2019 Assessment & Plan (12/01/2019 10:29 PM CDT): has been pancytopenic since chemotherapy, also with HIV Assessment & Plan (03/02/2019 4:38 PM [facility]): In setting of chemotherapy 02/13- and XRT. -WBC 1.0, ANC 500 -H/H 8.5/23.4 on admission -PLT 3K on admission, s/p 1 unit, with appropriate bump to 16K -Will transfuse PLTs to keep > 10K, will likely need again as plt 13 today (denies blood nose/bm) -hgb 7.5, lorenzo transfuse 1 unit in setting of overall fatigue Assessment & Plan (02/27/2019 11:25 PM [facility]): - likely 2/2 recent chemo - transfuse 1 unit plt with post transfusion cbc - maintain type and screen - consent in chart Transaminitis 02/17/2019 Assessment & Plan (02/18/2019 1:05 PM [facility]): New onset 02/17 w/ t.bili 1, Alk Phos 181, AST 389, ALT 227. Previously normal. - Suspect drug-induced likely I/s/o recently initiated chemotherapy - consider also fluconazole vs biktarvy (these are not new prescriptions but concerns of compliance pre-hospitalization) vs recently initiated MSContin Down-trending today, plan to d/c Severe malnutrition 02/14/2019 Assessment & Plan (03/02/2019 4:44 PM [facility]): -encourage high protein diet. Assessment & Plan (02/16/2019 11:14 AM [facility]): Pt has had significant weight loss & poor PO intake. 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 - s/p treatment with atovaquone (rash to dapsone was, no G6PD) Encounter for antineoplastic chemotherapy 2018 Assessment & Plan (02/18/2019 1:04 PM [facility]): Admitted for C1 Mitomycin and 5-FU with [...] 02/13/2019 Assessment & Plan (02/15/2019 1:32 PM [facility]): Noted history of CKD3 with peak Cr in medical record to 2.5. Previously followed with nephrology though not in last couple years. Cr now WNL with adequate UO. - Monitor CMP daily, daily weights, and I&O Nicotine dependence 02/13/2019 Assessment & Plan (02/28/2019 1:13 PM [facility]): Will administer Nicotine patches in house Assessment & Plan (02/15/2019 1:35 PM [facility]): Current every day smoker. - Nicotine 21 mg patch daily - Encourage smoking cessation Anal cancer 10/17/2018 Assessment & Plan (04/06/2023 1:47 PM [facility]): S/p chemoradiation Currently in remission - Continue [...] QID Assessment & Plan (03/01/2019 1:06 PM [facility]): Patient of Dr. Peralta. S/p C1 mitomycin/5FU 02/13- with concurrent radiation. -Will continue XRT inpatient -Due for chemo on week 5 (~03/13/19) -Due to profound pancytopenia s/p chemo, will send out labwork to check deficiency in dihydropyrimidine dehydrogenase (DPD) per outpatient team 03/01 (has to be in pink tube) Assessment & Plan (02/27/2019 11:21 PM [facility]): - s/p C1 mitomycin/5FU 02/13-14 with concurrent radiation - pain control with MSContin 30 BID + oxycodone PRN Assessment & Plan (02/18/2019 12:52 PM [facility]): Diagnosed 09/23/2018, [id number]. Followed by Dr. Peralta. Treatment delayed 2/2 insurance issues. - Admitted for C1 mitomycin + 5FU w/ concurrent radiation (planned 28 fx) - first RT 02/13. C1 complete. Will follow up with xrt outpatient and with Dr. Peralta for C2 in a few weeks Tolerated treatment well Human immunodeficiency virus (HIV) disease 10/17 Assessment & Plan (04/06/2023 1:48 PM [facility]): Last CD4 148, [place] [id number] - Continue Symtuza - Continue atovaquone 1500 mg daily for PCP ppx - Ensure close f/u with local ID Dr. Louis Assessment & Plan (12/01/2019 10:28 PM CDT): last CD4 79, HIV VL [id number] 07/2019 - repeat CD4, HIV RNA; continue Biktarvy, continue fluconazole (patient endorses is suppressive therapy after previous crypto infection) Assessment & Plan (02/28/2019 12:45 PM [facility]): Follows with Dr. Louis. Last CD4 153, VL 464K 10/2018. -Continue home biktarvy -Hx of crypto meningitis, continue suppressive fluconazole Assessment & Plan (02/27/2019 11:23 PM [facility]): - continue home biktarvy - hx of crypto meningitis, continue suppressive fluconazole Assessment & Plan (02/18/2019 1:12 PM [facility]): Most recent 10/19 CD4 153, VL 465k. [...] 08/12/2018 Assessment & Plan (02/15/2019 1:32 PM [facility]): History of crypto meningitis; unclear what year [...] elsewhere Assessment & Plan (03/02/2019 4:39 PM [facility]): Patient reports rectal pain. In setting of anal cancer and current XRT. Follows with pain management outpatient, Dr. Pichardo. -On exam, there is skin breakdown between gluteal muscles > c/s wound care for wound management -Home pain regimen: MSContin 30mg BID, Gabapentin 600mg QID, Requip 1mg qpm, Reeves 10/325 q6hprn, Baclofen 20mg TID prn Assessment & Plan (02/17/2019 12:10 PM [facility]): Follows with pain management (Dr. Pichardo) outpatient [...] of 1 cycle started Oncology Supportive Care Therapy Plan Plan Name Start Date Discontinue Date Treatment [...] mg) 0 mg/m2 (0 mg) Fluoro Time 8.548 minutes 8.548 minutes 0 minutes Air kerma at the reference point (Ka,r) 482.41 mGy 482.41 mGy 0 mGy DLP 7,272 mGycm 7,272 mGycm 0 mGycm Resolved Problems Problem Noted Date Diagnosed Date Resolved Date B12 deficiency 04/04/2023 04/06/2023 Assessment & Plan (04/04/2023 9:55 AM [facility]): -recent labs with low B12 and low folate -supplement with B12 and folate daily Hyponatremia 02/27/2019 04/06/2023 Assessment & Plan (04/05/2023 4:32 PM [facility]): -Resolved s/p IVF bolus Assessment & Plan (02/28/2019 12:46 PM [facility]): Na 127 on admit. Likely 2/2 dehydration related to diarrhea. -S/p 1L NS bolus x 2 -Na improving, 135 today -Will CTM Assessment & Plan (02/27/2019 11:24 PM [facility]): - 2/2 dehydration liked related to diarrhea. Urine sodium < 20, Na improving with NS - additional 1L NS overnight, repeat BMP in AM Neutropenic fever 02/27/2019 02/07/2024 Assessment & Plan (03/01/2019 12:53 PM [facility]): Patient admitted from [facility], where he reported chills with Tmax 38. Found to be neutropenic and was briefly hypotensive in [facility]. -Infectious workup: Blood cultures x 2 NGTD, [...] days Assessment & Plan (02/27/2019 11:26 PM [facility]): - chills, Tmax 38, neutropenic and was briefly hypotensive in [facility] - blood cultures pending - f/u urine culture - CXR clear - f/u GC/CT - continue vanc/cefe Anal warts 09/09/2018 12/01/2019 Overview (09/09/2018): Added automatically from request for surgery [id number]
--- NOTE | 2024-08-26 05:30 | ED_ITS ---
HPI - Male Genitourinary General Chief complaint: Urogenital-Male Stated complaint: trouble urinating, possible urinary retention Time Seen by Provider: 08/26/24 05:21 Source: patient Mode of arrival: ambulatory Limitations: no limitations History of Present Illness HPI Narrative: HIV positive male Patient presents with report of difficulty urinating. He recently underwent a procedure on 08/07/2024 ( to open the hole ) and had a catheter in place for approximately 1 week, removed on 08/14/2024. He has chronic urologic issues and is concern for possible retention. He notes that over the past several days it has been more difficult to urinate. Yesterday he could urinate when standing but he does have to apply pressure to force voiding. Over the course of the last 24 hours he states he was still able to urinate but he would have to sit down and push a lot. He has a history of rectal cancer as well as a history of chronic back pain, thoracic and lumbar. At baseline he is on opiate therapy which includes both Percocet 10-325 addition to methadone therapy. He is also on baclofen and gabapentin for pain. He denies any rectal bleeding. His HIV medication is Symtuza. Patient received care including urologic care through [facility]. His urologist is Dr. Schneider. He has documentation on his phone /patient portal noting recent as well as previous procedures including the fact that he underwent ureteroplasty in April of 2023. It seems recently a 21Fr cystoscope was used to place the 16 [place] urethral catheter (?). He admits that he has been drinking alcohol last evening and is concerned that he is becoming dehydrated. He is also concerned that he is constipated. Because he is on opiate therapy he takes MiraLax daily and he also tried taking magnesium citrate. He was able to void just prior to arrival when he states that the urine output was scant. His last bowel movement was earlier in the week. Nonbloody. He denies any hematuria or dysuria. No fevers, chills, or flank pain. Related Data Home Medications ?Medication ?Instructions ?Recorded ?Confirmed ?Last Taken ?Type bictegravir 50 mg-emtricitabine 1 tablet PO DAILY 12/01/19 12/01/19 Unknown History 200 mg-tenofovir alafenam 25 mg tablet (Biktarvy) fluconazole 200 mg tablet 200 mg PO BID 12/01/19 12/01/19 Unknown History gabapentin 600 mg tablet 600 mg PO QID 12/01/19 12/01/19 Unknown History (Neurontin) naloxone 4 mg/actuation nasal 1 spray intranasal Q2M 12/01/19 Unknown History spray (Narcan) oxycodone-acetaminophen 10 mg-325 1 tablet PO Q6H PRN Pain (Scale 12/01/19 12/01/19 Unknown History mg tablet (Percocet) Score 7-10) ropinirole 2 mg tablet,extended 1 mg PO DAILY 12/01/19 12/01/19 Unknown History release 24 hr (Requip XL) baclofen 10 mg tablet mg 06/22/20 Unknown History methadone 10 mg tablet 06/22/20 Unknown History valacyclovir 1 gram tablet 06/22/20 Unknown History Allergies Allergy/AdvReac Type Severity Reaction Status Date / Time Penicillins AdvReac Intermediate contraindicated Verified 08/26/24 04:45 with current HIV Rx regimen sulfamethoxazole AdvReac Intermediate contraindicated Verified 08/26/24 04:45 by current HIV Rx regimen trimethoprim AdvReac Intermediate contraindicated Verified 08/26/24 04:45 by current HIV Rx regimen [facility] Past Medical History Medical History (Updated 08/26/24 @ 17:37 by Debbi Singh MD) Chronically on opiate therapy Restless leg syndrome Rectal cancer HIV (human immunodeficiency virus infection) Surgical History Surgical History History of urologic surgery Apr 2023, Dr Schneider ([place]) Social History Social History (Updated 06/22/20 @ 07:44 by Luciano Celestin MD) Smoking status: Never smoker Substance use: former Substance use type: IV drugs Exam 2 Narrative: GENERAL: well-nourished, and in no acute distress. HEAD: Normocephalic, atraumatic. EYES: Non injected, non icteric ENT: Nares clear, no rhinorrhea or epistaxis. Gross auditory acuity intact. NECK: Supple. No meningismus. CHEST: Speaking in full sentences. No respiratory distress. HEART: Regular rate and rhythm. . ABDOMEN: distended but soft. No rigidity or guarding. Not peritoneal EXTREMITIES: Normal range of motion. No lower extremity edema. SKIN: Warm, dry. Multiple verruca on bilateral hands. BACK: No CVA tenderness bilaterally. No bony step offs or midline TTP of thoracic spine. NEURO: No focal deficits. Alert and oriented. Answering questions. Following commands. Speaks without aphasia. PSYCH: Congruent mood and affect. Course Vital Signs Vital signs: Vital Signs Temperature 97.9 F 08/26/24 04:46 Pulse Rate 65 08/26/24 04:46 Respiratory Rate 17 08/26/24 04:46 Blood Pressure 142/84 H 08/26/24 04:46 Pulse Oximetry 99 08/26/24 04:46 Oxygen Delivery Room Air 08/26/24 04:46 Temperature 97.9 F 08/26/24 04:46 Pulse Rate 60 08/26/24 10:00 Respiratory Rate 16 08/26/24 10:00 Blood Pressure 135/72 08/26/24 10:00 Pulse Oximetry 97 08/26/24 10:00 Oxygen Delivery Room Air 08/26/24 04:46 MDM - Male Genitourinary MDM Narrative Medical decision making narrative: Patient presents with concern for difficulty urinating. History of rectal cancer as well as multiple urologic issues. Patient recently underwent urological procedure for what he describes sounds like urethral dilation followed by catheter placement but catheter removed 08/14/24 and patient has been voiding. Chronically on opiate therapy concerned he is constipated given he is on both Percocet and methadone. He does take MiraLax daily and has been trialing magnesium citrate as well. He is still able to void though states that he has to position himself in a certain way to do so. Yesterday he could do so while standing but today requires sitting. His last urine output was scant but occurred just prior to arrival. He does admit to drinking alcohol in the past 24 hours and this has also caused him to have more sensation to urinate and so his inability to do so easily has made symptoms worse. Also history of chronic back pain. In the emergency department he is afebrile with vital signs that are acceptable though mild hypertension. He had a bladder scan of approximately/greater than 500cc. Normocytic anemia, stable from previous. Patient stated that he had been drinking although his alcohol has metabolized at this point. Mild hypokalemia. Repletion ordered. Magnesium normal. [place] catheter had been ordered to be inserted however patient is able to void a signficant amount at approximately 06:55, 800cc out. Urine does not appear infected. PVR 200ml. CT as below. Patient is reassessed at approximately 7:50 a.m.. He states he is having chest tightness, not necessarily pain but that everything in his right chest feels like a pressure. He does not know if it is because he has been straining to urinate. Troponin, EKG, CXR normal. Discussed with urologist Dr Ochoa who is able to access patient's urologic [facility] records. Trauma reconstruction surgeon treated him at one time. Had undergone Direct urethrotomy and balloon dilation. If absolutely needs catheter could get but would recommend 14Fr . However, Would advise against that because he technically is able to demonstrate ability to urinate and, additionally, history of 4cm graft initially placed in urethra. Recommends Follow up Dr Schneider and [facility] team and avoiding catheterizing at this time if possible. Patient is given a dose of opiate medication for pain. Because of his time in the emergency department he is missing some doses of his baseline pain regimen which includes Percocet, methadone, baclofen, gabapentin so I believe some of his analgesia is related to this. He is otherwise stable for discharge. Differential Diagnosis Differential diagnosis: Likely urinary tract infection, prostatitis, acute retention of urine and other (constipation, obstruction/stricture; also considered spinal epidural abscess but patient has multiple other reasons more likely for pain/symptoms; ) Lab Data Attestation: I reviewed the patient's lab results. 08/26/24 06:07 08/26/24 06:07 Labs: Lab Results 08/26/24 08/26/24 Range/Units 06:07 06:56 WBC 6.0 (4.5-10.0) K/mm3 RBC 3.70 L (4.6-6.20) M/mm3 Hgb 12.1 L (14.0-18.0) g/dL Hct 35.4 L (42.0-52.0) % MCV 95.7 (80-100) fl MCH 32.7 (26-34) pg MCHC 34.2 (32-36) g/dl RDW 12.9 (11.5-14.5) % Plt Count 235 (150-375) k/mm3 MPV 8.8 (7.4-10.4) fl Immature Gran % (Auto) 0.2 (0-0.5) % Neut % (Auto) 48.6 (45.5-73.1) % Lymph % (Auto) 41.3 (18.3-44.2) % [place] % (Auto) 8.7 H (2.6-8.5) % Eos % (Auto) 0.7 (0-4.4) % Baso % (Auto) 0.5 (0.2-1.2) % Lymph # (Auto) 2.48 (0.9-3.2) K/mm3 [place] # (Auto) 0.5 (0.1-0.6) K/mm3 Eos # (Auto) 0.0 (0-0.3) K/mm3 Baso # (Auto) 0.0 (0.0-0.1) K/mm3 Abs Immat Gran (auto) 0.01 (0.00-0.031) K/mm3 Absolute Neuts (auto) 2.9 (1.3-6.7) K/mm3 Absolute Nucleated RBC 0.000 (0.0-0.012) K/mm3 Nucleated RBC % 0.0 (0.0-0.2) % Sodium 141 (137-145) mmol/L Potassium 3.2 L (3.4-5.0) mmol/L Chloride 105 (98-107) mmol/L Carbon Dioxide 26 (22-30) mmol/L Anion Gap 10 (4-12) mmol/L BUN 13 (9-20) mg/dL Creatinine 1.27 (0.7-1.3) mg/dL Estim Creat Clear Calc 71 ml/min Estimated GFR > 60 (59 - ) Glucose 97 (65-110) mg/dL Calcium 9.1 (8.4-10.2) mg/dL Magnesium 2.1 (1.6-2.3) mg/dL Total Bilirubin 0.8 (0.2-1.3) mg/dL AST 35 (17-59) U/L ALT 22 (6-50) U/L Alkaline Phosphatase 104 (38-126) U/L Troponin I < 0.012 (0.000-0.034) ng/mL Total Protein 8.0 (6.3-8.2) g/dL Albumin 4.7 (3.5-5.1) g/dL Urine Color Yellow (Yellow) Urine Appearance Clear (Clear) Urine pH 6.5 (5.0-9.0) Ur Specific White 1.006 (1.001-1.035) Urine Protein Negative (Negative) mg/dL Urine Glucose (UA) Negative (Negative) mg/dL Urine Ketones Negative (Negative) mg/dL Ur Blood (Man) 1+ H (Negative) Urine Nitrate Negative (Negative) Urine Bilirubin Negative (Negative) Urine Urobilinogen 0.2 (<2.0) mg/dL Leukocyte Esterase Rfl Negative (Negative) GHASSAN/UL Urine RBC 0-2 (0-2) /hpf Urine WBC 0-5 (0-3) /hpf Ur Squamous Epith Cells None seen (Few) /hpf Urine Bacteria None seen /hpf Urine Casts 0-2 Urine Opiates Screen Negative (Negative) Urine Methadone Screen Positive A (Negative) Ur Barbiturates Screen Negative (Negative) Ur Phencyclidine Scrn Negative (Negative) Ur Amphetamine Screen Negative (Negative) U Benzodiazepines Scrn Negative (Negative) Urine Cocaine Screen Negative (Negative) U Cannabinoids Screen Negative (Negative) Ethyl Alcohol < 10 (<10) mg/dL Imaging Data Attestation: I personally reviewed and interpreted this imaging study as follows: My impression: Enlarged gallbladder and distended urinary bladder however without significant stool burden Radiologist's impression: Impressions Abdomen/Pelvis CT 08/26/24 07:27 IMPRESSION: 1. Persistent distention of the bladder with mild bilateral hydroureter and mild left hydronephrosis. Correlate clinically for bladder outlet obstruction or neurogenic bladder. IMPRESSION: 1. No acute cardiopulmonary disease. ECG Data EKG #1: Attestation: I personally reviewed and interpreted this ECG as follows: ECG completion date: 08/26/24 ECG completion time: 08:36 Interpretation: Sinus bradycardia rate of 59 beats per minute. IA interval 142. QRS 97. QT/QTC 442/452. Good R-wave progression across the precordial leads. No T-wave inversion. Discharge Plan Discharge Clinical Impression: Acute retention of urine, Normocytic anemia, Hypokalemia, Methadone use, Bladder distension, Hydroureter, Hydronephrosis, left Patient Disposition: Home Condition: Stable Instructions: Antibiotic Form, Urinary Retention in Men (ED), Hypokalemia (ED), Hydronephrosis (ED), Anemia (ED) Additional Instructions: As we discussed, because you are still able to urinate, the recommendation was to not insert a urinary catheter. Is very important that you follow-up with your urologist Dr. Schneider and the rest of the [facility] team. Return to the ED with any new/worsening symptoms. You did have some stool/feces in your colon but not a significant amount. Your bowel regimen is appropriate, no need to escalate but it is important you take these medications while you are on opiate therapy such as methadone and percocet. Your chest xray, ekg, and cardiac enzyme were normal. Continue taking all your medications as prescribed. Patient Language: Bangladeshi Prescriptions: No Action gabapentin [Neurontin] 600 mg Tablet 600 mg PO QID fluconazole 200 mg Tablet 200 mg PO BID oxycodone-acetaminophen [Percocet] 10-325 mg Tablet 1 tablet PO Q6H PRN (Reason: Pain (Scale Score 7-10)) Biktarvy 50-200-25 mg Tablet 1 tablet PO DAILY ropinirole [Requip XL] 2 mg Tablet Extended Release 24 Hr 1 mg PO DAILY Narcan 4 mg/actuation [place],Non-Aerosol 1 spray INTRANASAL Q2M valacyclovir 1 gram tablet methadone 10 mg tablet baclofen 10 mg tablet benzonatate 100 mg capsule 100 mg PO TID PRN (Reason: cough) Qty: 14 0RF albuterol sulfate 90 mcg/actuation HFA aerosol inhaler 1 puff inhalation QID Qty: 6.7 0RF Follow-up/Referrals: Heriberot,Luis Gurrola [Primary Care Provider] - Stand Alone Forms: Work/School Release IP Time of Disposition: 08:55
--- OUTSIDE RECORDS SUMMARY | 2024-08-26 05:31 | XMS_ITS | Clinical Summary ---
Author Organization [facility] Address [address] [place] [address] Care Team Providers Care Wood Technologist Name Role Phone Syed Diggs MD Unavailable [phone] Wesley Pichardo MD Unavailable Marilyn Schreiber MD Unavailable [phone] Izabela Louis MD Primary Care Provider Allergies [...] 01/23/202 3 Active True Metrix Glucose Meter [facility] [place] USE TO TEST BLOOD SUGAR ONCE DAILY 2 Active Symtuza [phone] mg tablet Take 1 tablet by mouth [...] 04/06/2023 Assessment & Plan (04/06/2023 1:[address] PM [address]IVE WORKER): Required 2L O2 support since admission CXR no evidence of pneumonia or atelectasis Now weaned to room air - Perform home O2 evaluation prior to discharge - Management of influenza as described elsewhere Macrocytic anemia 04/06/2023 Assessment & Plan (04/06/2023 1:49 PM DRIVE WORKER): Recent labs with low B12 and low folate Hb stable - Continue supplement with B12 and folate daily Verruca vulgaris 04/05/2023 Assessment & Plan (04/06/2023 1:36 PM DRIVE WORKER): Follows with [facility] - Continue home Imiquimod 5% cream to warts x3/weekly. Pt not to touch eyes following application. Influenza 04/04/2023 Assessment & Plan (04/06/2023 1:46 PM [address]IVE WORKER): Reports fatigue, febrile episodes at home Tmax [...] 04/04/2023 Assessment & Plan (04/06/2023 1:45 PM [address]IVE WORKER): Cr 1.5 up from baseline of ~1 Likely prerenal from poor po intake in setting of influenza Resolved with IVF, PO intake - Encourage to continue adequate hydration and food intake at home as he is recovering from influenza - Avoid nephrotoxins Chronic pain syndrome 04/04/2023 Assessment & Plan (04/06/2023 1:58 PM [address]IVE WORKER): Seems to be on both methadone and percocet at home Continue home doses of methadone 5 mg BID and oxy 10 q4 prn Other urethral stricture, male, unspecified site 03/24/2023 B12 deficiency 02/17/2023 Inflammation of the rectum 09/13/2020 Overview (09/13/2020): Added automatically from request for surgery [id number] Chronic rectal pain 09/13/2020 Overview (09/13/2020): Added automatically from request for surgery [id number] Squamous cell carcinoma of rectum 09/13/2020 Overview (09/13/2020): Added automatically from request for surgery [id number] Screening for malignant neoplasm of colon 2020 Overview (07/30/2020): Added automatically from request for surgery [id number] ASTER (acute kidney injury) 12/01/2019 Assessment & [...] 03/01/2019 Assessment & Plan (03/02/2019 4:[address]IVE WORKER): Cr was 1.13 on admission and peaked to 1.41 03/01 likely in the setting of IV abx. Supported with IVFS and stopped IV abx. Cr 1.12 Skin breakdown to perianal region 02/28/2019 Assessment & Plan (03/01/2019 1:12 PM [address]IVE WORKER): Skin breakdown noted on exam between gluteal [...] 02/28/2019 Assessment & Plan (03/02/2019 4:45 [address]IVE WORKER): Likely 2/2 current XRT. Patient has diarrhea at baseline. -Will send c.diff, stool studies to r/o infection -cIVFs to maintain hydration -diarrhea started again the evening of 03/01, send c.diff -k 3.2 in setting of diarrhea, supplemented Pancytopenia 02/27/2019 Assessment & Plan (12/01/2019 10:29 PM CDT): has been pancytopenic since chemotherapy, also with HIV Assessment & Plan (03/02/2019 4:[address] WORKER): In setting of chemotherapy 02/13- and XRT. -WBC 1.0, ANC 500 -H/H 8.5/23.4 on admission -PLT 3K on admission, s/p 1 unit, with appropriate bump to 16K -Will transfuse PLTs to keep > 10K, will likely need again as plt 13 today (denies blood nose/bm) -hgb 7.5, lorenzo transfuse 1 unit in setting of overall fatigue Assessment & Plan (02/27/2019 11:[address] WORKER): - likely 2/2 recent chemo - transfuse 1 unit plt with post transfusion cbc - maintain type and screen - consent in chart Transaminitis 02/17/2019 Assessment & Plan (02/18/2019 1:[address] WORKER): New onset 02/17 w/ t.bili 1, Alk Phos 181, AST 389, ALT 227. Previously normal. - Suspect drug-induced likely I/s/o recently initiated chemotherapy - consider also fluconazole vs biktarvy (these are not new prescriptions but concerns of compliance pre-hospitalization) vs recently initiated MSContin Down-trending today, plan to d/c Severe malnutrition 02/14/2019 Assessment & Plan (03/02/2019 4:[address] WORKER): -encourage high protein diet. Assessment & Plan (02/16/2019 11:14 AM [address]IVE WORKER): Pt has had significant weight loss & poor PO intake. 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 - s/p treatment with atovaquone (rash to dapsone was, no G6PD) Encounter for antineoplastic chemotherapy 2018 Assessment & Plan (02/18/2019 1:[address] WORKER): Admitted for C1 Mitomycin and 5-FU with [...] 02/13/2019 Assessment & Plan (02/15/2019 1:32 [address] WORKER): Noted history of CKD3 with peak Cr in medical record to 2.5. Previously followed with nephrology though not in last couple years. Cr now WNL with adequate UO. - Monitor CMP daily, daily weights, and I&O Nicotine dependence 02/13/2019 Assessment & Plan (02/28/2019 1:[address] WORKER): Will administer Nicotine patches in house Assessment & Plan (02/15/2019 1:35 [address] WORKER): Current every day smoker. - Nicotine 21 mg patch daily - Encourage smoking cessation Anal cancer 10/17/2018 Assessment & Plan (04/06/2023 1:[address] WORKER): S/p chemoradiation Currently in remission - Continue [...] QID Assessment & Plan (03/01/2019 1:06 PM [address]IVE WORKER): Patient of Dr. Peralta. S/p C1 mitomycin/5FU 02/13- with concurrent radiation. -Will continue XRT inpatient -Due for chemo on week 5 (~03/13/19) -Due to profound pancytopenia s/p chemo, will send out labwork to check deficiency in dihydropyrimidine dehydrogenase (DPD) per outpatient team 03/01 (has to be in pink tube) Assessment & Plan (02/27/2019 11:[address] WORKER): - s/p C1 mitomycin/5FU 02/13- with concurrent radiation - pain control with MSContin 30 BID + oxycodone PRN Assessment & Plan (02/18/2019 12:[address] WORKER): Diagnosed 09/23/2018, [id number]. Followed by Dr. Peralta. Treatment delayed 2/2 insurance issues. - Admitted for C1 mitomycin + 5FU w/ concurrent radiation (planned 28 fx) - first RT 02/13. C1 complete. Will follow up with xrt outpatient and with Dr. Peralta for C2 in a few weeks Tolerated treatment well Human immunodeficiency virus (HIV) disease 10/17 Assessment & Plan (04/06/2023 1:48 [address]IVE WORKER): Last CD[place] 148[place] [id number] - Continue Symtuza - Continue atovaquone 1500 mg daily for PCP ppx - Ensure close f/u with local ID Dr. Louis Assessment & Plan (12/01/2019 10:28 PM CDT): last CD4 79, HIV VL [id number] 07/2019 - repeat CD4, HIV RNA; continue Biktarvy, continue fluconazole (patient endorses is suppressive therapy after previous crypto infection) Assessment & Plan (02/28/2019 12:45 PM [address]IVE WORKER): Follows with Dr. Louis. Last CD4 153, VL 464K 10/2018. -Continue home biktarvy -Hx of crypto meningitis, continue suppressive fluconazole Assessment & Plan (02/27/2019 11:[address]): - continue home biktarvy - hx of crypto meningitis, continue suppressive fluconazole Assessment & Plan (02/18/2019 1:[address] WORKER): Most recent 10/19 CD4 153, VL 465k. [...] 08/12/2018 Assessment & Plan (02/15/2019 1:[address] WORKER): History of crypto meningitis; unclear what year [...] elsewhere Assessment & Plan (03/02/2019 4:[address] WORKER): Patient reports rectal pain. In setting of anal cancer and current XRT. Follows with pain management outpatient, Dr. Pichardo. -On exam, there is skin breakdown between gluteal muscles > c/s wound care for wound management -Home pain regimen: MSContin 30mg BID, Gabapentin 600mg QID, Requip 1mg qpm, [place] 10/325 q6hprn, Baclofen 20mg TID prn Assessment & Plan (02/17/2019 12:[address] WORKER): Follows with pain management (Dr. Pichardo) outpatient [...] 04/06/2023 Assessment & Plan (04/04/2023 9:[address] WORKER): -recent labs with low B12 and low folate -supplement with B12 and folate daily Hyponatremia 02/27/2019 04/06/2023 Assessment & Plan (04/05/2023 4:[address]): -Resolved s/p IVF bolus Assessment & Plan (02/28/2019 12:[address] WORKER): Na 127 on admit. Likely 2/2 dehydration related to diarrhea. -S/p 1L NS bolus x 2 -Na improving, 135 today -Will CTM Assessment & Plan (02/27/2019 11:[address] WORKER): - 2/2 dehydration liked related to diarrhea. Urine sodium < 20, Na improving with NS - additional 1L NS overnight, repeat BMP in AM Neutropenic fever 02/27/2019 02/07/2024 Assessment & Plan (03/01/2019 12:[address] PM [address] WORKER): Patient admitted from [facility], where he reported chills with Tmax 38. Found to be neutropenic and was briefly hypotensive in [facility]. -Infectious workup: Blood cultures x 2 NGTD, [...] days Assessment & Plan (02/27/2019 11:[address]ER): - chills, Tmax 38, neutropenic and was briefly hypotensive in [facility] - blood cultures pending - f/u urine culture - CXR clear - f/u GC/CT - continue vanc/cefe Anal warts 09/09/2018 12/01/2019 Overview (09/09/2018): Added automatically from request for surgery [id number] Encounters Date Type Department Care Team Description 08/14/2024 3:00 PM CDT [facility]) - [facility] [address] [place] [address] [facility] 11th [place] [address] [place] [address] Stricture of bulbous urethra in male, unspecified stricture type (Primary Dx) 08/07/2024 3:08 PM CDT Anesthesia Event [facility] Operating Room [address] [place] [address] Leonor Jamison DO Frasca, Michaela Mayer, KALPANA 08/07/2024 3:07 PM CDT - 08/07/2024 4:27 PM CDT Surgery [facility] Operating Room [address] [place] [address] Norman Schneider MD OPTILUME URETHRAL DILATION 08/07/2024 11:46 AM CDT - 08/07/2024 6:00 PM CDT Hospital Encounter [facility] Operating Room [address] [place] [address] Norman Schneider MD Stricture of bulbous urethra in male, unspecified stricture type [N35.912] (Primary Dx) Discharge Disposition: Discharge to home or self care 08/04/2024 10:20 AM CDT Office Visit [facility] ([facility]) - [facility] [address] [place] [address] [facility] 11th [place] [address] [place] [address] Norman Schneider MD Stricture of bulbous urethra in male, unspecified stricture type (Primary Dx) 08/04/2024 Telephone [facility] ([facility]) - [facility] [address]th [place] [address] Annel Herr, MARISA 08/01/2024 [facility] Advanced Medicine [facility]) - [facility] [address] [facility] 11th [place] [address] [place] [address] Annel Herr, MARISA 08/01/2024 [facility] Eligibility Review [facility] PCM Community Health Worker [address] [facility] [address] [place] [address] Charlotte Coombs 07/31/2024 5:16 PM CDT - 07/31/2024 11:28 PM CDT Emergency [facility] Emergency Department 1 [facility] [place] [address] Ioana Ybarra MD Urinary retention with incomplete bladder emptying (Primary Dx) Discharge Disposition: Discharge to home or self care 07/25/2024 Results Follow-Up [facility] General Neurology [address] [facility] 6th [address] [place] [address] Cosme Stafford Jr., MD Treponemal IgG/IgM Blood, RPR Blood, Vitamin B12, Additional followed-up results: 8 07/21/2024 12:20 PM CDT Lab [facility] Advanced Medicine ([facility]) [address] [place] [address] Memory loss 07/21/2024 10:30 AM CDT Office Visit [facility] Neurology [address] [facility] 6th [place] [address] [place] [address] Cosme Stafford Jr., MD Memory loss (Primary [...] on file Legal Sex Male 4:[address] Gender Identity Male 04/21/2023 9:[address] Sexual Orientation Not on file Obstetrics History [...] HOUR IP Routine 08/07/2024 3:[address] AN PROCEDURE PLACEHOLDER Routine 08/07/2024 3:[address] AN ELECTIVE SUPRAGLOTTIC AIRWAY Routine 08/07/2024 3:21 [...] 07/21/2024 11: 26 AM CDT Memory loss FRYER LINE HELPER ANTIBODIES Routine 07/21/2024 11:26 AM CDT Memory [...] FLUOROSCOPY PROCEDURE S Final Result [id number] * CT AN ELECTIVE SUPRAGLOTTIC AIRWAY, CT AN PROCEDURE PLACEHOLDER (08/07/2024 3:21 PM CDT) Michaela Balderas CRNA - 08/07/2024 3:21 PM CDT Michaela Chavira CRNA 08/07/2024 3:21 PM Airway Patient location: OR Urgency: elective Indications for airway management: anesthesia Difficult airway: no Staff: Supervising provider: Leonor Jamison DO Placed by: DISH MACHINE OPERATOR: Michaela Chavira CRNA Emergent airway documentation: Risks [...] attempts: 1 Planned trial extubation: yes Result [facility] Leonor Jamison DO ANESTHESIA ORDERABLES Final Result [...] Straw Yellow Clarity, ur Clear Clear [facility] Specific gravity, ur 1.013 1.003 - 1.030 [facility] pH, urine 6.5 [facility] Comment: Interpretive Data U rine pH is affected by diet, medications, systemic acid-base disturbances, and renal tubular function. pH may affect urinary stone formation. For example, urine pH below 6.0 may help reduce the tendency for calcium phosphate stones and pH greater than 6.0 may reduce the tendency for uric acid stone formation. Source: [facility] Laboratories Current Interpretive Data was last revised on 2017 Protein, ur ql Negative Negative [facility] Glucose, ur ql Negative Negative [facility] Ketones, ur Negative Negative [facility] Bilirubin, ur Negative Negative [facility] Blood, ur Negative Negative [facility] Urobilinogen, ur <2.0 <2.0 mg/dL [facility] Nitrite, ur Negative Negative [facility] Leukocyte esterase, ur Negative Negative [facility] UA reflex comment Reflex conditions for microscopic UA and culture not met. [facility] Urine 07/31/2024 8:48 PM CDT 07/31/2024 9:02 PM CDT us Ioana Ybarra MD LAB MICROBIOLOGY - GENERAL ORDERABLES Final Result [facility] One [facility] Department [place] [address] * CT Abdomen Pelvis W Contrast (07/31/2024 [...] EDUARD CE Final Result Performing Organization Address [facility] Co de Phone Number [facility]OUNA [facility] One [facility] [place] [address] * Sepsis Lactate w/ Reflex (07/31/2024 6:03 PM CDT) Sepsis Lactate 1.2 0.7 - 2.0 mmol/L Blood 07/31/2024 6:03 PM CDT 07/31/2024 6:11 PM CDT Ioana Ybarra MD LAB BLOOD ORDERABLES Final Result Performing Organization Address [facility]/State/ZIP Co de Phone Number [facility]ERNER [facility] Department [place] [address] * eGFR (07/31/2024 6:03 PM CDT) eGFR [...] MD LAB BLOOD ORDERABLES Final Result [facility] Department [place] [address] * Differential, auto (07/31/2024 6:03 PM CDT) Neutrophil abs 5.50 1.50 - 6.50 K/cumm Imm gran abs 0.03 0.00 - 0.10 K/cumm [facility] Lymphocyte abs 1.18 0.80 - 3.30 K/cumm [facility] Monocyte abs 0.32 0.20 - 0.80 K/cumm [facility] Eosinophil abs 0.01 0.00 - 0.50 K/cumm [facility] Basophil abs 0.01 0.00 - 0.10 K/cumm [facility] Neutrophil pct 78.2 % [facility] Comment: Interpretive Data Percent cell count reference ranges are not reported, since discordance with absolute values may lead to misinterpretation of CBC data. Current Interpretive Data was last revised on 2017. Imm gran pct 0.4 % [facility] Comment: Interpretive Data Percent cell count reference ranges are not reported, since discordance with absolute values may lead to misinterpretation of CBC data. Current Interpretive Data was last revised on 2017. Lymphocyte pct 16.7 % [facility] Comment: Interpretive Data Percent cell count reference ranges are not reported, since discordance with absolute values may lead to misinterpretation of CBC data. Current Interpretive Data was last revised on 2017. Monocyte pct 4.5 % [facility] Comment: Interpretive Data Percent cell count reference ranges are not reported, since discordance with absolute values may lead to misinterpretation of CBC data. Current Interpretive Data was last revised on 2017. Eosinophil pct 0.1 % [facility] Comment: Interpretive Data Percent cell count reference ranges are not reported, since discordance with absolute values may lead to misinterpretation of CBC data. Current Interpretive Data was last revised on 2017. Basophil pct 0.1 % [facility] Comment: Interpretive Data Percent cell count reference ranges are not reported, since discordance with absolute values may lead to misinterpretation of CBC data. Current Interpretive Data was last revised on 2017. Blood 07/31/2024 6:03 PM CDT 07/31/2024 6:17 PM CDT us Ioana Ybarra MD LAB BLOOD ORDERABLES Final Result [facility] One [facility] [place] [address] * (ABNORMAL) CBC with auto differential (07/31/2024 6:03 PM CDT) WBC 7.05 3.80 - 9.90 K/cumm Hgb 12.3(L) 13.0 - 17.5 g/dL [facility] Hct 34.7(L) 38.9 - 50.3 % [facility] Plt 209 150 - 400 K/cumm [facility] MPV 9.5 9.1 - 12.3 fL [facility] RBC 3.77(L) 4.30 - 5.80 M/cumm [facility] MCV 92.0 81.3 - 96.4 fL [facility] MCH 32.6 27.1 - 33.3 pg [facility] MCHC 35.4 32.3 - 35.7 g/dL [facility] RDW CV 12.1 11.1 - 14.9 % [facility] RDW SD 40.9 35.7 - 48.1 fL [facility] NRBC abs 0.00 0.00 - 0.01 K/cumm [facility] Blood 07/31/2024 6:03 PM CDT 07/31/2024 6:17 PM CDT Ioana Ybarra MD LAB BLOOD ORDERABLES Final Result Performing Organization Address City/[facility]/ZIP Co de Phone Number [facility] [place] [address] * Lipase (07/31/2024 6:03 PM CDT) [facility] Lipase 25 10 - 99 Units/L Blood 07/31/2024 6:03 PM CDT 07/31/2024 6:17 PM CDT Ioana Ybarra MD LAB BLOOD ORDERABLES Final Result [facility] [place] [address] * (ABNORMAL) Comprehensive metabolic panel (07/31/2024 6:03 PM CDT) [facility] Sodium 134(L) 135 - 145 mmol/L Potassium, pl 4.0 3.3 - 4.9 mmol/L [facility] Chloride 97 97 - 110 mmol/L [facility] CO2 29 22 - 32 mmol/L [facility] Anion gap 8 2 - 15 mmol/L [facility] BUN 8 6 - 25 mg/dL [facility] Creatinine 1.27 0.80 - 1.30 mg/dL [facility] Glucose 115 70 - 199 mg/dL [facility] Comment: Interpretive Data Fasting glucose >/= 126 [...] 2022. Calcium 9.9 8.5 - 10.3 mg/dL [facility] Bilirubin, total 0.6 0.1 - 1.2 mg/dL [facility] Protein, pl 8.7(H) 6.5 - 8.5 g/dL [facility] Albumin 4.3 3.5 - 5.0 g/dL [facility] Alk phos 101 40 - 130 Units/L [facility] ALT 17 7 - 55 Units/L [facility] AST 40 10 - 50 Units/L [facility] Blood 07/31/2024 6:03 PM CDT 07/31/2024 6:17 PM CDT us Ioana Ybarra MD LAB BLOOD ORDERABLES Final Result [facility] One [facility] [place] [address] * (ABNORMAL) Treponemal IgG/IgM Blood (07/21/2024 11:26 [...] GENERAL ORDERABLES Final Result Performing Organization Address [facility] de Phone Number MOUNA [facility] [place] [address] * HOANG ab ql w/rflx to HOANG qn (07/21/2024 11:26 AM CDT) HOANG Negative [...] ORDERABL ES Final Result Performing Organization Address [facility] de Phone Number MOUNA [facility] [place] [address] * SCL 70 abs (07/21/2024 11:26 AM CDT) Anti-Scl70, IgG <0.2 <=0.9 Ab Index Comment: Interpretive Data Negative: < 1.0 Ab Index Positive: > or = 1.0 Ab Index Current interpretive data was last revised on 2016. Blood 07/21/2024 11:2 6 AM CDT 07/21/2024 12:41 PM CDT Cosme Stafford Jr., MD LAB BLOOD ORDERABL ES Final Result Performing Organization Address [facility] de Phone Number [facility] [address] * Meza abs (07/21/2024 11:26 AM CDT) Anti-RAMONA, SM <0.2 <=0.9 Ab Index Comment: Interpretive Data Negative: < 1.0 Ab Index Positive: > or = 1.0 Ab Index Current interpretive data was last revised on 2016. Blood 07/21/2024 11:2 6 AM CDT 07/21/2024 12:41 PM CDT Cosme Stafford Jr., MD LAB BLOOD ORDERABL ES Final Result Performing Organization Address [facility] de Phone Number [facility] [place] [address] * (ABNORMAL) FRYER LINE HELPER abs (07/21/2024 11:26 AM CDT) Pathologist [facility] FRYER LINE HELPER ab 4.0(H) <=0.9 Ab Index Comment: Interpretive Data Negative: < 1.0 Ab Index Positive: > or = 1.0 Ab Index Current interpretive data was last revised on 2016. Blood 07/21/2024 11:2 6 AM CDT 07/21/2024 12:41 PM CDT Cosme Stafford Jr., MD LAB BLOOD ORDERABL ES Final Result Performing Organization Address [facility] de Phone Number [facility] [place] [address] * (ABNORMAL) RAMONA ab eval w/reflex (07/21/2024 11:26 AM CDT) RAMONA ab Positive( A) Negative Comment: Interpretive Data Positive Screens will be reflexed to specific testing for Antibodies against the following antigens: Emily-1 Ab, FRYER LINE HELPER Ab, Scl-70 Ab, Meza Ab, SS-A/Ro Ab, and SS- B/La Ab. Further testing for dsDNA, Centromere, or Ribosomal P antibodies is suggested in patient with a positive screen and negative specific antibodies. Current interpretive data was last revised on 2022. Blood 07/21/2024 11:2 6 AM CDT 07/21/2024 11:59 AM CDT Cosme Stafford Jr., MD LAB BLOOD ORDERABL ES Final Result Performing Organization Address [facility] Phone Number [facility] [place] [address] * Emily-1 antibody (07/21/2024 11:26 AM CDT) Emily 1 Antibody, IgG <0.2 <=0.9 Ab Index Comment: Interpretive Data Negative: < 1.0 Ab Index Positive: > or = 1.0 Ab Index Current interpretive data was last revised on 2016. Blood 07/21/2024 11:2 6 AM CDT 07/21/2024 12:41 PM CDT Cosme Stafford Jr., MD LAB BLOOD ORDERABL ES Final Result Performing Organization Address [facility] de Phone Number [facility] [place] [address] * RPR Blood (07/21/2024 11:26 AM CDT) RPR Nonreactive Nonreactive Blood 07/21/2024 11:2 6 AM CDT 07/21/2024 11:59 AM CDT Cosme Stafford Jr., MD LAB MICROBIOLOGY - GENERAL ORDERABLES Final Result [facility] [place] [address] * Sjogren's syndrome B ab (07/21/2024 11:26 AM CDT) Anti-RAMONA, SS-B <0.2 <=0.9 Ab Index Comment: Interpretive Data Negative: < 1.0 Ab Index Positive: > or = 1.0 Ab Index Current interpretive data was last revised on 2016. Blood 07/21/2024 11:2 6 AM CDT 07/21/2024 12:41 PM CDT Cosme Stafford Jr., MD LAB BLOOD ORDERABL ES Final Result Performing Organization Address [facility] [place] [address] * Sjogren's syndrome A ab (07/21/2024 11:26 AM CDT) Anti-RAMONA, SS-A <0.2 <=0.9 Ab Index Comment: Interpretive Data Negative: < 1.0 Ab Index Positive: > or = 1.0 Ab Index Current interpretive data was last revised on 2016. Blood 07/21/2024 11:2 6 AM CDT 07/21/2024 12:41 PM CDT Cosme Stafford Jr., MD LAB BLOOD ORDERABL ES Final Result Performing Organization Address [facility] [place] [address] * Vitamin B12 (07/21/2024 11:26 AM CDT) Vitamin B12 366 230 - 1,250 pg/mL Blood 07/21/2024 11:2 6 AM CDT 07/21/2024 11:59 AM CDT Cosme Stafford Jr., MD LAB BLOOD ORDERABL ES Final Result [facility] [place] [address] from Last 3 [place] [address] [facility] MEDICARE [employer] MANAGED MEDICAID GENERIC RISK OTHER [employer] [place] MEDICARE [place] Advance Directives For more information, please contact: [phone] * Full Code (Latest Code Status on [...] 10:57 AM 05/28/2020 4:48 AM Care Teams Wood Technologist Relationship Specialty Start Date End Date Izabela Louis MD [address] [place] [id number] PCP - General 11/22/19 Syed Diggs MD Surgeon Colon and Rectal Surgery 09/30/18 Wesley Pichardo MD [address] [address] Pain Management 09/30/18 Marilyn Schreiber MD [address] [place] [address] Radiation Oncologist Radiation Oncology 10/24/18
--- OUTSIDE RECORDS SUMMARY | 2024-08-26 05:31 | XMS_ITS | Clinical Summary ---
Author Organization Formerly [facility] Facility Address [address] [address] Care Team Providers Care Therapeutic Consultant Name Role Phone Izabela Louis MD Primary Care Provider Encounters Date Type Department Care Team Description 06/26/2024 Documentation Only [place] [employer] [facility] [place], [facility] [address] [place] [phone] Provider, MD Jillian from Last 3 [...] Description 09/19/2024 2:15 PM CDT Office Visit [place] [employer] [facility] [place], [facility] [address] [place] [address] [address] [place] [address] [place] [address] [place] [phone] Health Maintenance Due Date Last Done [...] 08/28/2009 Insurance Medicare Medicaid [place] Care Teams Therapeutic Consultant Relationship Specialty Start Date End Date Izabela Louis MD [address] [place] [phone] PCP - General Internal Medicine 06/26/24
--- OUTSIDE RECORDS SUMMARY | 2024-08-26 05:31 | XMS_ITS | Referral Summary ---
Author Organization [facility] Address [address] [place] [address] Care Team Providers Care Field Underwriter Name Role Phone Syed Diggs MD Unavailable [phone] Wesley Pichardo MD Unavailable [phone] Marilyn Schreiber MD Unavailable [phone] Izabela Louis MD Primary Care Provider Encounters Date Type Department Care Team Description 08/14/2024 3:00 PM CDT Office Visit [facility] ([facility]) [facility] Urology [address] [place] [address] 11th [place] [address] [place] [address] Stricture of bulbous urethra in male, unspecified stricture type (Primary Dx) 08/07/2024 3:08 PM CDT Anesthesia Event [facility] Operating Room [address] [place] [address] Leonor Jamison DO Frasca, Elizabeth Renee, KALPANA 08/07/2024 3:07 PM CDT - 08/07/2024 4:[address] [facility] Operating Room [address] [place] [id number] Norman Schneider MD OPTILUME URETHRAL DILATION 08/07/2024 11:46 AM CDT - 08/07/2024 6:00 PM CDT Hospital Encounter [facility] Operating Room [address] [place] [address] Norman Schneider MD Stricture of bulbous urethra in male, unspecified stricture type [N35.912] (Primary Dx) Discharge Disposition: Discharge to home or self care 08/04/[address] [facility]) - [facility] Urology [address] [place], [place] [address]th [place] [address] Annel Herr, FIRST BREAKER FEEDER 08/04/2024 10:20 AM CDT Office Visit [facility]) [place] [address] [place] [address] Norman Schneider MD Stricture of bulbous urethra in male, unspecified stricture type (Primary Dx) 08/01/[address] [facility]) - [address] [place] [address] Annel Herr, FIRST BREAKER FEEDER 08/01/2024 [facility] Eligibility Review [facility] Community Health Worker [facility] [address] [place] [address] Charlotte Coombs 07/31/2024 5:16 PM CDT - 07/31/2024 11:[address] [facility] Emergency Department [address] [place] [address] Ioana Ybarra MD Urinary retention with incomplete bladder emptying (Primary Dx) Discharge Disposition: Discharge to home or self care 07/25/2024 Results Follow-Up [facility] General Neurology [address] [facility] 6th Floor [address] [place] [phone] Cosme Stafford Jr., MD Treponemal IgG/IgM Blood, RPR Blood, Vitamin B12, Additional followed-up results: 8 07/21/2024 12:20 PM CDT Lab [facility] ([facility]) [address] [place] [address] Memory loss 07/21/2024 10:30 AM CDT Office Visit [facility] Neurology [address] [facility] 6th [place] [address] [place] [address] Cosme Stafford Jr., MD Memory loss (Primary [...] breath 3 Active True Metrix Glucose Meter [facility] USE TO TEST BLOOD SUGAR ONCE DAILY 2 Active Symtuza [phone] mg tablet Take 1 tablet by mouth [...] 04/06/2023 Assessment & Plan (04/06/2023 1:44 PM POLICY SPECIALIST): Required 2L O2 support since admission CXR no evidence of pneumonia or atelectasis Now weaned to room air - Perform home O2 evaluation prior to discharge - Management of influenza as described elsewhere Macrocytic anemia 04/06/2023 Assessment & Plan (04/06/2023 1:49 PM POLICY SPECIALIST): Recent labs with low B12 and low folate Hb stable - Continue supplement with B12 and folate daily Verruca vulgaris 04/05/2023 Assessment & Plan (04/06/2023 1:36 PM POLICY SPECIALIST): Follows with [facility] - Continue home Imiquimod 5% cream to warts x3/weekly. Pt not to touch eyes following application. Influenza 04/04/2023 Assessment & Plan (04/06/2023 1:46 PM POLICY SPECIALIST): Reports fatigue, febrile episodes at home Tmax [...] 04/04/2023 Assessment & Plan (04/06/2023 1:45 PM POLICY SPECIALIST): Cr 1.5 up from baseline of ~1 Likely prerenal from poor po intake in setting of influenza Resolved with IVF, PO intake - Encourage to continue adequate hydration and food intake at home as he is recovering from influenza - Avoid nephrotoxins Chronic pain syndrome 04/04/2023 Assessment & Plan (04/06/2023 1:58 PM POLICY SPECIALIST): Seems to be on both methadone and percocet at home Continue home doses of methadone 5 mg BID and oxy 10 q4 prn Other urethral stricture, male, unspecified site 03/24/2023 B12 deficiency 02/17/2023 Inflammation of the rectum 09/13/2020 Overview (09/13/2020): Added automatically from request for surgery [id number] Chronic rectal pain 09/13/2020 Overview (09/13/2020): Added automatically from request for surgery [id number] Squamous cell carcinoma of rectum 09/13/2020 Overview (09/13/2020): Added automatically from request for surgery [id number] Screening for malignant neoplasm of colon 2020 Overview (07/30/2020): Added automatically from request for surgery [id number] ASTER (acute kidney injury) 12/01/2019 Assessment & [...] 03/01/2019 Assessment & Plan (03/02/2019 4:40 PM POLICY SPECIALIST): Cr was 1.13 on admission and peaked to 1.41 03/01 likely in the setting of IV abx. Supported with IVFS and stopped IV abx. Cr 1.12 Skin breakdown to perianal region 02/28/2019 Assessment & Plan (03/01/2019 1:12 PM POLICY SPECIALIST): Skin breakdown noted on exam between gluteal [...] 02/28/2019 Assessment & Plan (03/02/2019 4:45 PM POLICY SPECIALIST): Likely 2/2 current XRT. Patient has diarrhea at baseline. -Will send c.diff, stool studies to r/o infection -cIVFs to maintain hydration -diarrhea started again the evening of 03/01, send c.diff -k 3.2 in setting of diarrhea, supplemented Pancytopenia 02/27/2019 Assessment & Plan (12/01/2019 10:29 PM CDT): has been pancytopenic since chemotherapy, also with HIV Assessment & Plan (03/02/2019 4:38 PM POLICY SPECIALIST): In setting of chemotherapy 02/13- and XRT. -WBC 1.0, ANC 500 -H/H 8.5/23.4 on admission -PLT 3K on admission, s/p 1 unit, with appropriate bump to 16K -Will transfuse PLTs to keep > 10K, will likely need again as plt 13 today (denies blood nose/bm) -hgb 7.5, lorenzo transfuse 1 unit in setting of overall fatigue Assessment & Plan (02/27/2019 11:25 PM POLICY SPECIALIST): - likely 2/2 recent chemo - transfuse 1 unit plt with post transfusion cbc - maintain type and screen - consent in chart Transaminitis 02/17/2019 Assessment & Plan (02/18/2019 1:05 PM POLICY SPECIALIST): New onset 02/17 w/ t.bili 1, Alk Phos 181, AST 389, ALT 227. Previously normal. - Suspect drug-induced likely I/s/o recently initiated chemotherapy - consider also fluconazole vs biktarvy (these are not new prescriptions but concerns of compliance pre-hospitalization) vs recently initiated MSContin Down-trending today, plan to d/c Severe malnutrition 02/14/2019 Assessment & Plan (03/02/2019 4:44 PM POLICY SPECIALIST): -encourage high protein diet. Assessment & Plan (02/16/2019 11:14 AM POLICY SPECIALIST): Pt has had significant weight loss & poor PO intake. 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 - s/p treatment with atovaquone (rash to dapsone was, no G6PD) Encounter for antineoplastic chemotherapy 2018 Assessment & Plan (02/18/2019 1:04 PM POLICY SPECIALIST): Admitted for C1 Mitomycin and 5-FU with [...] 02/13/2019 Assessment & Plan (02/15/2019 1:32 PM POLICY SPECIALIST): Noted history of CKD3 with peak Cr in medical record to 2.5. Previously followed with nephrology though not in last couple years. Cr now WNL with adequate UO. - Monitor CMP daily, daily weights, and I&O Nicotine dependence 02/13/2019 Assessment & Plan (02/28/2019 1:13 PM POLICY SPECIALIST): Will administer Nicotine patches in house Assessment & Plan (02/15/2019 1:35 PM POLICY SPECIALIST): Current every day smoker. - Nicotine 21 mg patch daily - Encourage smoking cessation Anal cancer 10/17/2018 Assessment & Plan (04/06/2023 1:47 PM POLICY SPECIALIST): S/p chemoradiation Currently in remission - Continue [...] QID Assessment & Plan (03/01/2019 1:06 PM POLICY SPECIALIST): Patient of Dr. Peralta. S/p C1 mitomycin/5FU 02/13- with concurrent radiation. -Will continue XRT inpatient -Due for chemo on week 5 (~03/13/19) -Due to profound pancytopenia s/p chemo, will send out labwork to check deficiency in dihydropyrimidine dehydrogenase (DPD) per outpatient team 03/01 (has to be in pink tube) Assessment & Plan (02/27/2019 11:21 PM POLICY SPECIALIST): - s/p C1 mitomycin/5FU 02/13- with concurrent radiation - pain control with MSContin 30 BID + oxycodone PRN Assessment & Plan (02/18/2019 12:52 PM POLICY SPECIALIST): Diagnosed 09/23/2018, [id number]. Followed by Dr. Peralta. Treatment delayed 2/2 insurance issues. - Admitted for C1 mitomycin + 5FU w/ concurrent radiation (planned 28 fx) - first RT 02/13. C1 complete. Will follow up with xrt outpatient and with Dr. Peralta for C2 in a few weeks Tolerated treatment well Human immunodeficiency virus (HIV) disease 10/17 Assessment & Plan (04/06/2023 1:48 PM POLICY SPECIALIST): Last CD4 148[place] [id number] - Continue Symtuza - Continue atovaquone 1500 mg daily for PCP ppx - Ensure close f/u with local ID Dr. Louis Assessment & Plan (12/01/2019 10:28 PM CDT): last CD4 79, HIV VL [id number] 07/2019 - repeat CD4, HIV RNA; continue Biktarvy, continue fluconazole (patient endorses is suppressive therapy after previous crypto infection) Assessment & Plan (02/28/2019 12:45 PM POLICY SPECIALIST): Follows with Dr. Louis. Last CD4 153, VL 464K 10/2018. -Continue home biktarvy -Hx of crypto meningitis, continue suppressive fluconazole Assessment & Plan (02/27/2019 11:23 PM POLICY SPECIALIST): - continue home biktarvy - hx of crypto meningitis, continue suppressive fluconazole Assessment & Plan (02/18/2019 1:12 PM POLICY SPECIALIST): Most recent 10/19 CD4 153, VL 465k. [...] 08/12/2018 Assessment & Plan (02/15/2019 1:32 PM POLICY SPECIALIST): History of crypto meningitis; unclear what year [...] elsewhere Assessment & Plan (03/02/2019 4:39 PM POLICY SPECIALIST): Patient reports rectal pain. In setting of anal cancer and current XRT. Follows with pain management outpatient, Dr. Pichardo. -On exam, there is skin breakdown between gluteal muscles > c/s wound care for wound management -Home pain regimen: MSContin 30mg BID, Gabapentin 600mg QID, Requip 1mg qpm, [place] 10/325 q6hprn, Baclofen 20mg TID prn Assessment & Plan (02/17/2019 12:10 PM POLICY SPECIALIST): Follows with pain management (Dr. Pichardo) outpatient [...] 04/06/2023 Assessment & Plan (04/04/2023 9:55 AM POLICY SPECIALIST): -recent labs with low B12 and low folate -supplement with B12 and folate daily Hyponatremia 02/27/2019 04/06/2023 Assessment & Plan (04/05/2023 4:32 PM POLICY SPECIALIST): -Resolved s/p IVF bolus Assessment & Plan (02/28/2019 12:46 PM POLICY SPECIALIST): Na 127 on admit. Likely 2/2 dehydration related to diarrhea. -S/p 1L NS bolus x 2 -Na improving, 135 today -Will CTM Assessment & Plan (02/27/2019 11:24 PM POLICY SPECIALIST): - 2/2 dehydration liked related to diarrhea. Urine sodium < 20, Na improving with NS - additional 1L NS overnight, repeat BMP in AM Neutropenic fever 02/27/2019 02/07/2024 Assessment & Plan (03/01/2019 12:53 PM POLICY SPECIALIST): Patient admitted from [facility], where he reported chills with Tmax 38. Found to be neutropenic and was briefly hypotensive in [facility]. -Infectious workup: Blood cultures x 2 [...] days Assessment & Plan (02/27/2019 11:26 PM POLICY SPECIALIST): - chills, Tmax 38, neutropenic and was briefly hypotensive in [facility] - blood cultures pending - f/u urine culture - CXR clear - f/u GC/CT - continue vanc/cefe Anal warts 09/09/2018 12/01/2019 Overview (09/09/2018): Added automatically from request for surgery [id number] Immunizations Immunization Administration Dates Next Due Hep [...] on file Legal Sex Male 4:35 AM POLICY SPECIALIST Gender Identity Male 04/21/2023 9:16 AM POLICY SPECIALIST Sexual Orientation Not on file Last Filed [...] HOUR IP Routine 08/07/2024 3:55 PM CDT VA AN PROCEDURE PLACEHOLDER Routine 08/07/2024 3:21 PM CDT VA AN ELECTIVE SUPRAGLOTTIC AIRWAY Routine 08/07/2024 3:21 [...] 07/21/2024 11: 26 AM CDT Memory loss FLORAL DESIGNER ANTIBODIES Routine 07/21/2024 11:26 AM CDT Memory [...] FLUOROSCOPY PROCEDURE S Final Result [facility] * VA AN ELECTIVE SUPRAGLOTTIC AIRWAY, VA AN PROCEDURE PLACEHOLDER (08/07/2024 3:21 PM CDT) Narrative Michaela Chavira CRNA - 08/07/2024 3:21 PM CDT Michaela Chavira CRNA 08/07/2024 3:21 PM Airway Patient location: OR Urgency: elective Indications for airway management: anesthesia Difficult airway: no Staff: Supervising provider: Leonor Jamison DO Placed by: SIGHTSEEING GUIDE: Michaela Chavira CRNA Emergent airway documentation: Risks [...] Straw Yellow Clarity, ur Clear Clear [facility] Specific gravity, ur 1.013 1.003 - 1.030 [facility] pH, urine 6.5 [facility] Comment: Interpretive Data U rine pH is affected by diet, medications, systemic acid-base disturbances, and renal tubular function. pH may affect urinary stone formation. For example, urine pH below 6.0 may help reduce the tendency for calcium phosphate stones and pH greater than 6.0 may reduce the tendency for uric acid stone formation. Source: [facility] Current Interpretive Data was last revised on 2017 Protein, ur ql Negative Negative [facility] Glucose, ur ql Negative Negative [facility] Ketones, ur Negative Negative [facility] Bilirubin, ur Negative Negative [facility] Blood, ur Negative Negative [facility] Urobilinogen, ur <2.0 <2.0 mg/dL [facility] Nitrite, ur Negative Negative [facility] Leukocyte esterase, ur Negative Negative [facility] UA reflex comment Reflex conditions for microscopic UA and culture not met. [facility] Urine 07/31/2024 8:48 PM CDT 07/31/2024 9:02 PM CDT Ioana Ybarra MD LAB MICROBIOLOGY - GENERAL ORDERABLES Final Result [facility] Department [place] [address] * CT Abdomen Pelvis W Contrast (07/31/2024 [...] POCT creatinine (07/31/2024 6:05 PM CDT) Pathologist [facility] Creatinine POC 1.3 0.8 - 1.3 mg/dL Blood 07/31/2024 6:05 PM CDT 07/31/2024 6:05 PM CDT Ioana Ybarra MD LAB POCT ORDERABLES - EDUARD CE Final Result [facility] Department [place] [address] * Sepsis Lactate w/ Reflex (07/31/2024 6:03 PM CDT) Pathologist [facility] Sepsis Lactate 1.2 0.7 - 2.0 mmol/L Blood 07/31/2024 6:03 PM CDT 07/31/2024 6:[address] [facility] Ioana Ybarra MD LAB BLOOD ORDERABLES Final Result Performing Organization Address City/[facility]/ZIP Co de Phone Number [facility] Department [place] [address] * eGFR (07/31/2024 6:03 PM CDT) Pathologist [facility] eGFR 71 >=60 mL/min/1. 73 m2 Comment: [...] Ybarra MD LAB BLOOD ORDERABLES Final Result [facility] Department [place] [address] * Differential, auto (07/31/2024 6:03 PM CDT) Neutrophil abs 5.50 1.50 - 6.50 K/cumm Imm gran abs 0.03 0.00 - 0.10 K/cumm [facility] Lymphocyte abs 1.18 0.80 - 3.30 K/cumm [facility] Monocyte abs 0.32 0.20 - 0.80 K/cumm [facility] Eosinophil abs 0.01 0.00 - 0.50 K/cumm [facility] Basophil abs 0.01 0.00 - 0.10 K/cumm [facility] Neutrophil pct 78.2 % [facility] Comment: Interpretive Data Percent cell count reference ranges are not reported, since discordance with absolute values may lead to misinterpretation of CBC data. Current Interpretive Data was last revised on 2017. Imm gran pct 0.4 % [facility] Comment: Interpretive Data Percent cell count reference ranges are not reported, since discordance with absolute values may lead to misinterpretation of CBC data. Current Interpretive Data was last revised on 2017. Lymphocyte pct 16.7 % [facility] Comment: Interpretive Data Percent cell count reference ranges are not reported, since discordance with absolute values may lead to misinterpretation of CBC data. Current Interpretive Data was last revised on 2017. Monocyte pct 4.5 % [facility] Comment: Interpretive Data Percent cell count reference ranges are not reported, since discordance with absolute values may lead to misinterpretation of CBC data. Current Interpretive Data was last revised on 2017. Eosinophil pct 0.1 % [facility] Comment: Interpretive Data Percent cell count reference ranges are not reported, since discordance with absolute values may lead to misinterpretation of CBC data. Current Interpretive Data was last revised on 2017. Basophil pct 0.1 % [facility] Comment: Interpretive Data Percent cell count reference ranges are not reported, since discordance with absolute values may lead to misinterpretation of CBC data. Current Interpretive Data was last revised on 2017. Blood 07/31/2024 6:03 PM CDT 07/31/2024 6:17 PM CDT us Ioana Ybarra MD LAB BLOOD ORDERABLES Final Result [facility] Department [place] [address] * (ABNORMAL) CBC with auto differential (07/31/2024 6:03 PM CDT) WBC 7.05 3.80 - 9.90 K/cumm Hgb 12.3(L) 13.0 - 17.5 g/dL [facility] Hct 34.7(L) 38.9 - 50.3 % [facility] Plt 209 150 - 400 K/cumm [facility] MPV 9.5 9.1 - 12.3 fL [facility] RBC 3.77(L) 4.30 - 5.80 M/cumm [facility] MCV 92.0 81.3 - 96.4 fL [facility] MCH 32.6 27.1 - 33.3 pg [facility] MCHC 35.4 32.3 - 35.7 g/dL [facility] RDW CV 12.1 11.1 - 14.9 % [facility] RDW SD 40.9 35.7 - 48.1 fL [facility] NRBC abs 0.00 0.00 - 0.01 K/cumm [facility] Blood 07/31/2024 6:03 PM CDT 07/31/2024 6:17 PM CDT Ioana Ybarra MD LAB BLOOD ORDERABLES Final Result Performing Organization Address City/[facility]/ZIP Co de Phone Number [facility] Department [place] [address] * Lipase (07/31/2024 6:03 PM CDT) [facility] Lipase 25 10 - 99 Units/L Blood 07/31/2024 6:03 PM CDT 07/31/2024 6:17 PM CDT Ioana Ybarra MD LAB BLOOD ORDERABLES Final Result Performing Organization Address [facility] de Phone Number [facility] Department [place] [address] * (ABNORMAL) Comprehensive metabolic panel (07/31/2024 6:03 PM CDT) [facility] Sodium 134(L) 135 - 145 mmol/L Potassium, pl 4.0 3.3 - 4.9 mmol/L [facility] Chloride 97 97 - 110 mmol/L [facility] CO2 29 22 - 32 mmol/L [facility] Anion gap 8 2 - 15 mmol/L [facility] BUN 8 6 - 25 mg/dL [facility] Creatinine 1.27 0.80 - 1.30 mg/dL [facility] Glucose 115 70 - 199 mg/dL [facility] Comment: Interpretive Data Fasting glucose >/= 126 [...] 2022. Calcium 9.9 8.5 - 10.3 mg/dL [facility] Bilirubin, total 0.6 0.1 - 1.2 mg/dL [facility] Protein, pl 8.7(H) 6.5 - 8.5 g/dL [facility] Albumin 4.3 3.5 - 5.0 g/dL [facility] Alk phos 101 40 - 130 Units/L [facility] ALT 17 7 - 55 Units/L [facility] AST 40 10 - 50 Units/L [facility] Blood 07/31/2024 6:03 PM CDT 07/31/2024 6:17 PM CDT us Ioana Ybarra MD LAB BLOOD ORDERABLES Final Result Performing Organization Address [facility] Co de Phone Number [facility] Department [place] [address] * (ABNORMAL) Treponemal IgG/IgM Blood (07/21/2024 11:26 AM CDT) Pathologist [facility] Treponemal IgG/IgM Reactive( A) Nonreactive Comment: Interpretive Data: If test is reported as EQUIVOCAL, a new sample should be drawn in two weeks for testing. Current interpretive data was last revised on 2018. Blood 07/21/2024 11:2 6 AM CDT 07/21/2024 11:59 AM CDT us Cosme Stafford Jr., MD LAB MICROBIOLOGY - GENERAL ORDERABLES Final Result Performing Organization Address [facility] Co de Phone Number [facility] Department [place] [address] * HOANG ab ql w/rflx to HOANG qn (07/21/2024 11:26 AM CDT) Pathologist [facility] HOANG Negative Comment: Interpretive Data Normal range [...] ORDERABL ES Final Result Performing Organization Address [facility] de Phone Number [facility] [place] [address] * SCL 70 abs (07/21/2024 11:26 AM CDT) Anti-Scl70, IgG <0.2 <=0.9 Ab Index Comment: Interpretive Data Negative: < 1.0 Ab Index Positive: > or = 1.0 Ab Index Current interpretive data was last revised on 2016. Blood 07/21/2024 11:2 6 AM CDT 07/21/2024 12:41 PM CDT Cosme Stafford Jr., MD LAB BLOOD ORDERABL ES Final Result Performing Organization Address [facility] de Phone Number [facility] [place] [address] * Meza abs (07/21/2024 11:26 AM CDT) Anti-RAMONA, SM <0.2 <=0.9 Ab Index Comment: Interpretive Data Negative: < 1.0 Ab Index Positive: > or = 1.0 Ab Index Current interpretive data was last revised on 2016. Blood 07/21/2024 11:2 6 AM CDT 07/21/2024 12:41 PM CDT Cosme Stafford Jr., MD LAB BLOOD ORDERABL ES Final Result Performing Organization Address [facility] Co de Phone Number [facility] [place] [address] * (ABNORMAL) FLORAL DESIGNER abs (07/21/2024 11:26 AM CDT) FLORAL DESIGNER ab 4.0(H) <=0.9 Ab Index Comment: Interpretive Data Negative: < 1.0 Ab Index Positive: > or = 1.0 Ab Index Current interpretive data was last revised on 2016. Blood 07/21/2024 11:2 6 AM CDT 07/21/2024 12:41 PM CDT Cosme Stafford Jr., MD LAB BLOOD ORDERABL ES Final Result Performing Organization Address [facility] [place] [address] * (ABNORMAL) RAMONA ab eval w/reflex (07/21/2024 11:26 AM CDT) RAMONA ab Positive( A) Negative Comment: Interpretive Data Positive Screens will be reflexed to specific testing for Antibodies against the following antigens: Emily-1 Ab, FLORAL DESIGNER Ab, Scl-70 Ab, Meza Ab, SS-A/Ro Ab, and SS- B/La Ab. Further testing for dsDNA, Centromere, or Ribosomal P antibodies is suggested in patient with a positive screen and negative specific antibodies. Current interpretive data was last revised on 2022. Blood 07/21/2024 11:2 6 AM CDT 07/21/2024 11:59 AM CDT Cosme Stafford Jr., MD LAB BLOOD ORDERABL ES Final Result Performing Organization Address [facility] Co de Phone Number [facility] [place] [address] * Emily-1 antibody (07/21/2024 11:26 AM CDT) Emily 1 Antibody, IgG <0.2 <=0.9 Ab Index Comment: Interpretive Data Negative: < 1.0 Ab Index Positive: > or = 1.0 Ab Index Current interpretive data was last revised on 2016. Blood 07/21/2024 11:2 6 AM CDT 07/21/2024 12:41 PM CDT Cosme Stafford Jr., MD LAB BLOOD ORDERABL ES Final Result Performing Organization Address [facility] Co de Phone Number [facility] Department [place] [address] * RPR Blood (07/21/2024 11:26 AM CDT) Pathologist [facility] RPR Nonreactive Nonreactive Blood 07/21/2024 11:2 6 AM CDT 07/21/2024 11:59 AM CDT Cosme Stafford Jr., MD LAB MICROBIOLOGY - GENERAL ORDERABLES Final Result Performing Organization Address [facility] de Phone Number [facility] Department [place] [address] * Sjogren's syndrome B ab (07/21/2024 11:26 AM CDT) Pathologist [facility] Anti-RAMONA, SS-B <0.2 <=0.9 Ab Index Comment: Interpretive Data Negative: < 1.0 Ab Index Positive: > or = 1.0 Ab Index Current interpretive data was last revised on 2016. Blood 07/21/2024 11:2 6 AM CDT 07/21/2024 12:41 PM CDT Cosme Stafford Jr., MD LAB BLOOD ORDERABL ES Final Result Performing Organization Address [facility] Co de Phone Number [facility] [place] [address] * Sjogren's syndrome A ab (07/21/2024 11:26 AM CDT) Pathologist [facility] Anti-RAMONA, SS-A <0.2 <=0.9 Ab Index Comment: Interpretive Data Negative: < 1.0 Ab Index Positive: > or = 1.0 Ab Index Current interpretive data was last revised on 2016. Blood 07/21/2024 11:2 6 AM CDT 07/21/2024 12:41 PM CDT Cosme Stafford Jr., MD LAB BLOOD ORDERABL ES Final Result Performing Organization Address City/[facility]/ZIP Co de Phone Number [facility] [place] [address] * Vitamin B12 (07/21/2024 11:26 AM CDT) Pathologist [facility] Vitamin B12 366 230 - 1,250 pg/mL Blood 07/21/2024 11:2 6 AM CDT 07/21/2024 11:59 AM CDT Cosme Stafford Jr., MD LAB BLOOD ORDERABL ES Final Result [facility] [place] [address] from Last 3 Months Insurance MEDICARE IDPA MEDICARE IDPA MANAGED MEDICAID GENERIC RISK OTHER [employer] [place] MEDICARE [facility] Advance Directives For more information, please contact: [phone] * Full Code (Latest Code Status on [...] 10:57 AM 05/28/2020 4:48 AM Care Teams Field Underwriter Relationship Specialty Start Date End Date Izabela Louis MD [address] [address] PCP - General 11/22/19 Syed Diggs MD Surgeon Colon and Rectal Surgery 09/30/18 Wesley Pichardo MD [address] [id number] Pain Management 09/30/18 [place] [address] [place] [address] Radiation Oncologist Radiation Oncology 10/24/18
--- OUTSIDE RECORDS SUMMARY | 2024-08-26 05:31 | XMS_ITS | CONTINUITY OF CARE DOCUMENT ---
Author Name [email or web address] Address Unknown Organization [facility] Address [address] [place] [address] Phone [phone] Care Team Providers Care Tool And Die Designer Name Role Phone Berhane CISNEROS, Paula Unavailable QAMAR DEL TORO MD Unavailable [phone] QAMAR DEL TORO MD Unavailable INSURANCE PROVIDERS Payer name Policy type / Coverage type [place] red green party ID [employer] Medicaid 1 1911 [place] MEDICARE Medicare [id number]
--- OUTSIDE RECORDS SUMMARY | 2024-08-26 05:31 | XMS_ITS ---
Author Organization [facility] al Address [address] [place] [address] Care Team Providers Care Client Care Coordinator Name Role Phone Syed Diggs MD Unavailable [phone] Wesley Pichardo MD Unavailable [phone] Marilyn Schreiber MD Unavailable [phone] Izabela Louis MD Primary Care Provider Active Problems Problem Noted Date Diagnosed Date Stricture, urethra 08/04/2024 History of anal cancer 10/06/2023 Acute hypoxic respiratory failure 04/06/2023 Assessment & Plan (04/06/2023 1:44 PM STATION CHIEF): Required 2L O2 support since admission CXR no evidence of pneumonia or atelectasis Now weaned to room air - Perform home O2 evaluation prior to discharge - Management of influenza as described elsewhere Macrocytic anemia 04/06/2023 Assessment & Plan (04/06/2023 1:49 PM STATION CHIEF): Recent labs with low B12 and low folate Hb stable - Continue supplement with B12 and folate daily Verruca vulgaris 04/05/2023 Assessment & Plan (04/06/2023 1:36 PM STATION CHIEF): Follows with [facility] - Continue home Imiquimod 5% cream to warts x3/weekly. Pt not to touch eyes following application. Influenza 04/04/2023 Assessment & Plan (04/06/2023 1:46 PM STATION CHIEF): Reports fatigue, febrile episodes at home Tmax [...] 04/04/2023 Assessment & Plan (04/06/2023 1:45 PM STATION CHIEF): Cr 1.5 up from baseline of ~1 Likely prerenal from poor po intake in setting of influenza Resolved with IVF, PO intake - Encourage to continue adequate hydration and food intake at home as he is recovering from influenza - Avoid nephrotoxins Chronic pain syndrome 04/04/2023 Assessment & Plan (04/06/2023 1:58 PM STATION CHIEF): Seems to be on both methadone and percocet at home Continue home doses of methadone 5 mg BID and oxy 10 q4 prn Other urethral stricture, male, unspecified site 03/24/2023 B12 deficiency 02/17/2023 Inflammation of the rectum 09/13/2020 Overview (09/13/2020): Added automatically from request for surgery [id number] Chronic rectal pain 09/13/2020 Overview (09/13/2020): Added automatically from request for surgery [id number] Squamous cell carcinoma of rectum 09/13/2020 Overview (09/13/2020): Added automatically from request for surgery [id number] Screening for malignant neoplasm of colon 2020 Overview (07/30/2020): Added automatically from request for surgery [id number] ASTER (acute kidney injury) 12/01/2019 Assessment & [...] 03/01/2019 Assessment & Plan (03/02/2019 4:40 PM STATION CHIEF): Cr was 1.13 on admission and peaked to 1.41 03/01 likely in the setting of IV abx. Supported with IVFS and stopped IV abx. Cr 1.12 Skin breakdown to perianal region 02/28/2019 Assessment & Plan (03/01/2019 1:12 PM STATION CHIEF): Skin breakdown noted on exam between gluteal [...] 02/28/2019 Assessment & Plan (03/02/2019 4:45 PM STATION CHIEF): Likely 2/2 current XRT. Patient has diarrhea at baseline. -Will send c.diff, stool studies to r/o infection -cIVFs to maintain hydration -diarrhea started again the evening of 03/01, send c.diff -k 3.2 in setting of diarrhea, supplemented Pancytopenia 02/27/2019 Assessment & Plan (12/01/2019 10:29 PM CDT): has been pancytopenic since chemotherapy, also with HIV Assessment & Plan (03/02/2019 4:38 PM STATION CHIEF): In setting of chemotherapy 02/13- and XRT. -WBC 1.0, ANC 500 -H/H 8.5/23.4 on admission -PLT 3K on admission, s/p 1 unit, with appropriate bump to 16K -Will transfuse PLTs to keep > 10K, will likely need again as plt 13 today (denies blood nose/bm) -hgb 7.5, lorenzo transfuse 1 unit in setting of overall fatigue Assessment & Plan (02/27/2019 11:25 PM STATION CHIEF): - likely 2/2 recent chemo - transfuse 1 unit plt with post transfusion cbc - maintain type and screen - consent in chart Transaminitis 02/17/2019 Assessment & Plan (02/18/2019 1:05 PM STATION CHIEF): New onset 02/17 w/ t.bili 1, Alk Phos 181, AST 389, ALT 227. Previously normal. - Suspect drug-induced likely I/s/o recently initiated chemotherapy - consider also fluconazole vs biktarvy (these are not new prescriptions but concerns of compliance pre-hospitalization) vs recently initiated MSContin Down-trending today, plan to d/c Severe malnutrition 02/14/2019 Assessment & Plan (03/02/2019 4:44 PM STATION CHIEF): -encourage high protein diet. Assessment & Plan (02/16/2019 11:14 AM STATION CHIEF): Pt has had significant weight loss & poor PO intake. 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 - s/p treatment with atovaquone (rash to dapsone was, no G6PD) Encounter for antineoplastic chemotherapy 2018 Assessment & Plan (02/18/2019 1:04 PM STATION CHIEF): Admitted for C1 Mitomycin and 5-FU with [...] 02/13/2019 Assessment & Plan (02/15/2019 1:32 PM STATION CHIEF): Noted history of CKD3 with peak Cr in medical record to 2.5. Previously followed with nephrology though not in last couple years. Cr now WNL with adequate UO. - Monitor CMP daily, daily weights, and I&O Nicotine dependence 02/13/2019 Assessment & Plan (02/28/2019 1:13 PM STATION CHIEF): Will administer Nicotine patches in house Assessment & Plan (02/15/2019 1:35 PM STATION CHIEF): Current every day smoker. - Nicotine 21 mg patch daily - Encourage smoking cessation Anal cancer 10/17/2018 Assessment & Plan (04/06/2023 1:47 PM STATION CHIEF): S/p chemoradiation Currently in remission - Continue [...] QID Assessment & Plan (03/01/2019 1:06 PM STATION CHIEF): Patient of Dr. Peralta. S/p C1 mitomycin/5FU 02/13- with concurrent radiation. -Will continue XRT inpatient -Due for chemo on week 5 (~03/13/19) -Due to profound pancytopenia s/p chemo, will send out labwork to check deficiency in dihydropyrimidine dehydrogenase (DPD) per outpatient team 03/01 (has to be in pink tube) Assessment & Plan (02/27/2019 11:21 PM STATION CHIEF): - s/p C1 mitomycin/5FU 02/13-14 with concurrent radiation - pain control with MSContin 30 BID + oxycodone PRN Assessment & Plan (02/18/2019 12:52 PM STATION CHIEF): Diagnosed 09/23/2018, [id number]. Followed by Dr. Peralta. Treatment delayed 2/2 insurance issues. - Admitted for C1 mitomycin + 5FU w/ concurrent radiation (planned 28 fx) - first RT 02/13. C1 complete. Will follow up with xrt outpatient and with Dr. Peralta for C2 in a few weeks Tolerated treatment well Human immunodeficiency virus (HIV) disease 10/17 Assessment & Plan (04/06/2023 1:48 PM STATION CHIEF): Last CD4 148[place] [id number] - Continue Symtuza - Continue atovaquone 1500 mg daily for PCP ppx - Ensure close f/u with local ID Dr. Louis Assessment & Plan (12/01/2019 10:28 PM CDT): last CD4 79, HIV VL [id number] 07/2019 - repeat CD4, HIV RNA; continue Biktarvy, continue fluconazole (patient endorses is suppressive therapy after previous crypto infection) Assessment & Plan (02/28/2019 12:45 PM STATION CHIEF): Follows with Dr. Louis. Last CD4 153, VL 464K 10/2018. -Continue home biktarvy -Hx of crypto meningitis, continue suppressive fluconazole Assessment & Plan (02/27/2019 11:23 PM STATION CHIEF): - continue home biktarvy - hx of crypto meningitis, continue suppressive fluconazole Assessment & Plan (02/18/2019 1:12 PM STATION CHIEF): Most recent 10/19 CD4 153, VL 465k. [...] 08/12/2018 Assessment & Plan (02/15/2019 1:32 PM STATION CHIEF): History of crypto meningitis; unclear what year [...] elsewhere Assessment & Plan (03/02/2019 4:39 PM STATION CHIEF): Patient reports rectal pain. In setting of anal cancer and current XRT. Follows with pain management outpatient, Dr. Pichardo. -On exam, there is skin breakdown between gluteal muscles > c/s wound care for wound management -Home pain regimen: MSContin 30mg BID, Gabapentin 600mg QID, Requip 1mg qpm, Trail 10/325 q6hprn, Baclofen 20mg TID prn Assessment & Plan (02/17/2019 12:10 PM STATION CHIEF): Follows with pain management (Dr. Pichardo) outpatient [...] 04/06/2023 Assessment & Plan (04/04/2023 9:55 AM STATION CHIEF): -recent labs with low B12 and low folate -supplement with B12 and folate daily Hyponatremia 02/27/2019 04/06/2023 Assessment & Plan (04/05/2023 4:32 PM STATION CHIEF): -Resolved s/p IVF bolus Assessment & Plan (02/28/2019 12:46 PM STATION CHIEF): Na 127 on admit. Likely 2/2 dehydration related to diarrhea. -S/p 1L NS bolus x 2 -Na improving, 135 today -Will CTM Assessment & Plan (02/27/2019 11:24 PM STATION CHIEF): - 2/2 dehydration liked related to diarrhea. Urine sodium < 20, Na improving with NS - additional 1L NS overnight, repeat BMP in AM Neutropenic fever 02/27/2019 02/07/2024 Assessment & Plan (03/01/2019 12:53 PM STATION CHIEF): [facility] Assessment & Plan (02/27/2019 11:26 PM STATION CHIEF): - chills, Tmax 38, neutropenic and was briefly hypotensive in [facility] - blood cultures pending - f/u urine culture - CXR clear - f/u GC/CT - continue vanc/cefe Anal warts 09/09/2018 12/01/2019 Overview (09/09/2018): Added automatically from request for surgery [id number]
--- OUTSIDE RECORDS SUMMARY | 2024-08-26 05:31 | XMS_ITS | Clinical Summary ---
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) 08/12/2018 09/19/2018 Family History Medical History [...] Not on file Insurance MEDICARE - [id number] [place] GENER[employer] - MEDICAID
--- OUTSIDE RECORDS SUMMARY | 2024-08-26 05:32 | XMS_ITS | Encounter Summary ---
Author Organization [facility] Address [address] [place] [address] Care Team Providers Care Fluoroscope Operator Name Role Phone Syed Diggs MD Unavailable [phone] Wesley Pichardo MD Unavailable [phone] Marilyn Schreiber MD Unavailable [phone] Nishant Sr MD Primary Care Provider [phone] Izabela Louis MD Primary Care Provider Sam Peralta MD PhD Unavailable [phone] Encounter Details Date Type Department Care Team (Late st Contact Info) Description 07/20/2019 Telephone [facility] [address] [place] [address] Bubba Erickson RN Social History [...] on file Legal Sex Male 4:35 AM HASSOCK MAKER Gender Identity Male 04/21/2023 9:16 AM HASSOCK MAKER Sexual Orientation Not on file documented as [...] COVID: Suspected 04/04/2023 04/04/2023 04/04/2023 5:43 AM HASSOCK MAKER Influenza, adult 04/04/2023 04/04/2023 04/11/2023 3:05 AM HASSOCK MAKER COVID: Suspected 01/27/2024 01/28/2024 01/28/2024 1:29 AM CDT documented as of this encounter Care Teams Fluoroscope Operator Relationship Specialty Start Date End Date Nishant Sr MD [address] [place] [id number] PCP - General 02/14/19 11/21/19 Izabela Louis MD [address] [place] [address] PCP - General 11/22/19 Syed Diggs MD Surgeon Colon and Rectal Surgery 09/30/18 Wesley Pichardo MD [address] [place] [address] Pain Management 09/30/18 Marilyn Schreiber MD [address] [place] [address] Radiation Oncologist Radiation Oncology 10/24/18 Sam Peralta MD PhD [address] [place] [address] [id number] Medical Oncologist/Battery Test Engineer Medical Oncology 05/14/22 02/08/24 documented as of this encounter
--- OUTSIDE RECORDS SUMMARY | 2024-08-26 05:32 | XMS_ITS | Clinical Summary ---
Author Organization [facility] [employer] Address [address] [place] [address] Care Team Providers Care Security Software Engineer Name Role Phone Izabela Louis MD Primary Care Provider Source Comments [facility] [employer],non-owned Affiliates and Associated Physician Practices is amultiple site organization consisting of ambulatory clinics and hospital sitesin [place], [place], [place] and [place]. This disclosure is being madepursuant to the Care Everywhere program and may not contain all information available regarding this patient. Last updated 17.[facility] [employer] Allergies Active Allergy Reactions Criticality Noted Date [...] times daily as needed 12/28/2019 Active SYMTUZA [id number] MG tablet Take by mouth once daily [...] Department Care Team Description 05/31/2024 10:34 PM CANAL BOAT CAPTAIN - 05/31/2024 10:57 PM CANAL BOAT CAPTAIN Emergency [facility] [address] [place] [address] Epigastric pain Discharge Disposition: Left Against Medical [...] on file Legal Sex Male 6:27 AM CANAL BOAT CAPTAIN Gender Identity Not on file Sexual Orientation Not on file Last Filed Vital Signs Vital Sign Reading Time Taken Comments Blood Pressure 133/67 05/31/2024 5:03 PM CANAL BOAT CAPTAIN Pulse 67 05/31/2024 5:03 PM CANAL BOAT CAPTAIN Temperature 36.3 C (97.3 F) 05/31/2024 1:37 PM CANAL BOAT CAPTAIN Respiratory Rate 18 05/31/2024 5:03 PM CANAL BOAT CAPTAIN Oxygen Saturation 99% 05/31/2024 5:03 PM CANAL BOAT CAPTAIN Inhaled Oxygen Concentration - - Weight 86.2 kg (190 lb) 05/31/2024 11:07 AM CANAL BOAT CAPTAIN Height 180.3 cm (5' 11 ) 05/31/2024 11:07 AM CANAL BOAT CAPTAIN Body Mass Index 26.5 05/31/2024 11:07 AM CANAL BOAT CAPTAIN Plan of Treatment Health Maintenance Due Date [...] CARDIAC EKG ORDER 06/02/2024 12: [address] ABDOMEN PELVIS W CONTRAST STAT 05/31/2024 12:44 PM CANAL BOAT CAPTAIN Epigastric pain XR CHEST 2VW STAT 05/31/2024 11:38 AM CANAL BOAT CAPTAIN Epigastric pain EKG 12-LEAD Routine 05/31/2024 11:27 AM [employer]NAL BOAT CAPTAIN Epigastric pain TROPONIN-I HIGH SENSITIVE BASELINE + 1HR STAT 05/31/2024 11:27 AM CANAL BOAT CAPTAIN LIPASE BLOOD STAT 05/31/2024 11:27 AM CANAL BOAT CAPTAIN LACTIC ACID BLOOD REFLEX TO REPEAT Timed 05/31/2024 11:27 AM CANAL BOAT CAPTAIN COMPREHENSIVE METABOLIC PANEL STAT 05/31/2024 11:27 AM CANAL BOAT CAPTAIN CBC W AUTO DIFFERENTIAL STAT 05/31/2024 11:27 AM CANAL BOAT CAPTAIN LIPID PROFILE STAT 05/15/2024 1:28 AM CANAL BOAT CAPTAIN Left-sided weakness Aphasia from Last 3 Months or Most Recently Relevant to Health Maintenance Results * CARDIAC EKG ORDER (06/02/2024 12:31 PM CANAL BOAT CAPTAIN) Narrative 06/02/2024 12:31 PM CANAL BOAT CAPTAIN Ordered by an unspecified provider. us Scanned Document CARDIAC SERVICES ORDERABLES Fin al Result * CT Abdomen Pelvis W Contrast (05/31/2024 12:44 PM CANAL BOAT CAPTAIN) Anatomical Region Laterality Modality Abdomen, Pelvis Computed Tomogra phy 05/31/2024 12:5 7 PM CANAL BOAT CAPTAIN Impressions 05/31/2024 1:02 PM CANAL BOAT CAPTAIN IMPRESSION: No acute findings in the abdomen or pelvis. Grossly unremarkable CT examination. > Interpreting Provider: Jerilyn Jeffrey MD on 05/31/2024 1:02 PM Narrative 05/31/2024 1:02 PM CANAL BOAT CAPTAIN PROCEDURE: CT ABDOMEN PELVIS W CONTRAST DATE/TIME [...] * XR Chest 2Vw (05/31/2024 11:38 AM CANAL BOAT CAPTAIN) Anatomical Region Laterality Modality Chest Digital Radiogra phy 05/31/2024 11:3 9 AM CANAL BOAT CAPTAIN Narrative 05/31/2024 12:01 PM CANAL BOAT CAPTAIN PROCEDURE: XR CHEST 2VW, DATE/TIME OF EXAM: 05/31/2024 11:39 AM, LOCATION [facility] INDICATION: R10.13: Epigastric pain ADDITIONAL CLINICAL [...] air. Report dictated by Myesha Arriaga MD, (Chemical Process Analyst). Mónica Forman MD have personally reviewed and interpreted this examination/study. > Interpreting Provider: Mónica Ferrell MD on 05/31/2024 12:01 PM Procedure Note Mónica Ferrell MD - 05/31/2024 PROCEDURE: XR CHEST 2VW, DATE/TIME OF EXAM: 05/31/2024 11:39 AM, LOCATION [facility] INDICATION: R10.13: Epigastric pain ADDITIONAL CLINICAL [...] air. Report dictated by Myesha Arriaga MD, (Chemical Process Analyst). Mónica Forman MD have personally reviewed and interpreted this examination/study. > Interpreting Provider: Mónica Ferrell MD on 05/31/2024 12:01 PM Mehrdad Asencio MD DIAGNOSTIC IMAGING ORDERABLES Fi nal Result * EKG 12-LEAD (05/31/2024 11:27 AM CANAL BOAT CAPTAIN) Ventricular Rate 88 BPM [facility] Atrial Rate 88 BPM [facility] P-R Interval 134 ms [facility] QRS Duration ms 82 ms [facility] Q-T Interval ms 368 ms [facility] QTC Calculation (Bezet) 445 ms [facility] Calculated P [place] 77 degrees [facility] Calculated R [place] 60 degrees [facility] Calculated T [place] 59 degrees [facility] Interpretation EKG NORMAL SINUS RHYTHM RIGHT ATRIAL ENLARGEMENT NONSPECIFIC ST ABNORMALITY ABNORMAL ECG WHEN COMPARED WITH ECG OF 08-DEC-2020 04:13, T WAVE INVERSION NO LONGER EVIDENT IN INFERIOR LEADS Confirmed by BRITTANY HOGAN MD ([id number]) on 05/31/2024 4:58:52 PM [facility] MUSE 05/31/2024 11:2 7 AM CANAL BOAT CAPTAIN 05/31/2024 4:58 PM CANAL BOAT CAPTAIN Mehrdad Asencio MD ECG ORDERABLES Edited Result - Final Performing Organization Address [facility] Co de Phone Number [facility] * LACTIC ACID BLOOD REFLEX TO REPEAT (05/31/2024 11:27 AM CANAL BOAT CAPTAIN) Pathologist [facility] Lactic Acid-Stat 1.6 <=2.0 mmol/L 05/31/2024 12:14 PM CANAL BOAT CAPTAIN [facility] Blood BLOOD SPECIMEN / Unknown Venipuncture / Unknown 05/31/2024 11:27 AM CANAL BOAT CAPTAIN 05/31/2024 11:47 AM CANAL BOAT CAPTAIN Mehrdad Asencio MD LAB - CHEMISTRY ORDERABLES Final Result Performing Organization Address [facility] de Phone Number [address] [address], [place] [phone] * TROPONIN-I HIGH SENSITIVE BASELINE + 1HR (05/31/2024 11:27 AM CANAL BOAT CAPTAIN) Pathologist [facility] Troponin I High Sensitive <3 <=35 ng/L 05/31/2024 12:23 PM CANAL BOAT CAPTAIN [facility] Blood BLOOD SPECIMEN / Unknown Venipuncture / Unknown 05/31/2024 11:27 AM CANAL BOAT CAPTAIN 05/31/2024 11:47 AM CANAL BOAT CAPTAIN Mehrdad Asencio MD LAB - CHEMISTRY ORDERABLES Final Result Performing Organization Address [facility] Co de Phone Number [address] [address], [place] [phone] * (ABNORMAL) CBC W AUTO DIFFERENTIAL (05/31/2024 11:27 AM [facility]) WBC 6.0 4.0 - 10.7 x10E9/L 05/31/2024 11:53 AM [facility] RBC Count 3.75(L) 4.30 - 5.80 x10E12/L 05/31/2024 11:53 AM [facility] Hemoglobin 12.4(L) 13.3 - 17.5 g/dL 05/31/2024 11:53 AM [facility] Hematocrit 34.5(L) 38.7 - 51.1 % 05/31/2024 11:53 AM [facility] MCV 92.0 80.0 - 98.0 fL 05/31/2024 11:53 AM [facility] MCH 33.1 26.7 - 33.6 pg 05/31/2024 11:53 AM [facility] MCHC 35.9 31.7 - 36.3 g/dL 05/31/2024 11:53 AM [facility] RDW-CV 11.8 11.3 - 14.8 % 05/31/2024 11:53 AM [facility] Platelet Count 239 150 - 420 x10E9/L 05/31/2024 11:53 AM [facility] MPV 9.1 7.8 - 11.4 fL 05/31/2024 11:53 AM [facility] Neutrophil % 74.9(H) 41.0 - 74.0 % 05/31/2024 11:53 AM [facility] Lymphocyte % 19.8 17.0 - 47.0 % 05/31/2024 11:53 AM [facility] Monocyte % 4.5 3.0 - 11.0 % 05/31/2024 11:53 AM [facility] Eosinophil % 0.2 0.0 - 7.0 % 05/31/2024 11:53 AM [facility] Basophil % 0.3 0.0 - 1.6 % 05/31/2024 11:53 AM [facility] Immature Granulocytes % 0.3 0.0 - 1.0 % 05/31/2024 11:53 AM [facility] Neutrophil Absolute 4.45 1.60 - 7.50 x10E9/L 05/31/2024 11:53 AM [facility] Lymphocyte Absolute 1.18 1.00 - 4.40 x10E9/L 05/31/2024 11:53 AM [facility] Monocyte Absolute 0.27 0.15 - 1.00 x10E9/L 05/31/2024 11:53 AM [facility] Eosinophil Absolute 0.01 0.00 - 0.60 x10E9/L 05/31/2024 11:53 AM [facility] Basophil Absolute 0.02 0.00 - 0.13 x10E9/L 05/31/2024 11:53 AM [facility] Blood BLOOD SPECIMEN / Unknown Venipuncture / Unknown 05/31/2024 11:27 AM [facility] 05/31/2024 11:47 AM [facility] us Mehrdad Asencoi MD LAB - HEMATOLOGY ORDERABLES Mallory brasher Result Performing Organization Address City/State/[facility] Co de Phone Number [facility] [address] [place] [phone], [facility] [phone] * (ABNORMAL) COMPREHENSIVE METABOLIC PANEL (05/31/2024 11:27 AM [facility]) BUN 8 7 - 26 mg/dL 05/31/2024 12:19 PM [facility] Creatinine 1.15 0.71 - 1.16 mg/dL 05/31/2024 12:19 PM [facility] Sodium 132(L) 136 - 145 mmol/L 05/31/2024 12:19 PM [facility] Potassium 4.3 3.5 - 4.5 mmol/L 05/31/2024 12:19 PM [facility] Chloride 98 98 - 107 mmol/L 05/31/2024 12:19 PM [facility] CO2 25 22 - 29 mmol/L 05/31/2024 12:19 PM [facility] Glucose 109(H) 70 - 99 mg/dL 05/31/2024 12:19 PM [facility] Calcium 9.7 8.4 - 10.2 mg/dL 05/31/2024 12:19 PM [facility] Protein Total 8.4(H) 6.0 - 8.3 g/dL 05/31/2024 12:19 PM [facility] Albumin 4.4 3.4 - 5.0 g/dL 05/31/2024 12:19 PM [facility] Bilirubin Total 0.8 0.2 - 1.2 mg/dL 05/31/2024 12:19 PM [facility] Alkaline Phosphatase 110 40 - 150 U/L 05/31/2024 12:19 PM [facility] ALT 16 5 - 55 U/L 05/31/2024 12:19 PM [facility] AST 24 5 - 34 U/L 05/31/2024 12:19 PM [facility] Anion Gap 9 6 - 16 05/31/2024 12:19 PM [facility] BUN/Creatinine Ratio 7 7 - 23 05/31/2024 12:19 PM [facility] Osmolality Calculated 273(L) 275 - 295 mOsm/kg 05/31/2024 12:19 PM [facility] Albumin/Globulin Ratio 1.1 1.1 - 2.3 05/31/2024 12:19 PM [facility] eGFR by CKD-EPI 81(L) >=90 mL/min/1.7 3 m2 05/31/2024 12:19 PM [facility] Blood BLOOD SPECIMEN / Unknown Venipuncture / Unknown 05/31/2024 11:27 AM [facility]NAL BOAT CAPTAIN 05/31/2024 11:47 AM [facility] Mehrdad Asencio MD LAB - CHEMISTRY ORDERABLES Final Result [facility] [address] [place] [phone], [facility] [phone] * LIPASE BLOOD (05/31/2024 11:27 AM [facility]) Lipase 19 8 - 78 U/L 05/31/2024 12:19 PM [facility] Blood BLOOD SPECIMEN / Unknown Venipuncture / Unknown 05/31/2024 11:27 AM [employer]NAL BOAT CAPTAIN 05/31/2024 11:47 AM CANAL BOAT CAPTAIN Narrative [facility] - 05/31/2024 12:19 PM CANAL BOAT CAPTAIN Lipase results from the Juan Alinity analyzer may not be comparable with other methodologies. Mehrdad Asencio MD LAB - CHEMISTRY ORDERABLES Final Result Performing Organization Address [facility]/ZIP Co de Phone Number [address] [address], [place] [phone] * (ABNORMAL) LIPID PROFILE (05/15/2024 1:28 AM [facility]) [facility] Cholesterol Total 184 <200 mg/dL 05/15/2024 2:41 AM [facility] HDL 35(L) >40 mg/dL 05/15/2024 2:41 AM [facility] Comment: ATP III Classification of HDL Cholesterol: <40 mg/dL: Considered a major risk factor. >60 mg/dL: Considered a negative risk factor. LDL Calculated 114(H) <100 mg/dL 05/15/2024 2:41 AM [facility] Comment: ATP III Classification of LDL Cholesterol: <100 mg/dL: Optimal 100 - 129 mg/dL: Near Optimal/Above Optimal 130 - 159 mg/dL: Borderline High 160 - 189 mg/dL: High >190 mg/dL: Very High Triglycerides 173(H) <150 mg/dL 05/15/2024 2:41 AM [facility] Comment: ATP III Classification of Triglycerides: <150 mg/dL: Normal 150 - 199 mg/dL: Borderline High 200 - 400 mg/dL: High >500 mg/dL: Very High Blood BLOOD SPECIMEN / Unknown Venipuncture / Unknown 05/15/2024 1:28 AM [employer]NAL BOAT CAPTAIN 05/15/2024 2:10 AM CANAL BOAT CAPTAIN Nolberto Varela MD LAB - CHEMISTRY ORDERABLES Final Result Performing Organization Address [facility]/ZIP Co de Phone Number [address] [address], [place] [phone] from Last 3 Months or Most Recently Relevant to Health Maintenance Insurance MEDICARE MEDICARE MEDICAID - [place] Advance Directives * Full Code (Latest Code Status on File) Date Activated Date Inactivated Comments 05/15/2024 12:03 AM 05/15/2024 10:23 AM * Full Code Date Activated Date Inactivated Comments 12/08/2020 5:15 AM 12/10/2020 5:37 PM Care Teams Security Software Engineer Relationship Specialty Start Date End Date Izabela Louis MD [address] [place], [place] [phone] PCP - General Internal Medicine 05/31/24
--- OUTSIDE RECORDS SUMMARY | 2024-08-26 05:32 | XMS_ITS | Continuity of Care Document ---
Author Organization [facility] Address [address] [place] [address] [address] [place] [address] Phone Care Team Providers Care Trust Officer Name Role Phone Tammy Matos Unavailable Unavailable Procedures Procedure Date Office/outpatient Visit, Est Eye Exam & Treatment Advance Directives Directive Yes / No Effective Date File Name No Information Encounters Encounter Description Practice Location Reason(s) For Visit Diagnoses Date Provider Providers Copied on Encounter Office/outpat ient Visit, Est [facility], [address] [place] [address] [address], [place], [place], [id number], tel:[phone] [facility] No Information 2-[address] Shawna Munoz. [address] , [address], [place], [place], [facility], . tel:[phone] [facility], [address] [place] [address] [address], [place], [place], [id number], tel:[phone] [facility] No Information 2-[address] Shawna Munoz. [address] , [address], [place], [address], [place]. tel:[phone] Family History Family Member Type Diagnosis Age At Onset No Information Payers Payer name Insurance type Covered green party ID Authoriza tion(s) Medicare [facility] [id number] Social History Type Description Quantity Date Captured [...]
[2024-08-26 06:16] LABS: Basophils Percent Auto 0.5 % (0.2-1.2); Eosinophils Percent Auto 0.7 % (0-4.4); Hematocrit 35.4 % (42.0-52.0); Hemoglobin 12.1 g/dL (14.0-18.0); Immature Granulocyte Absolute 0.01 K/mm3 (0.00-0.031); Immature Granulocyte Percent A 0.2 % (0-0.5); Lymphocytes Absolute Auto 2.48 K/mm3 (0.9-3.2); Lymphocytes Percent Auto 41.3 % (18.3-44.2); Mean Corpuscular HGB Conc 34.2 g/dl (32-36); Mean Corpuscular Hemoglobin 32.7 pg (26-34); Mean Corpuscular Volume 95.7 fl (80-100); Mean Platelet Volume 8.8 fl (7.4-10.4); Monocytes Absolute Auto 0.5 K/mm3 (0.1-0.6); Monocytes Percent Auto 8.7 % (2.6-8.5); Neutrophils Absolute Auto 2.9 K/mm3 (1.3-6.7); Neutrophils Percent Auto 48.6 % (45.5-73.1); Platelet Count Result 235 k/mm3 (150-375); Red Cell Distribution Width 12.9 % (11.5-14.5)
[2024-08-26 06:26] LABS: Ethanol < 10 mg/dL (<10)
[2024-08-26 06:28] LABS: Alanine Aminotransferase 22 U/L (6-50); Albumin Level 4.7 g/dL (3.5-5.1); Alkaline Phosphatase 104 U/L (38-126); Anion Gap 10 mmol/L (4-12); Aspartate Amino Transferase 35 U/L (17-59); Bilirubin,Total 0.8 mg/dL (0.2-1.3); Blood Urea Nitrogen 13 mg/dL (9-20); Calcium 9.1 mg/dL (8.4-10.2); Carbon Dioxide 26 mmol/L (22-30); Chloride 105 mmol/L (98-107); Estimated CRCL calculation 71 ml/min; Estimated Glomerular Filt Rate > 60; Glucose 97 mg/dL (65-110); Potassium 3.2 mmol/L (3.4-5.0); Sodium 141 mmol/L (137-145)
[2024-08-26] MEDS: POTASSIUM BICARBONATE 25 MEQ TABEF PO (07:02)
[2024-08-26 07:04] VITALS: BP 140/86; PULSE 61; RESP 15; O2SAT 98
[2024-08-26 07:04] LABS: Magnesium 2.1 mg/dL (1.6-2.3)
[2024-08-26 07:08] LABS: Add Urine Microscopic? YES; Appearance Urine Clear (Clear); Bacteria Urine None Seen /hpf; Bilirubin Urine Negative (Negative); Blood Urine 1+ (Negative); Color Urine Yellow (Yellow); Glucose Urine UA Negative (Negative); Ketones Urine Negative (Negative); Leukocyte Esterase Ur Negative LEU/UL (Negative); Nitrate Urine Negative (Negative); Non Pathogenic Casts 0-2; Protein Urine Negative (Negative); RBC Urine 0-2 /hpf (0-2); Specific Grav Ur 1.006 (1.001-1.035); Squamous Epithelial Cell Urine None Seen /hpf (Few); Urobilinogen Urine 0.2 mg/dL (<2.0); WBC Urine 0-5 /hpf (0-3); pH Urine 6.5 (5.0-9.0)
[2024-08-26 07:42] LABS: Amphetamine Screen Urine Negative (Negative); Barbiturate Screen Urine Negative (Negative); Benzodiazepines Screen Urine Negative (Negative); Cannabinoid Screen Urine Negative (Negative); Cocaine Screen Urine Negative (Negative); Methadone Screen Urine Positive (Negative); Opiate Screen Urine Negative (Negative); Phencyclidine Screen Urine Negative (Negative)
--- NOTE | 2024-08-26 07:49 | ECG_ITS ---
Test Date: 2024-08-26 08:36:46 Measurements Intervals [place] Rate: 59 P: 57 SC: 142 QRS: 50 QRSD: 97 T: 49 QT: 452 QTc: 451 Interpretive Statements SINUS RHYTHM Compared to ECG 06/17/2024 11:13:31 Short SC interval no longer present T-wave abnormality no longer present Electronically Signed On 08-26-2024 17:14:25 CDT by Bishop Goodrich M.D.
[2024-08-26 08:23] LABS: Troponin I < 0.012 ng/mL (0.000-0.034)
[2024-08-26 08:33] VITALS: BP 145/86; PULSE 59; RESP 20; O2SAT 99
--- NOTE | 2024-08-26 08:33 | PC.NURSE ---
Dr. Singh at bedside talking with pt.
[2024-08-26] MEDS: ASPIRIN 81 MG CHEWABLE TABLET 324 MG PO (08:40)
[2024-08-26] MEDS: HYDROmorphone HCL INJ (*CRX) 2 MG/ML VIAL 0.5 MG IV PUSH (08:41)
[2024-08-26 10:00] VITALS: BP 135/72; PULSE 60; RESP 16; O2SAT 97
[2024-08-26] MEDS: DICYCLOMINE HCL 10 MG CAPSULE PO (10:22)
--- NOTE | 2024-08-26 10:23 | PC.NURSE ---
Pt. educated that he cannot drive d/t receiving Dilaudid. Pt. is A&Ox4 and verbalized understanding. Pt. states he will have somebody pick him up from ER.
== END 2024-08-26 10:45 | disposition home or self-care (01) ==
PROVIDERS: Emergency Provider Student in an Organized Health Care Education/Training Program; PCP Internal Medicine Infectious Disease
DX: R33.9 Retention of urine, unspecified (principal); D64.9 Anemia, unspecified; E87.6 Hypokalemia; N32.89 Other specified disorders of bladder; N13.4 Hydroureter; N13.30 Unspecified hydronephrosis; Z85.048 Personal history of other malignant neoplasm of rectum, rectosigmoid junction, and anus; Z79.891 Long term (current) use of opiate analgesic; Z21 Asymptomatic human immunodeficiency virus [HIV] infection status
CPT/HCPCS: 36415; 71046; 74177; 80053; 80307; 81001; 82077; 83735; 84484; 85025; 93005; 96374; 99284; A9270; J1171; Q9967

== ENCOUNTER 2024-10-11 18:14 | Emergency (ER) | payer MEDICARE, MEDICAID, SELFPAY ==
--- OUTSIDE RECORDS SUMMARY | 2024-10-11 18:16 | XMS_ITS | Clinical Summary ---
Author Organization [facility] Address [address] [place] [address] Care Team Providers Care Cot Assembler Name Role Phone Syed Diggs MD Unavailable [phone] Wesley Pichardo MD Unavailable [phone] Marilyn Schreiber MD Unavailable [phone] Izabela Louis MD Primary Care Provider Allergies [...] 01/23/202 3 Active True Metrix Glucose Meter [facility] USE TO TEST BLOOD SUGAR ONCE DAILY 2 Active Symtuza [phone] mg tablet Take 1 tablet by mouth [...] 04/06/2023 Assessment & Plan (04/06/2023 1:44 PM MECHANICAL DESIGN ENGINEER): Required 2L O2 support since admission CXR no evidence of pneumonia or atelectasis Now weaned to room air - Perform home O2 evaluation prior to discharge - Management of influenza as described elsewhere Macrocytic anemia 04/06/2023 Assessment & Plan (04/06/2023 1:49 PM MECHANICAL DESIGN ENGINEER): Recent labs with low B12 and low folate Hb stable - Continue supplement with B12 and folate daily Verruca vulgaris 04/05/2023 Assessment & Plan (04/06/2023 1:36 PM MECHANICAL DESIGN ENGINEER): Follows with [facility] - Continue home Imiquimod 5% cream to warts x3/weekly. Pt not to touch eyes following application. Influenza 04/04/2023 Assessment & Plan (04/06/2023 1:46 PM MECHANICAL DESIGN ENGINEER): Reports fatigue, febrile episodes at home Tmax [...] 04/04/2023 Assessment & Plan (04/06/2023 1:45 PM MECHANICAL DESIGN ENGINEER): Cr 1.5 up from baseline of ~1 Likely prerenal from poor po intake in setting of influenza Resolved with IVF, PO intake - Encourage to continue adequate hydration and food intake at home as he is recovering from influenza - Avoid nephrotoxins Chronic pain syndrome 04/04/2023 Assessment & Plan (04/06/2023 1:58 PM MECHANICAL DESIGN ENGINEER): Seems to be on both methadone and percocet at home Continue home doses of methadone 5 mg BID and oxy 10 q4 prn Other urethral stricture, male, unspecified site 03/24/2023 B12 deficiency 02/17/2023 Inflammation of the rectum 09/13/2020 Overview (09/13/2020): Added automatically from request for surgery [id number] Chronic rectal pain 09/13/2020 Overview (09/13/2020): Added automatically from request for surgery [id number] Squamous cell carcinoma of rectum 09/13/2020 Overview (09/13/2020): Added automatically from request for surgery [id number] Screening for malignant neoplasm of colon 2020 Overview (07/30/2020): Added automatically from request for surgery [id number] ASTER (acute kidney injury) 12/01/2019 Assessment & [...] 03/01/2019 Assessment & Plan (03/02/2019 4:40 PM MECHANICAL DESIGN ENGINEER): Cr was 1.13 on admission and peaked to 1.41 03/01 likely in the setting of IV abx. Supported with IVFS and stopped IV abx. Cr 1.12 Skin breakdown to perianal region 02/28/2019 Assessment & Plan (03/01/2019 1:12 PM MECHANICAL DESIGN ENGINEER): Skin breakdown noted on exam between gluteal [...] 02/28/2019 Assessment & Plan (03/02/2019 4:45 PM MECHANICAL DESIGN ENGINEER): Likely 2/2 current XRT. Patient has diarrhea at baseline. -Will send c.diff, stool studies to r/o infection -cIVFs to maintain hydration -diarrhea started again the evening of 03/01, send c.diff -k 3.2 in setting of diarrhea, supplemented Pancytopenia 02/27/2019 Assessment & Plan (12/01/2019 10:29 PM CDT): has been pancytopenic since chemotherapy, also with HIV Assessment & Plan (03/02/2019 4:38 PM MECHANICAL DESIGN ENGINEER): In setting of chemotherapy 02/13- and XRT. -WBC 1.0, ANC 500 -H/H 8.5/23.4 on admission -PLT 3K on admission, s/p 1 unit, with appropriate bump to 16K -Will transfuse PLTs to keep > 10K, will likely need again as plt 13 today (denies blood nose/bm) -hgb 7.5, lorenzo transfuse 1 unit in setting of overall fatigue Assessment & Plan (02/27/2019 11:25 PM MECHANICAL DESIGN ENGINEER): - likely 2/2 recent chemo - transfuse 1 unit plt with post transfusion cbc - maintain type and screen - consent in chart Transaminitis 02/17/2019 Assessment & Plan (02/18/2019 1:05 PM MECHANICAL DESIGN ENGINEER): New onset 02/17 w/ t.bili 1, Alk Phos 181, AST 389, ALT 227. Previously normal. - Suspect drug-induced likely I/s/o recently initiated chemotherapy - consider also fluconazole vs biktarvy (these are not new prescriptions but concerns of compliance pre-hospitalization) vs recently initiated MSContin Down-trending today, plan to d/c Severe malnutrition 02/14/2019 Assessment & Plan (03/02/2019 4:44 PM MECHANICAL DESIGN ENGINEER): -encourage high protein diet. Assessment & Plan (02/16/2019 11:14 AM MECHANICAL DESIGN ENGINEER): Pt has had significant weight loss & poor PO intake. 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 - s/p treatment with atovaquone (rash to dapsone was, no G6PD) Encounter for antineoplastic chemotherapy 2018 Assessment & Plan (02/18/2019 1:04 PM MECHANICAL DESIGN ENGINEER): Admitted for C1 Mitomycin and 5-FU with [...] 02/13/2019 Assessment & Plan (02/15/2019 1:32 PM MECHANICAL DESIGN ENGINEER): Noted history of CKD3 with peak Cr in medical record to 2.5. Previously followed with nephrology though not in last couple years. Cr now WNL with adequate UO. - Monitor CMP daily, daily weights, and I&O Nicotine dependence 02/13/2019 Assessment & Plan (02/28/2019 1:13 PM MECHANICAL DESIGN ENGINEER): Will administer Nicotine patches in house Assessment & Plan (02/15/2019 1:35 PM MECHANICAL DESIGN ENGINEER): Current every day smoker. - Nicotine 21 mg patch daily - Encourage smoking cessation Anal cancer 10/17/2018 Assessment & Plan (04/06/2023 1:47 PM MECHANICAL DESIGN ENGINEER): S/p chemoradiation Currently in remission - Continue [...] QID Assessment & Plan (03/01/2019 1:06 PM MECHANICAL DESIGN ENGINEER): Patient of Dr. Peralta. S/p C1 mitomycin/5FU 02/13- with concurrent radiation. -Will continue XRT inpatient -Due for chemo on week 5 (~03/13/19) -Due to profound pancytopenia s/p chemo, will send out labwork to check deficiency in dihydropyrimidine dehydrogenase (DPD) per outpatient team 03/01 (has to be in pink tube) Assessment & Plan (02/27/2019 11:21 PM MECHANICAL DESIGN ENGINEER): - s/p C1 mitomycin/5FU 02/13- with concurrent radiation - pain control with MSContin 30 BID + oxycodone PRN Assessment & Plan (02/18/2019 12:52 PM MECHANICAL DESIGN ENGINEER): Diagnosed 09/23/2018, [id number]. Followed by Dr. Peralta. Treatment delayed 2/2 insurance issues. - Admitted for C1 mitomycin + 5FU w/ concurrent radiation (planned 28 fx) - first RT 02/13. C1 complete. Will follow up with xrt outpatient and with Dr. Peralta for C2 in a few weeks Tolerated treatment well Human immunodeficiency virus (HIV) disease 10/17 Assessment & Plan (04/06/2023 1:48 PM MECHANICAL DESIGN ENGINEER): Last CD4 148, [place] [id number] - Continue Symtuza - Continue atovaquone 1500 mg daily for PCP ppx - Ensure close f/u with local ID Dr. Louis Assessment & Plan (12/01/2019 10:28 PM CDT): last CD4 79, HIV VL [id number] 07/2019 - repeat CD4, HIV RNA; continue Biktarvy, continue fluconazole (patient endorses is suppressive therapy after previous crypto infection) Assessment & Plan (02/28/2019 12:45 PM MECHANICAL DESIGN ENGINEER): Follows with Dr. Louis. Last CD4 153, VL 464K 10/2018. -Continue home biktarvy -Hx of crypto meningitis, continue suppressive fluconazole Assessment & Plan (02/27/2019 11:23 PM MECHANICAL DESIGN ENGINEER): - continue home biktarvy - hx of crypto meningitis, continue suppressive fluconazole Assessment & Plan (02/18/2019 1:12 PM MECHANICAL DESIGN ENGINEER): Most recent 10/19 CD4 153, VL 465k. [...] 08/12/2018 Assessment & Plan (02/15/2019 1:32 PM MECHANICAL DESIGN ENGINEER): History of crypto meningitis; unclear what year [...] elsewhere Assessment & Plan (03/02/2019 4:39 PM MECHANICAL DESIGN ENGINEER): Patient reports rectal pain. In setting of anal cancer and current XRT. Follows with pain management outpatient, Dr. Pichardo. -On exam, there is skin breakdown between gluteal muscles > c/s wound care for wound management -Home pain regimen: MSContin 30mg BID, Gabapentin 600mg QID, Requip 1mg qpm, [place] 10/325 q6hprn, Baclofen 20mg TID prn Assessment & Plan (02/17/2019 12:10 PM MECHANICAL DESIGN ENGINEER): Follows with pain management (Dr. Pichardo) outpatient [...] 04/06/2023 Assessment & Plan (04/04/2023 9:55 AM MECHANICAL DESIGN ENGINEER): -recent labs with low B12 and low folate -supplement with B12 and folate daily Hyponatremia 02/27/2019 04/06/2023 Assessment & Plan (04/05/2023 4:32 PM MECHANICAL DESIGN ENGINEER): -Resolved s/p IVF bolus Assessment & Plan (02/28/2019 12:46 PM MECHANICAL DESIGN ENGINEER): Na 127 on admit. Likely 2/2 dehydration related to diarrhea. -S/p 1L NS bolus x 2 -Na improving, 135 today -Will CTM Assessment & Plan (02/27/2019 11:24 PM MECHANICAL DESIGN ENGINEER): - 2/2 dehydration liked related to diarrhea. Urine sodium < 20, Na improving with NS - additional 1L NS overnight, repeat BMP in AM Neutropenic fever 02/27/2019 02/07/2024 Assessment & Plan (03/01/2019 12:53 PM MECHANICAL DESIGN ENGINEER): Patient admitted from [facility], where he reported chills with Tmax 38. Found to be neutropenic and was briefly hypotensive in [facility]. -Infectious workup: Blood cultures x [...] days Assessment & Plan (02/27/2019 11:26 PM MECHANICAL DESIGN ENGINEER): - chills, Tmax 38, neutropenic and was briefly hypotensive in [facility] - blood cultures pending - f/u urine culture - CXR clear - f/u GC/CT - continue vanc/cefe Anal warts 09/09/2018 12/01/2019 Overview (09/09/2018): Added automatically from request for surgery [id number] Encounters Date Type Department Care Team Description 09/08/2024 10:00 AM CDT Office Visit [facility] ([facility]) - [facility] Urology [address] [place] [address] 11th [place] [address] Norman Schneider MD Stricture of bulbous urethra in male, unspecified stricture type (Primary Dx); Pelvic floor dysfunction 08/14/2024 3:00 PM CDT Office Visit [facility] - [facility] Urology [address] [place] [address] [place] [address] Stricture of bulbous urethra in male, unspecified stricture type (Primary Dx) 08/07/2024 3:08 PM CDT Anesthesia Event [facility] Operating Room [address] [place] [address] Leonor Jamison, DO Chavira, Michaela Mayer, KALPANA 08/07/2024 3:07 PM CDT - 08/07/2024 4:27 PM CDT Surgery [facility] Operating Room [address] [place] [address] Norman Schneider MD OPTILUME URETHRAL DILATION 08/07/2024 11:46 AM CDT - 08/07/2024 6:00 PM CDT Hospital Encounter [facility] Operating Room [address] [place] [address] Norman Schneider MD Stricture of bulbous urethra in male, unspecified stricture type [N35.912] (Primary Dx) Discharge Disposition: Discharge to home or self care 08/04/2024 10:20 AM CDT Office Visit [facility] ([facility]) - [facility] Urology [address] [place] [address] [facility] 11th [place] [address] Norman Schneider MD Stricture of bulbous urethra in male, unspecified stricture type (Primary Dx) 08/04/2024 Telephone [facility] ([facility]) - [facility] Urology [address] [facility] 11th [place] [address] [place] [address] Annel Herr, STAMP PAD MAKER 08/01/2024 Telephone Center [facility] ([facility]) - [facility] Urology [address] [facility] 11th [place] [address] [place] [address] Annel Herr, STAMP PAD MAKER 08/[facility] Community Health Worker [address] [facility] [address] [place] [address] Charlotte Coombs 07/31/2024 5:16 PM CDT - 07/31/2024 11:28 PM CDT Emergency [facility] Emergency Department [address] [place] [address] Ioana Ybarra MD Urinary retention with incomplete bladder emptying (Primary Dx) Discharge Disposition: Discharge to home or self care 07/25/2024 Results Follow-Up [facility] General Neurology [address] [facility] 6th Floor [address] [place] [phone] Cosme Stafford Jr., MD Treponemal IgG/IgM Blood, RPR Blood, Vitamin B12, Additional followed-up results: 8 07/21/2024 12:20 PM CDT Lab [facility]) [address] [place] [id number] Memory loss 07/21/2024 10:30 AM CDT Office Visit [facility] Neurology [address] [facility] 6th [place] [address] [place] [id number] Cosme Stafford Jr., MD Memory loss (Primary [...] on file Legal Sex Male 4:35 AM MECHANICAL DESIGN ENGINEER Gender Identity Male 04/21/2023 9:16 AM MECHANICAL DESIGN ENGINEER Sexual Orientation Not on file Obstetrics History [...] 12/04/2020, 10/18/2020, Additional history exists Influenza Vaccine (#1) 2024 2, 03/05/2021, 02/03/2019, Additional history exists Lipid Panel [...] Procedure Name Priority Date/Time Associated Diagnosis Comments MEASURE POST VOID RESIDUAL Routine 09/08/2024 10:05 AM CDT Stricture of bulbous urethra in male, unspecified stricture type FL FLUOROSCOPY < 1 HOUR IP Routine 08/07/2024 3:55 PM CDT MI AN PROCEDURE PLACEHOLDER Routine 08/07/2024 3:21 PM CDT MI AN ELECTIVE SUPRAGLOTTIC AIRWAY Routine 08/07/2024 3:21 [...] 07/21/2024 11: 26 AM CDT Memory loss TECHNICAL SUPERVISOR ANTIBODIES Routine 07/21/2024 11:26 AM CDT Memory [...] loss from Last 3 Months Results * Measure post void residual (09/08/2024 10:05 AM CDT) Narrative Mary Roberson CMA - 09/08/2024 10:05 AM CDT Measurement of post-voiding residual urine and/or bladder capacity by ultrasound, non-imaging. PVR = 0 ml Mary Roberson CMA Norman Schneider MD NURSING ASSESSMENTS Final Result * FL Fluoroscopy < 1 Hour (08/07/2024 3:55 PM CDT) Narrative [email or web address] - 08/07/2024 3:56 PM CDT The images from this study are not interpreted by Radiology. Please refer to the physician's procedure / OR operative note. Norman Schneider MD IMG FLUOROSCOPY PROCEDURE S Final Result Performing Organization Address City/State/[facility] Co de Phone Number [email or web address] * MI AN ELECTIVE SUPRAGLOTTIC AIRWAY, MI AN PROCEDURE PLACEHOLDER (08/07/2024 3:21 PM CDT) Michaela Balderas CRNA - 08/07/2024 3:21 PM CDT Michaela Chavira CRNA 08/07/2024 3:21 PM Airway Patient location: OR Urgency: elective Indications for airway management: anesthesia Difficult airway: no Staff: Supervising provider: Leonor Jamison DO Placed by: SMELLER: Michaela Chavira CRNA Emergent airway documentation: Risks [...] PVR = 595 ml Mary Roberson CMA us Norman Schneider MD NURSING ASSESSMENTS Final Result * Urinalysis reflex to microscopic and culture Urine (07/31/2024 8:48 PM CDT) Color, ur Straw Yellow Clarity, ur Clear Clear [facility] Specific gravity, ur 1.013 1.003 - 1.030 [facility] pH, urine 6.5 [facility] Comment: Interpretive Data U rine pH is affected by diet, medications, systemic acid-base disturbances, and renal tubular function. pH may affect urinary stone formation. For example, urine pH below 6.0 may help reduce the tendency for calcium phosphate stones and pH greater than 6.0 may reduce the tendency for uric acid stone formation. Source: [facility] Current Interpretive Data was last revised on 2017 Protein, ur ql Negative Negative [facility] Glucose, ur ql Negative Negative [facility] Ketones, ur Negative Negative [facility] Bilirubin, ur Negative Negative [facility] Blood, ur Negative Negative [facility] Urobilinogen, ur <2.0 <2.0 mg/dL [facility] Nitrite, ur Negative Negative [facility] Leukocyte esterase, ur Negative Negative [facility] UA reflex comment Reflex conditions for microscopic UA and culture not met. [facility] Urine 07/31/2024 8:48 PM CDT 07/31/2024 9:02 PM CDT us Ioana Ybarra MD LAB MICROBIOLOGY - GENERAL ORDERABLES Final Result [facility] [place] [address] * CT Abdomen Pelvis W Contrast (07/31/2024 [...] Ramonita Kay M.D. us Ioana Ybarra MD IM CT PROCEDURES Final Re sult * POCT creatinine (07/31/2024 6:05 PM CDT) Creatinine POC 1.3 0.8 - 1.3 mg/dL Blood 07/31/2024 6:05 PM CDT 07/31/2024 6:05 PM CDT Ioana Ybarra MD LAB POCT ORDERABLES - EDUARD CE Final Result [facility] [place] [address] * Sepsis Lactate w/ Reflex (07/31/2024 6:03 PM CDT) Sepsis Lactate 1.2 0.7 - 2.0 mmol/L Blood 07/31/2024 6:03 PM CDT 07/31/2024 6:11 PM CDT Ioana Ybarra MD LAB BLOOD ORDERABLES Final Result Performing Organization Address [facility] Co de Phone Number [facility] Department [place] [address] * eGFR (07/31/2024 6:03 PM CDT) eGFR [...] Ybarra MD LAB BLOOD ORDERABLES Final Result [facility] [place] [address] * Differential, auto (07/31/2024 6:03 PM CDT) Neutrophil abs 5.50 1.50 - 6.50 K/cumm Imm gran abs 0.03 0.00 - 0.10 K/cumm [facility] Lymphocyte abs 1.18 0.80 - 3.30 K/cumm [facility] Monocyte abs 0.32 0.20 - 0.80 K/cumm [facility] Eosinophil abs 0.01 0.00 - 0.50 K/cumm [facility] Basophil abs 0.01 0.00 - 0.10 K/cumm [facility] Neutrophil pct 78.2 % [facility] Comment: Interpretive Data Percent cell count reference ranges are not reported, since discordance with absolute values may lead to misinterpretation of CBC data. Current Interpretive Data was last revised on 2017. Imm gran pct 0.4 % [facility] Comment: Interpretive Data Percent cell count reference ranges are not reported, since discordance with absolute values may lead to misinterpretation of CBC data. Current Interpretive Data was last revised on 2017. Lymphocyte pct 16.7 % [facility] Comment: Interpretive Data Percent cell count reference ranges are not reported, since discordance with absolute values may lead to misinterpretation of CBC data. Current Interpretive Data was last revised on 2017. Monocyte pct 4.5 % [facility] Comment: Interpretive Data Percent cell count reference ranges are not reported, since discordance with absolute values may lead to misinterpretation of CBC data. Current Interpretive Data was last revised on 2017. Eosinophil pct 0.1 % [facility] Comment: Interpretive Data Percent cell count reference ranges are not reported, since discordance with absolute values may lead to misinterpretation of CBC data. Current Interpretive Data was last revised on 2017. Basophil pct 0.1 % [facility] Comment: Interpretive Data Percent cell count reference ranges are not reported, since discordance with absolute values may lead to misinterpretation of CBC data. Current Interpretive Data was last revised on 2017. Blood 07/31/2024 6:03 PM CDT 07/31/2024 6:17 PM CDT Ioana Ybarra MD LAB BLOOD ORDERABLES Final Result Performing Organization Address City/[facility]/ZIP Co de Phone Number [facility] [place] [address] * (ABNORMAL) CBC with auto differential (07/31/2024 6:03 PM CDT) WBC 7.05 3.80 - 9.90 K/cumm Hgb 12.3(L) 13.0 - 17.5 g/dL [facility] Hct 34.7(L) 38.9 - 50.3 % [facility] Plt 209 150 - 400 K/cumm [facility] MPV 9.5 9.1 - 12.3 fL [facility] RBC 3.77(L) 4.30 - 5.80 M/cumm [facility] MCV 92.0 81.3 - 96.4 fL [facility] MCH 32.6 27.1 - 33.3 pg [facility] MCHC 35.4 32.3 - 35.7 g/dL [facility] RDW CV 12.1 11.1 - 14.9 % [facility] RDW SD 40.9 35.7 - 48.1 fL [facility] NRBC abs 0.00 0.00 - 0.01 K/cumm [facility] Blood 07/31/2024 6:03 PM CDT 07/31/2024 6:17 PM CDT us Ioana Ybarra MD LAB BLOOD ORDERABLES Final Result Performing Organization Address City/[facility]/ZIP Co de Phone Number [facility] Department [place] [address] * Lipase (07/31/2024 6:03 PM CDT) Lipase 25 10 - 99 Units/L Blood 07/31/2024 6:03 PM CDT 07/31/2024 6:17 PM CDT us Ioana Ybarra MD LAB BLOOD ORDERABLES Final Result [facility] [place] [address] * (ABNORMAL) Comprehensive metabolic panel (07/31/2024 6:03 PM CDT) Pathologist [facility] Sodium 134(L) 135 - 145 mmol/L Potassium, pl 4.0 3.3 - 4.9 mmol/L [facility] Chloride 97 97 - 110 mmol/L [facility] CO2 29 22 - 32 mmol/L [facility] Anion gap 8 2 - 15 mmol/L [facility] BUN 8 6 - 25 mg/dL [facility] Creatinine 1.27 0.80 - 1.30 mg/dL [facility] Glucose 115 70 - 199 mg/dL [facility] Comment: Interpretive Data Fasting [...] 2022. Calcium 9.9 8.5 - 10.3 mg/dL [facility] Bilirubin, total 0.6 0.1 - 1.2 mg/dL [facility] Protein, pl 8.7(H) 6.5 - 8.5 g/dL [facility] Albumin 4.3 3.5 - 5.0 g/dL [facility] Alk phos 101 40 - 130 Units/L [facility] ALT 17 7 - 55 Units/L [facility] AST 40 10 - 50 Units/L [facility] Blood 07/31/2024 6:03 PM CDT 07/31/2024 6:17 PM CDT us Ioana Ybarra MD LAB BLOOD ORDERABLES Final Result Performing Organization Address [facility] de Phone Number [facility] [place] [address] * (ABNORMAL) Treponemal IgG/IgM Blood (07/21/2024 11:26 [...] GENERAL ORDERABLES Final Result Performing Organization Address [facility] [place] [address] * HOANG ab ql w/rflx to HOANG [...] ORDERABL ES Final Result Performing Organization Address [facility] de Phone Number [facility] [place] [address] * SCL 70 abs (07/21/2024 11:26 AM CDT) Anti-Scl70, IgG <0.2 <=0.9 Ab Index Comment: Interpretive Data Negative: < 1.0 Ab Index Positive: > or = 1.0 Ab Index Current interpretive data was last revised on 2016. Blood 07/21/2024 11:2 6 AM CDT 07/21/2024 12:41 PM CDT Cosme Stafford Jr., MD LAB BLOOD ORDERABL ES Final Result Performing Organization Address [facility] de Phone Number [facility] [place] [address] * Meza abs (07/21/2024 11:26 AM CDT) [facility] Anti-RAMONA, SM <0.2 <=0.9 Ab Index Comment: Interpretive Data Negative: < 1.0 Ab Index Positive: > or = 1.0 Ab Index Current interpretive data was last revised on 2016. Blood 07/21/2024 11:2 6 AM CDT 07/21/2024 12:41 PM CDT Cosme Stafford Jr., MD LAB BLOOD ORDERABL ES Final Result Performing Organization Address [facility] Co de Phone Number [facility] [place] [address] * (ABNORMAL) TECHNICAL SUPERVISOR abs (07/21/2024 11:26 AM CDT) TECHNICAL SUPERVISOR ab 4.0(H) <=0.9 Ab Index Comment: Interpretive Data Negative: < 1.0 Ab Index Positive: > or = 1.0 Ab Index Current interpretive data was last revised on 2016. Blood 07/21/2024 11:2 6 AM CDT 07/21/2024 12:41 PM CDT Cosme Stafford Jr., MD LAB BLOOD ORDERABL ES Final Result Performing Organization Address [facility] de Phone Number [facility] [place] [address] * (ABNORMAL) RAMONA ab eval w/reflex (07/21/2024 11:26 AM CDT) Pathologist [facility] RAMONA ab Positive( A) Negative Comment: Interpretive Data Positive Screens will be reflexed to specific testing for Antibodies against the following antigens: Emily-1 Ab, TECHNICAL SUPERVISOR Ab, Scl-70 Ab, Meza Ab, SS-A/Ro Ab, and SS- B/La Ab. Further testing for dsDNA, Centromere, or Ribosomal P antibodies is suggested in patient with a positive screen and negative specific antibodies. Current interpretive data was last revised on 2022. Blood 07/21/2024 11:2 6 AM CDT 07/21/2024 11:59 AM CDT Cosme Stafford Jr., MD LAB BLOOD ORDERABL ES Final Result Performing Organization Address [facility] de Phone Number [facility] Department [place] [address] * Emily-1 antibody (07/21/2024 11:26 AM CDT) Pathologist [facility] Emily 1 Antibody, IgG <0.2 <=0.9 Ab Index Comment: Interpretive Data Negative: < 1.0 Ab Index Positive: > or = 1.0 Ab Index Current interpretive data was last revised on 2016. Blood 07/21/2024 11:2 6 AM CDT 07/21/2024 12:41 PM CDT Cosme Stafford Jr., MD LAB BLOOD ORDERABL ES Final Result Performing Organization Address [facility] de Phone Number [facility] [place] [address] * RPR Blood (07/21/2024 11:26 AM CDT) RPR Nonreactive Nonreactive Blood 07/21/2024 11:2 6 AM CDT 07/21/2024 11:59 AM CDT Cosme Stafford Jr., MD LAB MICROBIOLOGY - GENERAL ORDERABLES Final Result Performing Organization Address [facility] [place] [address] * Sjogren's syndrome B ab (07/21/2024 11:26 AM CDT) Anti-RAMONA, SS-B <0.2 <=0.9 Ab Index Comment: Interpretive Data Negative: < 1.0 Ab Index Positive: > or = 1.0 Ab Index Current interpretive data was last revised on 2016. Blood 07/21/2024 11:2 6 AM CDT 07/21/2024 12:41 PM CDT Cosme Stafford Jr., MD LAB BLOOD ORDERABL ES Final Result Performing Organization Address [facility] [place] [address] * Sjogren's syndrome A ab (07/21/2024 11:26 AM CDT) Anti-RAMONA, SS-A <0.2 <=0.9 Ab Index Comment: Interpretive Data Negative: < 1.0 Ab Index Positive: > or = 1.0 Ab Index Current interpretive data was last revised on 2016. Blood 07/21/2024 11:2 6 AM CDT 07/21/2024 12:41 PM CDT Cosme Stafford Jr., MD LAB BLOOD ORDERABL ES Final Result Performing Organization Address [facility] Co de Phone Number [facility] [place] [address] * Vitamin B12 (07/21/2024 11:26 AM CDT) Vitamin B12 366 230 - 1,250 pg/mL Blood 07/21/2024 11:2 6 AM CDT 07/21/2024 11:59 AM CDT Cosme Stafford Jr., MD LAB BLOOD ORDERABL ES Final Result Performing Organization Address [facility] de Phone Number [facility] [place] [address] from Last 3 Months Insurance MEDICARE [facility] MEDICARE [facility] MANAGED MEDICAID GENERIC RISK OTHER [employer] [place]IC[place] Advance Directives For more information, please contact: [phone] * Full Code (Latest Code Status on [...] 10:57 AM 05/28/2020 4:48 AM Care Teams Cot Assembler Relationship Specialty Start Date End Date Izabela Louis MD [address] [place] [address] PCP - General 11/22/19 Syed Diggs MD Surgeon Colon and Rectal Surgery 09/30/18 Wesley Pichardo MD [address] [id number] Pain Management 09/30/18 Marilyn Schreiber MD [address] [id number] Radiation Oncologist Radiation Oncology 10/24/18
--- OUTSIDE RECORDS SUMMARY | 2024-10-11 18:16 | XMS_ITS | Referral Summary ---
Author Organization [facility] Address [address] [place] [address] Care Team Providers Care Process Chemist Name Role Phone Syed Diggs MD Unavailable [phone] Wesley Pichardo MD Unavailable [phone] Marilyn Schreiber MD Unavailable [phone] Izabela Louis MD Primary Care Provider Encounters Date Type Department Care Team Description 09/08/2024 10:00 AM CDT [facility] Urology [address] [place] [address] Medicine 11th [place] [phone] Norman Schneider MD Stricture of bulbous urethra in male, unspecified stricture type (Primary Dx); Pelvic floor dysfunction 08/14/2024 3:00 PM CDT Office Visit [facility] - [facility] Urology [address] [place] [address] 11th [place] [id number] Stricture of bulbous urethra in male, unspecified stricture type (Primary Dx) 08/07/2024 3:08 PM CDT Anesthesia Event [facility] Operating Room [address] [place] [address] Leonor Jamison DO Frasca, Elizabeth Renee, CRNA 08/07/2024 3:07 PM CDT - 08/07/2024 4:27 PM CDT Surgery [facility] Operating Room [address] [place] [address] Norman Schneider MD OPTILUME URETHRAL DILATION 08/07/2024 11:46 AM CDT - 08/07/2024 6:00 PM CDT Hospital Encounter [facility] Operating Room [address] [place] [address] Norman Schneider MD Stricture of bulbous urethra in male, unspecified stricture type [N35.912] (Primary Dx) Discharge Disposition: Discharge to home or self care 08/04/2024 Telephone [facility] ([facility]) - [facility] Urology [address] [place], [place] [address]th [place] [address] Annel Herr, SENIOR ACCOUNTANT 08/04/2024 10:20 AM CDT Office Visit [facility]) - [facility] Urology [address] [place] [address] 11th [place] [address] Norman Schneider MD Stricture of bulbous urethra in male, unspecified stricture type (Primary Dx) 08/01/2024 Telephone [facility]) - [facility] Urology [address] [place], [place] [address] [place] [address] Annel Herr, SENIOR ACCOUNTANT 08/01/2024 [facility] CHW Eligibility Review [facility] [address] [place] [address] Charlotte Coombs 07/31/2024 5:16 PM CDT - 07/31/2024 11:28 PM CDT Emergency [facility] Emergency Department 1 [place] [address] Ioana Ybarra MD Urinary retention with incomplete bladder emptying (Primary Dx) Discharge Disposition: Discharge to home or self care 07/25/2024 Results Follow-Up [facility] General Neurology [address] [facility] 6th Floor [address] [place] [phone] Cosme Stafford Jr., MD Treponemal IgG/IgM Blood, RPR Blood, Vitamin B12, Additional followed-up results: 8 07/21/2024 12:20 PM CDT Lab [facility] ([facility]) [address] [place] [phone] Memory loss 07/21/2024 10:30 AM CDT Office Visit [facility] Neurology [address] [facility] 6th [place] [address] [place] [address] Cosme Stafford Jr., MD Memory loss (Primary [...] breath 3 Active True Metrix Glucose Meter misc USE TO TEST BLOOD SUGAR ONCE DAILY 2 Active Symtuza [id number] mg tablet Take 1 tablet by mouth [...] 04/06/2023 Assessment & Plan (04/06/2023 1:44 PM MACHINE FILLER SERVICER): Required 2L O2 support since admission CXR no evidence of pneumonia or atelectasis Now weaned to room air - Perform home O2 evaluation prior to discharge - Management of influenza as described elsewhere Macrocytic anemia 04/06/2023 Assessment & Plan (04/06/2023 1:49 PM MACHINE FILLER SERVICER): Recent labs with low B12 and low folate Hb stable - Continue supplement with B12 and folate daily Verruca vulgaris 04/05/2023 Assessment & Plan (04/06/2023 1:36 PM MACHINE FILLER SERVICER): Follows with [facility] - Continue home Imiquimod 5% cream to warts x3/weekly. Pt not to touch eyes following application. Influenza 04/04/2023 Assessment & Plan (04/06/2023 1:46 PM MACHINE FILLER SERVICER): Reports fatigue, febrile episodes at home Tmax [...] 04/04/2023 Assessment & Plan (04/06/2023 1:45 PM MACHINE FILLER SERVICER): Cr 1.5 up from baseline of ~1 Likely prerenal from poor po intake in setting of influenza Resolved with IVF, PO intake - Encourage to continue adequate hydration and food intake at home as he is recovering from influenza - Avoid nephrotoxins Chronic pain syndrome 04/04/2023 Assessment & Plan (04/06/2023 1:58 PM MACHINE FILLER SERVICER): Seems to be on both methadone and percocet at home Continue home doses of methadone 5 mg BID and oxy 10 q4 prn Other urethral stricture, male, unspecified site 03/24/2023 B12 deficiency 02/17/2023 Inflammation of the rectum 09/13/2020 Overview (09/13/2020): Added automatically from request for surgery [id number] Chronic rectal pain 09/13/2020 Overview (09/13/2020): Added automatically from request for surgery [id number] Squamous cell carcinoma of rectum 09/13/2020 Overview (09/13/2020): Added automatically from request for surgery [id number] Screening for malignant neoplasm of colon 2020 Overview (07/30/2020): Added automatically from request for surgery [id number] ASTER (acute kidney injury) 12/01/2019 Assessment & [...] 03/01/2019 Assessment & Plan (03/02/2019 4:40 PM MACHINE FILLER SERVICER): Cr was 1.13 on admission and peaked to 1.41 03/01 likely in the setting of IV abx. Supported with IVFS and stopped IV abx. Cr 1.12 Skin breakdown to perianal region 02/28/2019 Assessment & Plan (03/01/2019 1:12 PM MACHINE FILLER SERVICER): Skin breakdown noted on exam between gluteal [...] 02/28/2019 Assessment & Plan (03/02/2019 4:45 PM MACHINE FILLER SERVICER): Likely 2/2 current XRT. Patient has diarrhea at baseline. -Will send c.diff, stool studies to r/o infection -cIVFs to maintain hydration -diarrhea started again the evening of 03/01, send c.diff -k 3.2 in setting of diarrhea, supplemented Pancytopenia 02/27/2019 Assessment & Plan (12/01/2019 10:29 PM CDT): has been pancytopenic since chemotherapy, also with HIV Assessment & Plan (03/02/2019 4:38 PM MACHINE FILLER SERVICER): In setting of chemotherapy 02/13- and XRT. -WBC 1.0, ANC 500 -H/H 8.5/23.4 on admission -PLT 3K on admission, s/p 1 unit, with appropriate bump to 16K -Will transfuse PLTs to keep > 10K, will likely need again as plt 13 today (denies blood nose/bm) -hgb 7.5, lorenzo transfuse 1 unit in setting of overall fatigue Assessment & Plan (02/27/2019 11:25 PM MACHINE FILLER SERVICER): - likely 2/2 recent chemo - transfuse 1 unit plt with post transfusion cbc - maintain type and screen - consent in chart Transaminitis 02/17/2019 Assessment & Plan (02/18/2019 1:05 PM MACHINE FILLER SERVICER): New onset 02/17 w/ t.bili 1, Alk Phos 181, AST 389, ALT 227. Previously normal. - Suspect drug-induced likely I/s/o recently initiated chemotherapy - consider also fluconazole vs biktarvy (these are not new prescriptions but concerns of compliance pre-hospitalization) vs recently initiated MSContin Down-trending today, plan to d/c Severe malnutrition 02/14/2019 Assessment & Plan (03/02/2019 4:44 PM MACHINE FILLER SERVICER): -encourage high protein diet. Assessment & Plan (02/16/2019 11:14 AM MACHINE FILLER SERVICER): Pt has had significant weight loss & poor PO intake. 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 - s/p treatment with atovaquone (rash to dapsone was, no G6PD) Encounter for antineoplastic chemotherapy 2018 Assessment & Plan (02/18/2019 1:04 PM MACHINE FILLER SERVICER): Admitted for C1 Mitomycin and 5-FU with [...] 02/13/2019 Assessment & Plan (02/15/2019 1:32 PM MACHINE FILLER SERVICER): Noted history of CKD3 with peak Cr in medical record to 2.5. Previously followed with nephrology though not in last couple years. Cr now WNL with adequate UO. - Monitor CMP daily, daily weights, and I&O Nicotine dependence 02/13/2019 Assessment & Plan (02/28/2019 1:13 PM MACHINE FILLER SERVICER): Will administer Nicotine patches in house Assessment & Plan (02/15/2019 1:35 PM MACHINE FILLER SERVICER): Current every day smoker. - Nicotine 21 mg patch daily - Encourage smoking cessation Anal cancer 10/17/2018 Assessment & Plan (04/06/2023 1:47 PM MACHINE FILLER SERVICER): S/p chemoradiation Currently in remission - Continue [...] QID Assessment & Plan (03/01/2019 1:06 PM MACHINE FILLER SERVICER): Patient of Dr. Peralta. S/p C1 mitomycin/5FU 02/13- with concurrent radiation. -Will continue XRT inpatient -Due for chemo on week 5 (~03/13/19) -Due to profound pancytopenia s/p chemo, will send out labwork to check deficiency in dihydropyrimidine dehydrogenase (DPD) per outpatient team 03/01 (has to be in pink tube) Assessment & Plan (02/27/2019 11:21 PM MACHINE FILLER SERVICER): - s/p C1 mitomycin/5FU 02/13- with concurrent radiation - pain control with MSContin 30 BID + oxycodone PRN Assessment & Plan (02/18/2019 12:52 PM MACHINE FILLER SERVICER): Diagnosed 09/23/2018, [id number]. Followed by Dr. Peralta. Treatment delayed 2/2 insurance issues. - Admitted for C1 mitomycin + 5FU w/ concurrent radiation (planned 28 fx) - first RT 02/13. C1 complete. Will follow up with xrt outpatient and with Dr. Peralta for C2 in a few weeks Tolerated treatment well Human immunodeficiency virus (HIV) disease 10/17 Assessment & Plan (04/06/2023 1:48 PM MACHINE FILLER SERVICER): Last CD4 148[place] [id number] - Continue Symtuza - Continue atovaquone 1500 mg daily for PCP ppx - Ensure close f/u with local ID Dr. Louis Assessment & Plan (12/01/2019 10:28 PM CDT): last CD4 79, HIV VL [id number] 07/2019 - repeat CD4, HIV RNA; continue Biktarvy, continue fluconazole (patient endorses is suppressive therapy after previous crypto infection) Assessment & Plan (02/28/2019 12:45 PM MACHINE FILLER SERVICER): Follows with Dr. Louis. Last CD4 153, VL 464K 10/2018. -Continue home biktarvy -Hx of crypto meningitis, continue suppressive fluconazole Assessment & Plan (02/27/2019 11:23 PM MACHINE FILLER SERVICER): - continue home biktarvy - hx of crypto meningitis, continue suppressive fluconazole Assessment & Plan (02/18/2019 1:12 PM MACHINE FILLER SERVICER): Most recent 10/19 CD4 153, VL 465k. [...] 08/12/2018 Assessment & Plan (02/15/2019 1:32 PM MACHINE FILLER SERVICER): History of crypto meningitis; unclear what year [...] elsewhere Assessment & Plan (03/02/2019 4:39 PM MACHINE FILLER SERVICER): Patient reports rectal pain. In setting of anal cancer and current XRT. Follows with pain management outpatient, Dr. Pichardo. -On exam, there is skin breakdown between gluteal muscles > c/s wound care for wound management -Home pain regimen: MSContin 30mg BID, Gabapentin 600mg QID, Requip 1mg qpm, [place] 10/325 q6hprn, Baclofen 20mg TID prn Assessment & Plan (02/17/2019 12:10 PM MACHINE FILLER SERVICER): Follows with pain management (Dr. Pichardo) outpatient [...] 04/06/2023 Assessment & Plan (04/04/2023 9:55 AM MACHINE FILLER SERVICER): -recent labs with low B12 and low folate -supplement with B12 and folate daily Hyponatremia 02/27/2019 04/06/2023 Assessment & Plan (04/05/2023 4:32 PM MACHINE FILLER SERVICER): -Resolved s/p IVF bolus Assessment & Plan (02/28/2019 12:46 PM MACHINE FILLER SERVICER): Na 127 on admit. Likely 2/2 dehydration related to diarrhea. -S/p 1L NS bolus x 2 -Na improving, 135 today -Will CTM Assessment & Plan (02/27/2019 11:24 PM MACHINE FILLER SERVICER): - 2/2 dehydration liked related to diarrhea. Urine sodium < 20, Na improving with NS - additional 1L NS overnight, repeat BMP in AM Neutropenic fever 02/27/2019 02/07/2024 Assessment & Plan (03/01/2019 12:53 PM MACHINE FILLER SERVICER): Patient admitted from [facility], where he reported chills with Tmax 38. Found to be neutropenic and was briefly hypotensive in [facility]. -Infectious workup: Blood cultures x 2 [...] days Assessment & Plan (02/27/2019 11:26 PM MACHINE FILLER SERVICER): - chills, Tmax 38, neutropenic and was briefly hypotensive in [facility] - blood cultures pending - f/u urine culture - CXR clear - f/u GC/CT - continue vanc/cefe Anal warts 09/09/2018 12/01/2019 Overview (09/09/2018): Added automatically from request for surgery [id number] Immunizations Immunization Administration Dates Next Due Hep [...] on file Legal Sex Male 4:35 AM MACHINE FILLER SERVICER Gender Identity Male 04/21/2023 9:16 AM MACHINE FILLER SERVICER Sexual Orientation Not on file Last Filed [...] HOUR IP Routine 08/07/2024 3:55 PM CDT VT AN PROCEDURE PLACEHOLDER Routine 08/07/2024 3:21 PM CDT VT AN ELECTIVE SUPRAGLOTTIC AIRWAY Routine 08/07/2024 3:21 [...] 07/21/2024 11: 26 AM CDT Memory loss CUTTER HEAD SHARPENER ANTIBODIES Routine 07/21/2024 11:26 AM CDT Memory [...] PVR = 0 ml Mary Roberson CMA us Norman Schneider MD NURSING ASSESSMENTS Final Result * FL Fluoroscopy < 1 Hour (08/07/2024 3:55 PM CDT) Narrative [facility] - 08/07/2024 3:56 PM CDT The images from this study are not interpreted by Radiology. Please refer to the physician's procedure / OR operative note. Norman Schneider MD IMG FLUOROSCOPY PROCEDURE S Final Result [facility] * VT AN ELECTIVE SUPRAGLOTTIC AIRWAY, VT AN PROCEDURE PLACEHOLDER (08/07/2024 3:21 PM CDT) Michaela Balderas CRNA - 08/07/2024 3:21 PM CDT Michaela Chavira CRNA 08/07/2024 3:21 PM Airway Patient location: OR Urgency: elective Indications for airway management: anesthesia Difficult airway: no Staff: Supervising provider: Leonor Jamison DO Placed by: AUTO PAINTER: Micahela Chavira CRNA Emergent airway documentation: Risks and [...] ur Straw Yellow Clarity, ur Clear Clear [facility] Specific gravity, ur 1.013 1.003 - 1.[address] [facility] pH, urine 6.[address] [facility] Comment: Interpretive Data U rine pH is affected by diet, medications, systemic acid-base disturbances, and renal tubular function. pH may affect urinary stone formation. For example, urine pH below 6.0 may help reduce the tendency for calcium phosphate stones and pH greater than 6.0 may reduce the tendency for uric acid stone formation. Source: [facility] Current Interpretive Data was last revised on 2017 Protein, ur ql Negative Negative [facility] Glucose, ur ql Negative Negative [facility] Ketones, ur Negative Negative [facility] Bilirubin, ur Negative Negative [facility] Blood, ur Negative Negative [facility] Urobilinogen, ur <2.0 <2.0 mg/dL [facility] Nitrite, ur Negative Negative [facility] Leukocyte esterase, ur Negative Negative [facility] UA reflex comment Reflex conditions for microscopic UA and culture not met. [facility] Urine 07/31/2024 8:48 PM CDT 07/31/2024 9:02 PM CDT us Ioana Ybarra MD LAB MICROBIOLOGY - GENERAL ORDERABLES Final Result [facility] One [facility] Department [place] [address] * CT Abdomen Pelvis W Contrast (07/31/2024 [...] EDUARD CE Final Result Performing Organization Address [facility]/ZIP Co de Phone Number [facility] One [facility] Department [place] [address] * Sepsis Lactate w/ Reflex (07/31/2024 6:03 PM CDT) Pathologist [facility] Sepsis Lactate 1.2 0.7 - 2.0 mmol/L Blood 07/31/2024 6:03 PM CDT 07/31/2024 6:11 PM CDT Ioana Ybarra MD LAB BLOOD ORDERABLES Final Result Performing Organization Address [facility]/State/ZIP Co de Phone Number [facility] Department [place] [address] * eGFR (07/31/2024 6:03 PM CDT) Pathologist [facility] eGFR 71 >=60 mL/min/1. 73 m2 Comment: [...] MD LAB BLOOD ORDERABLES Final Result MOUNA [facility] [place] [address] * Differential, auto (07/31/2024 6:03 PM CDT) Pathologist [facility] Neutrophil abs 5.50 1.50 - 6.50 K/cumm Imm gran abs 0.03 0.00 - 0.10 K/cumm [facility] Lymphocyte abs 1.18 0.80 - 3.30 K/cumm [facility] Monocyte abs 0.32 0.20 - 0.80 K/cumm [facility] Eosinophil abs 0.01 0.00 - 0.50 K/cumm [facility] Basophil abs 0.01 0.00 - 0.10 K/cumm [facility] Neutrophil pct 78.2 % [facility] Comment: Interpretive Data Percent cell count reference ranges are not reported, since discordance with absolute values may lead to misinterpretation of CBC data. Current Interpretive Data was last revised on 2017. Imm gran pct 0.4 % [facility] Comment: Interpretive Data Percent cell count reference ranges are not reported, since discordance with absolute values may lead to misinterpretation of CBC data. Current Interpretive Data was last revised on 2017. Lymphocyte pct 16.7 % [facility] Comment: Interpretive Data Percent cell count reference ranges are not reported, since discordance with absolute values may lead to misinterpretation of CBC data. Current Interpretive Data was last revised on 2017. Monocyte pct 4.5 % [facility] Comment: Interpretive Data Percent cell count reference ranges are not reported, since discordance with absolute values may lead to misinterpretation of CBC data. Current Interpretive Data was last revised on 2017. Eosinophil pct 0.1 % [facility] Comment: Interpretive Data Percent cell count reference ranges are not reported, since discordance with absolute values may lead to misinterpretation of CBC data. Current Interpretive Data was last revised on 2017. Basophil pct 0.1 % [facility] Comment: Interpretive Data Percent cell count reference ranges are not reported, since discordance with absolute values may lead to misinterpretation of CBC data. Current Interpretive Data was last revised on 2017. Blood 07/31/2024 6:03 PM CDT 07/31/2024 6:17 PM CDT us Ioana Ybarra MD LAB BLOOD ORDERABLES Final Result [facility] One [facility] Department [place] [address] * (ABNORMAL) CBC with auto differential (07/31/2024 6:03 PM CDT) WBC 7.05 3.80 - 9.90 K/cumm Hgb 12.3(L) 13.0 - 17.5 g/dL [facility] Hct 34.7(L) 38.9 - 50.3 % [facility] Plt 209 150 - 400 K/cumm [facility] MPV 9.5 9.1 - 12.[address] [facility] RBC 3.77(L) 4.30 - 5.80 M/cumm [facility] MCV 92.0 81.3 - 96.[address] [facility] MCH 32.6 27.1 - 33.[address] [facility] MCHC 35.4 32.3 - 35.7 g/dL [facility] RDW CV 12.1 11.1 - 14.9 % [facility] RDW SD 40.9 35.7 - 48.[address] [facility] NRBC abs 0.00 0.00 - 0.01 K/cumm [facility] Blood 07/31/2024 6:03 PM CDT 07/31/2024 6:17 PM CDT Ioana Ybarra MD LAB BLOOD ORDERABLES Final Result Performing Organization Address [facility]/ZIP Co de Phone Number [facility] Department [place] [place] [address] * Lipase (07/31/2024 6:03 PM CDT) [facility] Lipase 25 10 - 99 Units/L Blood 07/31/2024 6:03 PM CDT 07/31/2024 6:17 PM CDT Ioana Ybarra MD LAB BLOOD ORDERABLES Final Result Performing Organization Address City/[facility]/ZIP Co de Phone Number [facility] Department [place] [address] * (ABNORMAL) Comprehensive metabolic panel (07/31/2024 6:03 PM CDT) [facility] Sodium 134(L) 135 - 145 mmol/L Potassium, pl 4.0 3.3 - 4.9 mmol/L [facility] Chloride 97 97 - 110 mmol/L [facility] CO2 29 22 - 32 mmol/L [facility] Anion gap 8 2 - 15 mmol/L [facility] BUN 8 6 - 25 mg/dL [facility] Creatinine 1.27 0.80 - 1.30 mg/dL [facility] Glucose 115 70 - 199 mg/dL [facility] Comment: Interpretive Data Fasting glucose [...] 2022. Calcium 9.9 8.5 - 10.3 mg/dL [facility] Bilirubin, total 0.6 0.1 - 1.2 mg/dL [facility] Protein, pl 8.7(H) 6.5 - 8.5 g/dL [facility] Albumin 4.3 3.5 - 5.0 g/dL [facility] Alk phos 101 40 - 130 Units/L [facility] ALT 17 7 - 55 Units/L [facility] AST 40 10 - 50 Units/L [facility] Blood 07/31/2024 6:03 PM CDT 07/31/2024 6:17 PM CDT us Ioana Ybarra MD LAB BLOOD ORDERABLES Final Result [facility] One [facility] Department [place] [address] * (ABNORMAL) Treponemal IgG/IgM Blood (07/21/2024 11:26 [...] GENERAL ORDERABLES Final Result Performing Organization Address [facility] de Phone Number MOUNA [facility] [place] [address] * HOANG ab ql w/rflx to HOANG [...] ORDERABL ES Final Result Performing Organization Address [facility] de Phone Number MOUNA [facility] Department [place] [address] * SCL 70 abs (07/21/2024 11:26 AM CDT) Anti-Scl70, IgG <0.2 <=0.9 Ab Index Comment: Interpretive Data Negative: < 1.0 Ab Index Positive: > or = 1.0 Ab Index Current interpretive data was last revised on 2016. Blood 07/21/2024 11:2 6 AM CDT 07/21/2024 12:41 PM CDT Cosme Stafford Jr., MD LAB BLOOD ORDERABL ES Final Result Performing Organization Address [facility] de Phone Number [facility] [place] [address] * Meza abs (07/21/2024 11:26 AM CDT) Anti-RAMONA, SM <0.2 <=0.9 Ab Index Comment: Interpretive Data Negative: < 1.0 Ab Index Positive: > or = 1.0 Ab Index Current interpretive data was last revised on 2016. Blood 07/21/2024 11:2 6 AM CDT 07/21/2024 12:41 PM CDT Cosme Stafford Jr., MD LAB BLOOD ORDERABL ES Final Result Performing Organization Address [facility] de Phone Number [facility] [place] [address] * (ABNORMAL) CUTTER HEAD SHARPENER abs (07/21/2024 11:26 AM CDT) Pathologist [facility] CUTTER HEAD SHARPENER ab 4.0(H) <=0.9 Ab Index Comment: Interpretive Data Negative: < 1.0 Ab Index Positive: > or = 1.0 Ab Index Current interpretive data was last revised on 2016. Blood 07/21/2024 11:2 6 AM CDT 07/21/2024 12:41 PM CDT Cosme Stafford Jr., MD LAB BLOOD ORDERABL ES Final Result Performing Organization Address [facility] Co de Phone Number [facility] [place] [address] * (ABNORMAL) RAMONA ab eval w/reflex (07/21/2024 11:26 AM CDT) RAMONA ab Positive( A) Negative Comment: Interpretive Data Positive Screens will be reflexed to specific testing for Antibodies against the following antigens: Emily-1 Ab, CUTTER HEAD SHARPENER Ab, Scl-70 Ab, Meza Ab, SS-A/Ro Ab, and SS- B/La Ab. Further testing for dsDNA, Centromere, or Ribosomal P antibodies is suggested in patient with a positive screen and negative specific antibodies. Current interpretive data was last revised on 2022. Blood 07/21/2024 11:2 6 AM CDT 07/21/2024 11:59 AM CDT Cosme Stafford Jr., MD LAB BLOOD ORDERABL ES Final Result Performing Organization Address [facility] Phone Number [facility] [place] [address] * Emily-1 antibody (07/21/2024 11:26 AM CDT) Emily 1 Antibody, IgG <0.2 <=0.9 Ab Index Comment: Interpretive Data Negative: < 1.0 Ab Index Positive: > or = 1.0 Ab Index Current interpretive data was last revised on 2016. Blood 07/21/2024 11:2 6 AM CDT 07/21/2024 12:41 PM CDT Cosme Stafford Jr., MD LAB BLOOD ORDERABL ES Final Result Performing Organization Address [facility] de Phone Number [facility] [place] [address] * RPR Blood (07/21/2024 11:26 AM CDT) RPR Nonreactive Nonreactive Blood 07/21/2024 11:2 6 AM CDT 07/21/2024 11:59 AM CDT Cosme Stafford Jr., MD LAB MICROBIOLOGY - GENERAL ORDERABLES Final Result [facility] [place] [address] * Sjogren's syndrome B ab (07/21/2024 11:26 AM CDT) Anti-RAMONA, SS-B <0.2 <=0.9 Ab Index Comment: Interpretive Data Negative: < 1.0 Ab Index Positive: > or = 1.0 Ab Index Current interpretive data was last revised on 2016. Blood 07/21/2024 11:2 6 AM CDT 07/21/2024 12:41 PM CDT Cosme Stafford Jr., MD LAB BLOOD ORDERABL ES Final Result Performing Organization Address [facility] [address] * Sjogren's syndrome A ab (07/21/2024 11:26 AM CDT) [facility] Signature Anti-RAMONA, SS-A <0.2 <=0.9 Ab Index Comment: Interpretive Data Negative: < 1.0 Ab Index Positive: > or = 1.0 Ab Index Current interpretive data was last revised on 2016. Blood 07/21/2024 11:2 6 AM CDT 07/21/2024 12:41 PM CDT us Cosme Stafford Jr., MD LAB BLOOD ORDERABL ES Final Result Performing Organization Address [facility] [address] * Vitamin B12 (07/21/2024 11:26 AM CDT) Vitamin B12 366 230 - 1,250 pg/mL Blood 07/21/2024 11:2 6 AM CDT 07/21/2024 11:59 AM CDT us Cosme Stafford Jr., MD LAB BLOOD ORDERABL ES Final Result [facility] [place] [address] from Last 3 Months Insurance MEDICARE [facility] MEDICARE IDPA MANAGED MEDICAID GENERIC RISK OTHER [employer] [place] MEDICARE ID[place] Advance Directives For more information, please contact: [phone] * Full Code (Latest Code Status on [...] 10:57 AM 05/28/2020 4:48 AM Care Teams Process Chemist Relationship Specialty Start Date End Date Izabela Louis MD [address] [place] [address] PCP - General 11/22/19 Syed Diggs MD Surgeon Colon and Rectal Surgery 09/30/18 Wesley Pichardo MD [address] [address] Pain Management 09/30/18 Marilyn Schreiber MD [address] [place] [address] Radiation Oncologist Radiation Oncology 10/24/18
--- OUTSIDE RECORDS SUMMARY | 2024-10-11 18:17 | XMS_ITS ---
Author Organization [facility] Address [address] [place] [address] Care Team Providers Care Client Technical Professional Name Role Phone Syed Diggs MD Unavailable [phone] Wesley Pichardo MD Unavailable [phone] Marilyn Schreiber MD Unavailable [phone] Izabela Louis MD Primary Care Provider Active Problems Problem Noted Date Diagnosed Date Stricture, urethra 08/04/2024 History of anal cancer 10/06/2023 Acute hypoxic respiratory failure 04/06/2023 Assessment & Plan (04/06/2023 1:44 PM FLATWORK FEEDER): Required 2L O2 support since admission CXR no evidence of pneumonia or atelectasis Now weaned to room air - Perform home O2 evaluation prior to discharge - Management of influenza as described elsewhere Macrocytic anemia 04/06/2023 Assessment & Plan (04/06/2023 1:49 PM FLATWORK FEEDER): Recent labs with low B12 and low folate Hb stable - Continue supplement with B12 and folate daily Verruca vulgaris 04/05/2023 Assessment & Plan (04/06/2023 1:36 PM FLATWORK FEEDER): Follows with [facility] - Continue home Imiquimod 5% cream to warts x3/weekly. Pt not to touch eyes following application. Influenza 04/04/2023 Assessment & Plan (04/06/2023 1:46 PM FLATWORK FEEDER): Reports fatigue, febrile episodes at home Tmax [...] 04/04/2023 Assessment & Plan (04/06/2023 1:45 PM FLATWORK FEEDER): Cr 1.5 up from baseline of ~1 Likely prerenal from poor po intake in setting of influenza Resolved with IVF, PO intake - Encourage to continue adequate hydration and food intake at home as he is recovering from influenza - Avoid nephrotoxins Chronic pain syndrome 04/04/2023 Assessment & Plan (04/06/2023 1:58 PM FLATWORK FEEDER): Seems to be on both methadone and percocet at home Continue home doses of methadone 5 mg BID and oxy 10 q4 prn Other urethral stricture, male, unspecified site 03/24/2023 B12 deficiency 02/17/2023 Inflammation of the rectum 09/13/2020 Overview (09/13/2020): Added automatically from request for surgery [id number] Chronic rectal pain 09/13/2020 Overview (09/13/2020): Added automatically from request for surgery [id number] Squamous cell carcinoma of rectum 09/13/2020 Overview (09/13/2020): Added automatically from request for surgery [id number] Screening for malignant neoplasm of colon 2020 Overview (07/30/2020): Added automatically from request for surgery [id number] ASTER (acute kidney injury) 12/01/2019 Assessment & [...] 03/01/2019 Assessment & Plan (03/02/2019 4:40 PM FLATWORK FEEDER): Cr was 1.13 on admission and peaked to 1.41 03/01 likely in the setting of IV abx. Supported with IVFS and stopped IV abx. Cr 1.12 Skin breakdown to perianal region 02/28/2019 Assessment & Plan (03/01/2019 1:12 PM FLATWORK FEEDER): Skin breakdown noted on exam between gluteal [...] 02/28/2019 Assessment & Plan (03/02/2019 4:45 PM FLATWORK FEEDER): Likely 2/2 current XRT. Patient has diarrhea at baseline. -Will send c.diff, stool studies to r/o infection -cIVFs to maintain hydration -diarrhea started again the evening of 03/01, send c.diff -k 3.2 in setting of diarrhea, supplemented Pancytopenia 02/27/2019 Assessment & Plan (12/01/2019 10:29 PM CDT): has been pancytopenic since chemotherapy, also with HIV Assessment & Plan (03/02/2019 4:38 PM FLATWORK FEEDER): In setting of chemotherapy 02/13- and XRT. -WBC 1.0, ANC 500 -H/H 8.5/23.4 on admission -PLT 3K on admission, s/p 1 unit, with appropriate bump to 16K -Will transfuse PLTs to keep > 10K, will likely need again as plt 13 today (denies blood nose/bm) -hgb 7.5, lorenzo transfuse 1 unit in setting of overall fatigue Assessment & Plan (02/27/2019 11:25 PM FLATWORK FEEDER): - likely 2/2 recent chemo - transfuse 1 unit plt with post transfusion cbc - maintain type and screen - consent in chart Transaminitis 02/17/2019 Assessment & Plan (02/18/2019 1:05 PM FLATWORK FEEDER): New onset 02/17 w/ t.bili 1, Alk Phos 181, AST 389, ALT 227. Previously normal. - Suspect drug-induced likely I/s/o recently initiated chemotherapy - consider also fluconazole vs biktarvy (these are not new prescriptions but concerns of compliance pre-hospitalization) vs recently initiated MSContin Down-trending today, plan to d/c Severe malnutrition 02/14/2019 Assessment & Plan (03/02/2019 4:44 PM FLATWORK FEEDER): -encourage high protein diet. Assessment & Plan (02/16/2019 11:14 AM FLATWORK FEEDER): Pt has had significant weight loss & poor PO intake. 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 - s/p treatment with atovaquone (rash to dapsone was, no G6PD) Encounter for antineoplastic chemotherapy 2018 Assessment & Plan (02/18/2019 1:04 PM FLATWORK FEEDER): Admitted for C1 Mitomycin and 5-FU with [...] 02/13/2019 Assessment & Plan (02/15/2019 1:32 PM FLATWORK FEEDER): Noted history of CKD3 with peak Cr in medical record to 2.5. Previously followed with nephrology though not in last couple years. Cr now WNL with adequate UO. - Monitor CMP daily, daily weights, and I&O Nicotine dependence 02/13/2019 Assessment & Plan (02/28/2019 1:13 PM FLATWORK FEEDER): Will administer Nicotine patches in house Assessment & Plan (02/15/2019 1:35 PM FLATWORK FEEDER): Current every day smoker. - Nicotine 21 mg patch daily - Encourage smoking cessation Anal cancer 10/17/2018 Assessment & Plan (04/06/2023 1:47 PM FLATWORK FEEDER): S/p chemoradiation Currently in remission - Continue [...] QID Assessment & Plan (03/01/2019 1:06 PM FLATWORK FEEDER): Patient of Dr. Peralta. S/p C1 mitomycin/5FU 02/13- with concurrent radiation. -Will continue XRT inpatient -Due for chemo on week 5 (~03/13/19) -Due to profound pancytopenia s/p chemo, will send out labwork to check deficiency in dihydropyrimidine dehydrogenase (DPD) per outpatient team 03/01 (has to be in pink tube) Assessment & Plan (02/27/2019 11:21 PM FLATWORK FEEDER): - s/p C1 mitomycin/5FU 02/13-14 with concurrent radiation - pain control with MSContin 30 BID + oxycodone PRN Assessment & Plan (02/18/2019 12:52 PM FLATWORK FEEDER): Diagnosed 09/23/2018, [id number]. Followed by Dr. Peralta. Treatment delayed 2/2 insurance issues. - Admitted for C1 mitomycin + 5FU w/ concurrent radiation (planned 28 fx) - first RT 02/13. C1 complete. Will follow up with xrt outpatient and with Dr. Peralta for C2 in a few weeks Tolerated treatment well Human immunodeficiency virus (HIV) disease 10/17 Assessment & Plan (04/06/2023 1:48 PM FLATWORK FEEDER): Last CD4 148[place] [id number] - Continue Symtuza - Continue atovaquone 1500 mg daily for PCP ppx - Ensure close f/u with local ID Dr. Louis Assessment & Plan (12/01/2019 10:28 PM CDT): last CD4 79, HIV VL [id number] 07/2019 - repeat CD4, HIV RNA; continue Biktarvy, continue fluconazole (patient endorses is suppressive therapy after previous crypto infection) Assessment & Plan (02/28/2019 12:45 PM FLATWORK FEEDER): Follows with Dr. Louis. Last CD4 153, VL 464K 10/2018. -Continue home biktarvy -Hx of crypto meningitis, continue suppressive fluconazole Assessment & Plan (02/27/2019 11:23 PM FLATWORK FEEDER): - continue home biktarvy - hx of crypto meningitis, continue suppressive fluconazole Assessment & Plan (02/18/2019 1:12 PM FLATWORK FEEDER): Most recent 10/19 CD4 153, VL 465k. [...] 08/12/2018 Assessment & Plan (02/15/2019 1:32 PM FLATWORK FEEDER): History of crypto meningitis; unclear what year [...] elsewhere Assessment & Plan (03/02/2019 4:39 PM FLATWORK FEEDER): Patient reports rectal pain. In setting of anal cancer and current XRT. Follows with pain management outpatient, Dr. Pichardo. -On exam, there is skin breakdown between gluteal muscles > c/s wound care for wound management -Home pain regimen: MSContin 30mg BID, Gabapentin 600mg QID, Requip 1mg qpm, [place] 10/325 q6hprn, Baclofen 20mg TID prn Assessment & Plan (02/17/2019 12:10 PM FLATWORK FEEDER): Follows with pain management (Dr. Pichardo) outpatient [...] 04/06/2023 Assessment & Plan (04/04/2023 9:55 AM FLATWORK FEEDER): -recent labs with low B12 and low folate -supplement with B12 and folate daily Hyponatremia 02/27/2019 04/06/2023 Assessment & Plan (04/05/2023 4:32 PM FLATWORK FEEDER): -Resolved s/p IVF bolus Assessment & Plan (02/28/2019 12:46 PM FLATWORK FEEDER): Na 127 on admit. Likely 2/2 dehydration related to diarrhea. -S/p 1L NS bolus x 2 -Na improving, 135 today -Will CTM Assessment & Plan (02/27/2019 11:24 PM FLATWORK FEEDER): - 2/2 dehydration liked related to diarrhea. Urine sodium < 20, Na improving with NS - additional 1L NS overnight, repeat BMP in AM Neutropenic fever 02/27/2019 02/07/2024 Assessment & Plan (03/01/2019 12:53 PM FLATWORK FEEDER): Patient admitted from [facility], where he reported chills with Tmax 38. Found to be neutropenic and was briefly hypotensive in [facility]. -Infectious workup: Blood cultures x 2 NGTD, [...] days Assessment & Plan (02/27/2019 11:26 PM FLATWORK FEEDER): - chills, Tmax 38, neutropenic and was briefly hypotensive in [facility] - blood cultures pending - f/u urine culture - CXR clear - f/u GC/CT - continue vanc/cefe Anal warts 09/09/2018 12/01/2019 Overview (09/09/2018): Added automatically from request for surgery [id number]
--- OUTSIDE RECORDS SUMMARY | 2024-10-11 18:17 | XMS_ITS | Encounter Summary ---
Author Organization [facility] [employer] [facility] Address [address] [place] [address] Phone Care Team Providers Care Obgyn Specialist Name Role Phone Izabela Louis MD Primary Care Provider [phone] Encounter Details Date Type Department Care Team (Late Contact Info) Description 10/10/2024 Documentation Only [place] [facility] [address] [address] Polo Brownlee DO [address] [facility] 1 [place] [address] Social History Tobacco Use Types Packs/Day Years Used Date Smoking Tobacco: Every Day Alcohol Use Standard Drinks/Week Comments No 0 (1 standard drink = 0.6 oz pur e alcohol) Sex and Gender Information Value Date Recorded Sex Assigned at Not on file Legal Sex Male 2:49 PM EDT Gender Identity Not on file Sexual Orientation Not on file documented as of this encounter Plan of Treatment Upcoming Encounters Date Type Department Care Team (Late Contact Info) Description 11/21/2024 12:15 PM CDT Office Visit [place] [facility] [address] [place] [address] [address] [place] [address] Polo Brownlee DO 12[address] [facility] 1 [place] [address] documented as of this encounter Visit Diagnoses Not on filedocumented in this encounter Care Teams Obgyn Specialist Relationship Specialty Start Date End Date Izabela Louis MD [address] [place] [address] PCP - General Internal Medicine 06/26/24 documented as of this encounter
--- OUTSIDE RECORDS SUMMARY | 2024-10-11 18:17 | XMS_ITS | Encounter Summary ---
Author Organization [facility] Address [address] [place] [address] Care Team Providers Care Cushion Former Name Role Phone Syed Diggs MD Unavailable [phone] Wesley Pichardo MD Unavailable [phone] Marilyn Schreiber MD Unavailable [phone] Nishant Sr MD Primary Care Provider [phone] Izabela Louis MD Primary Care Provider Sam Peralta MD PhD Unavailable [phone] Encounter Details Date Type Department Care Team (Late st Contact Info) Description 07/20/2019 Telephone [facility] [address] [place] [address] Bubba Erickson RN Social History Tobacco Use Types Packs/Day Years Used Date Smoking Tobacco: Every Day Cigarettes 0.3 35.1 Started: 09/15/1989 Smokeless Tobacco: Never Alcohol Use Standard Drinks/Week Comments Not Currently 0 (1 standard drink = 0.6 oz pur e alcohol) 2 times a year Sex and Gender Information Value Date Recorded Sex Assigned at Not on file Legal Sex Male 4:35 AM ACCOUNTS RECEIVABLE ASSOCIATE Gender Identity Male 04/21/2023 9:16 AM ACCOUNTS RECEIVABLE ASSOCIATE Sexual Orientation Not on file documented as [...] COVID: Suspected 04/04/2023 04/04/2023 04/04/2023 5:43 AM ACCOUNTS RECEIVABLE ASSOCIATE Influenza, adult 04/04/2023 04/04/2023 04/11/2023 3:05 AM ACCOUNTS RECEIVABLE ASSOCIATE COVID: Suspected 01/27/2024 01/28/2024 01/28/2024 1:29 AM CDT documented as of this encounter Care Teams Cushion Former Relationship Specialty Start Date End Date Nishant Sr MD [address] [place] [address] PCP - General 02/14/19 11/21/19 Izabela Louis MD [address] [place] [address] PCP - General 11/22/19 Syed Diggs MD Surgeon Colon and Rectal Surgery 09/30/18 Wesley Pichardo MD [address] [place] [address] Pain Management 09/30/18 Marilyn Schreiber MD [address] [place] [address] Radiation Oncologist Radiation Oncology 10/24/18 Sam Peralta MD PhD [address] [place] [address] [id number] Medical Oncologist/Overhead Distribution Engineer Medical Oncology 05/14/22 02/08/24 documented as of this encounter
--- OUTSIDE RECORDS SUMMARY | 2024-10-11 18:17 | XMS_ITS | Clinical Summary ---
Author Organization [facility] Facility Address [address] [address] Care Team Providers Care Fence Laborer Name Role Phone Izabela Louis MD Primary Care Provider [phone] Encounters Date Type Department Care Team Description 10/10/2024 Documentation Only [place] [facility], [address] [phone] Polo Brownlee, 10/10/2024 Documentation Only [facility], [address] [phone] Polo Brownlee, 10/10/2024 Documentation Only [facility], [address] [phone] Polo Brownlee DO 09/19/2024 2:15 PM CDT Office Visit [place] [facility], [facility] [address] [facility] [address] [place] [address] Polo Brownlee, DO Chronic kidney disease, stage 2 (mild) (Primary Dx); Hyponatremia; Urethral stricture <Male>; Chronic constipation; Chronic pain after cancer treatment; Personal history of anal cancer; 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); Other form of systemic lupus erythematosus (HCC); Asymptomatic human immunodeficiency virus (HIV) infection status (HCC) from Last 3 Months Social History Tobacco [...] Sign Reading Time Taken Comments Blood Pressure 122/68 09/19/2024 3:01 PM CDT Pulse 67 09/19/2024 3:01 PM CDT Temperature - - Respiratory Rate 20 09/19/2024 3:01 PM CDT Oxygen Saturation 95% 09/19/2024 3:01 PM CDT Inhaled Oxygen Concentration - - Weight 87.1 kg (192 lb) 09/19/2024 3:01 PM CDT Height 180.3 cm (5' 11) 09/19/2024 3:01 PM CDT Body Mass Index 26.78 09/19/2024 3:01 PM CDT Plan of Treatment Upcoming Encounters Date Type Department Care Team (Late st Contact Info) Description 11/21/2024 12:15 PM CDT Office Visit [facility], [facility] [address] [facility] 15 [place] [address] Polo Brownlee DO 2055 [facility] 1 [place] [address] Health Maintenance Due Date Last Done Comments Hepatitis B Vaccine (2 of 3 - Hep B Twinrix 3-dose series) 05/22/2004 04/24/2004 Influenza Vaccine (#1) 2024 9, 01/18/2018, 12/09/2016, Additional history exists Pneumococcal Vaccine: Peds ( 0 to 5 Years) and At-Risk Patients (6 to 49 Years) (4 of 4 - PCV20 or PCV21) 2030 07/01/2017, 12/21/2014, 08/28/2009 Insurance Medicare Medicaid [place] Care Teams Fence Laborer Relationship Specialty Start Date End Date Izabela Louis MD [address] [place] [address] PCP - General Internal Medicine 06/26/24
--- OUTSIDE RECORDS SUMMARY | 2024-10-11 18:17 | XMS_ITS | Clinical Summary ---
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
--- OUTSIDE RECORDS SUMMARY | 2024-10-11 18:17 | XMS_ITS | Continuity of Care Document ---
Author Organization [facility] Address [address] [place] [address] utive [address] [place] [address] Phone Care Team Providers Care Video Recorder Mechanic Name Role Phone Tammy Matos Unavailable Unavailable Procedures Procedure Date Office/outpatient Visit, Est Eye Exam & Treatment Advance Directives Directive Yes / No Effective Date File Name No Information Encounters Encounter Description Practice Location Reason(s) For Visit Diagnoses Date Provider Providers Copied on Encounter Office/outpat ient Visit, Est [facility], [address] [place] [address] [address], [place], [place], [id number], tel:[phone] [facility] [place] No Information 2-200 9 Shawna Munoz. [address] [facility] [address] , [address], [place], [place], Formerly named [facility], . tel:[phone] [facility], [address] [place] [address] [address], [place], [place], [id number], tel:[phone] SEC [facility] No Information 2-200 8 Shawna Munoz. [address] [facility] [address] , [address], [place], [address], [place]. tel:[phone] Family History Family Member Type Diagnosis Age At Onset No Information Payers Payer name Insurance type Covered alliance party ID Authoriza tion(s) Medicare [facility] [id number] Social History Type Description Quantity Date Captured [...]
--- OUTSIDE RECORDS SUMMARY | 2024-10-11 18:17 | XMS_ITS | Encounter Summary ---
Author Organization [facility] [employer] [facility] [employer] [facility] Address [address] [place] [phone] Phone Care Team Providers Care Fine Unhairer Name Role Phone Izabela Louis MD Primary Care Provider [phone] Encounter Details Date Type Department Care Team (Late Contact Info) Description 10/10/2024 Documentation Only [place] [facility] [address] [address] Polo Brownlee DO 12[address] [facility] 1 [place] [address] Social History Tobacco Use Types [...] Description 11/21/2024 12:15 PM CDT Office Visit [place] [facility] [address] [place] [address] [address] [place] [address] Polo Brownlee DO 12[address] [facility] 1 [place] [address] documented as of this encounter Visit Diagnoses Not on filedocumented in this encounter Care Teams Fine Unhairer Relationship Specialty Start Date End Date Izabela Louis MD [address] [place] [address] PCP - General Internal Medicine 06/26/24 documented as of this encounter
--- OUTSIDE RECORDS SUMMARY | 2024-10-11 18:17 | XMS_ITS | Clinical Summary ---
Author Organization [facility] Address [address] [facility] [place] [address] Care Team Providers Care Rn Internal Medicine Name Role Phone Izabela Louis MD Primary Care Provider Source Comments [facility],non-owned Affiliates and Associated Physician Practices is amultiple site organization consisting of ambulatory clinics and hospital sitesin [place], [place] and [place]. This disclosure is being madepursuant to the Care Everywhere program and may not contain all information available regarding this patient. Last updated 17.[facility] Allergies Active Allergy Reactions Criticality Noted Date [...] times daily as needed 12/28/2019 Active SYMTUZA [phone] MG tablet Take by mouth once daily [...] breath 12/08/2020 Fever and chills 12/08/2020 Immunizations Immunization Administration Dates Next Due INFLUENZA [...] on file Legal Sex Male 6:27 AM SPORTS PSYCHOLOGIST Gender Identity Not on file Sexual Orientation Not on file Last Filed Vital Signs Vital Sign Reading Time Taken Comments Blood Pressure 133/67 05/31/2024 5:03 PM SPORTS PSYCHOLOGIST Pulse 67 05/31/2024 5:03 PM SPORTS PSYCHOLOGIST Temperature 36.3 C (97.3 F) 05/31/2024 1:37 PM SPORTS PSYCHOLOGIST Respiratory Rate 18 05/31/2024 5:03 PM SPORTS PSYCHOLOGIST Oxygen Saturation 99% 05/31/2024 5:03 PM SPORTS PSYCHOLOGIST Inhaled Oxygen Concentration - - Weight 86.2 kg (190 lb) 05/31/2024 11:07 AM SPORTS PSYCHOLOGIST Height 180.3 cm (5' 11) 05/31/2024 11:07 AM SPORTS PSYCHOLOGIST Body Mass Index 26.5 05/31/2024 11:07 AM SPORTS PSYCHOLOGIST Plan of Treatment Health Maintenance Due Date Last Done Comments MEDICARE AWV 12 MONTHS 1980 HEPATITIS B VACCINE (2 of 3 - Hep B Twinrix 3-dose series) 05/22/2004 04/24/2004 DTAP/TDAP/TD VACCINES (2 - Td or Tdap) 08/29/2019 08/28/2009 COVID-19 VACCINE (3 - season) 2023 08/14/2020, 07/17/2020 DEPRESSION SCREENING 04/05/2024 INFLUENZA VACCINE (#1) 2024 9, 01/18/2018, 12/09/2016, Additional history exists LIPID TESTING [...] Procedure Name Priority Date/Time Associated Diagnosis Comments LIPID PROFILE STAT 05/15/2024 1:28 AM SPORTS PSYCHOLOGIST Left-sided weakness Aphasia from Last 3 Months or Most Recently Relevant to Health Maintenance Results * (ABNORMAL) LIPID PROFILE (05/15/2024 1:28 AM SPORTS PSYCHOLOGIST) [facility] Cholesterol Total 184 <200 mg/dL 05/15/2024 2:41 AM [facility] HDL 35(L) >40 mg/dL 05/15/2024 2:[address] [facility] Comment: ATP III Classification of HDL Cholesterol: <40 mg/dL: Considered a major risk factor. >60 mg/dL: Considered a negative risk factor. LDL Calculated 114(H) <100 mg/dL 05/15/2024 2:[address] [facility] Comment: ATP III Classification of LDL Cholesterol: <100 mg/dL: Optimal 100 - 129 mg/dL: Near Optimal/Above Optimal 130 - 159 mg/dL: Borderline High 160 - 189 mg/dL: High >190 mg/dL: Very High Triglycerides 173(H) <150 mg/dL 05/15/2024 2:41 AM SPORTS PSYCHOLOGIST [facility] Comment: ATP III Classification of Triglycerides: <150 mg/dL: Normal 150 - 199 mg/dL: Borderline High 200 - 400 mg/dL: High >500 mg/dL: Very High Blood BLOOD SPECIMEN / Unknown Venipuncture / Unknown 05/15/2024 1:28 AM SPORTS PSYCHOLOGIST 05/15/2024 2:10 AM SPORTS PSYCHOLOGIST Nolberto Varela MD LAB - CHEMISTRY ORDERABLES Final Result [facility] [address] [place] [address], [facility] [phone] from Last 3 Months or Most Recently Relevant to Health Maintenance Insurance MEDICARE MEDICARE MEDICAID - [place] Advance Directives * Full Code (Latest Code Status on File) Date Activated Date Inactivated Comments 05/15/2024 12:03 AM 05/15/2024 10:23 AM * Full Code Date Activated Date Inactivated Comments 12/08/2020 5:15 AM 12/10/2020 5:37 PM Care Teams Rn Internal Medicine Relationship Specialty Start Date End Date Izabela Louis MD [address] [place], [place] [id number] PCP - General Internal Medicine 05/31/24
--- OUTSIDE RECORDS SUMMARY | 2024-10-11 18:17 | XMS_ITS | Encounter Summary ---
Author Organization [facility] [employer] [facility] Address [address] [place] [id number] Phone Care Team Providers Care Motorcycle Mechanic Apprentice Name Role Phone Izabela Louis MD Primary Care Provider [phone] Encounter Details Date Type Department Care Team (Late Contact Info) Description 10/10/2024 Documentation Only [place] [facility] [address] [address] Polo Brownlee DO [address] [facility] [address] [place] [address] Social History Tobacco Use Types [...] Description 11/21/2024 12:15 PM CDT Office Visit [place] [facility] [place] [address] [place] [address] [address] [place] [address] Polo Brownlee DO [address] [facility] [address] [place] [address] documented as of this encounter Visit Diagnoses Not on filedocumented in this encounter Care Teams Motorcycle Mechanic Apprentice Relationship Specialty Start Date End Date Izabela Louis MD [address] [place] [address] PCP - General Internal Medicine 06/26/24 documented as of this encounter
[2024-10-11 18:19] VITALS: BP 143/83; PULSE 98; RESP 16; TEMP 37; O2SAT 97
--- OUTSIDE RECORDS SUMMARY | 2024-10-11 20:25 | XMS_ITS ---
Author Organization [facility] Address [address] [place] [address] Care Team Providers Care Paper Folder Name Role Phone Syed Diggs MD Unavailable [phone] Wesley Pichardo MD Unavailable [phone] Marilyn Schreiber MD Unavailable [phone] Izabela Louis MD Primary Care Provider Active Problems Problem Noted Date Diagnosed Date Stricture, urethra 08/04/2024 History of anal cancer 10/06/2023 Acute hypoxic respiratory failure 04/06/2023 Assessment & Plan (04/06/2023 1:44 PM SERVICENOW ADMINISTRATOR): Required 2L O2 support since admission CXR no evidence of pneumonia or atelectasis Now weaned to room air - Perform home O2 evaluation prior to discharge - Management of influenza as described elsewhere Macrocytic anemia 04/06/2023 Assessment & Plan (04/06/2023 1:49 PM SERVICENOW ADMINISTRATOR): Recent labs with low B12 and low folate Hb stable - Continue supplement with B12 and folate daily Verruca vulgaris 04/05/2023 Assessment & Plan (04/06/2023 1:36 PM SERVICENOW ADMINISTRATOR): Follows with [facility] - Continue home Imiquimod 5% cream to warts x3/weekly. Pt not to touch eyes following application. Influenza 04/04/2023 Assessment & Plan (04/06/2023 1:46 PM SERVICENOW ADMINISTRATOR): Reports fatigue, febrile episodes at home [...] 04/04/2023 Assessment & Plan (04/06/2023 1:45 PM SERVICENOW ADMINISTRATOR): Cr 1.5 up from baseline of ~1 Likely prerenal from poor po intake in setting of influenza Resolved with IVF, PO intake - Encourage to continue adequate hydration and food intake at home as he is recovering from influenza - Avoid nephrotoxins Chronic pain syndrome 04/04/2023 Assessment & Plan (04/06/2023 1:58 PM SERVICENOW ADMINISTRATOR): Seems to be on both methadone and percocet at home Continue home doses of methadone 5 mg BID and oxy 10 q4 prn Other urethral stricture, male, unspecified site 03/24/2023 B12 deficiency 02/17/2023 Inflammation of the rectum 09/13/2020 Overview (09/13/2020): Added automatically from request for surgery [id number] Chronic rectal pain 09/13/2020 Overview (09/13/2020): Added automatically from request for surgery [id number] Squamous cell carcinoma of rectum 09/13/2020 Overview (09/13/2020): Added automatically from request for surgery [id number] Screening for malignant neoplasm of colon 2020 Overview (07/30/2020): Added automatically from request for surgery [id number] ASTER (acute kidney injury) 12/01/2019 Assessment & [...] 03/01/2019 Assessment & Plan (03/02/2019 4:40 PM SERVICENOW ADMINISTRATOR): Cr was 1.13 on admission and peaked to 1.41 03/01 likely in the setting of IV abx. Supported with IVFS and stopped IV abx. Cr 1.12 Skin breakdown to perianal region 02/28/2019 Assessment & Plan (03/01/2019 1:12 PM SERVICENOW ADMINISTRATOR): Skin breakdown noted on exam between [...] 02/28/2019 Assessment & Plan (03/02/2019 4:45 PM SERVICENOW ADMINISTRATOR): Likely 2/2 current XRT. Patient has diarrhea at baseline. -Will send c.diff, stool studies to r/o infection -cIVFs to maintain hydration -diarrhea started again the evening of 03/01, send c.diff -k 3.2 in setting of diarrhea, supplemented Pancytopenia 02/27/2019 Assessment & Plan (12/01/2019 10:29 PM CDT): has been pancytopenic since chemotherapy, also with HIV Assessment & Plan (03/02/2019 4:38 PM SERVICENOW ADMINISTRATOR): In setting of chemotherapy 02/13- and XRT. -WBC 1.0, ANC 500 -H/H 8.5/23.4 on admission -PLT 3K on admission, s/p 1 unit, with appropriate bump to 16K -Will transfuse PLTs to keep > 10K, will likely need again as plt 13 today (denies blood nose/bm) -hgb 7.5, lorenzo transfuse 1 unit in setting of overall fatigue Assessment & Plan (02/27/2019 11:25 PM SERVICENOW ADMINISTRATOR): - likely 2/2 recent chemo - transfuse 1 unit plt with post transfusion cbc - maintain type and screen - consent in chart Transaminitis 02/17/2019 Assessment & Plan (02/18/2019 1:05 PM SERVICENOW ADMINISTRATOR): New onset 02/17 w/ t.bili 1, Alk Phos 181, AST 389, ALT 227. Previously normal. - Suspect drug-induced likely I/s/o recently initiated chemotherapy - consider also fluconazole vs biktarvy (these are not new prescriptions but concerns of compliance pre-hospitalization) vs recently initiated MSContin Down-trending today, plan to d/c Severe malnutrition 02/14/2019 Assessment & Plan (03/02/2019 4:44 PM SERVICENOW ADMINISTRATOR): -encourage high protein diet. Assessment & Plan (02/16/2019 11:14 AM SERVICENOW ADMINISTRATOR): Pt has had significant weight loss & poor PO intake. 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 - s/p treatment with atovaquone (rash to dapsone was, no G6PD) Encounter for antineoplastic chemotherapy 2018 Assessment & Plan (02/18/2019 1:04 PM SERVICENOW ADMINISTRATOR): Admitted for C1 Mitomycin and 5-FU [...] 02/13/2019 Assessment & Plan (02/15/2019 1:32 PM SERVICENOW ADMINISTRATOR): Noted history of CKD3 with peak Cr in medical record to 2.5. Previously followed with nephrology though not in last couple years. Cr now WNL with adequate UO. - Monitor CMP daily, daily weights, and I&O Nicotine dependence 02/13/2019 Assessment & Plan (02/28/2019 1:13 PM SERVICENOW ADMINISTRATOR): Will administer Nicotine patches in house Assessment & Plan (02/15/2019 1:35 PM SERVICENOW ADMINISTRATOR): Current every day smoker. - Nicotine 21 mg patch daily - Encourage smoking cessation Anal cancer 10/17/2018 Assessment & Plan (04/06/2023 1:47 PM SERVICENOW ADMINISTRATOR): S/p chemoradiation Currently in remission - [...] QID Assessment & Plan (03/01/2019 1:06 PM SERVICENOW ADMINISTRATOR): Patient of Dr. Peralta. S/p C1 mitomycin/5FU 02/13- with concurrent radiation. -Will continue XRT inpatient -Due for chemo on week 5 (~03/13/19) -Due to profound pancytopenia s/p chemo, will send out labwork to check deficiency in dihydropyrimidine dehydrogenase (DPD) per outpatient team 03/01 (has to be in pink tube) Assessment & Plan (02/27/2019 11:21 PM SERVICENOW ADMINISTRATOR): - s/p C1 mitomycin/5FU 02/13-14 with concurrent radiation - pain control with MSContin 30 BID + oxycodone PRN Assessment & Plan (02/18/2019 12:52 PM SERVICENOW ADMINISTRATOR): Diagnosed 09/23/2018, [id number]. Followed by Dr. Peralta. Treatment delayed 2/2 insurance issues. - Admitted for C1 mitomycin + 5FU w/ concurrent radiation (planned 28 fx) - first RT 02/13. C1 complete. Will follow up with xrt outpatient and with Dr. Peralta for C2 in a few weeks Tolerated treatment well Human immunodeficiency virus (HIV) disease 10/17 Assessment & Plan (04/06/2023 1:48 PM SERVICENOW ADMINISTRATOR): Last CD4 148, [place] [id number] - Continue Symtuza - Continue atovaquone 1500 mg daily for PCP ppx - Ensure close f/u with local ID Dr. Louis Assessment & Plan (12/01/2019 10:28 PM CDT): last CD4 79, HIV VL [id number] 07/2019 - repeat CD4, HIV RNA; continue Biktarvy, continue fluconazole (patient endorses is suppressive therapy after previous crypto infection) Assessment & Plan (02/28/2019 12:45 PM SERVICENOW ADMINISTRATOR): Follows with Dr. Louis. Last CD4 153, VL [id number] 10/2018. -Continue home biktarvy -Hx of crypto meningitis, continue suppressive fluconazole Assessment & Plan (02/27/2019 11:23 PM SERVICENOW ADMINISTRATOR): - continue home biktarvy - hx of crypto meningitis, continue suppressive fluconazole Assessment & Plan (02/18/2019 1:12 PM SERVICENOW ADMINISTRATOR): Most recent 10/19 CD4 153, VL [...] 08/12/2018 Assessment & Plan (02/15/2019 1:32 PM SERVICENOW ADMINISTRATOR): History of crypto meningitis; unclear what [...] elsewhere Assessment & Plan (03/02/2019 4:39 PM SERVICENOW ADMINISTRATOR): Patient reports rectal pain. In setting of anal cancer and current XRT. Follows with pain management outpatient, Dr. Pichardo. -On exam, there is skin breakdown between gluteal muscles > c/s wound care for wound management -Home pain regimen: MSContin 30mg BID, Gabapentin 600mg QID, Requip 1mg qpm, [place] 10/325 q6hprn, Baclofen 20mg TID prn Assessment & Plan (02/17/2019 12:10 PM SERVICENOW ADMINISTRATOR): Follows with pain management (Dr. Pichardo) [...] 04/06/2023 Assessment & Plan (04/04/2023 9:55 AM SERVICENOW ADMINISTRATOR): -recent labs with low B12 and low folate -supplement with B12 and folate daily Hyponatremia 02/27/2019 04/06/2023 Assessment & Plan (04/05/2023 4:32 PM SERVICENOW ADMINISTRATOR): -Resolved s/p IVF bolus Assessment & Plan (02/28/2019 12:46 PM SERVICENOW ADMINISTRATOR): Na 127 on admit. Likely 2/2 dehydration related to diarrhea. -S/p 1L NS bolus x 2 -Na improving, 135 today -Will CTM Assessment & Plan (02/27/2019 11:24 PM SERVICENOW ADMINISTRATOR): - 2/2 dehydration liked related to diarrhea. Urine sodium < 20, Na improving with NS - additional 1L NS overnight, repeat BMP in AM Neutropenic fever 02/27/2019 02/07/2024 Assessment & Plan (03/01/2019 12:53 PM SERVICENOW ADMINISTRATOR): Patient admitted from [facility] where he reported chills with Tmax 38. Found to be neutropenic and was briefly hypotensive in [facility] -Infectious workup: Blood cultures x 2 [...] days Assessment & Plan (02/27/2019 11:26 PM SERVICENOW ADMINISTRATOR): - chills, Tmax 38, neutropenic and was briefly hypotensive in [facility] - blood cultures pending - f/u urine culture - CXR clear - f/u GC/CT - continue vanc/cefe Anal warts 09/09/2018 12/01/2019 Overview (09/09/2018): Added automatically from request for surgery [id number]
--- OUTSIDE RECORDS SUMMARY | 2024-10-11 20:25 | XMS_ITS | Referral Summary ---
Author Organization [facility] Address [address] [place] [address] Care Team Providers Care Roll Hauler Name Role Phone Syed Diggs MD Unavailable [phone] Wesley Pichardo MD Unavailable [phone] Marilyn Schreiber MD Unavailable [phone] Izabela Louis MD Primary Care Provider Encounters Date Type Department Care Team Description 09/08/2024 10:00 AM CDT [facility]) - [facility] Urology [address] [place] [address] Medicine 11th [place] [phone] Norman Schneider MD Stricture of bulbous urethra in male, unspecified stricture type (Primary Dx); Pelvic floor dysfunction 08/14/2024 3:00 PM CDT Office Visit [facility] ([facility]) - [facility] Urology [address] [place] [address] 11th [place] [id number] Stricture of bulbous urethra in male, unspecified stricture type (Primary Dx) 08/07/2024 3:08 PM CDT Anesthesia Event [facility] Operating Room [address] [place] [address] Leonor Jamison DO Frasca, Elizabeth Renee, CRNA 08/07/2024 3:07 PM CDT - 08/07/2024 4:27 PM CDT Surgery [facility] Operating Room [address] [place] [address] Norman Schneider MD OPTILUME URETHRAL DILATION 08/07/2024 11:46 AM CDT - 08/07/2024 6:00 PM CDT Hospital Encounter [facility] Operating Room [address] [place] [address] Norman Schneider MD Stricture of bulbous urethra in male, unspecified stricture type [N35.912] (Primary Dx) Discharge Disposition: Discharge to home or self care 08/04/2024 Telephone [facility] ([facility]) - [facility] Urology [address] [place], [place] [address]th [place] [address] Annel Herr, [employer]ED [employer] BOARDS INSPECTOR 08/04/2024 10:20 AM CDT Office Visit [facility]) - [facility] Urology [address] [place] [address] 11th [place] [address] Norman Schneider MD Stricture of bulbous urethra in male, unspecified stricture type (Primary Dx) 08/01/2024 Telephone [facility]) - [facility] Urology [address] [place], [place] [address]th [place] [address] Annel Herr, PRINTED CIRCUIT BOARDS INSPECTOR 08/01/2024 [facility] Eligibility Review [facility] Community Health Worker [facility] [address] [place] [address] Charlotte Coombs 07/31/2024 5:16 PM CDT - 07/31/2024 11:28 PM CDT Emergency [facility] Emergency Department [address] [place] [address] Ioana Ybarra MD Urinary retention with incomplete bladder emptying (Primary Dx) Discharge Disposition: Discharge to home or self care 07/25/2024 Results Follow-Up [facility] General Neurology [address] [facility] 6th Floor [address] [place] [phone] Cosme Stafford Jr., MD Treponemal IgG/IgM Blood, RPR Blood, Vitamin B12, Additional followed-up results: 8 07/21/2024 12:20 PM CDT Lab [facility] ([facility]) [address] [place] [phone] Memory loss 07/21/2024 10:30 AM CDT Office Visit [facility] Neurology [address] [facility] 6th [place] [address] [place] [address] Cosme Stafford Jr., MD Memory loss (Primary [...] BLOOD SUGAR ONCE DAILY 2 Active Symtuza [phone] mg tablet Take 1 tablet by mouth [...] 04/06/2023 Assessment & Plan (04/06/2023 1:44 PM POST ANESTHESIA CARE UNIT NURSE): Required 2L O2 support since admission CXR no evidence of pneumonia or atelectasis Now weaned to room air - Perform home O2 evaluation prior to discharge - Management of influenza as described elsewhere Macrocytic anemia 04/06/2023 Assessment & Plan (04/06/2023 1:49 PM POST ANESTHESIA CARE UNIT NURSE): Recent labs with low B12 and low folate Hb stable - Continue supplement with B12 and folate daily Verruca vulgaris 04/05/2023 Assessment & Plan (04/06/2023 1:36 PM POST ANESTHESIA CARE UNIT NURSE): Follows with [facility] - Continue home Imiquimod 5% cream to warts x3/weekly. Pt not to touch eyes following application. Influenza 04/04/2023 Assessment & Plan (04/06/2023 1:46 PM POST ANESTHESIA CARE UNIT NURSE): Reports fatigue, febrile episodes at home Tmax [...] 04/04/2023 Assessment & Plan (04/06/2023 1:45 PM POST ANESTHESIA CARE UNIT NURSE): Cr 1.5 up from baseline of ~1 Likely prerenal from poor po intake in setting of influenza Resolved with IVF, PO intake - Encourage to continue adequate hydration and food intake at home as he is recovering from influenza - Avoid nephrotoxins Chronic pain syndrome 04/04/2023 Assessment & Plan (04/06/2023 1:58 PM POST ANESTHESIA CARE UNIT NURSE): Seems to be on both methadone and percocet at home Continue home doses of methadone 5 mg BID and oxy 10 q4 prn Other urethral stricture, male, unspecified site 03/24/2023 B12 deficiency 02/17/2023 Inflammation of the rectum 09/13/2020 Overview (09/13/2020): Added automatically from request for surgery [id number] Chronic rectal pain 09/13/2020 Overview (09/13/2020): Added automatically from request for surgery [id number] Squamous cell carcinoma of rectum 09/13/2020 Overview (09/13/2020): Added automatically from request for surgery [id number] Screening for malignant neoplasm of colon 2020 Overview (07/30/2020): Added automatically from request for surgery [id number] ASTER (acute kidney injury) 12/01/2019 Assessment & [...] 03/01/2019 Assessment & Plan (03/02/2019 4:40 PM POST ANESTHESIA CARE UNIT NURSE): Cr was 1.13 on admission and peaked to 1.41 03/01 likely in the setting of IV abx. Supported with IVFS and stopped IV abx. Cr 1.12 Skin breakdown to perianal region 02/28/2019 Assessment & Plan (03/01/2019 1:12 PM POST ANESTHESIA CARE UNIT NURSE): Skin breakdown noted on exam between gluteal [...] 02/28/2019 Assessment & Plan (03/02/2019 4:45 PM POST ANESTHESIA CARE UNIT NURSE): Likely 2/2 current XRT. Patient has diarrhea at baseline. -Will send c.diff, stool studies to r/o infection -cIVFs to maintain hydration -diarrhea started again the evening of 03/01, send c.diff -k 3.2 in setting of diarrhea, supplemented Pancytopenia 02/27/2019 Assessment & Plan (12/01/2019 10:29 PM CDT): has been pancytopenic since chemotherapy, also with HIV Assessment & Plan (03/02/2019 4:38 PM POST ANESTHESIA CARE UNIT NURSE): In setting of chemotherapy 02/13- and XRT. -WBC 1.0, ANC 500 -H/H 8.5/23.4 on admission -PLT 3K on admission, s/p 1 unit, with appropriate bump to 16K -Will transfuse PLTs to keep > 10K, will likely need again as plt 13 today (denies blood nose/bm) -hgb 7.5, lorenzo transfuse 1 unit in setting of overall fatigue Assessment & Plan (02/27/2019 11:25 PM POST ANESTHESIA CARE UNIT NURSE): - likely 2/2 recent chemo - transfuse 1 unit plt with post transfusion cbc - maintain type and screen - consent in chart Transaminitis 02/17/2019 Assessment & Plan (02/18/2019 1:05 PM POST ANESTHESIA CARE UNIT NURSE): New onset 02/17 w/ t.bili 1, Alk Phos 181, AST 389, ALT 227. Previously normal. - Suspect drug-induced likely I/s/o recently initiated chemotherapy - consider also fluconazole vs biktarvy (these are not new prescriptions but concerns of compliance pre-hospitalization) vs recently initiated MSContin Down-trending today, plan to d/c Severe malnutrition 02/14/2019 Assessment & Plan (03/02/2019 4:44 PM POST ANESTHESIA CARE UNIT NURSE): -encourage high protein diet. Assessment & Plan (02/16/2019 11:14 AM POST ANESTHESIA CARE UNIT NURSE): Pt has had significant weight loss & poor PO intake. 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 - s/p treatment with atovaquone (rash to dapsone was, no G6PD) Encounter for antineoplastic chemotherapy 2018 Assessment & Plan (02/18/2019 1:04 PM POST ANESTHESIA CARE UNIT NURSE): Admitted for C1 Mitomycin and 5-FU with [...] 02/13/2019 Assessment & Plan (02/15/2019 1:32 PM POST ANESTHESIA CARE UNIT NURSE): Noted history of CKD3 with peak Cr in medical record to 2.5. Previously followed with nephrology though not in last couple years. Cr now WNL with adequate UO. - Monitor CMP daily, daily weights, and I&O Nicotine dependence 02/13/2019 Assessment & Plan (02/28/2019 1:13 PM POST ANESTHESIA CARE UNIT NURSE): Will administer Nicotine patches in house Assessment & Plan (02/15/2019 1:35 PM POST ANESTHESIA CARE UNIT NURSE): Current every day smoker. - Nicotine 21 mg patch daily - Encourage smoking cessation Anal cancer 10/17/2018 Assessment & Plan (04/06/2023 1:47 PM POST ANESTHESIA CARE UNIT NURSE): S/p chemoradiation Currently in remission - Continue [...] QID Assessment & Plan (03/01/2019 1:06 PM POST ANESTHESIA CARE UNIT NURSE): Patient of Dr. Peralta. S/p C1 mitomycin/5FU 02/13- with concurrent radiation. -Will continue XRT inpatient -Due for chemo on week 5 (~03/13/19) -Due to profound pancytopenia s/p chemo, will send out labwork to check deficiency in dihydropyrimidine dehydrogenase (DPD) per outpatient team 03/01 (has to be in pink tube) Assessment & Plan (02/27/2019 11:21 PM POST ANESTHESIA CARE UNIT NURSE): - s/p C1 mitomycin/5FU 02/13- with concurrent radiation - pain control with MSContin 30 BID + oxycodone PRN Assessment & Plan (02/18/2019 12:52 PM POST ANESTHESIA CARE UNIT NURSE): Diagnosed 09/23/2018, [id number]. Followed by Dr. Peralta. Treatment delayed 2/2 insurance issues. - Admitted for C1 mitomycin + 5FU w/ concurrent radiation (planned 28 fx) - first RT 02/13. C1 complete. Will follow up with xrt outpatient and with Dr. Peralta for C2 in a few weeks Tolerated treatment well Human immunodeficiency virus (HIV) disease 10/17 Assessment & Plan (04/06/2023 1:48 PM POST ANESTHESIA CARE UNIT NURSE): Last CD4 148[place] [id number] - Continue Symtuza - Continue atovaquone 1500 mg daily for PCP ppx - Ensure close f/u with local ID Dr. Louis Assessment & Plan (12/01/2019 10:28 PM CDT): last CD4 79, HIV VL [id number] 07/2019 - repeat CD4, HIV RNA; continue Biktarvy, continue fluconazole (patient endorses is suppressive therapy after previous crypto infection) Assessment & Plan (02/28/2019 12:45 PM POST ANESTHESIA CARE UNIT NURSE): Follows with Dr. Louis. Last CD4 153, VL 464K 10/2018. -Continue home biktarvy -Hx of crypto meningitis, continue suppressive fluconazole Assessment & Plan (02/27/2019 11:23 PM POST ANESTHESIA CARE UNIT NURSE): - continue home biktarvy - hx of crypto meningitis, continue suppressive fluconazole Assessment & Plan (02/18/2019 1:12 PM POST ANESTHESIA CARE UNIT NURSE): Most recent 10/19 CD4 153, VL 465k. [...] 08/12/2018 Assessment & Plan (02/15/2019 1:32 PM POST ANESTHESIA CARE UNIT NURSE): History of crypto meningitis; unclear what year [...] elsewhere Assessment & Plan (03/02/2019 4:39 PM POST ANESTHESIA CARE UNIT NURSE): Patient reports rectal pain. In setting of anal cancer and current XRT. Follows with pain management outpatient, Dr. Pichardo. -On exam, there is skin breakdown between gluteal muscles > c/s wound care for wound management -Home pain regimen: MSContin 30mg BID, Gabapentin 600mg QID, Requip 1mg qpm, [place] 10/325 q6hprn, Baclofen 20mg TID prn Assessment & Plan (02/17/2019 12:10 PM POST ANESTHESIA CARE UNIT NURSE): Follows with pain management (Dr. Pichardo) outpatient [...] 04/06/2023 Assessment & Plan (04/04/2023 9:55 AM POST ANESTHESIA CARE UNIT NURSE): -recent labs with low B12 and low folate -supplement with B12 and folate daily Hyponatremia 02/27/2019 04/06/2023 Assessment & Plan (04/05/2023 4:32 PM POST ANESTHESIA CARE UNIT NURSE): -Resolved s/p IVF bolus Assessment & Plan (02/28/2019 12:46 PM POST ANESTHESIA CARE UNIT NURSE): Na 127 on admit. Likely 2/2 dehydration related to diarrhea. -S/p 1L NS bolus x 2 -Na improving, 135 today -Will CTM Assessment & Plan (02/27/2019 11:24 PM POST ANESTHESIA CARE UNIT NURSE): - 2/2 dehydration liked related to diarrhea. Urine sodium < 20, Na improving with NS - additional 1L NS overnight, repeat BMP in AM Neutropenic fever 02/27/2019 02/07/2024 Assessment & Plan (03/01/2019 12:53 PM POST ANESTHESIA CARE UNIT NURSE): Patient admitted from [facility], where he reported chills with Tmax 38. Found to be neutropenic and was briefly hypotensive in [facility]. -Infectious workup: Blood cultures x [...] days Assessment & Plan (02/27/2019 11:26 PM POST ANESTHESIA CARE UNIT NURSE): - chills, Tmax 38, neutropenic and was briefly hypotensive in [facility] - blood cultures pending - f/u urine culture - CXR clear - f/u GC/CT - continue vanc/cefe Anal warts 09/09/2018 12/01/2019 Overview (09/09/2018): Added automatically from request for surgery [id number] Immunizations Immunization Administration Dates Next Due Hep [...] on file Legal Sex Male 4:35 AM POST ANESTHESIA CARE UNIT NURSE Gender Identity Male 04/21/2023 9:16 AM POST ANESTHESIA CARE UNIT NURSE Sexual Orientation Not on file Last Filed [...] HOUR IP Routine 08/07/2024 3:55 PM CDT AK AN PROCEDURE PLACEHOLDER Routine 08/07/2024 3:21 PM CDT AK AN ELECTIVE SUPRAGLOTTIC AIRWAY Routine 08/07/2024 3:21 [...] 07/21/2024 11: 26 AM CDT Memory loss CAFETERIA HELPER ANTIBODIES Routine 07/21/2024 11:26 AM CDT [...] FLUOROSCOPY PROCEDURE S Final Result [id number] * AK AN ELECTIVE SUPRAGLOTTIC AIRWAY, AK AN PROCEDURE PLACEHOLDER (08/07/2024 3:21 PM CDT) Michaela Balderas CRNA - 08/07/2024 3:21 PM CDT Michaela Chavira CRNA 08/07/2024 3:21 PM Airway Patient location: OR Urgency: elective Indications for airway management: anesthesia Difficult airway: no Staff: Supervising provider: Leonor Jamison DO Placed by: TRAVEL RN: Michaela Chavira CRNA Emergent airway documentation: Risks [...] ur Straw Yellow Clarity, ur Clear Clear [facility] Specific gravity, ur 1.013 1.003 - 1.030 [facility] pH, urine 6.5 [facility] Comment: Interpretive Data U rine pH is affected by diet, medications, systemic acid-base disturbances, and renal tubular function. pH may affect urinary stone formation. For example, urine pH below 6.0 may help reduce the tendency for calcium phosphate stones and pH greater than 6.0 may reduce the tendency for uric acid stone formation. Source: [facility] Current Interpretive Data was last revised on 2017 Protein, ur ql Negative Negative [facility] Glucose, ur ql Negative Negative [facility] Ketones, ur Negative Negative [facility] Bilirubin, ur Negative Negative [facility] Blood, ur Negative Negative [facility] Urobilinogen, ur <2.0 <2.0 mg/dL [facility] Nitrite, ur Negative Negative [facility] Leukocyte esterase, ur Negative Negative [facility] UA reflex comment Reflex conditions for microscopic UA and culture not met. [facility] Urine 07/31/2024 8:48 PM CDT 07/31/2024 9:02 PM CDT us Ioana Ybarra MD LAB MICROBIOLOGY - GENERAL ORDERABLES Final Result [facility] Department [place] [address] * CT Abdomen Pelvis W Contrast (07/31/2024 [...] EDUARD CE Final Result Performing Organization Address [facility]/ZIP Co de Phone Number [facility] Department [place] [address] * Sepsis Lactate w/ Reflex (07/31/2024 6:03 PM CDT) Pathologist [facility] Sepsis Lactate 1.2 0.7 - 2.0 mmol/L Blood 07/31/2024 6:03 PM CDT 07/31/2024 6:11 PM CDT Ioana Ybarra MD LAB BLOOD ORDERABLES Final Result Performing Organization Address [facility]/State/ZIP Co de Phone Number [facility] Department [place] [address] * eGFR (07/31/2024 6:03 PM CDT) Pathologist [facility] eGFR 71 >=60 mL/min/1. 73 m2 Comment: [...] MD LAB BLOOD ORDERABLES Final Result [facility] Department [place] [address] * Differential, auto (07/31/2024 6:03 PM CDT) Pathologist [facility] Neutrophil abs 5.50 1.50 - 6.50 K/cumm Imm gran abs 0.03 0.00 - 0.10 K/cumm [facility] Lymphocyte abs 1.18 0.80 - 3.30 K/cumm [facility] Monocyte abs 0.32 0.20 - 0.80 K/cumm [facility] Eosinophil abs 0.01 0.00 - 0.50 K/cumm [facility] Basophil abs 0.01 0.00 - 0.10 K/cumm [facility] Neutrophil pct 78.2 % [facility] Comment: Interpretive Data Percent cell count reference ranges are not reported, since discordance with absolute values may lead to misinterpretation of CBC data. Current Interpretive Data was last revised on 2017. Imm gran pct 0.4 % [facility] Comment: Interpretive Data Percent cell count reference ranges are not reported, since discordance with absolute values may lead to misinterpretation of CBC data. Current Interpretive Data was last revised on 2017. Lymphocyte pct 16.7 % [facility] Comment: Interpretive Data Percent cell count reference ranges are not reported, since discordance with absolute values may lead to misinterpretation of CBC data. Current Interpretive Data was last revised on 2017. Monocyte pct 4.5 % [facility] Comment: Interpretive Data Percent cell count reference ranges are not reported, since discordance with absolute values may lead to misinterpretation of CBC data. Current Interpretive Data was last revised on 2017. Eosinophil pct 0.1 % [facility] Comment: Interpretive Data Percent cell count reference ranges are not reported, since discordance with absolute values may lead to misinterpretation of CBC data. Current Interpretive Data was last revised on 2017. Basophil pct 0.1 % [facility] Comment: Interpretive Data Percent cell count reference ranges are not reported, since discordance with absolute values may lead to misinterpretation of CBC data. Current Interpretive Data was last revised on 2017. Blood 07/31/2024 6:03 PM CDT 07/31/2024 6:17 PM CDT us Ioana Ybarra MD LAB BLOOD ORDERABLES Final Result [facility] Department [place] [address] * (ABNORMAL) CBC with auto differential (07/31/2024 6:03 PM CDT) WBC 7.05 3.80 - 9.90 K/cumm Hgb 12.3(L) 13.0 - 17.5 g/dL [facility] Hct 34.7(L) 38.9 - 50.3 % [facility] Plt 209 150 - 400 K/cumm [facility] MPV 9.5 9.1 - 12.3 fL [facility] RBC 3.77(L) 4.30 - 5.80 M/cumm [facility] MCV 92.0 81.3 - 96.4 fL [facility] MCH 32.6 27.1 - 33.3 pg [facility] MCHC 35.4 32.3 - 35.7 g/dL [facility] RDW CV 12.1 11.1 - 14.9 % [facility] RDW SD 40.9 35.7 - 48.1 fL [facility] NRBC abs 0.00 0.00 - 0.01 K/cumm [facility] Blood 07/31/2024 6:03 PM CDT 07/31/2024 6:17 PM CDT Ioana Ybarra MD LAB BLOOD ORDERABLES Final Result Performing Organization Address [facility]/ZIP Co de Phone Number [facility] [place] [address] * Lipase (07/31/2024 6:03 PM CDT) [facility] Lipase 25 10 - 99 Units/L Blood 07/31/2024 6:03 PM CDT 07/31/2024 6:17 PM CDT Ioana Ybarra MD LAB BLOOD ORDERABLES Final Result Performing Organization Address City/[facility]/ZIP Co de Phone Number [facility] [place] [address] * (ABNORMAL) Comprehensive metabolic panel (07/31/2024 6:03 PM CDT) [facility] Sodium 134(L) 135 - 145 mmol/L Potassium, pl 4.0 3.3 - 4.9 mmol/L [facility] Chloride 97 97 - 110 mmol/L [facility] CO2 29 22 - 32 mmol/L [facility] Anion gap 8 2 - 15 mmol/L [facility] BUN 8 6 - 25 mg/dL [facility] Creatinine 1.27 0.80 - 1.30 mg/dL [facility] Glucose 115 70 - 199 mg/dL [facility] Comment: Interpretive Data Fasting glucose >/= 126 [...] 2022. Calcium 9.9 8.5 - 10.3 mg/dL [facility] Bilirubin, total 0.6 0.1 - 1.2 mg/dL [facility] Protein, pl 8.7(H) 6.5 - 8.5 g/dL [facility] Albumin 4.3 3.5 - 5.0 g/dL [facility] Alk phos 101 40 - 130 Units/L [facility] ALT 17 7 - 55 Units/L [facility] AST 40 10 - 50 Units/L [facility] Blood 07/31/2024 6:03 PM CDT 07/31/2024 6:17 PM CDT us Ioana Ybarra MD LAB BLOOD ORDERABLES Final Result [facility] Department [place] [address] * (ABNORMAL) Treponemal IgG/IgM Blood (07/21/2024 11:26 [...] GENERAL ORDERABLES Final Result Performing Organization Address [facility] de Phone Number MOUNA [facility] [address] * HOANG ab ql w/rflx to HOANG [...] ORDERABL ES Final Result Performing Organization Address [facility] de Phone Number [facility] [place] [address] * SCL 70 abs (07/21/2024 11:26 AM CDT) Anti-Scl70, IgG <0.2 <=0.9 Ab Index Comment: Interpretive Data Negative: < 1.0 Ab Index Positive: > or = 1.0 Ab Index Current interpretive data was last revised on 2016. Blood 07/21/2024 11:2 6 AM CDT 07/21/2024 12:41 PM CDT Cosme Stafford Jr., MD LAB BLOOD ORDERABL ES Final Result Performing Organization Address [facility] de Phone Number [facility] [place] [address] * Meza abs (07/21/2024 11:26 AM CDT) Anti-RAMONA, SM <0.2 <=0.9 Ab Index Comment: Interpretive Data Negative: < 1.0 Ab Index Positive: > or = 1.0 Ab Index Current interpretive data was last revised on 2016. Blood 07/21/2024 11:2 6 AM CDT 07/21/2024 12:41 PM CDT Cosme Stafford Jr., MD LAB BLOOD ORDERABL ES Final Result Performing Organization Address [facility] de Phone Number [facility] [place] [address] * (ABNORMAL) CAFETERIA HELPER abs (07/21/2024 11:26 AM CDT) Pathologist [facility] CAFETERIA HELPER ab 4.0(H) <=0.9 Ab Index Comment: Interpretive Data Negative: < 1.0 Ab Index Positive: > or = 1.0 Ab Index Current interpretive data was last revised on 2016. Blood 07/21/2024 11:2 6 AM CDT 07/21/2024 12:41 PM CDT Cosme Stafford Jr., MD LAB BLOOD ORDERABL ES Final Result Performing Organization Address [facility] Co de Phone Number [facility] [address] * (ABNORMAL) RAMONA ab eval w/reflex (07/21/2024 11:26 AM CDT) RAMONA ab Positive( A) Negative Comment: Interpretive Data Positive Screens will be reflexed to specific testing for Antibodies against the following antigens: Emily-1 Ab, CAFETERIA HELPER Ab, Scl-70 Ab, Meza Ab, SS-A/Ro [...] ORDERABL ES Final Result Performing Organization Address [facility] Phone Number [facility] [address] * Emily-1 antibody (07/21/2024 11:26 AM CDT) Emily 1 Antibody, IgG <0.2 <=0.9 Ab Index Comment: Interpretive Data Negative: < 1.0 Ab Index Positive: > or = 1.0 Ab Index Current interpretive data was last revised on 2016. Blood 07/21/2024 11:2 6 AM CDT 07/21/2024 12:41 PM CDT Cosme Stafford Jr., MD LAB BLOOD ORDERABL ES Final Result Performing Organization Address [facility] de Phone Number [facility] [place] [address] * RPR Blood (07/21/2024 11:26 AM CDT) RPR Nonreactive Nonreactive Blood 07/21/2024 11:2 6 AM CDT 07/21/2024 11:59 AM CDT Cosme Stafford Jr., MD LAB MICROBIOLOGY - GENERAL ORDERABLES Final Result [facility] [place] [address] * Sjogren's syndrome B ab (07/21/2024 11:26 AM CDT) Anti-RAMONA, SS-B <0.2 <=0.9 Ab Index Comment: Interpretive Data Negative: < 1.0 Ab Index Positive: > or = 1.0 Ab Index Current interpretive data was last revised on 2016. Blood 07/21/2024 11:2 6 AM CDT 07/21/2024 12:41 PM CDT Cosme Stafford Jr., MD LAB BLOOD ORDERABL ES Final Result Performing Organization Address [facility] [place] [address] * Sjogren's syndrome A ab (07/21/2024 11:26 [...] ORDERABL ES Final Result Performing Organization Address City/[facility] [place] [address] * Vitamin B12 (07/21/2024 11:26 AM CDT) Vitamin B12 366 230 - 1,250 pg/mL Blood 07/21/2024 11:2 6 AM CDT 07/21/2024 11:59 AM CDT us Cosme Stafford Jr., MD LAB BLOOD ORDERABL ES Final Result [facility] Department [place] [address] from Last 3 Months Insurance MEDICARE [facility] Address: [address] [address] [facility] MEDICARE [employer] MANAGED MEDICAID GENERIC RISK OTHER [employer] [place] MEDICARE [place] Advance Directives For more information, please contact: [phone] * Full Code (Latest Code Status on [...] 10:57 AM 05/28/2020 4:48 AM Care Teams Roll Hauler Relationship Specialty Start Date End Date Izabela Louis MD [address] [place] [id number] PCP - General 11/22/19 Syed Diggs MD Surgeon Colon and Rectal Surgery 09/30/18 Wesley Pichardo MD [address] [address] Pain Management 09/30/18 Marilyn Schreiber MD [address] [place] [id number] Radiation Oncologist Radiation Oncology 10/24/18
--- OUTSIDE RECORDS SUMMARY | 2024-10-11 20:25 | XMS_ITS | Clinical Summary ---
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, [address] [phone] Polo Brownlee DO 09/19/2024 2:15 PM CDT Office Visit [facility], [facility] [address] [facility] [address] [place] [address] Polo Brownlee, DO Chronic kidney [...] Description 11/21/2024 12:15 PM CDT Office Visit [facility], [facility] [address] [facility] [address] [place] [address] Polo Brownlee DO [address] [facility] [address] [place] [address] Health Maintenance Due Date Last [...] 08/28/2009 Insurance Medicare Medicaid [place] Care Teams Line Haul Truck Driver Relationship Specialty Start Date End Date Izabela Louis MD [address] [place] [address] PCP - General Internal Medicine 06/26/24
--- OUTSIDE RECORDS SUMMARY | 2024-10-11 20:25 | XMS_ITS | Clinical Summary ---
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
--- OUTSIDE RECORDS SUMMARY | 2024-10-11 20:25 | XMS_ITS | Clinical Summary ---
Author Organization [facility] Address [address] [place] [address] Care Team Providers Care Chiropractic Physician Name Role Phone Syed Diggs MD Unavailable [phone] Wesley Pichardo MD Unavailable [phone] Marilyn Schreiber MD Unavailable [phone] Izabela Louis MD Primary Care Provider Allergies [...] 01/23/202 3 Active True Metrix Glucose Meter [facility] USE TO TEST BLOOD SUGAR ONCE DAILY 2 Active Symtuza [phone] mg tablet Take 1 tablet by mouth [...] 04/06/2023 Assessment & Plan (04/06/2023 1:44 PM GUM ROLLING MACHINE TENDER): Required 2L O2 support since admission CXR no evidence of pneumonia or atelectasis Now weaned to room air - Perform home O2 evaluation prior to discharge - Management of influenza as described elsewhere Macrocytic anemia 04/06/2023 Assessment & Plan (04/06/2023 1:49 PM GUM ROLLING MACHINE TENDER): Recent labs with low B12 and low folate Hb stable - Continue supplement with B12 and folate daily Verruca vulgaris 04/05/2023 Assessment & Plan (04/06/2023 1:36 PM GUM ROLLING MACHINE TENDER): Follows with [facility] - Continue home Imiquimod 5% cream to warts x3/weekly. Pt not to touch eyes following application. Influenza 04/04/2023 Assessment & Plan (04/06/2023 1:46 PM GUM ROLLING MACHINE TENDER): Reports fatigue, febrile episodes at home Tmax [...] 04/04/2023 Assessment & Plan (04/06/2023 1:45 PM GUM ROLLING MACHINE TENDER): Cr 1.5 up from baseline of ~1 Likely prerenal from poor po intake in setting of influenza Resolved with IVF, PO intake - Encourage to continue adequate hydration and food intake at home as he is recovering from influenza - Avoid nephrotoxins Chronic pain syndrome 04/04/2023 Assessment & Plan (04/06/2023 1:58 PM GUM ROLLING MACHINE TENDER): Seems to be on both methadone and percocet at home Continue home doses of methadone 5 mg BID and oxy 10 q4 prn Other urethral stricture, male, unspecified site 03/24/2023 B12 deficiency 02/17/2023 Inflammation of the rectum 09/13/2020 Overview (09/13/2020): Added automatically from request for surgery [id number] Chronic rectal pain 09/13/2020 Overview (09/13/2020): Added automatically from request for surgery [id number] Squamous cell carcinoma of rectum 09/13/2020 Overview (09/13/2020): Added automatically from request for surgery [id number] Screening for malignant neoplasm of colon 2020 Overview (07/30/2020): Added automatically from request for surgery [id number] ASTER (acute kidney injury) 12/01/2019 Assessment & [...] 03/01/2019 Assessment & Plan (03/02/2019 4:40 PM GUM ROLLING MACHINE TENDER): Cr was 1.13 on admission and peaked to 1.41 03/01 likely in the setting of IV abx. Supported with IVFS and stopped IV abx. Cr 1.12 Skin breakdown to perianal region 02/28/2019 Assessment & Plan (03/01/2019 1:12 PM GUM ROLLING MACHINE TENDER): Skin breakdown noted on exam between gluteal [...] 02/28/2019 Assessment & Plan (03/02/2019 4:45 PM GUM ROLLING MACHINE TENDER): Likely 2/2 current XRT. Patient has diarrhea at baseline. -Will send c.diff, stool studies to r/o infection -cIVFs to maintain hydration -diarrhea started again the evening of 03/01, send c.diff -k 3.2 in setting of diarrhea, supplemented Pancytopenia 02/27/2019 Assessment & Plan (12/01/2019 10:29 PM CDT): has been pancytopenic since chemotherapy, also with HIV Assessment & Plan (03/02/2019 4:38 PM GUM ROLLING MACHINE TENDER): In setting of chemotherapy 02/13- and XRT. -WBC 1.0, ANC 500 -H/H 8.5/23.4 on admission -PLT 3K on admission, s/p 1 unit, with appropriate bump to 16K -Will transfuse PLTs to keep > 10K, will likely need again as plt 13 today (denies blood nose/bm) -hgb 7.5, lorenzo transfuse 1 unit in setting of overall fatigue Assessment & Plan (02/27/2019 11:25 PM GUM ROLLING MACHINE TENDER): - likely 2/2 recent chemo - transfuse 1 unit plt with post transfusion cbc - maintain type and screen - consent in chart Transaminitis 02/17/2019 Assessment & Plan (02/18/2019 1:05 PM GUM ROLLING MACHINE TENDER): New onset 02/17 w/ t.bili 1, Alk Phos 181, AST 389, ALT 227. Previously normal. - Suspect drug-induced likely I/s/o recently initiated chemotherapy - consider also fluconazole vs biktarvy (these are not new prescriptions but concerns of compliance pre-hospitalization) vs recently initiated MSContin Down-trending today, plan to d/c Severe malnutrition 02/14/2019 Assessment & Plan (03/02/2019 4:44 PM GUM ROLLING MACHINE TENDER): -encourage high protein diet. Assessment & Plan (02/16/2019 11:14 AM GUM ROLLING MACHINE TENDER): Pt has had significant weight loss & poor PO intake. 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 - s/p treatment with atovaquone (rash to dapsone was, no G6PD) Encounter for antineoplastic chemotherapy 2018 Assessment & Plan (02/18/2019 1:04 PM GUM ROLLING MACHINE TENDER): Admitted for C1 Mitomycin and 5-FU with [...] 02/13/2019 Assessment & Plan (02/15/2019 1:32 PM GUM ROLLING MACHINE TENDER): Noted history of CKD3 with peak Cr in medical record to 2.5. Previously followed with nephrology though not in last couple years. Cr now WNL with adequate UO. - Monitor CMP daily, daily weights, and I&O Nicotine dependence 02/13/2019 Assessment & Plan (02/28/2019 1:13 PM GUM ROLLING MACHINE TENDER): Will administer Nicotine patches in house Assessment & Plan (02/15/2019 1:35 PM GUM ROLLING MACHINE TENDER): Current every day smoker. - Nicotine 21 mg patch daily - Encourage smoking cessation Anal cancer 10/17/2018 Assessment & Plan (04/06/2023 1:47 PM GUM ROLLING MACHINE TENDER): S/p chemoradiation Currently in remission - Continue [...] QID Assessment & Plan (03/01/2019 1:06 PM GUM ROLLING MACHINE TENDER): Patient of Dr. Peralta. S/p C1 mitomycin/5FU 02/13- with concurrent radiation. -Will continue XRT inpatient -Due for chemo on week 5 (~03/13/19) -Due to profound pancytopenia s/p chemo, will send out labwork to check deficiency in dihydropyrimidine dehydrogenase (DPD) per outpatient team 03/01 (has to be in pink tube) Assessment & Plan (02/27/2019 11:21 PM GUM ROLLING MACHINE TENDER): - s/p C1 mitomycin/5FU 02/13- with concurrent radiation - pain control with MSContin 30 BID + oxycodone PRN Assessment & Plan (02/18/2019 12:52 PM GUM ROLLING MACHINE TENDER): Diagnosed 09/23/2018, [id number]. Followed by Dr. Peralta. Treatment delayed 2/2 insurance issues. - Admitted for C1 mitomycin + 5FU w/ concurrent radiation (planned 28 fx) - first RT 02/13. C1 complete. Will follow up with xrt outpatient and with Dr. Peralta for C2 in a few weeks Tolerated treatment well Human immunodeficiency virus (HIV) disease 10/17 Assessment & Plan (04/06/2023 1:48 PM GUM ROLLING MACHINE TENDER): Last CD4 148, [place] [id number] - Continue Symtuza - Continue atovaquone 1500 mg daily for PCP ppx - Ensure close f/u with local ID Dr. Louis Assessment & Plan (12/01/2019 10:28 PM CDT): last CD4 79, HIV VL [id number] 07/2019 - repeat CD4, HIV RNA; continue Biktarvy, continue fluconazole (patient endorses is suppressive therapy after previous crypto infection) Assessment & Plan (02/28/2019 12:45 PM GUM ROLLING MACHINE TENDER): Follows with Dr. Louis. Last CD4 153, VL 464K 10/2018. -Continue home biktarvy -Hx of crypto meningitis, continue suppressive fluconazole Assessment & Plan (02/27/2019 11:23 PM GUM ROLLING MACHINE TENDER): - continue home biktarvy - hx of crypto meningitis, continue suppressive fluconazole Assessment & Plan (02/18/2019 1:12 PM GUM ROLLING MACHINE TENDER): Most recent 10/19 CD4 153, VL 465k. [...] 08/12/2018 Assessment & Plan (02/15/2019 1:32 PM GUM ROLLING MACHINE TENDER): History of crypto meningitis; unclear what year [...] elsewhere Assessment & Plan (03/02/2019 4:39 PM GUM ROLLING MACHINE TENDER): Patient reports rectal pain. In setting of anal cancer and current XRT. Follows with pain management outpatient, Dr. Pichardo. -On exam, there is skin breakdown between gluteal muscles > c/s wound care for wound management -Home pain regimen: MSContin 30mg BID, Gabapentin 600mg QID, Requip 1mg qpm, [place] 10/325 q6hprn, Baclofen 20mg TID prn Assessment & Plan (02/17/2019 12:10 PM GUM ROLLING MACHINE TENDER): Follows with pain management (Dr. Pichardo) outpatient [...] 04/06/2023 Assessment & Plan (04/04/2023 9:55 AM GUM ROLLING MACHINE TENDER): -recent labs with low B12 and low folate -supplement with B12 and folate daily Hyponatremia 02/27/2019 04/06/2023 Assessment & Plan (04/05/2023 4:32 PM GUM ROLLING MACHINE TENDER): -Resolved s/p IVF bolus Assessment & Plan (02/28/2019 12:46 PM GUM ROLLING MACHINE TENDER): Na 127 on admit. Likely 2/2 dehydration related to diarrhea. -S/p 1L NS bolus x 2 -Na improving, 135 today -Will CTM Assessment & Plan (02/27/2019 11:24 PM GUM ROLLING MACHINE TENDER): - 2/2 dehydration liked related to diarrhea. Urine sodium < 20, Na improving with NS - additional 1L NS overnight, repeat BMP in AM Neutropenic fever 02/27/2019 02/07/2024 Assessment & Plan (03/01/2019 12:53 PM GUM ROLLING MACHINE TENDER): [facility] Assessment & Plan (02/27/2019 11:26 PM GUM ROLLING MACHINE TENDER): - chills, Tmax 38, neutropenic and was briefly hypotensive in [facility] - blood cultures pending - f/u urine culture - CXR clear - f/u GC/CT - continue vanc/cefe Anal warts 09/09/2018 12/01/2019 Overview (09/09/2018): Added automatically from request for surgery [id number] Encounters Date Type Department Care Team Description 09/08/2024 10:00 AM CDT Office Visit [facility] - [facility] Urology [address] [place] [address] 11th [place] [address] Norman Schneider MD Stricture of bulbous urethra in male, unspecified stricture type (Primary Dx); Pelvic floor dysfunction 08/14/2024 3:00 PM CDT Office Visit [facility] - [facility] Urology [address] [place] [address] [place] [address] Stricture of bulbous urethra in male, unspecified stricture type (Primary Dx) 08/07/2024 3:08 PM CDT Anesthesia Event [facility] Operating Room [address] [place] [address] Leonor Jamison, DO Chavira, Michaela Mayer, KALPANA 08/07/2024 3:07 PM CDT - 08/07/2024 4:27 PM CDT Surgery [facility] Operating Room [address] [place] [address] Norman Schneider MD OPTILUME URETHRAL DILATION 08/07/2024 11:46 AM CDT - 08/07/2024 6:00 PM CDT Hospital Encounter [facility] Operating Room [address] [place] [address] Norman Schneider MD Stricture of bulbous urethra in male, unspecified stricture type [N35.912] (Primary Dx) Discharge Disposition: Discharge to home or self care 08/04/2024 10:20 AM CDT Office Visit [facility] - [facility] Urology [address] [place] [address] [facility] 11th [place] [address] Norman Schneider MD Stricture of bulbous urethra in male, unspecified stricture type (Primary Dx) 08/04/2024 Telephone [facility] - [facility] Urology [address] [facility] 11th [place] [address] [place] [address] Annel Herr, CARPENTER PROTOTYPE 08/01/2024 Telephone Center [facility] - [facility] Urology [address] [facility] 11th [place] [address] [place] [address] Annel Herr, CARPENTER PROTOTYPE 08/01/2024 [facility] Community Health Worker [address] [facility] [address] [place] [address] Charlotte Coombs 07/31/2024 5:16 PM CDT - 07/31/2024 11:28 PM CDT Emergency [facility] Emergency Department [address] [place] [address] Ioana Ybarra MD Urinary retention with incomplete bladder emptying (Primary Dx) Discharge Disposition: Discharge to home or self care 07/25/2024 Results Follow-Up [facility] General Neurology [address] [facility] 6th Floor [address] [place] [phone] Cosme Stafford Jr., MD Treponemal IgG/IgM Blood, RPR Blood, Vitamin B12, Additional followed-up results: 8 07/21/2024 12:20 PM CDT Lab [facility] [address] [place] [phone] Memory loss 07/21/2024 10:30 AM CDT Office Visit [facility] Neurology [address] [facility] 6th [place] [address] [place] [id number] Cosme Stafford Jr., MD Memory loss (Primary [...] on file Legal Sex Male 4:35 AM GUM ROLLING MACHINE TENDER Gender Identity Male 04/21/2023 9:16 AM GUM ROLLING MACHINE TENDER Sexual Orientation Not on file Obstetrics History [...] HOUR IP Routine 08/07/2024 3:55 PM CDT [place] AN PROCEDURE PLACEHOLDER Routine 08/07/2024 3:21 PM CDT [place] AN ELECTIVE SUPRAGLOTTIC AIRWAY Routine 08/07/2024 3:21 [...] 07/21/2024 11: 26 AM CDT Memory loss WINDLACE MACHINE OPERATOR ANTIBODIES Routine 07/21/2024 11:26 AM CDT Memory [...] HOSPITAL Co de Phone Number [email or web address] * [place] AN ELECTIVE SUPRAGLOTTIC AIRWAY, [place] AN PROCEDURE PLACEHOLDER (08/07/2024 3:21 PM CDT) Michaela Balderas CRNA - 08/07/2024 3:21 PM CDT Michaela Chavira CRNA 08/07/2024 3:21 PM Airway Patient location: OR Urgency: elective Indications for airway management: anesthesia Difficult airway: no Staff: Supervising provider: Leonor Jamison DO Placed by: APPLICATION DEVELOPMENT DIRECTOR: Micahela Chavira CRNA Emergent airway documentation: Risks [...] ur Straw Yellow Clarity, ur Clear Clear [facility] Specific gravity, ur 1.013 1.003 - 1.030 [facility] pH, urine 6.5 [facility] Comment: Interpretive Data U rine pH is affected by diet, medications, systemic acid-base disturbances, and renal tubular function. pH may affect urinary stone formation. For example, urine pH below 6.0 may help reduce the tendency for calcium phosphate stones and pH greater than 6.0 may reduce the tendency for uric acid stone formation. Source: [facility] [employer] Current Interpretive Data was last revised on 2017 Protein, ur ql Negative Negative [facility] Glucose, ur ql Negative Negative [facility] Ketones, ur Negative Negative [facility] Bilirubin, ur Negative Negative [facility] Blood, ur Negative Negative [facility] Urobilinogen, ur <2.0 <2.0 mg/dL [facility] Nitrite, ur Negative Negative [facility] Leukocyte esterase, ur Negative Negative [facility] UA reflex comment Reflex conditions for microscopic UA and culture not met. [facility] Urine 07/31/2024 8:48 PM CDT 07/31/2024 9:02 PM CDT us Ioana Ybarra MD LAB MICROBIOLOGY - GENERAL ORDERABLES Final Result [facility] [place] [address] * CT Abdomen Pelvis W Contrast (07/31/2024 [...] POCT ORDERABLES - EDUARD CE Final Result [facility] [place] [address] * Sepsis Lactate w/ Reflex (07/31/2024 6:03 PM CDT) Sepsis Lactate 1.2 0.7 - 2.0 mmol/L Blood 07/31/2024 6:03 PM CDT 07/31/2024 6:11 PM CDT Ioana Ybarra MD LAB BLOOD ORDERABLES Final Result Performing Organization Address [facility] [address]/[facility] Co de Phone Number [facility] Department [place] [address] * eGFR (07/31/2024 6:03 PM CDT) eGFR [...] Ybarra MD LAB BLOOD ORDERABLES Final Result [facility] Department [place] [address] * Differential, auto (07/31/2024 6:03 PM CDT) Neutrophil abs 5.50 1.50 - 6.50 K/cumm Imm gran abs 0.03 0.00 - 0.10 K/cumm [facility] Lymphocyte abs 1.18 0.80 - 3.30 K/cumm [facility] Monocyte abs 0.32 0.20 - 0.80 K/cumm [facility] Eosinophil abs 0.01 0.00 - 0.50 K/cumm [facility] Basophil abs 0.01 0.00 - 0.10 K/cumm [facility] Neutrophil pct 78.2 % [facility] Comment: Interpretive Data Percent cell count reference ranges are not reported, since discordance with absolute values may lead to misinterpretation of CBC data. Current Interpretive Data was last revised on 2017. Imm gran pct 0.4 % [facility] Comment: Interpretive Data Percent cell count reference ranges are not reported, since discordance with absolute values may lead to misinterpretation of CBC data. Current Interpretive Data was last revised on 2017. Lymphocyte pct 16.7 % [facility] Comment: Interpretive Data Percent cell count reference ranges are not reported, since discordance with absolute values may lead to misinterpretation of CBC data. Current Interpretive Data was last revised on 2017. Monocyte pct 4.5 % [facility] Comment: Interpretive Data Percent cell count reference ranges are not reported, since discordance with absolute values may lead to misinterpretation of CBC data. Current Interpretive Data was last revised on 2017. Eosinophil pct 0.1 % [facility] Comment: Interpretive Data Percent cell count reference ranges are not reported, since discordance with absolute values may lead to misinterpretation of CBC data. Current Interpretive Data was last revised on 2017. Basophil pct 0.1 % [facility] Comment: Interpretive Data Percent cell count reference ranges are not reported, since discordance with absolute values may lead to misinterpretation of CBC data. Current Interpretive Data was last revised on 2017. Blood 07/31/2024 6:03 PM CDT 07/31/2024 6:17 PM CDT Ioana Ybarra MD LAB BLOOD ORDERABLES Final Result Performing Organization Address City/[facility] [address]/ZIP Co de Phone Number [facility] Department [place] [address] * (ABNORMAL) CBC with auto differential (07/31/2024 6:03 PM CDT) WBC 7.05 3.80 - 9.90 K/cumm Hgb 12.3(L) 13.0 - 17.5 g/dL [facility] Hct 34.7(L) 38.9 - 50.3 % [facility] Plt 209 150 - 400 K/cumm [facility] MPV 9.5 9.1 - 12.3 fL [facility] RBC 3.77(L) 4.30 - 5.80 M/cumm [facility] MCV 92.0 81.3 - 96.4 fL [facility] MCH 32.6 27.1 - 33.3 pg [facility] MCHC 35.4 32.3 - 35.7 g/dL [facility] RDW CV 12.1 11.1 - 14.9 % [facility] RDW SD 40.9 35.7 - 48.1 fL [facility] NRBC abs 0.00 0.00 - 0.01 K/cumm [facility] Blood 07/31/2024 6:03 PM CDT 07/31/2024 6:17 PM CDT us Ioana Ybarra MD LAB BLOOD ORDERABLES Final Result Performing Organization Address City/[facility] [address]/ZIP Co de Phone Number [facility] Department [place] [address] * Lipase (07/31/2024 6:03 PM CDT) Lipase 25 10 - 99 Units/L Blood 07/31/2024 6:03 PM CDT 07/31/2024 6:17 PM CDT us Ioana Ybarra MD LAB BLOOD ORDERABLES Final Result [facility] Department [place] [address] * (ABNORMAL) Comprehensive metabolic panel (07/31/2024 6:03 PM CDT) Pathologist [facility] Sodium 134(L) 135 - 145 mmol/L Potassium, pl 4.0 3.3 - 4.9 mmol/L [facility] Chloride 97 97 - 110 mmol/L [facility] CO2 29 22 - 32 mmol/L [facility] Anion gap 8 2 - 15 mmol/L [facility] BUN 8 6 - 25 mg/dL [facility] Creatinine 1.27 0.80 - 1.30 mg/dL [facility] Glucose 115 70 - 199 mg/dL [facility] Comment: Interpretive Data Fasting glucose >/= [...] 2022. Calcium 9.9 8.5 - 10.3 mg/dL [facility] Bilirubin, total 0.6 0.1 - 1.2 mg/dL [facility] Protein, pl 8.7(H) 6.5 - 8.5 g/dL [facility] Albumin 4.3 3.5 - 5.0 g/dL [facility] Alk phos 101 40 - 130 Units/L [facility] ALT 17 7 - 55 Units/L [facility] AST 40 10 - 50 Units/L [facility] Blood 07/31/2024 6:03 PM CDT 07/31/2024 6:17 PM CDT us Ioana Ybarra MD LAB BLOOD ORDERABLES Final Result Performing Organization Address [facility] [address]/[facility] de Phone Number [facility] [place] [address] * (ABNORMAL) Treponemal IgG/IgM Blood (07/21/2024 11:26 [...] Result Performing Organization Address [facility] [place] [address] * HOANG ab ql w/rflx to HOANG [...] Final Result Performing Organization Address [facility] [address]/[facility] de Phone Number [facility] [address] * SCL 70 abs (07/21/2024 11:26 AM CDT) Anti-Scl70, IgG <0.2 <=0.9 Ab Index Comment: Interpretive Data Negative: < 1.0 Ab Index Positive: > or = 1.0 Ab Index Current interpretive data was last revised on 2016. Blood 07/21/2024 11:2 6 AM CDT 07/21/2024 12:41 PM CDT Cosme Stafford Jr., MD LAB BLOOD ORDERABL ES Final Result Performing Organization Address [facility] de Phone Number [facility] [place] [address] * Meza abs (07/21/2024 11:26 AM CDT) [facility] Anti-RAMONA, SM <0.2 <=0.9 Ab Index Comment: Interpretive Data Negative: < 1.0 Ab Index Positive: > or = 1.0 Ab Index Current interpretive data was last revised on 2016. Blood 07/21/2024 11:2 6 AM CDT 07/21/2024 12:41 PM CDT Cosme Stafford Jr., MD LAB BLOOD ORDERABL ES Final Result Performing Organization Address [facility] [address]/[facility] Co de Phone Number [facility] [place] [address] * (ABNORMAL) WINDLACE MACHINE OPERATOR abs (07/21/2024 11:26 AM CDT) WINDLACE MACHINE OPERATOR ab 4.0(H) <=0.9 Ab Index Comment: Interpretive Data Negative: < 1.0 Ab Index Positive: > or = 1.0 Ab Index Current interpretive data was last revised on 2016. Blood 07/21/2024 11:2 6 AM CDT 07/21/2024 12:41 PM CDT Cosme Stafford Jr., MD LAB BLOOD ORDERABL ES Final Result Performing Organization Address [facility] [address]/[facility] de Phone Number [facility] Department [place] [address] * (ABNORMAL) RAMONA ab eval w/reflex (07/21/2024 11:26 AM CDT) Pathologist [facility] RAMONA ab Positive( A) Negative Comment: Interpretive Data Positive Screens will be reflexed to specific testing for Antibodies against the following antigens: Emily-1 Ab, WINDLACE MACHINE OPERATOR Ab, Scl-70 Ab, Meza Ab, SS-A/Ro Ab, [...] Final Result Performing Organization Address [facility] [address]/[facility] de Phone Number [facility] [place] [address] * Emily-1 antibody (07/21/2024 11:26 AM CDT) Pathologist [facility] Emily 1 Antibody, IgG <0.2 <=0.9 Ab Index Comment: Interpretive Data Negative: < 1.0 Ab Index Positive: > or = 1.0 Ab Index Current interpretive data was last revised on 2016. Blood 07/21/2024 11:2 6 AM CDT 07/21/2024 12:41 PM CDT Cosme Stafford Jr., MD LAB BLOOD ORDERABL ES Final Result Performing Organization Address [facility] [address]/[facility] de Phone Number [facility] [place] [address] * RPR Blood (07/21/2024 11:26 AM CDT) RPR Nonreactive Nonreactive Blood 07/21/2024 11:2 6 AM CDT 07/21/2024 11:59 AM CDT Cosme Stafford Jr., MD LAB MICROBIOLOGY - GENERAL ORDERABLES Final Result Performing Organization Address [facility] [place] [address] * Sjogren's syndrome B ab (07/21/2024 11:26 AM CDT) Anti-RAMONA, SS-B <0.2 <=0.9 Ab Index Comment: Interpretive Data Negative: < 1.0 Ab Index Positive: > or = 1.0 Ab Index Current interpretive data was last revised on 2016. Blood 07/21/2024 11:2 6 AM CDT 07/21/2024 12:41 PM CDT Cosme Stafford Jr., MD LAB BLOOD ORDERABL ES Final Result Performing Organization Address [facility] [place] [address] * Sjogren's syndrome A ab (07/21/2024 11:26 AM CDT) Anti-RAMONA, SS-A <0.2 <=0.9 Ab Index Comment: Interpretive Data Negative: < 1.0 Ab Index Positive: > or = 1.0 Ab Index Current interpretive data was last revised on 2016. Blood 07/21/2024 11:2 6 AM CDT 07/21/2024 12:41 PM CDT Cosme Stafford Jr., MD LAB BLOOD ORDERABL ES Final Result Performing Organization Address City/[facility] [address]/[facility] Co de Phone Number [facility] [place] [address] * Vitamin B12 (07/21/2024 11:26 AM CDT) Vitamin B12 366 230 - 1,250 pg/mL Blood 07/21/2024 11:2 6 AM CDT 07/21/2024 11:59 AM CDT Cosme Stafford Jr., MD LAB BLOOD ORDERABL ES Final Result Performing Organization Address [facility] [address]/[facility] de Phone Number [facility] [place] [address] from Last 3 Months Insurance MEDICARE [facility] MEDICARE [facility] MANAGED MEDICAID GENERIC RISK OTHER [employer] MEDICARE [place] Advance Directives For more information, please contact: [phone] * Full Code (Latest Code Status on [...] 10:57 AM 05/28/2020 4:48 AM Care Teams Chiropractic Physician Relationship Specialty Start Date End Date Izabela Louis MD [address] [place] [address] PCP - General 11/22/19 Syed Diggs MD Surgeon Colon and Rectal Surgery 09/30/18 Wesley Pichardo MD [address] [id number] Pain Management 09/30/18 Marilyn Schreiber MD [address] [id number] Radiation Oncologist Radiation Oncology 10/24/18
--- OUTSIDE RECORDS SUMMARY | 2024-10-11 20:26 | XMS_ITS | Encounter Summary ---
Author Organization [facility] [employer] [facility] Address [address] [place] [phone] Phone Care Team Providers Care Music Specialist Name Role Phone Izabela Louis MD Primary Care Provider [phone] Encounter Details Date Type Department Care Team (Late Contact Info) Description 10/10/2024 Documentation Only [place] [employer] [facility] [address] [address] Polo Brownlee DO [address] [facility] 1 [place] [address] Social History Tobacco Use Types [...] Description 11/21/2024 12:15 PM CDT Office Visit [place] [facility] [address] [place] [address] [address] [place] [address] Polo Brownlee DO [address] [facility] 1 [place] [address] documented as of this encounter Visit Diagnoses Not on filedocumented in this encounter Care Teams Music Specialist Relationship Specialty Start Date End Date Izabela Louis MD [address] [place] [address] PCP - General Internal Medicine 06/26/24 documented as of this encounter
--- OUTSIDE RECORDS SUMMARY | 2024-10-11 20:26 | XMS_ITS | Clinical Summary ---
Author Organization [facility] [employer] Address [address] [facility] [place] [address] Care Team Providers Care Correctional Classification Counselor Name Role Phone Izabela Louis MD Primary Care Provider Source Comments [facility],non-owned Affiliates and Associated Physician Practices is amultiple site organization consisting of ambulatory clinics and hospital sitesin [place], [place], [place] and [place]. This disclosure is being madepursuant to the Care Everywhere program and may not contain all information available regarding this patient. 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 Gender Identity Not on file Sexual Orientation Not on file Last Filed Vital Signs Vital Sign Reading Time Taken Comments Blood Pressure 133/67 05/31/2024 5:03 PM EXPOSURE MACHINE OPERATOR Pulse 67 05/31/2024 5:03 PM EXPOSURE MACHINE OPERATOR Temperature 36.3 C (97.3 F) 05/31/2024 1:37 PM EXPOSURE MACHINE OPERATOR Respiratory Rate 18 05/31/2024 5:03 PM EXPOSURE MACHINE OPERATOR Oxygen Saturation 99% 05/31/2024 5:03 PM EXPOSURE MACHINE OPERATOR Inhaled Oxygen Concentration - - Weight 86.2 kg (190 lb) 05/31/2024 11:07 AM EXPOSURE MACHINE OPERATOR Height 180.3 cm (5' 11) 05/31/2024 11:07 AM EXPOSURE MACHINE OPERATOR Body Mass Index 26.5 05/31/2024 11:07 AM EXPOSURE MACHINE OPERATOR Plan of Treatment Health Maintenance Due Date [...] Comments LIPID PROFILE STAT 05/15/2024 1:28 AM EXPOSURE MACHINE OPERATOR Left-sided weakness Aphasia from Last 3 Months or Most Recently Relevant to Health Maintenance Results * (ABNORMAL) LIPID PROFILE (05/15/2024 1:28 AM EXPOSURE MACHINE OPERATOR) [facility] [address] Cholesterol Total 184 <200 mg/dL 05/15/2024 2:41 AM [facility] HDL 35(L) >40 mg/dL [...] Triglycerides 173(H) <150 mg/dL 05/15/2024 2:41 AM EXPOSURE MACHINE OPERATOR [facility] Comment: ATP III Classification of Triglycerides: <150 mg/dL: Normal 150 - 199 mg/dL: Borderline High 200 - 400 mg/dL: High >500 mg/dL: Very High Blood BLOOD SPECIMEN / Unknown Venipuncture / Unknown 05/15/2024 1:28 AM EXPOSURE MACHINE OPERATOR 05/15/2024 2:10 AM EXPOSURE MACHINE OPERATOR Nolberto Varela MD LAB - CHEMISTRY ORDERABLES Final Result [facility] [address] [place] [address], [facility] [phone] from Last 3 Months or Most Recently Relevant to Health Maintenance Insurance MEDICARE MEDICARE [place] Advance Directives * Full Code (Latest Code Status on File) Date Activated Date Inactivated Comments 05/15/2024 12:03 AM 05/15/2024 10:23 AM * Full Code Date Activated Date Inactivated Comments 12/08/2020 5:15 AM 12/10/2020 5:37 PM Care Teams Correctional Classification Counselor Relationship Specialty Start Date End Date Izabela Louis MD [address] [place], [place] [id number] PCP - General Internal Medicine 05/31/24
--- OUTSIDE RECORDS SUMMARY | 2024-10-11 20:26 | XMS_ITS | Encounter Summary ---
Author Organization [facility] Healthcare Address [address] [place] [address] Care Team Providers Care Physiology Teacher Name Role Phone Syed Diggs MD Unavailable [phone] Wesley Pichardo MD Unavailable [phone] Marilyn Schreiber MD Unavailable [phone] Nishant Sr MD Primary Care Provider [phone] Izabela Louis MD Primary Care Provider Sam Peralta MD PhD Unavailable [phone] Encounter Details Date Type Department Care Team (Late st Contact Info) Description 07/20/2019 Telephone [facility] [address] [place] [address] Bubba Erickson RN Social History [...] on file 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 Gender Identity Male 04/21/2023 9:16 AM FABRIC LAY OUT WORKER Sexual Orientation Not on file documented as [...] COVID: Suspected 04/04/2023 04/04/2023 04/04/2023 5:43 AM FABRIC LAY OUT WORKER Influenza, adult 04/04/2023 04/04/2023 04/11/2023 3:05 AM FABRIC LAY OUT WORKER COVID: Suspected 01/27/2024 01/28/2024 01/28/2024 1:29 AM CDT documented as of this encounter Care Teams Physiology Teacher Relationship Specialty Start Date End Date Nishant Sr MD [address] [place] [address] PCP - General 02/14/19 11/21/19 Izabela Louis MD [address] [place] [address] PCP - General 11/22/19 Syed Diggs MD Surgeon Colon and Rectal Surgery 09/30/18 Wesley Pichardo MD [address] [place] [address] Pain Management 09/30/18 Marilyn Schreiber MD [address] [place] [address] Radiation Oncologist Radiation Oncology 10/24/18 Sam Peralta MD PhD [address] [place] [address] [phone] Medical Oncologist/Optical Effects Layout Person Medical Oncology 05/14/22 02/08/24 documented as of this encounter
--- OUTSIDE RECORDS SUMMARY | 2024-10-11 20:26 | XMS_ITS | Encounter Summary ---
Author Organization [facility] [employer] [facility] [employer] [facility] Address [address] [place] [address] Phone Care Team Providers Care Senior Safety Management Consultant Name Role Phone Izabela Louis MD Primary Care Provider [phone] Encounter Details Date Type Department Care Team (Late Contact Info) Description 10/10/2024 Documentation Only [place] [employer] [facility] [address] [address] Polo Brownlee DO [address] [facility] 1 [place] [address] Social History Tobacco Use Types [...] Description 11/21/2024 12:15 PM CDT Office Visit [place] [employer] [facility] [address] [place] [address] [address] [place] [address] Polo Brownlee DO [address] [facility] 1 [place] [address] documented as of this encounter Visit Diagnoses Not on filedocumented in this encounter Care Teams Senior Safety Management Consultant Relationship Specialty Start Date End Date Izabela Louis MD [address] [place] [address] PCP - General Internal Medicine 06/26/24 documented as of this encounter
--- OUTSIDE RECORDS SUMMARY | 2024-10-11 20:26 | XMS_ITS | Encounter Summary ---
Author Organization [facility] [employer] [facility] [employer] Address [address] [place] [phone] Phone Care Team Providers Care Scheduling Clerk Name Role Phone Izabela Louis MD Primary Care Provider [phone] Encounter Details Date Type Department Care Team (Late Contact Info) Description 10/10/2024 Documentation Only [place] [employer] [facility] [address] [address] Polo Brownlee DO [address] [facility] 1 [place] [address] Social History Tobacco Use Types [...] Description 11/21/2024 12:15 PM CDT Office Visit [place] [facility] [address] [place] [address] [address] [place] [address] Polo Brownlee DO [address] [facility] [address] [place] [address] documented as of this encounter Visit Diagnoses Not on filedocumented in this encounter Care Teams Scheduling Clerk Relationship Specialty Start Date End Date Izabela Louis MD [address] [place] [address] PCP - General Internal Medicine 06/26/24 documented as of this encounter
--- OUTSIDE RECORDS SUMMARY | 2024-10-11 20:26 | XMS_ITS | Continuity of Care Document ---
Author Organization [facility] Address [address] [place] [address] [employer] Johnathan [address] [place] [address] Phone Care Team Providers Care Manager Call Center Name Role Phone Tammy Matos Unavailable Unavailable Procedures Procedure Date Office/outpatient Visit, Est Eye Exam & Treatment Advance Directives Directive Yes / No Effective Date File Name No Information Encounters Encounter Description Practice Location Reason(s) For Visit Diagnoses Date Provider Providers Copied on Encounter Office/outpat ient Visit, Est [facility], [address] [place] [address] [address], [place], [place], [id number], tel:[phone] [facility] [place] No Information 2-200 [address] Shawna Munoz. [address] [facility] [place] , [address], [place], [place], [facility], . tel:[phone] [facility], [address] [place] [address] [address], [place], [place], [id number], tel:[phone] SEC [facility] No Information 2-200 8 Shawna Munoz. [address] [facility] [place] , [address], [place], [address], [place]. tel:[phone] Family History Family Member Type Diagnosis Age At Onset No Information Payers Payer name Insurance type Covered republican ID Authoriza tion(s) Medicare [facility] [id number] Social History Type Description Quantity Date Captured [...]
== END 2024-10-11 20:22 | disposition left against medical advice (07) ==
LOC: ANHED 20:22
PROVIDERS: PCP Internal Medicine Infectious Disease
DX: R33.9 Retention of urine, unspecified (principal)
CPT/HCPCS: 99199

== ENCOUNTER 2024-11-13 00:52 | Emergency (ER) | payer MEDICARE, MEDICAID, SELFPAY ==
--- NOTE | ~2024-11-13 | CT_ITS ---
EXAMINATION: CT abdomen pelvis w con DATE: 11/13/2024 03:13 INDICATION: Constipation TECHNIQUE: Computed tomography (CT) of the abdomen and pelvis was performed with 100 cc Omnipaque 350 intravenous contrast. The dose-length product was 508.42 mGy-cm. Automated exposure control and iter ative reconstruction technique were employed. COMPARISON: CT dated 08/26/2024 FINDINGS: Heart size normal. No significant pleural or pericardial effusion. Fatty infiltration of th e liver. The spleen, pancreas, adrenal glands and kidneys are unremarkable. Gallbladder is present. N onobstructive bowel gas pattern. There is fluid throughout the small bowel and colon without signific ant associated inflammatory changes, suspicious for enteric colitis. Mild bladder wall thickening, booth spicious for cystitis. Clinically correlate. No acute osseous abnormality. IMPRESSION: 1. Fluid-filled distended small bowel and colon without associated inflammatory changes or transition point, suspicious for enterocolitis. 2: Bladder wall thickening. Consider cystitis. Correlate with urinalysis. Reviewed, dictated and finalized at location A.
--- OUTSIDE RECORDS SUMMARY | 2024-11-13 00:54 | XMS_ITS | Clinical Summary ---
Author Organization [facility] Address [address] [place] [address] Care Team Providers Care Sales Engineering Manager Name Role Phone Syed Diggs MD Unavailable [phone] Wesley Pichardo MD Unavailable [phone] Marilyn Schreiber MD Unavailable [phone] Izabela Louis MD Primary Care Provider Allergies Active Allergy Reactions Criticality Noted Date Comments Sulfamethoxazole-Trimethoprim Rash Medium 2018 Prochlorperazine Unknown Low 09/08/2018 unknown Sulfa (Sulfonamide Antibiotics) Rash Medium 08/03 Medications baclofen (LIORESAL) 10 mg tablet Take 2 tablets (20 mg total) by mouth 3 (three) times a day as needed for muscle spasms 0 07/19/19 19 Active fluconazole (DIFLUCAN) 200 mg tablet Take 1 tablet (200 mg total) by mouth every morning 08/13/19 19 Active gabapentin (NEURONTIN) 600 mg tablet Take 1 tablet (600 mg total) by mouth 4 (four) times a day 28 tablet 02/19/20 19 Active naloxone (NARCAN) 1 mg/mL injection as needed 06/07/19 20 Active Vascepa 1 gram capsule Take 1 capsule (1 g total) by mouth 2 (two) times a day 11/07/19 20 Active Ventolin HFA 90 mcg/actuation inhaler Inhale 2 puffs every 6 (six) hours as needed for shortness of breath 01/23/20 23 Active True Metrix Glucose Meter [facility] USE TO TEST BLOOD SUGAR ONCE DAILY 02/12/20 22 Active Symtuza [phone] mg tablet Take 1 tablet by mouth daily with lunch 04/28/19 23 Active ondansetron ODT (ZOFRAN-ODT) 4 mg disintegrating tablet Take 1 tablet (4 mg total) by mouth as needed for nausea or vomiting 04/27/19 23 Active methadone (DOLOPHINE) 5 mg tablet Take 1 tablet (5 mg total) by mouth 2 (two) times a day 02/04/20 23 Active chlorhexidine (PERIDEX) 0.12 % solution Apply 15 mL to the mouth or throat 2 (two) times a day 473 mL 04/23/19 24 Active oxyCODONE-acetamin ophen (PERCOCET) 10-325 mg per tablet Take 1 tablet by mouth every 6 (six) hours as needed for pain 15 tablet 04/23/19 24 Active omega-3 fatty acids (LOVAZA) 1 gram capsule Take 1 capsule (1 g total) by mouth 2 (two) times a day 05/05/19 24 Active lidocaine (XYLOCAINE) 5 % ointment 08/28/19 24 Active lidocaine 2 % solution Use small amount on qtip and apply to sore area on tongue 200 mL 2 09/07/19 24 Active imiquimod (ALDARA) 5 % creamIndications:V erruca vulgaris APPLY EXTERNALLY TO WARTS DAILY 24 each 2 10/13/19 24 Active magnesium citrate solutionIndication s:Bowel Evacuation,constip ation Take 296 mL by mouth once for 1 dose 296 mL 01/24/20 24 Active valACYclovir (VALTREX) 500 mg tablet TAKE 2 TABLETS BY MOUTH TWICE DAILY FOR 10 DAYS DIRECTED 12/17/19 24 Active acetaminophen (TYLENOL) 500 mg tablet Take 2 tablets (1,000 mg total) by mouth every 6 (six) hours 30 tablet 08/08/19 25 Active polyethylene glycol (MIRALAX) 17 gram/dose bulk powderIndications: constipation Take 17 g by mouth daily 116 g 08/08/19 25 Active cyanocobalamin (Vitamin B-12) 1,000 mcg tabletIndications: Vitamin B12 Deficiency Take 1 tablet (1,000 mcg total) by mouth daily 30 tablet 04/07/19 24 025 Discontin ued(Patie nt Reported) folic acid (FOLVITE) 1 mg tablet Take 1 tablet (1 mg total) by mouth daily 30 tablet 04/07/19 24 025 Discontin ued(Patie nt Reported) phenazopyridine (PYRIDIUM) 200 mg tabletIndications: Dysuria Take 1 tablet (200 mg total) by mouth 3 (three) times a day as needed for bladder spasms 10 tablet 08/08/19 25 025 Discontin ued(Patie nt Reported) ibuprofen (ADVIL,MOTRIN) 600 mg tabletIndications: Pain Take 1 tablet (600 mg total) by mouth every 6 (six) hours as needed for pain 20 tablet 08/08/19 25 025 Discontin ued(Patie nt Reported) oxyBUTYnin XL (DITROPAN-XL) 5 mg 24 hr tabletIndications: Bladder Hyperactivity Take 2 tablets (10 mg total) by mouth daily as needed (bladder spasms) 12 tablet 08/08/19 025 Discontin ued(Patie nt Reported) Active Problems Problem Noted Date Diagnosed Date Stricture, urethra 08/04/2024 History of anal cancer 10/06/2023 Acute hypoxic respiratory failure 04/06/2023 Assessment & Plan (04/06/2023 1:44 PM MEDICAL SERVICES ASSISTANT): Required 2L O2 support since admission CXR no evidence of pneumonia or atelectasis Now weaned to room air - Perform home O2 evaluation prior to discharge - Management of influenza as described elsewhere Macrocytic anemia 04/06/2023 Assessment & Plan (04/06/2023 1:49 PM MEDICAL SERVICES ASSISTANT): Recent labs with low B12 and low folate Hb stable - Continue supplement with B12 and folate daily Verruca vulgaris 04/05/2023 Assessment & Plan (04/06/2023 1:36 PM MEDICAL SERVICES ASSISTANT): Follows with [facility] - Continue home Imiquimod 5% cream to warts x3/weekly. Pt not to touch eyes following application. Influenza 04/04/2023 Assessment & Plan (04/06/2023 1:46 PM MEDICAL SERVICES ASSISTANT): Reports fatigue, febrile episodes at home Tmax [...] Assessment & Plan (04/06/2023 1:45 PM MEDICAL SERVICES ASSISTANT): Cr 1.5 up from baseline of ~1 Likely prerenal from poor po intake in setting of influenza Resolved with IVF, PO intake - Encourage to continue adequate hydration and food intake at home as he is recovering from influenza - Avoid nephrotoxins Chronic pain syndrome 04/04/2023 Assessment & Plan (04/06/2023 1:58 PM MEDICAL SERVICES ASSISTANT): Seems to be on both methadone and percocet at home Continue home doses of methadone 5 mg BID and oxy 10 q4 prn Other urethral stricture, male, unspecified site 03/24/2023 B12 deficiency 02/17/2023 Inflammation of the rectum 09/13/2020 Overview (09/13/2020): Added automatically from request for surgery [id number] Chronic rectal pain 09/13/2020 Overview (09/13/2020): Added automatically from request for surgery [id number] Squamous cell carcinoma of rectum 09/13/2020 Overview (09/13/2020): Added automatically from request for surgery [id number] Screening for malignant neoplasm of colon 2020 Overview (07/30/2020): Added automatically from request for surgery [id number] ASTER (acute kidney injury) 12/01/2019 Assessment & [...] Assessment & Plan (03/02/2019 4:40 PM MEDICAL SERVICES ASSISTANT): Cr was 1.13 on admission and peaked to 1.41 03/01 likely in the setting of IV abx. Supported with IVFS and stopped IV abx. Cr 1.12 Skin breakdown to perianal region 02/28/2019 Assessment & Plan (03/01/2019 1:12 PM MEDICAL SERVICES ASSISTANT): Skin breakdown noted on exam between gluteal [...] Assessment & Plan (03/02/2019 4:45 PM MEDICAL SERVICES ASSISTANT): Likely 2/2 current XRT. Patient has diarrhea at baseline. -Will send c.diff, stool studies to r/o infection -cIVFs to maintain hydration -diarrhea started again the evening of 03/01, send c.diff -k 3.2 in setting of diarrhea, supplemented Pancytopenia 02/27/2019 Assessment & Plan (12/01/2019 10:29 PM CDT): has been pancytopenic since chemotherapy, also with HIV Assessment & Plan (03/02/2019 4:38 PM MEDICAL SERVICES ASSISTANT): In setting of chemotherapy 02/13- and XRT. -WBC 1.0, ANC 500 -H/H 8.5/23.4 on admission -PLT 3K on admission, s/p 1 unit, with appropriate bump to 16K -Will transfuse PLTs to keep > 10K, will likely need again as plt 13 today (denies blood nose/bm) -hgb 7.5, lorenzo transfuse 1 unit in setting of overall fatigue Assessment & Plan (02/27/2019 11:25 PM MEDICAL SERVICES ASSISTANT): - likely 2/2 recent chemo - transfuse 1 unit plt with post transfusion cbc - maintain type and screen - consent in chart Transaminitis 02/17/2019 Assessment & Plan (02/18/2019 1:05 PM MEDICAL SERVICES ASSISTANT): New onset 02/17 w/ t.bili 1, Alk Phos 181, AST 389, ALT 227. Previously normal. - Suspect drug-induced likely I/s/o recently initiated chemotherapy - consider also fluconazole vs biktarvy (these are not new prescriptions but concerns of compliance pre-hospitalization) vs recently initiated MSContin Down-trending today, plan to d/c Severe malnutrition 02/14/2019 Assessment & Plan (03/02/2019 4:44 PM MEDICAL SERVICES ASSISTANT): -encourage high protein diet. Assessment & Plan (02/16/2019 11:14 AM MEDICAL SERVICES ASSISTANT): Pt has had significant weight loss & poor PO intake. 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 - s/p treatment with atovaquone (rash to dapsone was, no G6PD) Encounter for antineoplastic chemotherapy 2018 Assessment & Plan (02/18/2019 1:04 PM MEDICAL SERVICES ASSISTANT): Admitted for C1 Mitomycin and 5-FU with [...] Assessment & Plan (02/15/2019 1:32 PM MEDICAL SERVICES ASSISTANT): Noted history of CKD3 with peak Cr in medical record to 2.5. Previously followed with nephrology though not in last couple years. Cr now WNL with adequate UO. - Monitor CMP daily, daily weights, and I&O Nicotine dependence 02/13/2019 Assessment & Plan (02/28/2019 1:13 PM MEDICAL SERVICES ASSISTANT): Will administer Nicotine patches in house Assessment & Plan (02/15/2019 1:35 PM MEDICAL SERVICES ASSISTANT): Current every day smoker. - Nicotine 21 mg patch daily - Encourage smoking cessation Anal cancer 10/17/2018 Assessment & Plan (04/06/2023 1:47 PM MEDICAL SERVICES ASSISTANT): S/p chemoradiation Currently in remission - Continue [...] Assessment & Plan (03/01/2019 1:06 PM MEDICAL SERVICES ASSISTANT): Patient of Dr. Peralta. S/p C1 mitomycin/5FU 02/13- with concurrent radiation. -Will continue XRT inpatient -Due for chemo on week 5 (~03/13/19) -Due to profound pancytopenia s/p chemo, will send out labwork to check deficiency in dihydropyrimidine dehydrogenase (DPD) per outpatient team 03/01 (has to be in pink tube) Assessment & Plan (02/27/2019 11:21 PM MEDICAL SERVICES ASSISTANT): - s/p C1 mitomycin/5FU 02/13-14 with concurrent radiation - pain control with MSContin 30 BID + oxycodone PRN Assessment & Plan (02/18/2019 12:52 PM MEDICAL SERVICES ASSISTANT): Diagnosed 09/23/2018, [id number]. Followed by Dr. Peralta. Treatment delayed 2/2 insurance issues. - Admitted for C1 mitomycin + 5FU w/ concurrent radiation (planned 28 fx) - first RT 02/13. C1 complete. Will follow up with xrt outpatient and with Dr. Peralta for C2 in a few weeks Tolerated treatment well Human immunodeficiency virus (HIV) disease 10/17 Assessment & Plan (04/06/2023 1:48 PM MEDICAL SERVICES ASSISTANT): Last CD4 148[place] [id number] - Continue Symtuza - Continue atovaquone 1500 mg daily for PCP ppx - Ensure close f/u with local ID Dr. Louis Assessment & Plan (12/01/2019 10:28 PM CDT): last CD4 79, HIV VL [id number] 07/2019 - repeat CD4, HIV RNA; continue Biktarvy, continue fluconazole (patient endorses is suppressive therapy after previous crypto infection) Assessment & Plan (02/28/2019 12:45 PM MEDICAL SERVICES ASSISTANT): Follows with Dr. Louis. Last CD4 153, VL 464K 10/2018. -Continue home biktarvy -Hx of crypto meningitis, continue suppressive fluconazole Assessment & Plan (02/27/2019 11:23 PM MEDICAL SERVICES ASSISTANT): - continue home biktarvy - hx of crypto meningitis, continue suppressive fluconazole Assessment & Plan (02/18/2019 1:12 PM MEDICAL SERVICES ASSISTANT): Most recent 10/19 CD4 153, VL 465k. [...] Assessment & Plan (02/15/2019 1:32 PM MEDICAL SERVICES ASSISTANT): History of crypto meningitis; unclear what year [...] Assessment & Plan (03/02/2019 4:39 PM MEDICAL SERVICES ASSISTANT): Patient reports rectal pain. In setting of anal cancer and current XRT. Follows with pain management outpatient, Dr. Pichardo. -On exam, there is skin breakdown between gluteal muscles > c/s wound care for wound management -Home pain regimen: MSContin 30mg BID, Gabapentin 600mg QID, Requip 1mg qpm, Babcock 10/325 q6hprn, Baclofen 20mg TID prn Assessment & Plan (02/17/2019 12:10 PM MEDICAL SERVICES ASSISTANT): Follows with pain management (Dr. Pichardo) outpatient [...] Assessment & Plan (04/04/2023 9:55 AM MEDICAL SERVICES ASSISTANT): -recent labs with low B12 and low folate -supplement with B12 and folate daily Hyponatremia 02/27/2019 04/06/2023 Assessment & Plan (04/05/2023 4:32 PM MEDICAL SERVICES ASSISTANT): -Resolved s/p IVF bolus Assessment & Plan (02/28/2019 12:46 PM MEDICAL SERVICES ASSISTANT): Na 127 on admit. Likely 2/2 dehydration related to diarrhea. -S/p 1L NS bolus x 2 -Na improving, 135 today -Will CTM Assessment & Plan (02/27/2019 11:24 PM MEDICAL SERVICES ASSISTANT): - 2/2 dehydration liked related to diarrhea. Urine sodium < 20, Na improving with NS - additional 1L NS overnight, repeat BMP in AM Neutropenic fever 02/27/2019 02/07/2024 Assessment & Plan (03/01/2019 12:53 PM MEDICAL SERVICES ASSISTANT): Patient admitted from [facility], where he reported chills with Tmax 38. Found to be neutropenic and was briefly hypotensive in [facility]. -Infectious workup: Blood cultures x [...] Assessment & Plan (02/27/2019 11:26 PM MEDICAL SERVICES ASSISTANT): - chills, Tmax 38, neutropenic and was briefly hypotensive in [facility] - blood cultures pending - f/u urine culture - CXR clear - f/u GC/CT - continue vanc/cefe Anal warts 09/09/2018 12/01/2019 Overview (09/09/2018): Added automatically from request for surgery [id number] Encounters Date Type Department Care Team Description 11/10/2024 10:20 AM CDT Office Visit [facility] - [facility] Urology [address] [facility] Advanced Medicine 11th [place] [address] Norman Schneider MD Stricture of bulbous urethra in male, unspecified stricture type (Primary Dx) 11/07/2024 8:18 PM CDT - 11/07/2024 11:59 PM CDT Hospital Encounter [facility] [address] [place] [id number] Memory loss Discharge Disposition: Discharge to home or self care 11/01/2024 2:00 PM CDT Therapy [facility] Physical Therapy [address] [place] [address] Floor [address] [place] [phone] Nandini Norton DPT Pelvic floor dysfunction (Primary Dx) 11/01/2024 Plan of Care Documentation [facility] Physical Therapy [address] [place] [address] [address] [place] [phone] 10/19/2024 Telephone [facility] General Neurology [address] [facility] 6th [place] [address] Frida Zhu RN 09/08/2024 10:00 AM CDT Office Visit [facility] ([facility]) - [facility] Urology [address] [facility] Advanced Medicine [address]th [place] [address] Norman Schneider MD Stricture of bulbous urethra in male, unspecified stricture type (Primary Dx); Pelvic floor dysfunction 08/14/2024 3:00 PM CDT Office Visit [facility] ([facility]) - [facility] Urology [address] [facility] [address]th [place] [address] [place] [address] Stricture of bulbous urethra in male, unspecified stricture type (Primary Dx) from Last 3 Months Immunizations [...] file Legal Sex Male 4:35 AM MEDICAL SERVICES ASSISTANT Gender Identity Male 04/21/2023 9:16 AM MEDICAL SERVICES ASSISTANT Sexual Orientation Not on file Obstetrics History [...] A Twinrix risk 3-dose series) 05/22/2004 04/24/2004 HPV Vaccines (1 - Risk 3-dos e SCDM series) 07/01/2007 Hepatitis C Screening 07/14/2016 07/15/2015 , 07/18/2010, 03/09/2008 HIV+ Chlamydia and Gonorrhea Screening (Rectal) 07/30/2017 07/30/2016 HIV+ Chlamydia and Gonorrhea Screening (Throat) 07/30/2017 07/30/2016 HIV + Chlamydia and Gonorrhe a Screening (Urine) 07/23/2020 07/24/2019 Covid-19 Vaccine (6 - 4-2 5 season) 2023 12/26/2020, 12/04/2020, 10/18/2020, Additional history exists Influenza Vaccine (#1) 2024 , 03/05/2021, 02/03/2019, Additional history exists Lipid Panel 05/15/2025 05/15/2024, 09/03, 08/12/2018 RPR Screening 07/21/2025 07/21/2024, 07/30/2016 Proteinuria screening Urinalysis (UA) 07/31/2025 07/31/2024, 01/28/2024, 01/28/2024, Additional history exists DTaP/Tdap/Td Vaccine (3 - Td or Tdap) 06/25/2030 06/25/2020, 08/28/2009 Pneumococcal vaccine <65 (4 of 4 - PCV20 or PCV21) 2030 07/01/2017, 12/21/2014, 08/28/2009 Hepatitis B Vaccines Completed 06/23/2024, 05/25/2024, 04/24/2004 Procedures Procedure Name Priority Date/Time Associated Diagnosis Comments MEASURE POST VOID RESIDUAL Routine 11/10/2024 10:43 AM CDT Stricture of bulbous urethra in male, unspecified stricture type MRI BRAIN AND VOLUMETRIC W WO CONTRAST Schedule Routine, Read Routine (OP Routine) 11/07/2024 9:31 PM CDT Memory loss MEASURE POST VOID RESIDUAL Routine 09/08/2024 10:05 AM CDT Stricture of bulbous urethra in male, unspecified stricture type URINALYSIS AND REFLEX TO MICROSCOPIC AND CULTURE STAT 07/31/2024 8:48 PM CDT RPR Routine 07/21/2024 11:26 AM CDT Memory loss from Last 3 Months or Most Recently Relevant to Health Maintenance Results * Measure post void residual (11/10/2024 10:43 AM CDT) Narrative Mary Roberson CMA - 11/10/2024 10:43 AM CDT Measurement of post-voiding residual urine and/or bladder capacity by ultrasound, non-imaging. PVR = 210 ml Mary Roberson CMA us Norman Schneider MD NURSING ASSESSMENTS Final Result * MRI Brain and Volumetric W WO Contrast (11/07/2024 9:31 PM CDT) Anatomical Region Laterality Modality Head and Neck N/A Magnetic Resonan ce 11/08/2024 10:2 6 AM CDT Impressions 11/08/2024 8:18 PM CDT 1. No evidence of white matter volume loss or ventriculomegaly. 2. Subtle bilateral parietal and right temporal cortical fernandez matter thinning. 3. Abnormal caudate signal bilaterally, unchanged from prior examination in 2016 and may relate to history of reported meningitis. Dictated by: Jean Marie Palma MD The radiology attending physician has personally reviewed this study, and had reviewed and/or edited this written report and agrees with it. Electronically signed by: Bella Bynum M.D., Ph.D. Narrative 11/08/2024 8:18 PM CDT EXAMINATION: Magnetic resonance imaging (MRI) of the brain and brainstem without and with contrast HISTORY: 44-year-old male with history of HIV, squamous cell carcinoma of the anus, and crypto meningitis. Poor memory and confusion. TECHNIQUE: Multiplanar multi-weighted MRI of the brain and brainstem was performed without and with intravenous contrast using a protocol specific to assess patients with memory complaints. T1-weighted sagittal MPRage images of the brain were postprocessed on [employer] to generate segmented brain volumes using commercial software. Results were compared to 10th and 90th percentiles of healthy age-/gender-matched population. Graphs were sent to [employer] and [employer] PACS. The protocol specifically includes FLAIR to assess for potential infarcts and white matter lesions associated with vascular cognitive impairment and with susceptibility sensitive sequences for detection of cerebral microhemorrhages. Contrast information: 17 mL Gadoterate Meglumine IV COMPARISON: 09/20/2015 FINDINGS: There is symmetric abnormal signal within both caudate which is T1 hyperintense, SWI dark and T2/FLAIR hyperintense. No caudate volume loss or mass like expansion. No enhancement. The scalp and calvarium are normal. The superior sagittal sinus demonstrates normal venous flow. The corpus callosum is normal in shape and signal intensity. The posterior fossa is unremarkable. The pituitary and sella are normal. The brainstem and craniocervical junction are unremarkable. Diffusion weighted images reveal no hyperintensities to suggest acute cerebral infarction. The susceptibility weighted sequences reveal no evidence of acute or chronic hemorrhage. The ventricles are normal in size and position without evidence of hydrocephalus. The paranasal sinuses are normal. Small right mastoid effusion. The orbits appear normal. Normal flow voids are demonstrated in the carotid arteries and basilar artery. There is no abnormal contrast enhancement. QUANTITATIVE ASSESSMENT: Assessment of hippocampal volumes: Quantitative assessment was performed using [employer] and is reported. Total intracranial volume (TIV): 1542 ml Whole brain Z score maps show Subtle bilateral parietal and right temporal cortical thinning Brain: 1206 ml, 78% of TIV within 10th-90th percentile. Fernandez matter: 687 ml, 45% of TIV within 10th-90th percentile. White matter: 519 ml, 34% of TIV, 10%-90% range of 28-34, within 10th-90th percentile. Left lateral ventricle is at the 3rd percentile Right lateral ventricle is between the 10th and 25th percentiles Hippocampus Left: Just below the 75th percentile Right: At the 75th percentile Lobe fernandez matter Absolute volume of cortical fernandez matter measured at 530 mL is within the 34th percentile with a normal range between 33 and 39. QUALITATIVE ASSESSMENT: Small infarcts (< 15 mm): None. Infarcts (>15 mm): No. White matter hyperintensities (Fazekas grade): None. Prior cerebral microhemorrhages: Prior exam demonstrates 0 MCH. New/incident cerebral microhemorrhages: There are no new MCH. Total cerebral microhemorrhages: There are no MCH. New/incident siderosis: None. Procedure Note Bella Bynum MD PhD - 11/08/2024 EXAMINATION: Magnetic resonance imaging (MRI) of the brain and brainstem without and with contrast HISTORY: 44-year-old male with history of HIV, squamous cell carcinoma of the anus, and crypto meningitis. Poor memory and confusion. TECHNIQUE: Multiplanar multi-weighted MRI of the brain and brainstem was performed without and with intravenous contrast using a protocol specific to assess patients with memory complaints. T1-weighted sagittal MPRage images of the brain were postprocessed on [employer] to generate segmented brain volumes using commercial software. Results were compared to 10th and 90th percentiles of healthy age-/gender-matched population. Graphs were sent to [employer] and [employer] PACS. The protocol specifically includes FLAIR to assess for potential infarcts and white matter lesions associated with vascular cognitive impairment and with susceptibility sensitive sequences for detection of cerebral microhemorrhages. Contrast information: 17 mL Gadoterate Meglumine IV COMPARISON: 09/20/2015 FINDINGS: There is symmetric abnormal signal within both caudate which is T1 hyperintense, SWI dark and T2/FLAIR hyperintense. No caudate volume loss or mass like expansion. No enhancement. The scalp and calvarium are normal. The superior sagittal sinus demonstrates normal venous flow. The corpus callosum is normal in shape and signal intensity. The posterior fossa is unremarkable. The pituitary and sella are normal. The brainstem and craniocervical junction are unremarkable. Diffusion weighted images reveal no hyperintensities to suggest acute cerebral infarction. The susceptibility weighted sequences reveal no evidence of acute or chronic hemorrhage. The ventricles are normal in size and position without evidence of hydrocephalus. The paranasal sinuses are normal. Small right mastoid effusion. The orbits appear normal. Normal flow voids are demonstrated in the carotid arteries and basilar artery. There is no abnormal contrast enhancement. QUANTITATIVE ASSESSMENT: Assessment of hippocampal volumes: Quantitative assessment was performed using [employer] and is reported. Total intracranial volume (TIV): 1542 ml Whole brain Z score maps show Subtle bilateral parietal and right temporal cortical thinning Brain: 1206 ml, 78% of TIV within 10th-90th percentile. Fernandez matter: 687 ml, 45% of TIV within 10th-90th percentile. White matter: 519 ml, 34% of TIV, 10%-90% range of 28-34, within 10th-90th percentile. Left lateral ventricle is at the 3rd percentile Right lateral ventricle is between the 10th and 25th percentiles Hippocampus Left: Just below the 75th percentile Right: At the 75th percentile Lobe fernandez matter Absolute volume of cortical fernandez matter measured at 530 mL is within the 34th percentile with a normal range between 33 and 39. QUALITATIVE ASSESSMENT: Small infarcts (< 15 mm): None. Infarcts (>15 mm): No. White matter hyperintensities ([place] grade): None. Prior cerebral microhemorrhages: Prior exam demonstrates 0 MCH. New/incident cerebral microhemorrhages: There are no new MCH. Total cerebral microhemorrhages: There are no MCH. New/incident siderosis: None. IMPRESSION: 1. No evidence of white matter volume loss or ventriculomegaly. 2. Subtle bilateral parietal and right temporal cortical fernandez matter thinning. 3. Abnormal caudate signal bilaterally, unchanged from prior examination in 2016 and may relate to history of reported meningitis. Dictated by: Jean Marie Palma MD The radiology attending physician has personally reviewed this study, and had reviewed and/or edited this written report and agrees with it. Electronically signed by: Bella Bynum M.D., Ph.D. Cosme Stafford Jr., MD IMG MRI PROCEDURES Final Result * Measure post void residual (09/08/2024 10:05 AM CDT) Mary Cr CMA - 09/08/2024 10:05 AM CDT Measurement of post-voiding residual urine and/or bladder capacity by ultrasound, non-imaging. PVR = 0 ml Mary Roberson CMA Norman Schneider MD NURSING ASSESSMENTS Final Result * Urinalysis reflex to microscopic and culture Urine (07/31/2024 8:48 PM CDT) Color, ur Straw Yellow Clarity, ur Clear Clear [facility] Specific gravity, ur 1.013 1.003 [...] tendency for uric acid stone formation. Source: [employer] Current Interpretive Data was last revised on 2017 Protein, ur ql Negative Negative [facility] Glucose, ur ql Negative Negative [facility] Ketones, ur Negative Negative [facility] Bilirubin, ur Negative Negative [facility] Blood, ur Negative Negative [facility] Urobilinogen, ur <2.0 <2.0 mg/dL [facility] Nitrite, ur Negative Negative [facility] Leukocyte esterase, ur Negative Negative [facility] UA reflex comment Reflex conditions for microscopic UA and culture not met. [facility] Urine 07/31/2024 8:48 PM CDT 07/31/2024 9:02 PM CDT us Ioana Ybarra MD LAB MICROBIOLOGY - GENERAL ORDERABLES Final Result [facility] [place] [address] * RPR Blood (07/21/2024 11:26 AM CDT) RPR Nonreactive Nonreactive Blood 07/21/2024 11:2 6 AM CDT 07/21/2024 11:59 AM CDT us Cosme Stafford Jr., MD LAB MICROBIOLOGY - GENERAL ORDERABLES Final Result Performing Organization Address City/[facility] Co de Phone Number [facility] [place] [address] from Last 3 Months or Most Recently Relevant to Health Maintenance Insurance MEDICARE [place] MEDICARE [facility] Address: [address] [address] [facility] MANAGED MEDICAID GENERIC RISK OTHER [employer] MEDICARE [facility] Advance Directives For more information, please contact: [phone] * Full Code (Latest Code Status on [...] 10:57 AM 05/28/2020 4:48 AM Care Teams Sales Engineering Manager Relationship Specialty Start Date End Date Izabela Louis MD [address] [place] [address] PCP - General 11/22/19 Syed Diggs MD Surgeon Colon and Rectal Surgery 09/30/18 Wesley Pichardo MD [address] [id number] Pain Management 09/30/18 Marilyn Schreiber MD [address] [address] Radiation Oncologist Radiation Oncology 10/24/18
--- OUTSIDE RECORDS SUMMARY | 2024-11-13 00:54 | XMS_ITS ---
Author Organization [facility] al Address [address] [place] [address] Care Team Providers Care Laboratory Analyst Name Role Phone Syed Diggs MD Unavailable [phone] Wesley Pichardo MD Unavailable [phone] Marilyn Schreiber MD Unavailable [phone] Izabela Louis MD Primary Care Provider Active Problems Problem Noted Date Diagnosed Date Stricture, urethra 08/04/2024 History of anal cancer 10/06/2023 Acute hypoxic respiratory failure 04/06/2023 Assessment & Plan (04/06/2023 1:[address] BAILIFF OR SHERIFF): Required 2L O2 support since admission CXR no evidence of pneumonia or atelectasis Now weaned to room air - Perform home O2 evaluation prior to discharge - Management of influenza as described elsewhere Macrocytic anemia 04/06/2023 Assessment & Plan (04/06/2023 1:[address] BAILIFF OR SHERIFF): Recent labs with low B12 and low folate Hb stable - Continue supplement with B12 and folate daily Verruca vulgaris 04/05/2023 Assessment & Plan (04/06/2023 1:[address] BAILIFF OR SHERIFF): Follows with [facility] - Continue home Imiquimod 5% cream to warts x3/weekly. Pt not to touch eyes following application. Influenza 04/04/2023 Assessment & Plan (04/06/2023 1:[address] BAILIFF OR SHERIFF): Reports fatigue, febrile episodes at home Tmax [...] 04/04/2023 Assessment & Plan (04/06/2023 1:[address] BAILIFF OR SHERIFF): Cr 1.5 up from baseline of ~1 Likely prerenal from poor po intake in setting of influenza Resolved with IVF, PO intake - Encourage to continue adequate hydration and food intake at home as he is recovering from influenza - Avoid nephrotoxins Chronic pain syndrome 04/04/2023 Assessment & Plan (04/06/2023 1:[address] BAILIFF OR SHERIFF): Seems to be on both methadone and percocet at home Continue home doses of methadone 5 mg BID and oxy 10 q4 prn Other urethral stricture, male, unspecified site 03/24/2023 B12 deficiency 02/17/2023 Inflammation of the rectum 09/13/2020 Overview (09/13/2020): Added automatically from request for surgery [id number] Chronic rectal pain 09/13/2020 Overview (09/13/2020): Added automatically from request for surgery [id number] Squamous cell carcinoma of rectum 09/13/2020 Overview (09/13/2020): Added automatically from request for surgery [id number] Screening for malignant neoplasm of colon 2020 Overview (07/30/2020): Added automatically from request for surgery [id number] ASTER (acute kidney injury) 12/01/2019 Assessment & [...] 03/01/2019 Assessment & Plan (03/02/2019 4:[address] BAILIFF OR SHERIFF): Cr was 1.13 on admission and peaked to 1.41 03/01 likely in the setting of IV abx. Supported with IVFS and stopped IV abx. Cr 1.12 Skin breakdown to perianal region 02/28/2019 Assessment & Plan (03/01/2019 1:[address] BAILIFF OR SHERIFF): Skin breakdown noted on exam between gluteal [...] 02/28/2019 Assessment & Plan (03/02/2019 4:[address] BAILIFF OR SHERIFF): Likely 2/2 current XRT. Patient has diarrhea at baseline. -Will send c.diff, stool studies to r/o infection -cIVFs to maintain hydration -diarrhea started again the evening of 03/01, send c.diff -k 3.2 in setting of diarrhea, supplemented Pancytopenia 02/27/2019 Assessment & Plan (12/01/2019 10:29 PM CDT): has been pancytopenic since chemotherapy, also with HIV Assessment & Plan (03/02/2019 4:[address] BAILIFF OR SHERIFF): In setting of chemotherapy 02/13- and XRT. -WBC 1.0, ANC 500 -H/H 8.5/23.4 on admission -PLT 3K on admission, s/p 1 unit, with appropriate bump to 16K -Will transfuse PLTs to keep > 10K, will likely need again as plt 13 today (denies blood nose/bm) -hgb 7.5, lorenzo transfuse 1 unit in setting of overall fatigue Assessment & Plan (02/27/2019 11:[address] BAILIFF OR SHERIFF): - likely 2/2 recent chemo - transfuse 1 unit plt with post transfusion cbc - maintain type and screen - consent in chart Transaminitis 02/17/2019 Assessment & Plan (02/18/2019 1:[address] BAILIFF OR SHERIFF): New onset 02/17 w/ t.bili 1, Alk Phos 181, AST 389, ALT 227. Previously normal. - Suspect drug-induced likely I/s/o recently initiated chemotherapy - consider also fluconazole vs biktarvy (these are not new prescriptions but concerns of compliance pre-hospitalization) vs recently initiated MSContin Down-trending today, plan to d/c Severe malnutrition 02/14/2019 Assessment & Plan (03/02/2019 4:[address] BAILIFF OR SHERIFF): -encourage high protein diet. Assessment & Plan (02/16/2019 11:[address] BAILIFF OR SHERIFF): Pt has had significant weight loss & poor PO intake. 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 - s/p treatment with atovaquone (rash to dapsone was, no G6PD) Encounter for antineoplastic chemotherapy 2018 Assessment & Plan (02/18/2019 1:[address] BAILIFF OR SHERIFF): Admitted for C1 Mitomycin and 5-FU with [...] 02/13/2019 Assessment & Plan (02/15/2019 1:[address] BAILIFF OR SHERIFF): Noted history of CKD3 with peak Cr in medical record to 2.5. Previously followed with nephrology though not in last couple years. Cr now WNL with adequate UO. - Monitor CMP daily, daily weights, and I&O Nicotine dependence 02/13/2019 Assessment & Plan (02/28/2019 1:[address] BAILIFF OR SHERIFF): Will administer Nicotine patches in house Assessment & Plan (02/15/2019 1:[address] BAILIFF OR SHERIFF): Current every day smoker. - Nicotine 21 mg patch daily - Encourage smoking cessation Anal cancer 10/17/2018 Assessment & Plan (04/06/2023 1:[address] BAILIFF OR SHERIFF): S/p chemoradiation Currently in remission - Continue [...] QID Assessment & Plan (03/01/2019 1:[address] BAILIFF OR SHERIFF): Patient of Dr. Prealta. S/p C1 mitomycin/5FU 02/13- with concurrent radiation. -Will continue XRT inpatient -Due for chemo on week 5 (~03/13/19) -Due to profound pancytopenia s/p chemo, will send out labwork to check deficiency in dihydropyrimidine dehydrogenase (DPD) per outpatient team 03/01 (has to be in pink tube) Assessment & Plan (02/27/2019 11:[address] BAILIFF OR SHERIFF): - s/p C1 mitomycin/5FU 02/13-14 with concurrent radiation - pain control with MSContin 30 BID + oxycodone PRN Assessment & Plan (02/18/2019 12:[address] BAILIFF OR SHERIFF): Diagnosed 09/23/2018, [id number]. Followed by Dr. Peralta. Treatment delayed 2/2 insurance issues. - Admitted for C1 mitomycin + 5FU w/ concurrent radiation (planned 28 fx) - first RT 02/13. C1 complete. Will follow up with xrt outpatient and with Dr. Peralta for C2 in a few weeks Tolerated treatment well Human immunodeficiency virus (HIV) disease 10/17 Assessment & Plan (04/06/2023 1:[address] BAILIFF OR SHERIFF): Last CD[place] 148[place] [id number] - Continue Symtuza - Continue atovaquone 1500 mg daily for PCP ppx - Ensure close f/u with local ID Dr. Louis Assessment & Plan (12/01/2019 10:28 PM CDT): last CD4 79, HIV VL [id number] 07/2019 - repeat CD4, HIV RNA; continue Biktarvy, continue fluconazole (patient endorses is suppressive therapy after previous crypto infection) Assessment & Plan (02/28/2019 12:[address] BAILIFF OR SHERIFF): Follows with Dr. Louis. Last CD4 153, VL 464K 10/2018. -Continue home biktarvy -Hx of crypto meningitis, continue suppressive fluconazole Assessment & Plan (02/27/2019 11:[address] BAILIFF OR SHERIFF): - continue home biktarvy - hx of crypto meningitis, continue suppressive fluconazole Assessment & Plan (02/18/2019 1:[address] BAILIFF OR SHERIFF): Most recent 10/19 CD4 153, VL 465k. [...] 08/12/2018 Assessment & Plan (02/15/2019 1:[address] BAILIFF OR SHERIFF): History of crypto meningitis; unclear what year [...] elsewhere Assessment & Plan (03/02/2019 4:[address] BAILIFF OR SHERIFF): Patient reports rectal pain. In setting of anal cancer and current XRT. Follows with pain management outpatient, Dr. Pichardo. -On exam, there is skin breakdown between gluteal muscles > c/s wound care for wound management -Home pain regimen: MSContin 30mg BID, Gabapentin 600mg QID, Requip 1mg qpm, [place] 10/325 q6hprn, Baclofen 20mg TID prn Assessment & Plan (02/17/2019 12:[address] BAILIFF OR SHERIFF): Follows with pain management (Dr. Pichardo) outpatient [...] Peralta MD PhD IV MAINTENANCE THERAPY PLAN 10/19/2018 10/14/2020 No medications scheduled. Therapy Complete Sam [...] 04/06/2023 Assessment & Plan (04/04/2023 9:[address] BAILIFF OR SHERIFF): -recent labs with low B12 and low folate -supplement with B12 and folate daily Hyponatremia 02/27/2019 04/06/2023 Assessment & Plan (04/05/2023 4:[address] BAILIFF OR SHERIFF): -Resolved s/p IVF bolus Assessment & Plan (02/28/2019 12:[address] BAILIFF OR SHERIFF): Na 127 on admit. Likely 2/2 dehydration related to diarrhea. -S/p 1L NS bolus x 2 -Na improving, 135 today -Will CTM Assessment & Plan (02/27/2019 11:[address] BAILIFF OR SHERIFF): - 2/2 dehydration liked related to diarrhea. Urine sodium < 20, Na improving with NS - additional 1L NS overnight, repeat BMP in AM Neutropenic fever 02/27/2019 02/07/2024 Assessment & Plan (03/01/2019 12:[address] BAILIFF OR SHERIFF): Patient admitted from [facility], where [...] days Assessment & Plan (02/27/2019 11:[address] BAILIFF OR SHERIFF): - chills, Tmax 38, neutropenic and was briefly hypotensive in [facility] - blood cultures pending - f/u urine culture - CXR clear - f/u GC/CT - continue vanc/cefe Anal warts 09/09/2018 12/01/2019 Overview (09/09/2018): Added automatically from request for surgery [id number]
--- OUTSIDE RECORDS SUMMARY | 2024-11-13 00:54 | XMS_ITS | Encounter Summary ---
Author Organization [facility] Healthcare Address [address] [place] [address] Care Team Providers Care Teletypewriter Operator Name Role Phone Syed Diggs MD Unavailable [phone] Wesley Pichardo MD Unavailable Marilyn Schreiber MD Unavailable [phone] Nishant Sr MD Primary Care Provider [phone] Izabela Louis MD Primary Care Provider Sam Peralta MD PhD Unavailable [phone] Encounter Details Date Type Department Care Team (Late st Contact Info) Description 07/20/2019 Telephone [facility] [address] [place] [address] Bubba Erickson RN Social History Tobacco Use Types Packs/Day Years Used Date Smoking Tobacco: Every Day Cigarettes 0.3 35.2 Started: 09/15/1989 Smokeless Tobacco: Never Alcohol Use Standard Drinks/Week Comments Not Currently 0 (1 standard drink = 0.6 oz pur e alcohol) 2 times a year Sex and Gender Information Value Date Recorded Sex Assigned at Not on file Legal Sex Male 4:35 AM LEAD MINER BLASTING Gender Identity Male 04/21/2023 9:16 AM LEAD MINER BLASTING Sexual Orientation Not on file documented as [...] COVID: Suspected 04/04/2023 04/04/2023 04/04/2023 5:43 AM LEAD MINER BLASTING Influenza, adult 04/04/2023 04/04/2023 04/11/2023 3:05 AM LEAD MINER BLASTING COVID: Suspected 01/27/2024 01/28/2024 01/28/2024 1:29 AM CDT documented as of this encounter Care Teams Teletypewriter Operator Relationship Specialty Start Date End Date Nishant Sr MD [address] [place] [address] PCP - General 02/14/19 11/21/19 Izabela Louis MD [address] [place] [address] PCP - General 11/22/19 Syed Diggs MD Surgeon Colon and Rectal Surgery 09/30/18 Wesley Pichardo MD [address] [place] [address] Pain Management 09/30/18 Marilyn Schreiber MD [address] [place] [address] Radiation Oncologist Radiation Oncology 10/24/18 Sam Peralta MD PhD [address] [place] [address] [id number] Medical Oncologist/Procurement Forester Medical Oncology 05/14/22 02/08/24 documented as of this encounter
--- OUTSIDE RECORDS SUMMARY | 2024-11-13 00:54 | XMS_ITS | Clinical Summary ---
Author Organization [facility] Facility Address [address] [place] [address] Care Team Providers Care Security Supervisor Name Role Phone Izabela Louis MD Primary Care Provider [phone] Encounters Date Type Department Care Team Description 10/10/2024 Documentation Only [facility] [place], [address] [phone] Polo Brownlee, DO 10/10/2024 Documentation Only [facility], [address] [address] Polo Brownlee, DO 10/10/2024 Documentation Only [facility], [address] [phone] Polo Brownlee, 09/19/2024 2:15 PM CDT Office Visit [facility], [facility] [address] [address] Polo Brownlee, Chronic kidney disease, stage 2 (mild) (Primary [...] Description 11/21/2024 12:15 PM CDT Office Visit [facility], [facility] [address] [facility] [address] [place] [address] Polo Brownlee DO [address] [facility] [address] [place] [address] Health Maintenance Due Date Last [...] 08/28/2009 Insurance Medicare Medicaid [place] Care Teams Security Supervisor Relationship Specialty Start Date End Date Izabela Louis MD [address] [place] [address] PCP - General Internal Medicine 06/26/24
--- OUTSIDE RECORDS SUMMARY | 2024-11-13 00:54 | XMS_ITS | Clinical Summary ---
Author Organization [facility] Address [address] [place] [address] Care Team Providers Care Income Tax Analyst Name Role Phone Izabela Louis MD Primary Care Provider Source Comments [facility],non-owned Affiliates and Associated Physician Practices is amultiple site organization consisting of ambulatory clinics and hospital sitesin [place], [place], [place] and [place]. This disclosure is being madepursuant to the Care Everywhere program and may not contain all information available regarding this patient. Last updated 17.[facility] Allergies Active Allergy Reactions Criticality Noted Date [...] times daily as needed 12/28/2019 Active SYMTUZA [phone] MG tablet Take by mouth once daily [...] on file Legal Sex Male 6:27 AM SURVEY DATA TECHNICIAN Gender Identity Not on file Sexual Orientation Not on file Last Filed Vital Signs Vital Sign Reading Time Taken Comments Blood Pressure 133/67 05/31/2024 5:03 PM SURVEY DATA TECHNICIAN Pulse 67 05/31/2024 5:03 PM SURVEY DATA TECHNICIAN Temperature 36.3 C (97.3 F) 05/31/2024 1:37 PM SURVEY DATA TECHNICIAN Respiratory Rate 18 05/31/2024 5:03 PM SURVEY DATA TECHNICIAN Oxygen Saturation 99% 05/31/2024 5:03 PM SURVEY DATA TECHNICIAN Inhaled Oxygen Concentration - - Weight 86.2 kg (190 lb) 05/31/2024 11:07 AM SURVEY DATA TECHNICIAN Height 180.3 cm (5' 11) 05/31/2024 11:07 AM SURVEY DATA TECHNICIAN Body Mass Index 26.5 05/31/2024 11:07 AM SURVEY DATA TECHNICIAN Plan of Treatment Health Maintenance Due Date Last Done Comments MEDICARE AWV 12 MONTHS 1980 HEPATITIS B VACCINE (2 of 3 - Hep B Twinrix 3-dose series) 05/22/2004 04/24/2004 HPV VACCINE (1 - 3-dose SCDM series) 07/01/2007 DTAP/TDAP/TD VACCINES (2 - Td or Tdap) [...] Comments LIPID PROFILE STAT 05/15/2024 1:28 AM SURVEY DATA TECHNICIAN Left-sided weakness Aphasia from Last 3 Months or Most Recently Relevant to Health Maintenance Results * (ABNORMAL) LIPID PROFILE (05/15/2024 1:28 AM SURVEY DATA TECHNICIAN) [facility] Cholesterol Total 184 <200 mg/dL 05/15/2024 2:41 AM [facility] HDL 35(L) >40 mg/dL 05/15/2024 2:41 [...] Triglycerides 173(H) <150 mg/dL 05/15/2024 2:41 AM SURVEY DATA TECHNICIAN [facility] Comment: ATP III Classification of Triglycerides: <150 mg/dL: Normal 150 - 199 mg/dL: Borderline High 200 - 400 mg/dL: High >500 mg/dL: Very High Blood BLOOD SPECIMEN / Unknown Venipuncture / Unknown 05/15/2024 1:28 AM SURVEY DATA TECHNICIAN 05/15/2024 2:10 AM SURVEY DATA TECHNICIAN Nolberto Varela MD LAB - CHEMISTRY ORDERABLES Final Result [facility] [address] [place] [address], [facility] [phone] from Last 3 Months or Most Recently Relevant to Health Maintenance Insurance MEDICARE MEDICARE MEDICAID [facility] Advance Directives * Full Code (Latest Code Status on File) Date Activated Date Inactivated Comments 05/15/2024 12:03 AM 05/15/2024 10:23 AM * Full Code Date Activated Date Inactivated Comments 12/08/2020 5:15 AM 12/10/2020 5:37 PM Care Teams Income Tax Analyst Relationship Specialty Start Date End Date Izabela Louis MD [address] [place], [place] [phone] PCP - General Internal Medicine 05/31/24
--- OUTSIDE RECORDS SUMMARY | 2024-11-13 00:54 | XMS_ITS | Continuity of Care Document ---
Author Organization [facility] Address [address] [place] [address] [address] [place] [address] Phone Care Team Providers Care Director It Project Name Role Phone Tammy Matos Unavailable Unavailable Procedures Procedure Date Office/outpatient Visit, Est Eye Exam & Treatment Advance Directives Directive Yes / No Effective Date File Name No Information Encounters Encounter Description Practice Location Reason(s) For Visit Diagnoses Date Provider Providers Copied on Encounter Office/outpat ient Visit, Est [facility], [address] [place] [address] [address], [place], [place], [id number], tel:[phone] SEC [facility] No Information [address] Shawna Munoz. [address] [facility] [address] , [address], [place], [place], [facility], . tel:[phone] [facility], [address] [place] [address] [address], [place], [place], [id number], tel:[phone] SEC [facility] No Information [address] Shawna Munoz. [address] [facility] [facility] [address] , [address], [place], [address], [place]. tel:[phone] Family History Family Member Type Diagnosis Age At Onset No Information Payers Payer name Insurance type Covered republican ID Authoriza tion(s) Medicare [facility] [id number] Social History Type Description Quantity Date Captured [...]
--- OUTSIDE RECORDS SUMMARY | 2024-11-13 00:54 | XMS_ITS | Clinical Summary ---
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
[2024-11-13 01:00] VITALS: BP 136/80; PULSE 87; RESP 16; TEMP 36.9; O2SAT 96
[2024-11-13 02:35] LABS: Hematocrit 40.6 % (42.0-52.0); Hemoglobin 14.1 g/dL (14.0-18.0); Immature Granulocyte Percent A 0.1 % (0-0.5); Lymphocytes Absolute Auto 1.84 K/mm3 (0.9-3.2); Mean Corpuscular HGB Conc 34.7 g/dl (32-36); Mean Corpuscular Hemoglobin 32.7 pg (26-34); Mean Corpuscular Volume 94.2 fl (80-100); Nucleated Red Blood Cells Absolute Auto 0.000 K/mm3 (0.0-0.012); Nucleated Red Blood Cells Perc 0.0 % (0.0-0.2); Platelet Count Result 236 k/mm3 (150-375); Red Blood Count 4.31 M/mm3 (4.6-6.20); White Blood Count 6.7 K/mm3 (4.5-10.0)
--- NOTE | 2024-11-13 02:38 | ED_ITS ---
HPI - Abdominal Pain General Chief Complaint: Abdominal Pain Stated Complaint: abd pain and possible constipation Time Seen by Provider: 11/13/24 02:25 History of Present Illness HPI narrative: 44-year-old male with a past medical history including rectal cancer, HIV. Patient presents to the emergency department with complaints of constipation lower abdominal pain. He states he initially had some abdominal pain and discomfort as well as a rock hard abdomen but now having bowel movements. He states he has been taking some laxatives with some improvement but still having some constipation sensations. No diarrhea or rectal bleeding. He was otherwise in his normal state of health. No recent abdominal surgeries. No urinary complaints. Denies any fever, chills, nausea, vomiting, traumatic injuries or recent hospitalizations. Related Data Home Medications ?Medication ?Instructions ?Recorded ?Confirmed ?Last Taken ?Type bictegravir 50 mg-emtricitabine 1 tablet PO DAILY 12/01/19 12/01/19 Unknown History 200 mg-tenofovir alafenam 25 mg tablet (Biktarvy) fluconazole 200 mg tablet 200 mg PO BID 12/01/19 12/01/19 Unknown History gabapentin 600 mg tablet 600 mg PO QID 12/01/19 12/01/19 Unknown History (Neurontin) naloxone 4 mg/actuation nasal 1 spray intranasal Q2M 12/01/19 Unknown History spray (Narcan) oxycodone-acetaminophen 10 mg-325 1 tablet PO Q6H PRN Pain (Scale 12/01/19 12/01/19 Unknown History mg tablet (Percocet) Score 7-10) ropinirole 2 mg tablet,extended 1 mg PO DAILY 12/01/19 12/01/19 Unknown History release 24 hr (Requip XL) baclofen 10 mg tablet mg 06/22/20 Unknown History methadone 10 mg tablet 06/22/20 Unknown History valacyclovir 1 gram tablet 06/22/20 Unknown History Allergies Allergy/AdvReac Type Severity Reaction Status Date / Time Penicillins AdvReac Intermediate contraindicated Verified 11/13/24 02:32 with current HIV Rx regimen sulfamethoxazole AdvReac Intermediate contraindicated Verified 11/13/24 02:32 by current HIV Rx regimen trimethoprim AdvReac Intermediate contraindicated Verified 11/13/24 02:32 by current HIV Rx regimen Review of Systems 2 Review of Systems: As reviewed above in HPI [facility] Past Medical History Medical History Chronically on opiate therapy Restless leg syndrome Rectal cancer HIV (human immunodeficiency virus infection) Surgical History Surgical History History of urologic surgery Apr 2023, Dr Schneider ([place]) Social History Social History Smoking status: Never smoker Substance use: former Substance use type: IV drugs Exam 2 Narrative: GENERAL: [Well-appearing, well-nourished, and in no acute distress.] HEAD: [Normocephalic, atraumatic.] EYES: [PERRLA and EOMI.] ENT: Nares clear, no rhinorrhea or epistaxis. Mucous membranes moist. NECK: Supple. CHEST: [Clear to auscultation. No respiratory distress.] HEART: [Regular rate and rhythm]. No murmur heard. [Normal peripheral pulses.] ABDOMEN: [Soft, nondistended], [nontender], [No rigidity or guarding] EXTREMITIES: Normal range of motion. [No edema.] SKIN: Warm, dry, no rash. NEURO: [No focal deficits]. Alert and oriented [x3.] PSYCH: [Normal mood and affect.] Course Vital Signs Vital signs: Vital Signs Temperature 36.9 C 11/13/24 01:00 Pulse Rate 87 11/13/24 01:00 Respiratory Rate 16 11/13/24 01:00 Blood Pressure 136/80 11/13/24 01:00 Pulse Oximetry 96 11/13/24 01:00 Oxygen Delivery Room Air 11/13/24 01:00 Temperature 36.9 C 11/13/24 01:00 Pulse Rate 87 11/13/24 01:00 Respiratory Rate 16 11/13/24 01:00 Blood Pressure 136/80 11/13/24 01:00 Pulse Oximetry 96 11/13/24 01:00 Oxygen Delivery Room Air 11/13/24 01:00 MDM - Abdominal Pain MDM Narrative Medical decision making narrative: 44-year-old male with a past medical history including rectal cancer, HIV. Patient presents to the emergency department with complaints of constipation lower abdominal pain. He states he initially had some abdominal pain and discomfort as well as a rock hard abdomen but now having bowel movements. He states he has been taking some laxatives with some improvement but still having some constipation sensations. No diarrhea or rectal bleeding. He was otherwise in his normal state of health. No recent abdominal surgeries. No urinary complaints. Denies any fever, chills, nausea, vomiting, traumatic injuries or recent hospitalizations. Patient has a soft nontender nondistended abdomen with no signs of nauseousness or retching/vomiting. He has normal vital signs with any fever, tachycardia, hypoxia. No blood pressure concerns. Given his benign abdominal examination considerations for obstruction or very low but he has previous abdominal surgical history and risk factors including the colon cancer. Likely had some constipation that was now improving with the stool softener regimen at home. Other potential causes such as diverticulitis not excluded. Laboratory studies and a CT scan with contrast obtained. CT scan shows some likely enterocolitis with increased transit stay within the colon but no bowel obstruction. Minor bladder wall thickening consistent with cystitis. Laboratory studies are reassuring with no leukocytosis or anemia. Normal platelet count. Electrolytes are all normal. Normal GFR normal glucose and LFTs. Urinalysis has some mild white cells but no bacteria. Patient felt comfortable with the plan for oral antibiotics and outpatient follow-up with his primary care provider. Patient is safe for discharge home at this time. Medical Records Attestation: I reviewed the patient's medical records. Lab Data Attestation: I reviewed the patient's lab results. 11/13/24 02:26 11/13/24 02:26 Labs: Lab Results 11/13/24 Range/Units 02:26 WBC 6.7 (4.5-10.0) K/mm3 RBC 4.31 L (4.6-6.20) M/mm3 Hgb 14.1 (14.0-18.0) g/dL Hct 40.6 L (42.0-52.0) % MCV 94.2 (80-100) fl MCH 32.7 (26-34) pg MCHC 34.7 (32-36) g/dl RDW 12.3 (11.5-14.5) % Plt Count 236 (150-375) k/mm3 MPV 9.1 (7.4-10.4) fl Immature Gran % (Auto) 0.1 (0-0.5) % Neut % (Auto) 63.0 (45.5-73.1) % Lymph % (Auto) 27.4 (18.3-44.2) % [place] % (Auto) 7.3 (2.6-8.5) % Eos % (Auto) 1.8 (0-4.4) % Baso % (Auto) 0.4 (0.2-1.2) % Lymph # (Auto) 1.84 (0.9-3.2) K/mm3 [place] # (Auto) 0.5 (0.1-0.6) K/mm3 Eos # (Auto) 0.1 (0-0.3) K/mm3 Baso # (Auto) 0.0 (0.0-0.1) K/mm3 Abs Immat Gran (auto) 0.01 (0.00-0.031) K/mm3 Absolute Neuts (auto) 4.2 (1.3-6.7) K/mm3 Absolute Nucleated RBC 0.000 (0.0-0.012) K/mm3 Nucleated RBC % 0.0 (0.0-0.2) % Sodium 138 (137-145) mmol/L Potassium 4.0 (3.4-5.0) mmol/L Chloride 105 (98-107) mmol/L Carbon Dioxide 24 (22-30) mmol/L Anion Gap 9 (4-12) mmol/L BUN 14 (9-20) mg/dL Creatinine 1.28 (0.7-1.3) mg/dL Estim Creat Clear Calc 70 ml/min Estimated GFR > 60 (59 - ) Glucose 116 H (65-110) mg/dL Calcium 10.0 (8.4-10.2) mg/dL Total Bilirubin 0.6 (0.2-1.3) mg/dL AST 36 (17-59) U/L ALT 23 (6-50) U/L Alkaline Phosphatase 98 (38-126) U/L Total Protein 9.6 H (6.3-8.2) g/dL Albumin 5.1 (3.5-5.1) g/dL Lipase 113 (23-300) U/L Urine Color Yellow (Yellow) Urine Appearance Clear (Clear) Urine pH 5.5 (5.0-9.0) Ur Specific [place] 1.005 (1.001-1.035) Urine Protein Negative (Negative) mg/dL Urine Glucose (UA) Negative (Negative) mg/dL Urine Ketones Negative (Negative) mg/dL Ur Blood (Man) Negative (Negative) Urine Nitrate Negative (Negative) Urine Bilirubin Negative (Negative) Urine Urobilinogen 0.2 (<2.0) mg/dL Leukocyte Esterase Rfl 1+ H (Negative) GHASSAN/UL Urine RBC 0-2 (0-2) /hpf Urine WBC 6-10 H (0-3) /hpf Ur Squamous Epith Cells None seen (Few) /hpf Urine Bacteria None seen /hpf Urine Casts 0-2 Imaging Data Attestation: I personally reviewed and interpreted this imaging study as follows: My impression: Enterocolitis, no obstruction Discharge Plan Discharge Clinical Impression: Enterocolitis Patient Disposition: Home Condition: Stable Instructions: Antibiotic Form, Gastroenteritis (DC) Additional Instructions: Follow-up with your primary care provider and specialist. We will treat your mild enterocolitis infection with Augmentin. Return with any emergent concerns complete the antibiotics and your normal medications as directed. Patient Language: Macanese Prescriptions: New amoxicillin-pot clavulanate 875-125 mg tablet 1 tablet PO Q12H 7 Days Qty: 14 0RF No Action gabapentin [Neurontin] 600 mg Tablet 600 mg PO QID fluconazole 200 mg Tablet 200 mg PO BID oxycodone-acetaminophen [Percocet] 10-325 mg Tablet 1 tablet PO Q6H PRN (Reason: Pain (Scale Score 7-10)) Biktarvy 50-200-25 mg Tablet 1 tablet PO DAILY ropinirole [Requip XL] 2 mg Tablet Extended Release 24 Hr 1 mg PO DAILY Narcan 4 mg/actuation [place],Non-Aerosol 1 spray INTRANASAL Q2M valacyclovir 1 gram tablet methadone 10 mg tablet baclofen 10 mg tablet benzonatate 100 mg capsule 100 mg PO TID PRN (Reason: cough) Qty: 14 0RF albuterol sulfate 90 mcg/actuation HFA aerosol inhaler 1 puff inhalation QID Qty: 6.7 0RF Follow-up/Referrals: Heriberto,Luis Gurrola [Primary Care Provider] - Time of Disposition: 04:29
--- OUTSIDE RECORDS SUMMARY | 2024-11-13 02:40 | XMS_ITS | Continuity of Care Document ---
Author Organization [facility] Address [address] [place] [address] [address] [place] [address] Phone Care Team Providers Care Natural Gas Field Processing Supervisor Name Role Phone Tammy Matos Unavailable Unavailable Procedures Procedure Date Office/outpatient Visit, Est Eye Exam & Treatment Advance Directives Directive Yes / No Effective Date File Name No Information Encounters Encounter Description Practice Location Reason(s) For Visit Diagnoses Date Provider Providers Copied on Encounter Office/outpat ient Visit, Est formerly [facility], [address] [place] [address] [address], [place], [place], [id number], tel:[phone] SEC [facility] No Information 2-[address] Shawna Munoz. [address] [place] , [address], [place], [place], [facility], . tel:[phone] formerly [facility], [address] [place] [address] [address], [place], [place], [id number], tel:[phone] [facility] No Information 2-[address] Shawna Munoz. [address] [place] , [address], [place], [address], [place]. tel:[phone] Family History Family Member Type Diagnosis Age At Onset No Information Payers Payer name Insurance type Covered democrat ID Authoriza tion(s) Medicare [facility] [id number] Social History Type Description Quantity Date Captured [...]
--- OUTSIDE RECORDS SUMMARY | 2024-11-13 02:40 | XMS_ITS | Encounter Summary ---
Author Organization [facility] Healthcare Address [address] [place] [address] Care Team Providers Care Bottom Wheeler Name Role Phone Syed Diggs MD Unavailable [phone] Wesley Pichardo MD Unavailable [phone] Marilyn Schreiber MD Unavailable [phone] Nishant Sr MD Primary Care Provider [phone] Izabela Louis MD Primary Care Provider Sam Peralta MD PhD Unavailable [phone] Encounter Details Date Type Department Care Team (Late st Contact Info) Description 07/20/2019 Telephone [facility] [address] [place] [address] Bubba Erickson RN Social History [...] on file Legal Sex Male 4:35 AM PHYSICAL AERODYNAMICIST Gender Identity Male 04/21/2023 9:16 AM PHYSICAL AERODYNAMICIST Sexual Orientation Not on file documented as [...] COVID: Suspected 04/04/2023 04/04/2023 04/04/2023 5:43 AM PHYSICAL AERODYNAMICIST Influenza, adult 04/04/2023 04/04/2023 04/11/2023 3:05 AM PHYSICAL AERODYNAMICIST COVID: Suspected 01/27/2024 01/28/2024 01/28/2024 1:29 AM CDT documented as of this encounter Care Teams Bottom Wheeler Relationship Specialty Start Date End Date Nishant Sr MD [address] [place] [id number] PCP - General 02/14/19 11/21/19 Izabela Louis MD [address] [place] [id number] PCP - General 11/22/19 Syed Diggs MD Surgeon Colon and Rectal Surgery 09/30/18 Wesley Pichardo MD [address] [place] [address] Pain Management 09/30/18 Marilyn Schreiber MD [address] [place] [address] Radiation Oncologist Radiation Oncology 10/24/18 Sam Peralta MD PhD [address] [place] [id number] Medical Oncologist/Rheumatology Nurse Medical Oncology 05/14/22 02/08/24 documented as of this encounter
--- OUTSIDE RECORDS SUMMARY | 2024-11-13 02:40 | XMS_ITS | Clinical Summary ---
Author Organization [facility] Address [address] [facility] [place] [address] Care Team Providers Care Instrument Mechanic Name Role Phone Izabela Louis MD Primary Care Provider Source Comments [facility],non-owned Affiliates and Associated Physician Practices is amultiple site organization consisting of ambulatory clinics and hospital sitesin [place], [place], [place] and [place]. This disclosure is being madepursuant to the Care Everywhere program and may not contain all information available regarding this patient. Last updated 17.[facility] Allergies Active Allergy Reactions Criticality Noted Date [...] times daily as needed 12/28/2019 Active SYMTUZA [phone] MG tablet Take by mouth once daily [...] on file Legal Sex Male 6:27 AM RESEARCH AND DEVELOPMENT RESEARCHER Gender Identity Not on file Sexual Orientation Not on file Last Filed Vital Signs Vital Sign Reading Time Taken Comments Blood Pressure 133/67 05/31/2024 5:03 PM RESEARCH AND DEVELOPMENT RESEARCHER Pulse 67 05/31/2024 5:03 PM RESEARCH AND DEVELOPMENT RESEARCHER Temperature 36.3 C (97.3 F) 05/31/2024 1:37 PM RESEARCH AND DEVELOPMENT RESEARCHER Respiratory Rate 18 05/31/2024 5:03 PM RESEARCH AND DEVELOPMENT RESEARCHER Oxygen Saturation 99% 05/31/2024 5:03 PM RESEARCH AND DEVELOPMENT RESEARCHER Inhaled Oxygen Concentration - - Weight 86.2 kg (190 lb) 05/31/2024 11:07 AM RESEARCH AND DEVELOPMENT RESEARCHER Height 180.3 cm (5' 11) 05/31/2024 11:07 AM RESEARCH AND DEVELOPMENT RESEARCHER Body Mass Index 26.5 05/31/2024 11:07 AM RESEARCH AND DEVELOPMENT RESEARCHER Plan of Treatment Health Maintenance Due Date [...] Comments LIPID PROFILE STAT 05/15/2024 1:28 AM RESEARCH AND DEVELOPMENT RESEARCHER Left-sided weakness Aphasia from Last 3 Months or Most Recently Relevant to Health Maintenance Results * (ABNORMAL) LIPID PROFILE (05/15/2024 1:28 AM RESEARCH AND DEVELOPMENT RESEARCHER) [facility] Cholesterol Total 184 <200 mg/dL 05/15/2024 2:41 AM [facility] HDL 35(L) >40 [...] Triglycerides 173(H) <150 mg/dL 05/15/2024 2:41 AM RESEARCH AND DEVELOPMENT RESEARCHER [facility] Comment: ATP III Classification of Triglycerides: <150 mg/dL: Normal 150 - 199 mg/dL: Borderline High 200 - 400 mg/dL: High >500 mg/dL: Very High Blood BLOOD SPECIMEN / Unknown Venipuncture / Unknown 05/15/2024 1:28 AM RESEARCH AND DEVELOPMENT RESEARCHER 05/15/2024 2:10 AM RESEARCH AND DEVELOPMENT RESEARCHER Nolberto Varela MD LAB - CHEMISTRY ORDERABLES Final Result [facility] [address] [place] [address], [facility] [phone] from Last 3 Months or Most Recently Relevant to Health Maintenance Insurance MEDICARE MEDICARE MEDICAID [facility] Advance Directives * Full Code (Latest Code Status on File) Date Activated Date Inactivated Comments 05/15/2024 12:03 AM 05/15/2024 10:23 AM * Full Code Date Activated Date Inactivated Comments 12/08/2020 5:15 AM 12/10/2020 5:37 PM Care Teams Instrument Mechanic Relationship Specialty Start Date End Date Izabela Louis MD [address] [place], [place] [id number] PCP - General Internal Medicine 05/31/24
--- OUTSIDE RECORDS SUMMARY | 2024-11-13 02:40 | XMS_ITS | Clinical Summary ---
Author Organization [facility] Facility Address [address] [place] [address] Care Team Providers Care Bore Miner Operator Name Role Phone Izabela Louis MD Primary Care Provider [phone] Encounters Date Type Department Care Team Description 10/10/2024 Documentation Only [facility], [address] [phone] Polo Brownlee, DO 10/10/2024 Documentation Only [facility], [address] [address] Polo Brownlee, DO 10/10/2024 Documentation Only [facility], [address] [phone] Polo Brownlee, 09/19/2024 2:15 PM CDT Office Visit [facility], [facility] [address] [address] Polo Brownlee, Chronic kidney disease, [...] Description 11/21/2024 12:15 PM CDT Office Visit [facility], [facility] [address] [facility] [address] [place] [address] Polo Brownlee DO [address] [facility] [address] [place] [address] Health Maintenance Due Date Last [...] 08/28/2009 Insurance Medicare Medicaid [place] Care Teams Bore Miner Operator Relationship Specialty Start Date End Date Izabela Louis MD [address] [place] [address] PCP - General Internal Medicine 06/26/24
--- OUTSIDE RECORDS SUMMARY | 2024-11-13 02:40 | XMS_ITS ---
Author Organization [facility] [place] Address [address] [place] [address] Care Team Providers Care Anti [employer] Operations Officer Name Role Phone Syed Diggs MD Unavailable [phone] Wesley Pichardo MD Unavailable [phone] Marilyn Schreiber MD Unavailable [phone] Izabela Louis MD Primary Care Provider Active Problems Problem Noted Date Diagnosed Date Stricture, urethra 08/04/2024 History of anal cancer 10/06/2023 Acute hypoxic respiratory failure 04/06/2023 Assessment & Plan (04/06/2023 1:44 PM SUCTION DRUM DRIER OPERATOR): Required 2L O2 support since admission CXR no evidence of pneumonia or atelectasis Now weaned to room air - Perform home O2 evaluation prior to discharge - Management of influenza as described elsewhere Macrocytic anemia 04/06/2023 Assessment & Plan (04/06/2023 1:49 PM SUCTION DRUM DRIER OPERATOR): Recent labs with low B12 and low folate Hb stable - Continue supplement with B12 and folate daily Verruca vulgaris 04/05/2023 Assessment & Plan (04/06/2023 1:36 PM SUCTION DRUM DRIER OPERATOR): Follows with [facility] - Continue home Imiquimod 5% cream to warts x3/weekly. Pt not to touch eyes following application. Influenza 04/04/2023 Assessment & Plan (04/06/2023 1:46 PM SUCTION DRUM DRIER OPERATOR): Reports fatigue, febrile episodes at home Tmax [...] 04/04/2023 Assessment & Plan (04/06/2023 1:45 PM SUCTION DRUM DRIER OPERATOR): Cr 1.5 up from baseline of ~1 Likely prerenal from poor po intake in setting of influenza Resolved with IVF, PO intake - Encourage to continue adequate hydration and food intake at home as he is recovering from influenza - Avoid nephrotoxins Chronic pain syndrome 04/04/2023 Assessment & Plan (04/06/2023 1:58 PM SUCTION DRUM DRIER OPERATOR): Seems to be on both methadone and percocet at home Continue home doses of methadone 5 mg BID and oxy 10 q4 prn Other urethral stricture, male, unspecified site 03/24/2023 B12 deficiency 02/17/2023 Inflammation of the rectum 09/13/2020 Overview (09/13/2020): Added automatically from request for surgery [id number] Chronic rectal pain 09/13/2020 Overview (09/13/2020): Added automatically from request for surgery [id number] Squamous cell carcinoma of rectum 09/13/2020 Overview (09/13/2020): Added automatically from request for surgery [id number] Screening for malignant neoplasm of colon 2020 Overview (07/30/2020): Added automatically from request for surgery [id number] ASTER (acute kidney injury) 12/01/2019 Assessment & [...] 03/01/2019 Assessment & Plan (03/02/2019 4:40 PM SUCTION DRUM DRIER OPERATOR): Cr was 1.13 on admission and peaked to 1.41 03/01 likely in the setting of IV abx. Supported with IVFS and stopped IV abx. Cr 1.12 Skin breakdown to perianal region 02/28/2019 Assessment & Plan (03/01/2019 1:12 PM SUCTION DRUM DRIER OPERATOR): Skin breakdown noted on exam between gluteal [...] 02/28/2019 Assessment & Plan (03/02/2019 4:45 PM SUCTION DRUM DRIER OPERATOR): Likely 2/2 current XRT. Patient has diarrhea at baseline. -Will send c.diff, stool studies to r/o infection -cIVFs to maintain hydration -diarrhea started again the evening of 03/01, send c.diff -k 3.2 in setting of diarrhea, supplemented Pancytopenia 02/27/2019 Assessment & Plan (12/01/2019 10:29 PM CDT): has been pancytopenic since chemotherapy, also with HIV Assessment & Plan (03/02/2019 4:38 PM SUCTION DRUM DRIER OPERATOR): In setting of chemotherapy 02/13- and XRT. -WBC 1.0, ANC 500 -H/H 8.5/23.4 on admission -PLT 3K on admission, s/p 1 unit, with appropriate bump to 16K -Will transfuse PLTs to keep > 10K, will likely need again as plt 13 today (denies blood nose/bm) -hgb 7.5, lorenzo transfuse 1 unit in setting of overall fatigue Assessment & Plan (02/27/2019 11:25 PM SUCTION DRUM DRIER OPERATOR): - likely 2/2 recent chemo - transfuse 1 unit plt with post transfusion cbc - maintain type and screen - consent in chart Transaminitis 02/17/2019 Assessment & Plan (02/18/2019 1:05 PM SUCTION DRUM DRIER OPERATOR): New onset 02/17 w/ t.bili 1, Alk Phos 181, AST 389, ALT 227. Previously normal. - Suspect drug-induced likely I/s/o recently initiated chemotherapy - consider also fluconazole vs biktarvy (these are not new prescriptions but concerns of compliance pre-hospitalization) vs recently initiated MSContin Down-trending today, plan to d/c Severe malnutrition 02/14/2019 Assessment & Plan (03/02/2019 4:44 PM SUCTION DRUM DRIER OPERATOR): -encourage high protein diet. Assessment & Plan (02/16/2019 11:14 AM SUCTION DRUM DRIER OPERATOR): Pt has had significant weight loss & poor PO intake. 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 - s/p treatment with atovaquone (rash to dapsone was, no G6PD) Encounter for antineoplastic chemotherapy 2018 Assessment & Plan (02/18/2019 1:04 PM SUCTION DRUM DRIER OPERATOR): Admitted for C1 Mitomycin and 5-FU with [...] 02/13/2019 Assessment & Plan (02/15/2019 1:32 PM SUCTION DRUM DRIER OPERATOR): Noted history of CKD3 with peak Cr in medical record to 2.5. Previously followed with nephrology though not in last couple years. Cr now WNL with adequate UO. - Monitor CMP daily, daily weights, and I&O Nicotine dependence 02/13/2019 Assessment & Plan (02/28/2019 1:13 PM SUCTION DRUM DRIER OPERATOR): Will administer Nicotine patches in house Assessment & Plan (02/15/2019 1:35 PM SUCTION DRUM DRIER OPERATOR): Current every day smoker. - Nicotine 21 mg patch daily - Encourage smoking cessation Anal cancer 10/17/2018 Assessment & Plan (04/06/2023 1:47 PM SUCTION DRUM DRIER OPERATOR): S/p chemoradiation Currently in remission - Continue [...] QID Assessment & Plan (03/01/2019 1:06 PM SUCTION DRUM DRIER OPERATOR): Patient of Dr. Peralta. S/p C1 mitomycin/5FU 02/13- with concurrent radiation. -Will continue XRT inpatient -Due for chemo on week 5 (~03/13/19) -Due to profound pancytopenia s/p chemo, will send out labwork to check deficiency in dihydropyrimidine dehydrogenase (DPD) per outpatient team 03/01 (has to be in pink tube) Assessment & Plan (02/27/2019 11:21 PM SUCTION DRUM DRIER OPERATOR): - s/p C1 mitomycin/5FU 02/13-14 with concurrent radiation - pain control with MSContin 30 BID + oxycodone PRN Assessment & Plan (02/18/2019 12:52 PM SUCTION DRUM DRIER OPERATOR): Diagnosed 09/23/2018, [id number]. Followed by Dr. Peralta. Treatment delayed 2/2 insurance issues. - Admitted for C1 mitomycin + 5FU w/ concurrent radiation (planned 28 fx) - first RT 02/13. C1 complete. Will follow up with xrt outpatient and with Dr. Peralta for C2 in a few weeks Tolerated treatment well Human immunodeficiency virus (HIV) disease 10/17 Assessment & Plan (04/06/2023 1:48 PM SUCTION DRUM DRIER OPERATOR): Last CD4 148, [place] [address] - Continue Symtuza - Continue atovaquone 1500 mg daily for PCP ppx - Ensure close f/u with local ID Dr. Louis Assessment & Plan (12/01/2019 10:28 PM CDT): last CD4 79, HIV VL [id number] 07/2019 - repeat CD4, HIV RNA; continue Biktarvy, continue fluconazole (patient endorses is suppressive therapy after previous crypto infection) Assessment & Plan (02/28/2019 12:45 PM SUCTION DRUM DRIER OPERATOR): Follows with Dr. Louis. Last CD4 153, VL 464K 10/2018. -Continue home biktarvy -Hx of crypto meningitis, continue suppressive fluconazole Assessment & Plan (02/27/2019 11:23 PM SUCTION DRUM DRIER OPERATOR): - continue home biktarvy - hx of crypto meningitis, continue suppressive fluconazole Assessment & Plan (02/18/2019 1:12 PM SUCTION DRUM DRIER OPERATOR): Most recent 10/19 CD4 153, VL 465k. [...] 08/12/2018 Assessment & Plan (02/15/2019 1:32 PM SUCTION DRUM DRIER OPERATOR): History of crypto meningitis; unclear what year [...] elsewhere Assessment & Plan (03/02/2019 4:39 PM SUCTION DRUM DRIER OPERATOR): Patient reports rectal pain. In setting of anal cancer and current XRT. Follows with pain management outpatient, Dr. Pichardo. -On exam, there is skin breakdown between gluteal muscles > c/s wound care for wound management -Home pain regimen: MSContin 30mg BID, Gabapentin 600mg QID, Requip 1mg qpm, Goldsmith 10/325 q6hprn, Baclofen 20mg TID prn Assessment & Plan (02/17/2019 12:10 PM SUCTION DRUM DRIER OPERATOR): Follows with pain management (Dr. Pichardo) outpatient [...] 04/06/2023 Assessment & Plan (04/04/2023 9:55 AM SUCTION DRUM DRIER OPERATOR): -recent labs with low B12 and low folate -supplement with B12 and folate daily Hyponatremia 02/27/2019 04/06/2023 Assessment & Plan (04/05/2023 4:32 PM SUCTION DRUM DRIER OPERATOR): -Resolved s/p IVF bolus Assessment & Plan (02/28/2019 12:46 PM SUCTION DRUM DRIER OPERATOR): Na 127 on admit. Likely 2/2 dehydration related to diarrhea. -S/p 1L NS bolus x 2 -Na improving, 135 today -Will CTM Assessment & Plan (02/27/2019 11:24 PM SUCTION DRUM DRIER OPERATOR): - 2/2 dehydration liked related to diarrhea. Urine sodium < 20, Na improving with NS - additional 1L NS overnight, repeat BMP in AM Neutropenic fever 02/27/2019 02/07/2024 Assessment & Plan (03/01/2019 12:53 PM SUCTION DRUM DRIER OPERATOR): Patient admitted from [facility], where he reported chills with Tmax 38. Found to be neutropenic and was briefly hypotensive in [facility]. -Infectious workup: Blood cultures x 2 NGTD, [...] days Assessment & Plan (02/27/2019 11:26 PM SUCTION DRUM DRIER OPERATOR): - chills, Tmax 38, neutropenic and was briefly hypotensive in [facility] - blood cultures pending - f/u urine culture - CXR clear - f/u GC/CT - continue vanc/cefe Anal warts 09/09/2018 12/01/2019 Overview (09/09/2018): Added automatically from request for surgery [id number]
--- OUTSIDE RECORDS SUMMARY | 2024-11-13 02:40 | XMS_ITS | Clinical Summary ---
Author Organization [facility] Address [address] [place] [address] Care Team Providers Care Undercover Agent Name Role Phone Syed Diggs MD Unavailable [phone] Wesley Pichardo MD Unavailable [phone] Marilyn Schreiber MD Unavailable [phone] Izabela Louis MD Primary Care Provider Allergies [...] 01/23/20 23 Active True Metrix Glucose Meter [facility] USE TO TEST BLOOD SUGAR ONCE DAILY 02/12/20 22 Active Symtuza [phone] mg tablet Take 1 tablet by mouth [...] 04/06/2023 Assessment & Plan (04/06/2023 1:44 PM SWITCHMAN): Required 2L O2 support since admission CXR no evidence of pneumonia or atelectasis Now weaned to room air - Perform home O2 evaluation prior to discharge - Management of influenza as described elsewhere Macrocytic anemia 04/06/2023 Assessment & Plan (04/06/2023 1:49 PM SWITCHMAN): Recent labs with low B12 and low folate Hb stable - Continue supplement with B12 and folate daily Verruca vulgaris 04/05/2023 Assessment & Plan (04/06/2023 1:36 PM SWITCHMAN): Follows with [facility] - Continue home Imiquimod 5% cream to warts x3/weekly. Pt not to touch eyes following application. Influenza 04/04/2023 Assessment & Plan (04/06/2023 1:46 PM SWITCHMAN): Reports fatigue, febrile episodes at home Tmax [...] 04/04/2023 Assessment & Plan (04/06/2023 1:45 PM SWITCHMAN): Cr 1.5 up from baseline of ~1 Likely prerenal from poor po intake in setting of influenza Resolved with IVF, PO intake - Encourage to continue adequate hydration and food intake at home as he is recovering from influenza - Avoid nephrotoxins Chronic pain syndrome 04/04/2023 Assessment & Plan (04/06/2023 1:58 PM SWITCHMAN): Seems to be on both methadone and percocet at home Continue home doses of methadone 5 mg BID and oxy 10 q4 prn Other urethral stricture, male, unspecified site 03/24/2023 B12 deficiency 02/17/2023 Inflammation of the rectum 09/13/2020 Overview (09/13/2020): Added automatically from request for surgery [id number] Chronic rectal pain 09/13/2020 Overview (09/13/2020): Added automatically from request for surgery [id number] Squamous cell carcinoma of rectum 09/13/2020 Overview (09/13/2020): Added automatically from request for surgery [id number] Screening for malignant neoplasm of colon 2020 Overview (07/30/2020): Added automatically from request for surgery [id number] ASTER (acute kidney injury) 12/01/2019 Assessment & [...] 03/01/2019 Assessment & Plan (03/02/2019 4:40 PM SWITCHMAN): Cr was 1.13 on admission and peaked to 1.41 03/01 likely in the setting of IV abx. Supported with IVFS and stopped IV abx. Cr 1.12 Skin breakdown to perianal region 02/28/2019 Assessment & Plan (03/01/2019 1:12 PM SWITCHMAN): Skin breakdown noted on exam between gluteal [...] 02/28/2019 Assessment & Plan (03/02/2019 4:45 PM SWITCHMAN): Likely 2/2 current XRT. Patient has diarrhea at baseline. -Will send c.diff, stool studies to r/o infection -cIVFs to maintain hydration -diarrhea started again the evening of 03/01, send c.diff -k 3.2 in setting of diarrhea, supplemented Pancytopenia 02/27/2019 Assessment & Plan (12/01/2019 10:29 PM CDT): has been pancytopenic since chemotherapy, also with HIV Assessment & Plan (03/02/2019 4:38 PM SWITCHMAN): In setting of chemotherapy 02/13- and XRT. -WBC 1.0, ANC 500 -H/H 8.5/23.4 on admission -PLT 3K on admission, s/p 1 unit, with appropriate bump to 16K -Will transfuse PLTs to keep > 10K, will likely need again as plt 13 today (denies blood nose/bm) -hgb 7.5, lorenzo transfuse 1 unit in setting of overall fatigue Assessment & Plan (02/27/2019 11:25 PM SWITCHMAN): - likely 2/2 recent chemo - transfuse 1 unit plt with post transfusion cbc - maintain type and screen - consent in chart Transaminitis 02/17/2019 Assessment & Plan (02/18/2019 1:05 PM SWITCHMAN): New onset 02/17 w/ t.bili 1, Alk Phos 181, AST 389, ALT 227. Previously normal. - Suspect drug-induced likely I/s/o recently initiated chemotherapy - consider also fluconazole vs biktarvy (these are not new prescriptions but concerns of compliance pre-hospitalization) vs recently initiated MSContin Down-trending today, plan to d/c Severe malnutrition 02/14/2019 Assessment & Plan (03/02/2019 4:44 PM SWITCHMAN): -encourage high protein diet. Assessment & Plan (02/16/2019 11:14 AM SWITCHMAN): Pt has had significant weight loss & poor PO intake. 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 - s/p treatment with atovaquone (rash to dapsone was, no G6PD) Encounter for antineoplastic chemotherapy 2018 Assessment & Plan (02/18/2019 1:04 PM SWITCHMAN): Admitted for C1 Mitomycin and 5-FU with [...] 02/13/2019 Assessment & Plan (02/15/2019 1:32 PM SWITCHMAN): Noted history of CKD3 with peak Cr in medical record to 2.5. Previously followed with nephrology though not in last couple years. Cr now WNL with adequate UO. - Monitor CMP daily, daily weights, and I&O Nicotine dependence 02/13/2019 Assessment & Plan (02/28/2019 1:13 PM SWITCHMAN): Will administer Nicotine patches in house Assessment & Plan (02/15/2019 1:35 PM SWITCHMAN): Current every day smoker. - Nicotine 21 mg patch daily - Encourage smoking cessation Anal cancer 10/17/2018 Assessment & Plan (04/06/2023 1:47 PM SWITCHMAN): S/p chemoradiation Currently in remission - Continue follow up with Dr. Peratla Assessment & Plan (12/01/2019 10:29 PM CDT): Follows w/ Dr. Peralta, last chemoXRT 03/2019 and poorly tolerated -Has outpatient PET scheduled Wednesday -Chronic rectal pain is managed by pain clinic outpatient w/ baclofen, gabapentin, topical lidocaine, methadone and Percocet -Will dose reduce gabapentin per CrCl to TID from QID Assessment & Plan (03/01/2019 1:06 PM SWITCHMAN): Patient of Dr. Peralta. S/p C1 mitomycin/5FU 02/13- with concurrent radiation. -Will continue XRT inpatient -Due for chemo on week 5 (~03/13/19) -Due to profound pancytopenia s/p chemo, will send out labwork to check deficiency in dihydropyrimidine dehydrogenase (DPD) per outpatient team 03/01 (has to be in pink tube) Assessment & Plan (02/27/2019 11:21 PM SWITCHMAN): - s/p C1 mitomycin/5FU 02/13-14 with concurrent radiation - pain control with MSContin 30 BID + oxycodone PRN Assessment & Plan (02/18/2019 12:52 PM SWITCHMAN): Diagnosed 09/23/2018, [id number]. Followed by Dr. Peralta. Treatment delayed 2/2 insurance issues. - Admitted for C1 mitomycin + 5FU w/ concurrent radiation (planned 28 fx) - first RT 02/13. C1 complete. Will follow up with xrt outpatient and with Dr. Peralta for C2 in a few weeks Tolerated treatment well Human immunodeficiency virus (HIV) disease 10/17 Assessment & Plan (04/06/2023 1:48 PM SWITCHMAN): Last CD4 148, VL [id number] - Continue Symtuza - Continue atovaquone 1500 mg daily for PCP ppx - Ensure close f/u with local ID Dr. Louis Assessment & Plan (12/01/2019 10:28 PM CDT): last CD4 79, HIV VL [id number] 07/2019 - repeat CD4, HIV RNA; continue Biktarvy, continue fluconazole (patient endorses is suppressive therapy after previous crypto infection) Assessment & Plan (02/28/2019 12:45 PM SWITCHMAN): Follows with Dr. Louis. Last CD4 153, VL 464K 10/2018. -Continue home biktarvy -Hx of crypto meningitis, continue suppressive fluconazole Assessment & Plan (02/27/2019 11:23 PM SWITCHMAN): - continue home biktarvy - hx of crypto meningitis, continue suppressive fluconazole Assessment & Plan (02/18/2019 1:12 PM SWITCHMAN): Most recent 10/19 CD4 153, VL 465k. [...] 08/12/2018 Assessment & Plan (02/15/2019 1:32 PM SWITCHMAN): History of crypto meningitis; unclear what year [...] elsewhere Assessment & Plan (03/02/2019 4:39 PM SWITCHMAN): Patient reports rectal pain. In setting of anal cancer and current XRT. Follows with pain management outpatient, Dr. Pichardo. -On exam, there is skin breakdown between gluteal muscles > c/s wound care for wound management -Home pain regimen: MSContin 30mg BID, Gabapentin 600mg QID, Requip 1mg qpm, [place]thoud 10/325 q6hprn, Baclofen 20mg TID prn Assessment & Plan (02/17/2019 12:10 PM SWITCHMAN): Follows with pain management (Dr. Pichardo) outpatient [...] 04/06/2023 Assessment & Plan (04/04/2023 9:55 AM SWITCHMAN): -recent labs with low B12 and low folate -supplement with B12 and folate daily Hyponatremia 02/27/2019 04/06/2023 Assessment & Plan (04/05/2023 4:32 PM SWITCHMAN): -Resolved s/p IVF bolus Assessment & Plan (02/28/2019 12:46 PM SWITCHMAN): Na 127 on admit. Likely 2/2 dehydration related to diarrhea. -S/p 1L NS bolus x 2 -Na improving, 135 today -Will CTM Assessment & Plan (02/27/2019 11:24 PM SWITCHMAN): - 2/2 dehydration liked related to diarrhea. Urine sodium < 20, Na improving with NS - additional 1L NS overnight, repeat BMP in AM Neutropenic fever 02/27/2019 02/07/2024 Assessment & Plan (03/01/2019 12:53 PM SWITCHMAN): Patient admitted from [facility], where he reported chills with Tmax 38. Found to be neutropenic and was briefly hypotensive in [facility]. -Infectious workup: Blood cultures x 2 [...] days Assessment & Plan (02/27/2019 11:26 PM SWITCHMAN): - chills, Tmax 38, neutropenic and was briefly hypotensive in [facility] - blood cultures pending - f/u urine culture - CXR clear - f/u GC/CT - continue vanc/cefe Anal warts 09/09/2018 12/01/2019 Overview (09/09/2018): Added automatically from request for surgery [id number] Encounters Date Type Department Care Team Description 11/10/2024 10:20 AM CDT Office Visit [facility]) - [facility] Urology [address] [facility] [address] [place] [address] Norman Schneider MD Stricture of bulbous urethra in male, unspecified stricture type (Primary Dx) 11/07/2024 8:18 PM CDT - 11/07/2024 11:59 PM CDT Hospital Encounter [facility] Radiology [facility] ([facility]) [address] [place] [id number] Memory loss Discharge Disposition: Discharge to home or self care 11/01/2024 2:00 PM CDT Therapy [facility] Physical Therapy [address] [place] [address] Floor [address] [place] [phone] Nandini Norton DPT Pelvic floor dysfunction (Primary Dx) 11/01/2024 Plan of Care Documentation [facility] Physical Therapy [address] [place] [address] Floor [address] [place] [phone] 10/19/2024 Telephone [facility] General Neurology [address] [facility] [facility] 6th [place] [address] Frida Zhu RN 09/08/2024 10:00 AM CDT Office Visit [facility] ([facility]) - [facility] Urology [address] [facility] [address] [place] [address] Norman Schneider MD Stricture of bulbous urethra in male, unspecified stricture type (Primary Dx); Pelvic floor dysfunction 08/14/2024 3:00 PM CDT Office Visit [facility] ([facility]) - [facility] Urology [address] [facility] [address]th [place] [address] [place] [address] Stricture of bulbous urethra in male, unspecified [...] on file Legal Sex Male 4:35 AM SWITCHMAN Gender Identity Male 04/21/2023 9:16 AM SWITCHMAN Sexual Orientation Not on file Obstetrics History [...] images of the brain were postprocessed on [employer] to generate segmented brain volumes using commercial software. Results were compared to 10th and 90th percentiles of healthy age-/gender-matched population. Graphs were sent to [employer] PACS. The protocol specifically includes FLAIR [...] hippocampal volumes: Quantitative assessment was performed using [employer] and is reported. Total intracranial [...] images of the brain were postprocessed on [employer] to generate segmented brain volumes using commercial software. Results were compared to 10th and 90th percentiles of healthy age-/gender-matched population. Graphs were sent to [employer] PACS. The protocol specifically includes FLAIR [...] hippocampal volumes: Quantitative assessment was performed using [employer] and is reported. Total intracranial volume (TIV): [...] Straw Yellow Clarity, ur Clear Clear [facility] Specific gravity, ur 1.013 1.003 - 1.030 [facility] pH, urine 6.5 [facility] Comment: Interpretive Data U rine pH is affected by diet, medications, systemic acid-base disturbances, and renal tubular function. pH may affect urinary stone formation. For example, urine pH below 6.0 may help reduce the tendency for calcium phosphate stones and pH greater than 6.0 may reduce the tendency for uric acid stone formation. Source: [employer] Current Interpretive Data was last revised on 2017 Protein, ur ql Negative Negative [facility] Glucose, ur ql Negative Negative [facility] Ketones, ur Negative Negative [facility] Bilirubin, ur Negative Negative [facility] Blood, ur Negative Negative [facility] Urobilinogen, ur <2.0 <2.0 mg/dL [facility] Nitrite, ur Negative Negative [facility] Leukocyte esterase, ur Negative Negative [facility] UA reflex comment Reflex conditions for microscopic UA and culture not met. [facility] Urine 07/31/2024 8:48 PM CDT 07/31/2024 9:02 PM CDT us Ioana Ybarra MD LAB MICROBIOLOGY - GENERAL ORDERABLES Final Result [facility] [place] [address] * RPR Blood (07/21/2024 11:26 AM CDT) RPR Nonreactive Nonreactive Blood 07/21/2024 11:2 6 AM CDT 07/21/2024 11:59 AM CDT us Cosme Stafford Jr., MD LAB MICROBIOLOGY - GENERAL ORDERABLES Final Result Performing Organization Address City/[facility] Co de Phone Number [facility] Department [place] [address] from Last 3 Months or Most Recently Relevant to Health Maintenance Insurance MEDICARE IDIA MEDICARE [facility] Address: [address] [address] [facility] MANAGED MEDICAID GENERIC RISK OTHER [employer] [place] MEDICARE [facility] Advance Directives For more information, please contact: [phone] * Full Code (Latest Code Status on [...] 10:57 AM 05/28/2020 4:48 AM Care Teams Undercover Agent Relationship Specialty Start Date End Date Izabela Louis MD [address] [place] [id number] PCP - General 11/22/19 Syed Diggs MD Surgeon Colon and Rectal Surgery 09/30/18 Wesley Pichardo MD [address] [id number] Pain Management 09/30/18 Marilyn Schreiber MD [address] [address] Radiation Oncologist Radiation Oncology 10/24/18
[2024-11-13 02:51] LABS: Alanine Aminotransferase 23 U/L (6-50); Albumin Level 5.1 g/dL (3.5-5.1); Alkaline Phosphatase 98 U/L (38-126); Anion Gap 9 mmol/L (4-12); Aspartate Amino Transferase 36 U/L (17-59); Bilirubin,Total 0.6 mg/dL (0.2-1.3); Blood Urea Nitrogen 14 mg/dL (9-20); Calcium 10.0 mg/dL (8.4-10.2); Carbon Dioxide 24 mmol/L (22-30); Chloride 105 mmol/L (98-107); Estimated CRCL calculation 70 ml/min; Estimated Glomerular Filt Rate > 60; Glucose 116 mg/dL (65-110); Lipase 113 U/L (23-300); Potassium 4.0 mmol/L (3.4-5.0); Sodium 138 mmol/L (137-145); Total Protein 9.6 g/dL (6.3-8.2)
[2024-11-13 04:20] LABS: Add Urine Microscopic? YES; Appearance Urine Clear (Clear); Glucose Urine UA Negative (Negative); Leukocyte Esterase Ur 1+ LEU/UL (Negative); Nitrate Urine Negative (Negative); Non Pathogenic Casts 0-2; Specific Grav Ur 1.005 (1.001-1.035)
[2024-11-13 04:58] VITALS: BP 130/82; PULSE 84; RESP 15; TEMP 36.8; O2SAT 99
[2024-11-13 05:16] VITALS: BP 130/82; PULSE 84; RESP 15; TEMP 36.8; O2SAT 99
== END 2024-11-13 05:20 | disposition home or self-care (01) ==
PROVIDERS: Emergency Provider Student in an Organized Health Care Education/Training Program; PCP Internal Medicine Infectious Disease
DX: K52.9 Noninfective gastroenteritis and colitis, unspecified (principal); G25.81 Restless legs syndrome; Z21 Asymptomatic human immunodeficiency virus [HIV] infection status; Z85.048 Personal history of other malignant neoplasm of rectum, rectosigmoid junction, and anus; Z79.899 Other long term (current) drug therapy
CPT/HCPCS: 36415; 74177; 80053; 81001; 83690; 85025; 87086; 99284; A9270; Q9967